=== PATIENT | female | born 1945 | race Caucasian/White ===

== ENCOUNTER 2020-03-29 15:18 | Outpatient (CLI) | payer MEDICARE, SELFPAY ==
--- NOTE | ~2020-03-29 | MM_ITS ---
EXAMINATION: MM screening [facility] BI w gisella HISTORY: Screening mammogram TECHNIQUE: Craniocaudal and mediolateral oblique 3-D tomosynthesis images were obtained and synthetic 2-D images were generated. CAD analysis was submitted and interpreted. COMPARISON: 11/23/2018, 01/21/2016 BREAST PARENCHYMAL COMPOSITION: There are scattered areas of fibroglandular density. FINDINGS: Scattered bilateral benign calcifications. Stable anterior lower inner quadrant right breas t circumscribed mass. There is no evidence of suspicious mass, calcification, or architectural distor tion to suggest malignancy in either breast. There has been no suspicious interval change. IMPRESSION: 1. No mammographic evidence of malignancy. 2. Recommend routine screening mammography in one year. BI-RADS Category 2: Benign finding(s). Reviewed, dictated and finalized at location A.
== END 2020-03-29 15:19 | disposition home or self-care (01) ==
LOC: ANHIMG 15:19
PROVIDERS: PCP Family Medicine; Visit Provider Physician Assistant
DX: Z12.31 Encounter for screening mammogram for malignant neoplasm of breast (principal)
CPT/HCPCS: 77063; 77067

== ENCOUNTER 2020-04-09 08:55 | Outpatient (CLI) | payer MEDICARE, SELFPAY ==
--- NOTE | ~2020-04-09 | XR_ITS ---
EXAMINATION: XR chest 2V DATE: 04/09/2020 09:44 INDICATION: Shortness of breath. TECHNIQUE: Frontal and lateral views of the chest were obtained. COMPARISON: Chest 2 views 04/13/2014 FINDINGS: There is mild atelectasis in right lower lung zone and left mid and lower lung zones. No pl eural effusion or pneumothorax. Cardiomegaly is noted. IMPRESSION: 1. Mild atelectasis bilaterally. 9 2. Cardiomegaly. Reviewed, dictated and finalized at location A.
--- NOTE | ~2020-04-09 | NM_ITS ---
EXAMINATION: NM yassine stress w perfusion DATE: 04/09/2020 13:54 INDICATION: Chest pain. TECHNIQUE: Rest images were obtained following intravenous administration of 11.6 mCi Tc99m tetrofosm in (Myoview). The patient was infused intravenously with Lexiscan (regadenoson). Then, 30 2. mCi Tc99 m tetrofosmin (Myoview) was administered intravenously, and stress images were obtained. Data was rec onstructed into short axis and horizontal and vertical long axis SPECT images. Gated SPECT images wer e also obtained. COMPARISON: None. FINDINGS: There is no definite reversible or fixed perfusion abnormality to suggest ischemia or infar ction. There is no segmental wall motion abnormality. Left ventricular ejection fraction measures 5 3%. IMPRESSION: 1. No definite ischemia or infarct. 2. Normal left ventricular ejection fraction measuring 53%. Reviewed, dictated and finalized at location A.
--- NOTE | 2020-04-09 09:38 | EST_ITS ---
Patient Info Name: Arpita Pop Age: 74 years : 1945 Gender: Female Ht: 60 in Wt: 180 lbs BSA: 1.90 m2 Exam Date: 04/09/2020 10:52 AM Exam Location: [facility] Stress Patient Status: Outpatient Admit Date: 04/09/2020 Staff Ordering Physician: Randall Chan PA-C Attending Provider: Randall Chan PA-C Referring Physician: Jarrett, Oswaldo Roach ; Exercise Technologist: Coral Cortez RDCS Exercise Physician: Jerry Falk DO Exam Type: CA stress yassine w NM Study Info Indications R07.89 - Other chest pain A regadenoson stress test was performed. Summary 1. 1. Negative lexiscan stress test for ischemic ST changes by ECG criteria. 2. 2. Baseline hypertension. Underlying atrial fibrillation. 3. 3. Nuclear scan to follow and will be reported separately. Please correlate with it. 4. 4. Patient informed of the above results. Protocol: Lexiscan Stress ECG Details Stage: REST Duration (min): 10 min : 9 sec HR (bpm): 122 SBP (mmHg): 157 DBP (mmHg): 111 Stage: REST Duration (min): 11 min : 32 sec HR (bpm): 113 SBP (mmHg): 157 DBP (mmHg): 111 Stage: REST Duration (min): 15 min : 35 sec HR (bpm): 93 SBP (mmHg): 157 DBP (mmHg): 111 Stage: STAGE 1 Duration (min): 1 min : 0 sec HR (bpm): 97 SBP (mmHg): 188 DBP (mmHg): 111 Stage: RECOVERY Duration (min): 1 min : 0 sec HR (bpm): 123 SBP (mmHg): 188 DBP (mmHg): 111 Stage: RECOVERY Duration (min): 2 min : 0 sec HR (bpm): 122 SBP (mmHg): 188 DBP (mmHg): 111 Stage: RECOVERY Duration (min): 3 min : 0 sec HR (bpm): 127 SBP (mmHg): 179 DBP (mmHg): 103 Stage: RECOVERY Duration (min): 3 min : 14 sec HR (bpm): 109 SBP (mmHg): 179 DBP (mmHg): 103 Rest HR: 93 bpm Peak HR: 134 bpm Rest Sys BP: 157 mmHg Peak Sys BP: 188 mmHg Max Pred HR: 145 bpm % Max Pred HR: 92 % Target HR: 123 bpm Max RPP: 25,192 bpm*mmHg Termination Reason: Completed protocol Cardiac Symptoms: None Total Time: 1 min : 0 sec Rest Lowe BP: 111 mmHg Peak Lowe BP: 111 mmHg Total Dose: 0.4 mg Resting ECG Atrial fibrillation, HR range 90-[address]pm. Stress ECG No ST changes. Arrhythmias None. Report Signatures
== END 2020-04-09 08:56 | disposition home or self-care (01) ==
PROVIDERS: PCP Family Medicine; Visit Provider Physician Assistant
DX: R07.9 Chest pain, unspecified (principal); R06.02 Shortness of breath; J98.11 Atelectasis; I51.7 Cardiomegaly
CPT/HCPCS: 71046; 78452; 93017; A9502; J2785

== ENCOUNTER 2020-04-26 08:23 | Outpatient (CLI) | payer MEDICARE, SELFPAY ==
--- NOTE | 2020-04-26 08:37 | ECHO_ITS ---
Patient Info Name: Arpita Pop Age: 75 years : 1945 Gender: Female Ht: 60 in Wt: 175 lbs BSA: 1.87 m2 HR: 99 bpm BP: 179 / 100 mmHg Heart Rhythm: Atrial Fibrillation Exam Date: 04/26/2020 9:05 AM Exam Location: [facility] Patient Status: Outpatient Admit Date: 04/26/2020 Staff Ordering Physician: Jerry Falk DO Customer Orders Clerk: Buffy Fontana RDCS Attending Provider: Jerry Falk DO Exam Type: CA echo doppler color flow Study Info Indications R06.00 - Dyspnea, unspecified Complete two-dimensional, color flow and Doppler transthoracic echocardiogram is performed. Summary 1. Left ventricular chamber dimension is normal. 2. Left ventricular systolic function is normal, estimated at 60-65%. 3. There is mildly increased left ventricular wall thickness. 4. The left ventricular diastolic function is abnormal. 5. E/e' 15 is elevated. 6. Patient is probably in atrial fibrillation. 7. Left atrial chamber dimension is moderately enlarged. 8. Right atrial chamber dimension is mildly enlarged. 9. The mitral valve has mildly calcified annulus. 10. There is mild to moderate mitral valve regurgitation. 11. There is moderate to severe tricuspid valve regurgitation. 12. Moderate pulmonary hypertension, estimated pulmonary arterial systolic pressure is 54 mmHg. Left Ventricle E/e' 15 is elevated. Patient is probably in atrial fibrillation. Left ventricular chamber dimension is normal. Left ventricular systolic function is normal, estimated at 60-65%. There is mildly increased left ventricular wall thickness. The left ventricular diastolic function is abnormal. Right Ventricle Right ventricular chamber dimension is normal. Right ventricular systolic function is normal. Left Atria Left atrial chamber dimension is moderately enlarged. Right Atria Right atrial chamber dimension is mildly enlarged. Aortic Valve The aortic valve is trileaflet. There is no aortic valve stenosis. There is no aortic valve regurgitation. Pulmonic Valve There is no pulmonic regurgitation. Mitral Valve The mitral valve has mildly calcified annulus. There is no mitral valve stenosis. There is mild to moderate mitral valve regurgitation. Tricuspid Valve There is moderate to severe tricuspid valve regurgitation. Moderate pulmonary hypertension, estimated pulmonary arterial systolic pressure is 54 mmHg. Pericardium/Pleural There is no pericardial effusion. Inferior Vena Cava Normal inferior vena cava with >50% collapse upon inspiration consistent with normal right atrial pressure, 5 mmHg. Aorta The aortic root size at the sinus of Valsalva is normal. Left Ventricular Outflow Tract Name Value Normal LVOT 2D LVOT Diameter 1.7 cm LVOT Doppler LVOT Peak Gradient 3 mmHg LVOT Mean Gradient 1 mmHg LVOT VTI 19 cm LVOT VTI/AV VTI Ratio 0.7 LVOT Stroke Volume 45 ml LVOT CO 7.7 l/min LVOT CI
== END 2020-04-26 08:24 | disposition home or self-care (01) ==
PROVIDERS: PCP Family Medicine; Visit Provider Internal Medicine Cardiovascular Disease
DX: R06.00 Dyspnea, unspecified (principal)
CPT/HCPCS: 93306

== ENCOUNTER 2020-09-08 16:07 | Inpatient (IN) | payer MEDICARE, SELFPAY ==
--- NOTE | ~2020-09-08 | XR_ITS ---
EXAMINATION: XR chest PICC line INDICATION: PICC insertion TECHNIQUE: Portable AP chest at 1504 hours COMPARISON: 0511 hours FINDINGS: A right upper extremity PICC has been inserted which ends with its tip in the distal superi or vena cava. There is stable cardiomegaly. Diffuse airspace opacities persist throughout all lung zo juan a with slight interval improvement. No pleural effusion or pneumothorax is identified. IMPRESSION: 1. Right upper extremity PICC ending with its tip in the distal superior vena cava. 2. Diffuse lung disease with slight improvement, consistent with pneumonia and/or pulmonary edema and /or acute respiratory distress syndrome (ARDS). Reviewed, dictated and finalized at location A. R OPERATOR IMPRESSION: 1. Right upper extremity PICC ending with its tip in the distal superior vena c sue. 2. Diffuse lung disease with slight improvement, consistent with pneumonia and/ or pulmonary edema and/or acute respiratory distress syndrome (ARDS).
--- NOTE | ~2020-09-08 | XR_ITS ---
EXAMINATION: XR abdomen NG/feed tube insert INDICATION: Nasogastric tube placement TECHNIQUE: Portable AP KUB-NG at 2236 hours COMPARISON: 04/08/2019 FINDINGS: The tip of nasogastric tube is in the stomach. The proximal side port is near the gastroeso phageal junction. Cardiomegaly is noted. Patchy airspace opacities are noted. IMPRESSION: 1. Tip of the nasogastric tube in the stomach with proximal side port near the gastroesophageal junct ion. Recommend advancing. 2. Cardiomegaly. Reviewed, dictated and finalized at location A. WEIGHER IMPRESSION: 1. Tip of the nasogastric tube in the stomach with proximal side port near the gastroesophageal junction. Recommend advancing. 2. Cardiomegaly.
--- NOTE | ~2020-09-08 | CT_ITS ---
EXAMINATION: CT abdomen pelvis w con DATE: 09/08/2020 18:45 INDICATION: Right upper quadrant pain TECHNIQUE: Computed tomography (CT) of the abdomen and pelvis was performed with 160 cc Omnipaque 350 intravenous contrast. The dose-length product was 1197.38 mGy-cm. Automated exposure control and ite rative reconstruction technique were employed. COMPARISON: CT dated 11/28/2019. FINDINGS: There are patchy bibasilar infiltrates of the lungs, suspicious for pneumonia. Cardiomegaly . No significant pleural or pericardial effusion. There is atherosclerosis. The liver, spleen, adrenal glands and spleen are normal. Kidneys are within normal limits. There are pancreatic calcifications, consistent with chronic pancreatitis. There is severe stenosis of the SMA at the origin. Nonobstructive bowel gas pattern. Colonic diverticulosis without evidence for divertic ulitis. Nonobstructive bowel gas pattern. No abnormal pelvic masses or fluid collections. Bladder is unremarkable. Severe lower thoracic and lumbar spine. There are advanced degenerative changes of the hips. There is a stimulator lead extending into the pelvis via transsacral root. IMPRESSION: 1. Bibasilar patchy infiltrates, consistent with pneumonia. Edema less favored. 2: Cardiomegaly. 3: Severe stenosis at the origin of the SMA. 4: Chronic pancreatitis. Reviewed, dictated and finalized at location A.
--- NOTE | ~2020-09-08 | XR_ITS ---
XR chest 1V portable 09/08/2020 20:18 Indication: Nausea and diarrhea Procedure: AP portable chest Comparison: Comparison to multiple prior studies sequentially, with oldest reviewed study dated 05/2009. Findings: The medullary. Right basilar infiltrates. No pleural effusion, edema or pneumothorax. Impression: 1: Right basilar infiltrates, atelectasis versus pneumonia. 2: Cardiomegaly. Reviewed, dictated and finalized at location A. Impression: 1: Right basilar infiltrates, atelectasis versus pneumonia. 2: Cardiomegaly.
--- NOTE | ~2020-09-08 | XR_ITS ---
EXAMINATION: XR chest 1V portable INDICATION: Shortness of breath, COVID 19 TECHNIQUE: Portable AP chest at 0511 hours COMPARISON: 09/08/2020 FINDINGS: There are diffuse opacities throughout all lung zones which demonstrates interval worsening . Cardiomegaly is noted. There is no pleural effusion or pneumothorax. IMPRESSION: 1. . Diffuse lung disease, consistent with pneumonia and/or pulmonary edema and/or acute respiratory distress syndrome (ARDS). 2. Cardiomegaly. Reviewed, dictated and finalized at location A. THALENE OPERATOR HELPER IMPRESSION: 1. . Diffuse lung disease, consistent with pneumonia and/or pulmonary edema and /or acute respiratory distress syndrome (ARDS). 2. Cardiomegaly.
[2020-09-08 16:25] VITALS: BP 130/98; PULSE 60; RESP 16; TEMP 36.3; O2SAT 95
--- NOTE | 2020-09-08 16:49 | ED.GIBLEED ---
HPI - GI Bleed General Chief complaint: GI Bleed Stated complaint: DARK STOOLS Time Seen by Provider: 09/08/20 16:49 History of Present Illness HPI Narrative: 75 yo female a-fib, htn presents to the ED for abdominal pain. She reports that she has had severe epigastric pain for the past week. No radiation. Associated with anorexia and dark stools. She reports that she has not been able to eat for 4 days. She has nt been taking any medications either. She does have some SOB as well. No vomiting, fever, chest pain. Related Data Allergies Allergy/AdvReac Type Severity Reaction Status Date / Time acetaminophen Allergy Severe HIVES Verified 09/04/20 14:13 propoxyphene Allergy Severe HIVES Verified 09/04/20 14:13 amoxicillin Allergy Unknown Nausea Verified 09/04/20 14:13 clindamycin Allergy Unknown Unknown Verified 09/04/20 14:13 codeine Allergy Unknown but Verified 09/04/20 14:13 tolerates hydrocodone donepezil Allergy Unknown Unknown Verified 09/04/20 14:13 hydrochlorothiazide Allergy Unknown Skin Verified 09/04/20 14:13 Reaction latex Allergy Unknown Unknown Verified 09/04/20 14:13 lisinopril Allergy Unknown cough Verified 09/04/20 14:13 meloxicam Allergy Unknown ulcer Verified 09/04/20 14:13 olmesartan Allergy Unknown Unknown Verified 09/04/20 14:13 Penicillins Allergy Unknown Unknown Verified 09/04/20 14:13 spironolactone Allergy Unknown hyperkalemi Verified 09/04/20 14:13 a Review of Systems Review of Systems: All systems reviewed & are unremarkable except as noted in HPI and below Constitutional: Constitutional: Denies fever(s) Cardiovascular: Cardiovascular: Denies chest pain Respiratory: Respiratory: Reports dyspnea Gastrointestinal: Gastrointestinal: Reports abdominal pain, Reports nausea and Denies vomiting Genitourinary: Genitourinary: Denies dysuria Endocrine: Endocrine: Denies polydipsia [facility], [facility] Past Medical History Medical History (Updated 09/08/20 @ 20:20 by Chuckie Aldana MD) Arthritis Atrial fibrillation Back pain COPD (chronic obstructive pulmonary disease) Degenerative disc disease GERD (gastroesophageal reflux disease) Hypertension Osteoporosis Peripheral neuropathy Right renal artery stenosis Sleep apnea SMA stenosis TIA (transient ischemic attack) x3 Ulcer Surgical History Surgical History H/O Spinal surgery H/O: hysterectomy History of bladder suspension procedure History of carpal tunnel release bilateral History of orthopedic surgery heel spurs, bilateral bunionectomy Hx of appendectomy Hx of cataract surgery Hx of cholecystectomy Family History Family History Father Diabetes mellitus Family history of mental disorder Hypertension Family history of elevated blood lipids Family history of cardiovascular disease Cerebrovascular accident Mother Diabetes mellitus Family history of mental disorder Hypertension Family history of elevated blood lipids Family history of cardiovascular disease Cerebrovascular accident Social History Social History Smoking end date: 11/09/88 Alcohol intake: current Exam Const: General: no acute distress and alert Nutritional Appearance: obese Orientation/consciousness: patient oriented x3 HENMT: Head: normal to inspection Resp: Effort & Inspection: tachypneic Auscultation: clear to auscultation bilaterally Cardio: Rate: regular rate Rhythm: regular rhythm GI: Inspection: non-distended GI Palp: Yes Soft to palpation and Yes Tenderness to palpation present (GI) (epigastric, RUQ) Skin: General skin exam: normal color Neuro: General: patient oriented x3 Extrem: General: no edema Course Vital Signs Vital signs: Vital Signs Temperature 36.3 C L 09/08/20 16:25 Pulse Rate 60 09/08/20 16:25 Respiratory Rate 16 1
[2020-09-08 16:53] LABS: Basophils Percent Auto 0.2 % (0.2-1.2); Hematocrit 47.2 % (37.0-47.0); Immature Granulocyte Absolute 0.01 K/mm3 (0.00-0.031); Immature Granulocyte Percent A 0.2 % (0-0.5); Lymphocytes Absolute Auto 0.81 K/mm3 (0.9-3.2); Lymphocytes Percent Auto 19.9 % (18.3-44.2); Mean Corpuscular HGB Conc 33.9 g/dl (32-36); Mean Corpuscular Hemoglobin 30.1 pg (26-34); Mean Corpuscular Volume 88.9 fl (80-100); Mean Platelet Volume 10.1 fl (7.4-10.4); Monocytes Absolute Auto 0.5 K/mm3 (0.1-0.6); Monocytes Percent Auto 12.5 % (2.6-8.5); Neutrophils Absolute Auto 2.7 K/mm3 (1.3-6.7); Neutrophils Percent Auto 67.2 % (45.5-73.1); Platelet Count Result 199 k/mm3 (150-375); Red Blood Count 5.31 M/mm3 (4.2-5.4); Red Cell Distribution Width 13.6 % (11.5-14.5); White Blood Count 4.1 K/mm3 (4.5-10.0)
[2020-09-08 17:03] LABS: INR 1.1; Prothrombin Time 13.7 Seconds (11.1-14.7)
[2020-09-08 17:04] LABS: Partial Thromboplastin Time 26.6 SECONDS (22.3-36.8)
[2020-09-08 17:05] LABS: Alanine Aminotransferase 32 U/L (4-35); Albumin Level 4.7 g/dL (3.5-5.1); Alkaline Phosphatase 103 U/L (38-126); Anion Gap 14 mmol/L (8-16); Aspartate Amino Transferase 77 U/L (14-36); Bilirubin,Total 1.1 mg/dL (0.2-1.3); Blood Urea Nitrogen 26 mg/dL (7-17); Calcium 9.7 mg/dL (8.4-10.2); Carbon Dioxide 30 mmol/L (22-30); Chloride 90 mmol/L (98-107); Estimated CRCL calculation 31 ml/min; Estimated Glomerular Filt Rate 37; Glucose 138 mg/dL (65-105); Potassium 3.6 mmol/L (3.4-5.0); Sodium 134 mmol/L (137-145)
[2020-09-08 17:45] VITALS: BP 181/94; PULSE 67; RESP 17; O2SAT 95
[2020-09-08] MEDS: SODIUM CHLORIDE 0.9% IV 1,000 ML 999 ML IV CONT (18:10)
[2020-09-08] MEDS: fentaNYL CITRATE INJ (*CRX) 100 MCG/2 ML VIAL 50 MCG IV PUSH (18:12)
[2020-09-08 18:30] VITALS: BP 188/98; PULSE 99; RESP 15; O2SAT 96
[2020-09-08 19:47] LABS: Lactic Acid Reflex 1.5 mmol/L (0.7-2.1)
[2020-09-08] MEDS: metroNIDAZOLE 500 MG/ISO 100ML 500 MG/100 ML BAG 100 MG IVPB (19:52)
[2020-09-08 19:57] VITALS: BP 158/86; PULSE 88; RESP 18; O2SAT 99
[2020-09-08 20:29] LABS: Lipase 86 U/L (23-300)
[2020-09-08 21:15] VITALS: BP 179/125; PULSE 130; RESP 25; TEMP 37.2; O2SAT 93; BMI 35.3
--- NOTE | 2020-09-08 21:15 | ADMGEN ---
This patient, Arpita Pop, was admitted to 3 Med Surg Room 320-01. Patient/family oriented to hospital policies and general routines including ID bracelet, bed and alarms, visiting hours, pain management, procedures, bathroom and other care routines, personal items, smoking policy, room service/diet, and visiting hours. Information on how to activate the Rapid Response Team has been discussed. Patient/Family are encouraged to report perceived risks to care and to ask questions if they do not understand what they are told or what they should do.
[2020-09-08 21:16] VITALS: BP 159/86; PULSE 88; RESP 18; TEMP 36.8; O2SAT 97
[2020-09-08] MEDS: LACTATED RINGERS 1,000 ML 150 ML IV CONT (22:05)
[2020-09-08] MEDS: HYDROmorphone HCL INJ (*CRX) 1 MG/ML SYR 0.5 MG IV PUSH (22:06)
[2020-09-08] MEDS: ONDANSETRON INJ 4 MG/2 ML VIAL IV PUSH (22:10)
[2020-09-08] MEDS: hydrALAZINE HCL 20 MG/ML VIAL 10 MG IV PUSH (23:20)
[2020-09-09] VITALS (15 sets, daily range): BP systolic 131–261; BP diastolic 72–134; PULSE 80–128; RESP 20–24; TEMP 36.6–37.6; O2SAT 90–94
--- NOTE | 2020-09-09 00:12 | PC.NURSE ---
Pt does not know home meds. States she has not taken any of them this week as she thought it would make her sicker. States her meds went home with her . Called spouse's number listed as [phone] and left voicemail.
--- NOTE | 2020-09-09 00:59 | ECG_ITS ---
Measurements Intervals [place] Rate: 129 P: IA: 312 QRS: 33 QRSD: 86 T: 109 QT: 264 QTc: 387 Interpretive Statements PROBABLY ATRIAL FIBRILLATION WITH RAPID VENTRICULAR RESPONSE (SIGNIFICANT BASELINE ARTIFACT) NONSPECIFIC ST & T-WAVE ABNORMALITY- HIGH LATERAL LEADS BASELINE ARTIFACT- I, II, III, AVR, AVL, AVF, V1-V6 ABNORMAL ECG Electronically Signed On 09-09-2020 7:13:49 [employer]OVELTY CHAIN [employer] by Jerry Falk D.O.
[2020-09-09] MEDS: ONDANSETRON INJ 4 MG/2 ML VIAL IV PUSH ×2 (01:36→08:26)
[2020-09-09] MEDS: METOPROLOL TARTRATE INJ 5 MG/5 ML VIAL IV PUSH ×3 (01:36→23:25)
[2020-09-09] MEDS: HYDROmorphone HCL INJ (*CRX) 1 MG/ML SYR 0.5 MG IV PUSH ×3 (01:37→23:25)
--- NOTE | 2020-09-09 01:40 | PC.NURSE ---
Daylight Savings Time For Daylight Savings Time Ending in the Fall - Clocks are moved back. For Daylight Savings Time Beginning in the Spring - Clocks are moved ahead. For [facility], the time of change occurs at 0200 hrs. Time is taken from the weather observer. This entry on the patient's chart recognizes the change in time reflected during documentation. Example: 2 entries for vital signs may be charted for 0200 hrs.
[2020-09-09] MEDS: HEPARIN SOD/D5W 100 UNITS/ML 25,000 UNITS/250 ML BAG 7 UNITS IV CONT (01:43)
[2020-09-09] MEDS: HEPARIN SODIUM 5,000 UNITS/ML VIAL 3500 UNITS IV PUSH (01:44)
[2020-09-09 01:55] LABS: Basophils Percent Auto 0.2 % (0.2-1.2); Hematocrit 44.9 % (37.0-47.0); Hemoglobin 15.1 g/dL (12.0-15.0); Immature Granulocyte Absolute 0.01 K/mm3 (0.00-0.031); Immature Granulocyte Percent A 0.2 % (0-0.5); Lymphocytes Absolute Auto 0.78 K/mm3 (0.9-3.2); Lymphocytes Percent Auto 16.3 % (18.3-44.2); Mean Corpuscular HGB Conc 33.6 g/dl (32-36); Mean Corpuscular Hemoglobin 29.8 pg (26-34); Mean Corpuscular Volume 88.7 fl (80-100); Mean Platelet Volume 10.2 fl (7.4-10.4); Monocytes Absolute Auto 0.3 K/mm3 (0.1-0.6); Monocytes Percent Auto 7.1 % (2.6-8.5); Neutrophils Absolute Auto 3.6 K/mm3 (1.3-6.7); Neutrophils Percent Auto 76.2 % (45.5-73.1); Platelet Count Result 182 k/mm3 (150-375); Red Blood Count 5.06 M/mm3 (4.2-5.4); Red Cell Distribution Width 13.7 % (11.5-14.5); White Blood Count 4.8 K/mm3 (4.5-10.0)
[2020-09-09 02:03] LABS: INR 1.2; Prothrombin Time 14.8 Seconds (11.1-14.7)
[2020-09-09 02:04] LABS: Partial Thromboplastin Time 61.9 SECONDS (22.3-36.8)
[2020-09-09] MEDS: cloNIDine 0.2 MG/24 HR PATCH 1 PATCH TRANSDERM (03:41)
[2020-09-09] MEDS: hydrALAZINE HCL 20 MG/ML VIAL IV PUSH (04:19)
[2020-09-09] MEDS: LACTATED RINGERS 1,000 ML 150 ML IV CONT ×2 (04:19→12:35)
--- NOTE | 2020-09-09 04:23 | PM.IMHP ---
H&P: HPI History of Present Illness Date/Time: 09/09/20 02:50 Chief complaint: Pneumonia, pancreatitis Narrative: Source of information: ER records and past medical records. Patient was only able to provide minimal information due to her dementia and severe hearing loss. Arpita Pop is a 75 year old female with a past medical history of chronic pancreatitis, severe SMA stenosis, dementia and hypertension who presented to the ER 1 week and nausea and vomiting for 4 days. Is in the epigastric area. In the ER the patient was reported the pain is severe and would scream out that her belly hurts. She had associated the symptoms with some dark stools. She had had generalized loss of appetite and nausea and vomiting. At the time of my evaluation the patient had an emesis bag at bedside that contained a small amount of bilious emesis. He has not had any recent travel or recent ill contacts. I am unable to determine if the patient has had any change in her bowel habits as she fell asleep multiple times when I was trying to obtain the information and she had difficulty understanding me due to her hearing loss. Patient has not had a bowel movement since admission. She has remained afebrile. Her CT does demonstrate evidence of chronic pancreatitis. She indicates that her abdominal pain is cross and tire epigastric region. Her pain is not reproducible to palpation. The she has not had any cough or congestion for ER records. She has been having some mild shortness of breath. She does have a history of moderate pulmonary hypertension but has no evidence of lower extremity swelling. Have difficulty with chronic pain has a stimulator extending into the pelvis via a trans sacral root. This stimulator causes artifact on her EKGs. The patient has chronically uncontrolled hypertension. She has been noncompliant with her home medications for at least the last 4 days. She reported to the ER staff that her medications ?make me sick.? Review of Systems Review of Systems: ROS unobtainable: Yes unobtainable due to medical condition (Dementia and severe hearing loss) [facility] Past Medical History Medical History (Updated 09/09/20 @ 04:58 by Deann Leonard DO) Arthritis Atrial fibrillation Normal stress test April 2020 Back pain Bilateral renal artery stenosis Bilateral renal nurse to [facility] noted on CTA evaluated at [facility] neyda Farias December 2019 COPD (chronic obstructive pulmonary disease) Degenerative disc disease Dyslipidemia GERD (gastroesophageal reflux disease) Hypertension Moderate pulmonary arterial systolic hypertension Echocardiogram April 2020: EF 60-65%, normal diastolic function, atrial fibrillation, moderate left atrial enlargement, moderate to severe tricuspid valve regurgitation moderate pulmonary hypertension with RVSP of 54 Osteoporosis Peripheral neuropathy Sleep apnea Severe obstructive sleep apnea on polysomnogram October 2014 with recommended CPAP of 18 SMA stenosis TIA (transient ischemic attack) x3 Ulcer Urinary retention with incomplete bladder emptying Vascular dementia with behavior disturbance Surgical History Surgical History H/O Spinal surgery H/O: hysterectomy History of bladder suspension procedure History of carpal tunnel release bilateral History of orthopedic surgery heel spurs, bilateral bunionectomy Hx of appendectomy Hx of cataract surgery Hx of cholecystectomy Family History Family History Father Diabetes mellitus Hypertension Cerebrovascular accident Cardiovascular disease Hyperlipidemia Psychiatric illness Mother Diabetes mellitus Hypertension Cerebrovascular accident Psychiatric illness Cardiovascular disease Hyperlipidemia Social History Social History (Updated 09/09/20 @ 04:47 by Deann Leonard DO) Social History: Primary care physic
[2020-09-09] MEDS: hydrALAZINE HCL 20 MG/ML VIAL 10 MG IV PUSH (06:08)
[2020-09-09 07:56] LABS: Lactic Acid Reflex 1.3 mmol/L (0.7-2.1)
[2020-09-09 07:57] LABS: Alanine Aminotransferase 28 U/L (4-35); Albumin Level 3.9 g/dL (3.5-5.1); Alkaline Phosphatase 90 U/L (38-126); Anion Gap 11 mmol/L (8-16); Aspartate Amino Transferase 68 U/L (14-36); Bilirubin,Total 0.8 mg/dL (0.2-1.3); Blood Urea Nitrogen 18 mg/dL (7-17); Calcium 8.8 mg/dL (8.4-10.2); Carbon Dioxide 30 mmol/L (22-30); Chloride 92 mmol/L (98-107); Estimated CRCL calculation 49 ml/min; Estimated Glomerular Filt Rate > 60; Glucose 139 mg/dL (65-105); Sodium 133 mmol/L (137-145)
[2020-09-09 08:10] LABS: Partial Thromboplastin Time 65.8 SECONDS (22.3-36.8)
[2020-09-09] MEDS: METOPROLOL TARTRATE INJ 5 MG/5 ML VIAL 10 MG IV PUSH (08:25)
[2020-09-09] MEDS: PANTOPRAZOLE SODIUM IV 40 MG VIAL IV PUSH ×2 (08:26→20:14)
[2020-09-09 10:09] LABS: D Dimer 1.11 ug/mL (<0.48)
--- NOTE | 2020-09-09 10:24 | PM.DS ---
DS: Admitting Diagnosis Admitting Diagnosis Admitting Diagnosis: Pneumonia, pancreatitis DS: Discharge Diagnosis Discharge Diagnosis (1) Pneumonia: Qualifiers: Laterality: bilateral Lung location: lower lobe of lung Pneumonia type: due to unspecified organism Qualified Code(s): J18.9 - Pneumonia, unspecified organism Code(s): J18.9 - Pneumonia, unspecified organism Status: Acute Assessment and Plan: Possibly due to aspiration given multiple days of vomiting. Patient is on antibiotic therapy with azithromycin, Rocephin and Flagyl. COVID-19 testing is pending patient is on isolation. (2) Pancreatitis: Qualifiers: Chronicity: chronic Pancreatitis type: unspecified pancreatitis type Qualified Code(s): K86.1 - Other chronic pancreatitis Code(s): K85.90 - Acute pancreatitis without necrosis or infection, unspecified Status: Acute Assessment and Plan: The patient's epigastric abdominal pain could be due to pancreatitis verses SMA stenosis. 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 At this point I suspect the patient's symptoms are more due to pancreatitis, gastritis, or dyskinesia. 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 Given that she is NPO place patient on heparin drip per protocol. (4) Hypertensive urgency: Code(s): I16.0 - Hypertensive urgency Status: Acute Assessment and Plan: Likely in part due to rebound hypertension is patient has not received any of her antihypertensives in several days including her clonidine. Will place patient on IV Lopressor scheduled and IV hydralazine p.r.n. as well as start the patient on a clonidine patch 0.2 mg. DS: Summary Time Spent with Patient Time attestation: Total time spent providing and/or coordinating discharge services: Exam Narrative: Exam Narrative: PHYSICAL EXAM: WEIGHT 82 kg BMI 35.3 General: Obese, no acute distress, lying flat on her back sleeping HEENT: Mucous membranes are dry, poor dentition, head is normocephalic atraumatic, large neck circumference Respiratory: Clear to auscultation bilaterally, no increased work of breathing, witnessed apnea with sleep Cardiovascular: Regular rate, irregular rhythm, heart sounds difficult to auscultate due to mechanical click Gastrointestinal: Obese, patient reports tenderness when she is awake but does not have any obvious tenderness to palpation while asleep, positive bowel sounds, soft Skin: Generalized pallor, non jaundice Musculoskeletal: Trace lower extremity edema, no clubbing or cyanosis Neurological: Somnolent, moderate to severe hearing loss, alert and oriented to person and place further orientation questions were difficult due to hearing loss Psychiatric: Irritable, but otherwise cooperative, forgetful : Deferred Hematologic/lymphatic: No petechiae, bruising or significant lymphadenopathy Const: General: no acute distress and alert Nutritional Appearance: obese Orientation/consciousness: patient oriented x3 HENMT: Head: normal to inspection Resp: Effort & Inspection: tachypneic Auscultation: clear to auscultation bilaterally Cardio: Rate: regular rate Rhythm: regular rhythm GI: Inspection: non-distended Skin: General skin exam: normal color Neuro: General: patient oriented x3 Extrem: General: no edema DS: Data Data Completed and Pending Labs on day of discharge: Labs from last 24 hours 09/09/20 09/09/20 09/09/20 07:38 07:38 07:38 WBC RBC Hgb Hct MCV MCH MCHC RDW Plt Count MPV Immature Gran % (Auto) Neut % (Auto) Lymph % (Auto) [place] % (Auto) Eos % (Auto) Baso % (Auto) Lymph # (Auto) [place] # (Auto) Eos # (Auto) Baso # (Auto) Abs Immat Gran (auto) Abs
[2020-09-09 10:30] LABS: Basophils Percent Auto 0.2 % (0.2-1.2); Hematocrit 40.5 % (37.0-47.0); Hemoglobin 13.6 g/dL (12.0-15.0); Immature Granulocyte Absolute 0.01 K/mm3 (0.00-0.031); Immature Granulocyte Percent A 0.2 % (0-0.5); Lymphocytes Absolute Auto 0.61 K/mm3 (0.9-3.2); Lymphocytes Percent Auto 12.7 % (18.3-44.2); Mean Corpuscular HGB Conc 33.6 g/dl (32-36); Mean Corpuscular Hemoglobin 29.6 pg (26-34); Mean Platelet Volume 10.5 fl (7.4-10.4); Monocytes Absolute Auto 0.4 K/mm3 (0.1-0.6); Monocytes Percent Auto 7.3 % (2.6-8.5); Neutrophils Absolute Auto 3.8 K/mm3 (1.3-6.7); Neutrophils Percent Auto 79.6 % (45.5-73.1); Platelet Count Result 177 k/mm3 (150-375); Red Cell Distribution Width 13.6 % (11.5-14.5); White Blood Count 4.8 K/mm3 (4.5-10.0)
[2020-09-09 10:40] LABS: INR 1.2
[2020-09-09 10:48] LABS: NT Pro B Type Natriuretic Pept 2200 PG/ML (5-100)
[2020-09-09 13:10] LABS: SARS-CoV-2 RNA PCR Positive
[2020-09-09 14:17] LABS: Creatine Kinase 447 U/L (30-135)
[2020-09-09 14:20] LABS: Creatine Kinase 666 U/L (30-135)
[2020-09-09 14:53] LABS: Creatine Kinase MB 1.9 ng/mL (0.0-2.37); Troponin I 0.126 ng/mL (0.000-0.034)
[2020-09-09 14:54] LABS: Creatine Kinase MB 3.1 ng/mL (0.0-2.37); Troponin I 0.037 ng/mL (0.000-0.034)
--- NOTE | 2020-09-09 15:07 | PC.NURSE ---
Contacted Dr. Falk with Cardiology with [facility] ([place]). I reported this patient's critiical troponin results to him. The 0730 results were 0.037 and 1352 results were 0.126. He gave no new orders and said she was still ok to be transferred to [facility]..
[2020-09-09 16:31] LABS: Magnesium 1.8 mg/dL (1.6-2.3); Phosphorus 3.8 mg/dL (2.5-4.5)
[2020-09-09 19:23] LABS: Anion Gap 9 mmol/L (8-16); Blood Urea Nitrogen 23 mg/dL (7-17); Calcium 8.5 mg/dL (8.4-10.2); Carbon Dioxide 29 mmol/L (22-30); Chloride 94 mmol/L (98-107); Estimated CRCL calculation 40 ml/min; Estimated Glomerular Filt Rate 54; Glucose 114 mg/dL (65-105); Partial Thromboplastin Time 67.2 SECONDS (22.3-36.8); Potassium 3.7 mmol/L (3.4-5.0); Sodium 132 mmol/L (137-145)
[2020-09-09 19:38] LABS: Troponin I 0.132 ng/mL (0.000-0.034)
[2020-09-09] MEDS: HEPARIN SODIUM 5,000 UNITS/ML VIAL 2500 UNITS IV PUSH (20:15)
--- NOTE | 2020-09-09 21:29 | PM.IMPN ---
Progress Note: A&P Assessment and Plan (1) Pneumonia: Qualifiers: Laterality: bilateral Lung location: lower lobe of lung Pneumonia type: due to unspecified organism Qualified Code(s): J18.9 - Pneumonia, unspecified organism Code(s): J18.9 - Pneumonia, unspecified organism Status: Acute Assessment and Plan: Possibly due to aspiration given multiple days of vomiting. Patient is on antibiotic therapy with azithromycin, Rocephin and Flagyl. COVID-19 testing is pending patient is on isolation. Covid rule out became COVID +. CXR on 09/08 showed: Right basilar infiltrates. No pleural effusion, edema or pneumothorax.Cardiomegaly. no wheezing, no cough, no fever, WBC wnl. on room air no COPD home meds. chronic history of Afib check LDH and Ferritin tomorrow morning, repeat labs. continue Heparin drip (2) Pancreatitis: Qualifiers: Chronicity: chronic Pancreatitis type: unspecified pancreatitis type Qualified Code(s): K86.1 - Other chronic pancreatitis Code(s): K85.90 - Acute pancreatitis without necrosis or infection, unspecified Status: Acute Assessment and Plan: The patient's epigastric abdominal pain could be due to pancreatitis verses SMA stenosis. patient's SMA stenosis found in 2019, Severe stenosis at the origin of the SMA. lactic acid is stable, 1.5, 1.3 CT scan today showed chronic pancreatitis lipase 86 WBC 4.8 , no fevers noted. 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 hyperlipidemia history [facility] Interviews Intern Dr. Falk due to acute and severe level of pain, lack of anticoagulation at home, as well as severely elevated BPs due to rebound HTN - she is at risk and needs Vascular Surgery evaluation. ordered NG to low intermittent suction if patient has any emesis NPO status received a bolus and placed on continuous heparin drip per protocol. pain improving with dilaudid, but not resolving and still in pretty significant pain (4) Hypertensive urgency: Code(s): I16.0 - Hypertensive urgency Status: Acute Assessment and Plan: rebound hypertension patient has not received any of her antihypertensives in several days including her clonidine. patient on IV Lopressor scheduled with hold parameters nursing communication with BP and HR goals IV hydralazine p.r.n. clonidine patch 0.2 mg. BNP 2200 decreased her IVFs SBPs >180 overnight, but finally controlled today with SBPs 130-150s. (5) Lab test positive for detection of COVID-19 virus: Code(s): U07.1 - COVID-19 Status: Acute Assessment and Plan: CXR on 09/08 showed: Right basilar infiltrates. No pleural effusion, edema or pneumothorax.Cardiomegaly. no wheezing, no cough, no fever, WBC wnl. on room air no COPD home meds. chronic history of Afib monitor check LDH and Ferritin tomorrow morning, repeat labs. Subjective Date/time seen: 09/09/20 10:24 Arpita was examined this morning. She was resting in bed on her back, but persistently uncomfortable tossing and turning in bed restlessly. She complained of diffuse abdominal pain centralized upper and mid abdominal pain, as well as some epigastric pain. She denied constipation or diarrhea. She had a very difficult time understanding me with my mask on, due to her [place] and early level of dementia. I did speak call and speak to her Shawn who stated that his had been quite nauseated and vomiting for the last 4 days. He did admit that he had her stop driving about a year ago because he was concerned that she was having some early dementia, as well as her [place]. He did admit that she will sometimes order in purchase medications online or on TV that he does not know about. She also has
[2020-09-09] MEDS: metroNIDAZOLE 500 MG/ISO 100ML 500 MG/100 ML BAG 100 MG IVPB (22:00)
[2020-09-09] MEDS: FAMOTIDINE 20 MG/2 ML VIAL IV PUSH (22:00)
[2020-09-09] MEDS: LACTATED RINGERS 1,000 ML 100 ML IV CONT (23:26)
[2020-09-10] VITALS (19 sets, daily range): BP systolic 132–193; BP diastolic 68–98; PULSE 66–145; RESP 18–25; TEMP 36.8–38.3; O2SAT 88–94
--- NOTE | 2020-09-10 | ECHOL_ITS ---
Patient Info Name: Arpita Pop Age: 75 years : 1945 Gender: Female Ht: 60 in Wt: 181 lbs BSA: 1.90 m2 HR: 130 bpm BP: 156 / 80 mmHg Heart Rhythm: Atrial Fibrillation Technical Quality: Fair Exam Date: 09/10/2020 11:56 AM Exam Location: [facility] Patient Status: Inpatient Admit Date: 09/08/2020 Staff Ordering Physician: Jerry Falk DO Cloth Classer: David Sue ALONSO Attending Provider: Kary Collins NP Referring Physician: Dileep JIMENEZ; Exam Type: CA echo limited Study Info Indications I48.0 - Paroxysmal atrial fibrillation Limited two-dimensional transthoracic echocardiogram is performed. History/Risk Factors Pneumonia and chest pain; Covid +. Summary 1. Limited echocardiogram to assess for wall motion abnormalities. 2. Left ventricular chamber dimension is normal. 3. Left ventricular systolic function is normal, estimated at 65-70%. 4. The left ventricular diastolic function is indeterminate. 5. Patient is in atrial fibrillation. Left Ventricle Limited echocardiogram to assess for wall motion abnormalities. Patient is in atrial fibrillation. Left ventricular chamber dimension is normal. Left ventricular systolic function is normal, estimated at 65-70%. The left ventricular diastolic function is indeterminate. Pericardium/Pleural There is no pericardial effusion. Tricuspid Valve Name Value Normal TV Regurgitation Doppler TR Peak Velocity 293 cm/s TR Peak Gradient 28 mmHg Report Signatures
[2020-09-10 02:43] LABS: Basophils Percent Auto 0.5 % (0.2-1.2); Hematocrit 39.9 % (37.0-47.0); Hemoglobin 13.3 g/dL (12.0-15.0); Lymphocytes Absolute Auto 0.64 K/mm3 (0.9-3.2); Mean Corpuscular HGB Conc 33.3 g/dl (32-36); Mean Corpuscular Hemoglobin 29.8 pg (26-34); Mean Corpuscular Volume 89.5 fl (80-100); Mean Platelet Volume 10.5 fl (7.4-10.4); Monocytes Absolute Auto 0.2 K/mm3 (0.1-0.6); Neutrophils Absolute Auto 2.9 K/mm3 (1.3-6.7); Neutrophils Percent Auto 77.5 % (45.5-73.1); Platelet Count Result 167 k/mm3 (150-375); Red Blood Count 4.46 M/mm3 (4.2-5.4); Red Cell Distribution Width 13.6 % (11.5-14.5); White Blood Count 3.8 K/mm3 (4.5-10.0)
[2020-09-10 02:56] LABS: Alanine Aminotransferase 24 U/L (4-35); Albumin Level 3.3 g/dL (3.5-5.1); Alkaline Phosphatase 71 U/L (38-126); Anion Gap 5 mmol/L (8-16); Aspartate Amino Transferase 59 U/L (14-36); Bilirubin,Total 0.6 mg/dL (0.2-1.3); Blood Urea Nitrogen 21 mg/dL (7-17); Calcium 8.7 mg/dL (8.4-10.2); Carbon Dioxide 33 mmol/L (22-30); Chloride 93 mmol/L (98-107); Estimated CRCL calculation 44 ml/min; Estimated Glomerular Filt Rate > 60; Glucose 115 mg/dL (65-105); Lactate Dehydrogenase 656 U/L (313-618); Lipase 173 U/L (23-300); Partial Thromboplastin Time 128.9 SECONDS (22.3-36.8); Potassium 3.3 mmol/L (3.4-5.0); Sodium 131 mmol/L (137-145)
[2020-09-10] MEDS: HYDROmorphone HCL INJ (*CRX) 1 MG/ML SYR 0.5 MG IV PUSH ×4 (04:42→19:46)
[2020-09-10] MEDS: hydrALAZINE HCL 20 MG/ML VIAL 10 MG IV PUSH (04:42)
[2020-09-10] MEDS: METOPROLOL TARTRATE INJ 5 MG/5 ML VIAL IV PUSH ×4 (05:31→23:49)
[2020-09-10] MEDS: metroNIDAZOLE 500 MG/ISO 100ML 500 MG/100 ML BAG 100 MG IVPB ×3 (05:32→21:18)
--- NOTE | 2020-09-10 08:21 | PM.CNCAR ---
Assessment and Plan Assessment and plan (1) Lab test positive for detection of COVID-19 virus: Code(s): U07.1 - COVID-19 Status: Acute Assessment and Plan: Management per hospitalist. (2) Pneumonia: Qualifiers: Laterality: bilateral Lung location: lower lobe of lung Pneumonia type: due to unspecified organism Qualified Code(s): J18.9 - Pneumonia, unspecified organism Code(s): J18.9 - Pneumonia, unspecified organism Status: Acute Assessment and Plan: Probably COVID 19 related or community acquired pneumonia. On IV antibiotics. (3) Atrial fibrillation: Code(s): I48.91 - Unspecified atrial fibrillation Status: Acute Assessment and Plan: Due rapid atrial fib, would recommend starting Cardizem drip as her BP is also high. (4) SMA stenosis: Code(s): I77.1 - Stricture of artery Status: Acute Assessment and Plan: Apparently awaiting a bed as she is going to be transferred to [facility] for vascular surgery evaluation. (5) Essential (primary) hypertension: Code(s): I10 - Essential (primary) hypertension Status: Acute Assessment and Plan: High. Would start Cardizem drip. Continue with Hydralazine 10 mg IV prn. (6) Obstructive sleep apnea (adult) (pediatric): Code(s): G47.33 - Obstructive sleep apnea (adult) (pediatric) Status: Acute (7) Abdominal pain: Code(s): R10.9 - Unspecified abdominal pain Status: Acute Assessment and Plan: My differential includes COVID 19, PUD, SMA stenosis, chronic pancreatitis, or other, in that order. (8) Elevated troponin: Code(s): R77.8 - Other specified abnormalities of plasma proteins Status: Acute Assessment and Plan: Doubt ACS. Obtain limited echo to assess EF and for wall motion abnormality. Probably related to COVID 19/pneumonia. History of Present Illness History of Present Illness Consult date/time: 09/10/20 08:21 Reason for consult: Elevated troponins. 75 yr old woman who is my regular cardiology patient presents to hospital with severe abdominal pain with associated nausea and vomiting for 4 days. She has a history of dementia, SMA stenosis/YRN (being followed by [facility] vascular surgery), hypertension, dyslipidemia, HIRAM, hypertension (Lisinopril causes cough), atrial fibrillation diagnosed on 04/13/20 that is rate controlled and on Eliquis. History is difficult to obtain due to dementia and hard of hearing and she does not currently have her hearing aids. Currently patient reports feeling horrible: with a headache, thirsty and abdominal discomfort. Her abdominal pain is reproducible by palpation. She has been tested positive for COVID-19 on 09/08/20. Troponins trended up from .037 to .126 to .132. CXR shows right basilar infiltrate that could be pneumonia or atelectasis. CT abd shows bibasilar patchy infiltrates c/w pneumonia. Cardiomegaly and severe stenosis of origin of SMA. EKG shows atrial fib with RVR, nonspecific ST in high lateral leads. She is completely NPO. She had NG tube in until she pulled it out this morning. She is receiving heparin drip since Eliquis is on hold. She is receiving Clonidine patch for BP and Hydralazine IV prn, Metoprolol tartate 5 mg IV every 6 hours for rate control. Normally she has GIPSON walking with her cane only short distances. Denies chest pain, orthopnea, PND, edema. She does not use CPAP regularly for sleep. Cardiovascular studies: 04/26/20 Echo: EF 60-65%, mild LVH, diastolic dysfunction (E/e' 15), mod LAE, mild JIM, mild-mod MR, mod-severe TR, RVSP 54 mmHg. 04/09/20 Lexiscan myoview: Negative for ischemia. 04/09/20 CXR: Atelectasis. Cardiomegaly. 11/28/19 CT abdomen: Near occlusion SMA, severe stenosis of right renal artery. 04/13/20 EKG: Atrial fibrillation at 112 bpm, borderline ST-T wave in inf/lat leads, baseline artifact- I, II, III, AVF, AVR, AVL, V1-V6 11/28/19 EKG: Sinus rh
--- NOTE | 2020-09-10 08:36 | ECG_ITS ---
Measurements Intervals [place] Rate: 143 P: AR: 0 QRS: 27 QRSD: 82 T: 120 QT: 236 QTc: 365 Interpretive Statements ATRIAL FIBRILLATION WITH RAPID VENTRICULAR RESPONSE VENTRICULAR PREMATURE COMPLEX NONSPECIFIC ST & T-WAVE ABNORMALITY- DIFFUSE LEADS BASELINE ARTIFACT- I, II, III, AVR, AVL, AVF, V1-V6 ABNORMAL ECG Electronically Signed On 09-10-2020 8:57:08 ASSESSMENT MANAGER by Jerry Falk D.O.
[2020-09-10 09:07] LABS: Partial Thromboplastin Time 87.4 SECONDS (22.3-36.8)
[2020-09-10] MEDS: PANTOPRAZOLE SODIUM IV 40 MG VIAL IV PUSH ×2 (09:12→19:50)
[2020-09-10] MEDS: ONDANSETRON INJ 4 MG/2 ML VIAL IV PUSH ×2 (09:13→19:45)
[2020-09-10] MEDS: FAMOTIDINE 20 MG/2 ML VIAL IV PUSH ×2 (11:36→19:49)
--- NOTE | 2020-09-10 12:49 | PC.NURSE ---
This patient, Arpita Pop, was transferred to [ICU ] on 09/10/20 at 1250. Personal belongings sent with patient. Report given to [ SHERRIE]. Appropriate documentation sent with patient.
[2020-09-10] MEDS: LACTATED RINGERS 1,000 ML 100 ML IV CONT (14:01)
[2020-09-10] MEDS: HEPARIN SOD/D5W 100 UNITS/ML 25,000 UNITS/250 ML BAG 7 UNITS IV CONT (14:19)
[2020-09-10 15:24] LABS: Partial Thromboplastin Time 113.4 SECONDS (22.3-36.8)
[2020-09-10 17:01] LABS: Alanine Aminotransferase 23 U/L (4-35); Estimated CRCL calculation 64 ml/min; Estimated Glomerular Filt Rate > 60
[2020-09-10] MEDS: DEXAMETHASONE SOD PHOS INJ 4 MG/ML VIAL 6 MG IV PUSH (17:34)
--- NOTE | 2020-09-10 17:42 | PC.NURSE ---
Notified DR. Padilla of patient increase in temperature of 100.9. Pt has allergy to acetaminophen. New orders to continue to monitor
[2020-09-10] MEDS: REMDESIVIR 200 MG/NS 250 ML 200 MG/250 ML BAG 250 MG IVPB (17:48)
--- NOTE | 2020-09-10 19:12 | PC.NURSE ---
This patient, Arpita Pop, was received from [[id number]] on 09/10/20 at 1325. Personal belongings list checked and signed. Patient/family oriented to unit policies and routines Report received from BRENT Riddle @ [phone]
--- NOTE | 2020-09-10 19:34 | PM.IMPN ---
Progress Note: A&P Assessment and Plan (1) Pneumonia: Qualifiers: Laterality: bilateral Lung location: lower lobe of lung Pneumonia type: due to unspecified organism Qualified Code(s): J18.9 - Pneumonia, unspecified organism Code(s): J18.9 - Pneumonia, unspecified organism Status: Acute Assessment and Plan: Possibly due to aspiration given multiple days of vomiting. Or possibly due to COVID +. Patient is on antibiotic therapy with azithromycin, Rocephin and Flagyl. Treated with IV Remdesivir and dexamethasone. Trending LDH, Ferritin, AA, Lactic levels. Serial CXRs Q 3 days. Patient refusing IV Tylenol or Motrin, citing history of hives and upset GI as reasons for avoiding them. COVID-19 + and on isolation. CXR on 09/08 showed: Right basilar infiltrates. No pleural effusion, edema or pneumothorax.Cardiomegaly. no wheezing, no cough, fevers started today, WBC dropping. started on 1-2 L O2 NC today no COPD home meds. chronic history of Afib (2) Pancreatitis: Qualifiers: Chronicity: chronic Pancreatitis type: unspecified pancreatitis type Qualified Code(s): K86.1 - Other chronic pancreatitis Code(s): K85.90 - Acute pancreatitis without necrosis or infection, unspecified Status: Acute Assessment and Plan: The patient's epigastric abdominal pain could be due to pancreatitis verses SMA stenosis. patient's SMA stenosis found in 2019, Severe stenosis at the origin of the SMA. lactic acid is stable, 1.5, 1.3 CT scan today showed chronic pancreatitis lipase 86 and 173 WBC 4.8 , no fevers noted. 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 patient has been noncompliant with her chronic anticoagulants. hyperlipidemia history Patient Assistant Dr. Falk consulted due to acute persistent severe level of pain, lack of anticoagulation at home, as well as severely elevated BPs due to rebound HTN - she is at risk and needs Vascular Surgery evaluation. ordered NG to low intermittent suction if patient has any emesis strict NPO status received a bolus and placed on continuous heparin drip per protocol. pain improving with dilaudid, but not resolving and still in pretty significant pain on Azithro, Rocephin, Flagyl antibiotics. on Protonix BID (4) Hypertensive urgency: Code(s): I16.0 - Hypertensive urgency Status: Acute Assessment and Plan: due to lack of meds, rebound hypertension and Afib with RVR patient has not received any of her antihypertensives in several days including her clonidine. patient on IV Lopressor scheduled with hold parameters nursing communication with BP and HR goals IV hydralazine p.r.n. clonidine patch 0.2 mg. BNP 2200 decreased her IVFs to maintenance dueto SBPs >180 overnight, but finally controlled today with SBPs 130-150s. (5) Lab test positive for detection of COVID-19 virus: Code(s): U07.1 - COVID-19 Status: Acute Assessment and Plan: CXR on 09/08 showed: Right basilar infiltrates. No pleural effusion, edema or pneumothorax.Cardiomegaly. no wheezing, no cough, no fever, WBC wnl. on room air no COPD home meds. chronic history of Afib monitor check LDH and Ferritin tomorrow morning, repeat labs. Keep spO2 >92%, NC O2 ordered on Dexamethasone and IV Remdesvir due to new O2 requirements, unstable hemodynamics with onset of Afib w/RVR, and Persistent fever, keep patient cool, consider cooling blanket; avoid Tylenol and avoid motrin - patient persistently refuses, gets hives and rash, refusing both Tylenol and Motrin. on Azithro, Rocephin, Flagyl
[2020-09-10 21:43] LABS: Partial Thromboplastin Time 104.5 SECONDS (22.3-36.8)
[2020-09-11] VITALS (18 sets, daily range): BP systolic 118–176; BP diastolic 66–98; PULSE 45–96; RESP 11–21; TEMP 35.6–37.2; O2SAT 90–100
[2020-09-11 01:46] LABS: Glucose Point of Care 139 (65-105)
[2020-09-11] MEDS: LACTATED RINGERS 1,000 ML 100 ML IV CONT ×2 (03:55→18:30)
[2020-09-11 05:06] LABS: Basophils Percent Auto 0.4 % (0.2-1.2); Hematocrit 41.7 % (37.0-47.0); Hemoglobin 13.6 g/dL (12.0-15.0); Immature Granulocyte Absolute 0.02 K/mm3 (0.00-0.031); Immature Granulocyte Percent A 0.9 % (0-0.5); Lymphocytes Absolute Auto 0.66 K/mm3 (0.9-3.2); Lymphocytes Percent Auto 28.1 % (18.3-44.2); Mean Corpuscular HGB Conc 32.6 g/dl (32-36); Mean Corpuscular Hemoglobin 29.5 pg (26-34); Mean Corpuscular Volume 90.5 fl (80-100); Mean Platelet Volume 10.6 fl (7.4-10.4); Monocytes Absolute Auto 0.1 K/mm3 (0.1-0.6); Neutrophils Absolute Auto 1.5 K/mm3 (1.3-6.7); Neutrophils Percent Auto 64.6 % (45.5-73.1); Platelet Count Result 154 k/mm3 (150-375); Red Blood Count 4.61 M/mm3 (4.2-5.4); Red Cell Distribution Width 13.6 % (11.5-14.5); White Blood Count 2.4 K/mm3 (4.5-10.0)
[2020-09-11 05:20] LABS: Alanine Aminotransferase 24 U/L (4-35); Albumin Level 3.2 g/dL (3.5-5.1); Alkaline Phosphatase 62 U/L (38-126); Anion Gap 5 mmol/L (8-16); Aspartate Amino Transferase 60 U/L (14-36); Bilirubin,Total 0.6 mg/dL (0.2-1.3); Blood Urea Nitrogen 20 mg/dL (7-17); Calcium 8.7 mg/dL (8.4-10.2); Carbon Dioxide 34 mmol/L (22-30); Chloride 93 mmol/L (98-107); Estimated CRCL calculation 56 ml/min; Estimated Glomerular Filt Rate > 60; Glucose 130 mg/dL (65-105); Lactate Dehydrogenase 847 U/L (313-618); Potassium 3.4 mmol/L (3.4-5.0); Sodium 132 mmol/L (137-145)
[2020-09-11 05:21] LABS: Partial Thromboplastin Time 68.5 SECONDS (22.3-36.8)
[2020-09-11] MEDS: metroNIDAZOLE 500 MG/ISO 100ML 500 MG/100 ML BAG 100 MG IVPB ×3 (05:42→21:35)
[2020-09-11] MEDS: METOPROLOL TARTRATE INJ 5 MG/5 ML VIAL IV PUSH (05:44)
[2020-09-11] MEDS: HYDROmorphone HCL INJ (*CRX) 1 MG/ML SYR 0.5 MG IV PUSH ×4 (05:45→19:50)
--- NOTE | 2020-09-11 07:26 | PM.PNCARD ---
Progress Note: A&P Assessment and Plan (1) Lab test positive for detection of COVID-19 virus: Code(s): U07.1 - COVID-19 Status: Acute Assessment and Plan: Management per hospitalist. (2) Pneumonia: Qualifiers: Laterality: bilateral Lung location: lower lobe of lung Pneumonia type: due to unspecified organism Qualified Code(s): J18.9 - Pneumonia, unspecified organism Code(s): J18.9 - Pneumonia, unspecified organism Status: Acute Assessment and Plan: Probably COVID 19 related or community acquired pneumonia. On IV antibiotics. (3) Atrial fibrillation: Code(s): I48.91 - Unspecified atrial fibrillation Status: Acute Assessment and Plan: Due to rapid atrial fib with high BP, she was started on Cardizem drip. HR is controlled, titrate as needed to maintain HR 60-100 bpm. Was on Eliquis but due to being NPO she is on heparin drip. 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 (5) Essential (primary) hypertension: Code(s): I10 - Essential (primary) hypertension Status: Acute Assessment and Plan: Improved. On Cardizem drip. Continue with Hydralazine 10 mg IV prn. (6) Obstructive sleep apnea (adult) (pediatric): Code(s): G47.33 - Obstructive sleep apnea (adult) (pediatric) Status: Acute (7) Abdominal pain: Code(s): R10.9 - Unspecified abdominal pain Status: Acute Assessment and Plan: My differential includes COVID 19, PUD, SMA stenosis, chronic pancreatitis, or other, in that order. (8) Elevated troponin: Code(s): R77.8 - Other specified abnormalities of plasma proteins Status: Acute Assessment and Plan: Doubt ACS. Limited echo shows normal EF with no wall motion abnormalities. Probably related to COVID 19/pneumonia. Subjective Date/time seen: 09/11/20 07:26 She is hard of hearing. Reports no chest pain. Has abdominal pain that is described as very sore . Exam Const: General: cooperative and alert; No comfortable Resp: Auscultation: no crackles, no rales, no rhonchi, no wheezes and diminished lung sounds Cardio: Jugular venous distension: no JVD Rate: regular rate Rhythm: abnormal rhythm Heart sounds: no murmurs Extrem: Right lower extremity: no edema Left lower extremity: no edema Objective Data Vital Signs Vital Signs: Vital Signs - 24 hr 09/10/20 08:00 09/10/20 13:25 09/10/20 13:38 Temperature 99.2 F 99.4 F Pulse Rate 117 H 145 H 121 H Respiratory Rate 24 H 25 H Blood Pressure 153/96 H 193/98 H Pulse Oximetry 91 91 09/10/20 13:39 09/10/20 14:00 09/10/20 14:17 Temperature Pulse Rate 135 H 115 H Respiratory Rate Blood Pressure 193/98 H Pulse Oximetry 93 09/10/20 16:00 09/10/20 17:34 09/10/20 18:00 Temperature 100.9 F H Pulse Rate 121 H 99 81 Respiratory Rate 24 H Blood Pressure 155/94 H Pulse Oximetry 93 09/10/20 18:36 09/10/20 20:00 09/10/20 21:06 Temperature 98.9 F Pulse Rate 76 79 67 Respiratory Rate 18 Blood Pressure 177/80 H 132/87 153/68 H Pulse Oximetry 92 09/10/20 22:00 09/10/20 23:49 09/11/20 00:00 Temperature 98.9 F Pulse Rate 72 70 58 L Respiratory Rate 15 Blood Pressure 148/79 H Pulse Oximetry 95 09/11/20 02:00 09/11/20 04:00 09/11/20 05:42 Temperature 96.1 F L Pulse Rate 50 L 54 L 70 Respiratory Rate 17 Blood Pressure 137/79 150/89 H Pulse Oximetry 100 09/11/20 05:44 Temperature Pulse Rate 72 Respiratory Rate Blood Pressure Pulse Oximetry Intake/Output Intake/Output: Intake & Output 09/09/20 09/09/20 09/10/20 09/11/20 00:59 23:59 23:59 23:59 Intake Total 2950.0 100 Output Total 200 350 Balance 2750.0 -250 Meds/Results Medicatio
[2020-09-11] MEDS: ASPIRIN 300 MG SUPPOSITORY RECTAL (07:52)
[2020-09-11] MEDS: PANTOPRAZOLE SODIUM IV 40 MG VIAL IV PUSH ×2 (07:52→21:40)
[2020-09-11] MEDS: DEXAMETHASONE SOD PHOS INJ 4 MG/ML VIAL 6 MG IV PUSH (07:53)
[2020-09-11] MEDS: FAMOTIDINE 20 MG/2 ML VIAL IV PUSH ×2 (07:53→19:52)
[2020-09-11 08:05] LABS: Lactic Acid Reflex 1.2 mmol/L (0.7-2.1)
[2020-09-11] MEDS: LIDOCAINE HCL 1% PF INJ 5 ML VIAL INFILTRATE (14:20)
--- NOTE | 2020-09-11 15:19 | PM.IMPN ---
Progress Note: A&P Assessment and Plan (1) Pneumonia: Qualifiers: Laterality: bilateral Lung location: lower lobe of lung Pneumonia type: due to unspecified organism Qualified Code(s): J18.9 - Pneumonia, unspecified organism Code(s): J18.9 - Pneumonia, unspecified organism Status: Acute Assessment and Plan: Patient is on antibiotic therapy with azithromycin, Rocephin and Flagyl. Treated with IV Remdesivir and dexamethasone. COVID-19 + and on isolation. Pt is on 7 liters of oxygen (2) Pancreatitis: Qualifiers: Chronicity: chronic Pancreatitis type: unspecified pancreatitis type Qualified Code(s): K86.1 - Other chronic pancreatitis Code(s): K85.90 - Acute pancreatitis without necrosis or infection, unspecified Status: Acute Assessment and Plan: The patient's epigastric abdominal pain could be due to pancreatitis verses SMA stenosis. patient's SMA stenosis found in 2019, Severe stenosis at the origin of the SMA. on prontonix and pepcid IV and dilaudid IV (3) SMA stenosis: Code(s): I77.1 - Stricture of artery Status: Acute Assessment and Plan: 2019 CT w con showed nearly completely occluded superior mesenteric artery origin from atherosclerosis and severe stenosis at origin of right renal artery. patient has been noncompliant with her chronic anticoagulants. hyperlipidemia history Corporate Law Assistant Dr. Falk consulted (4) Hypertensive urgency: Code(s): I16.0 - Hypertensive urgency Status: Acute Assessment and Plan: Due to lack of meds, rebound hypertension and Afib with RVR (5) Lab test positive for detection of COVID-19 virus: Code(s): U07.1 - COVID-19 Status: Acute Assessment and Plan: CXR on 09/08 showed: Right basilar infiltrates. No pleural effusion, edema or pneumothorax.Cardiomegaly. See above (6) Atrial fibrillation with RVR: Code(s): I48.91 - Unspecified atrial fibrillation Status: Acute Assessment and Plan: Afib w/RVR - new onset chronic afib , but rate controlled at home with oral meds. April 26, 2020 ECHO showed EF 60-65%, abnormal diastolic dsyfxn/. Moderate MV regurg, Severe Tricuspid valve regurg, Moderate Pulm. HTN, pa pressure 54 mmHG. Lexiscan 04/09/20 EF 53%, no ischemia or infarct. BP control with IV meds, cureently : Clonidine Patch, IV metoprolol, IV hydralazine PRN Corporate Law Assistant Dr. Falk treating with IV Cardizem patient moved to IMU bed (ICU-3) (7) Low urine output: Code(s): R34 - Anuria and oliguria Status: Acute Assessment and Plan: On fluids Subjective Date/time seen: 09/11/20 15:19 Interval history: Arpita Pop is a 75 year old female with a past medical history of chronic pancreatitis, severe SMA stenosis, dementia and hypertension who presented to the ER 1 week and nausea and vomiting for 4 days. Pt is covid positive and is in ICU for covid pneumonia, pancreatitis, SMA stenosis, HTN urgency and AF with RVR. Pt is on IV Remdesivir and dexamethasone. Pt to have picc line placed today for poor iv access. Awaiting transfer to [facility]. discussed case with Vascular surgeon there. Still awaiting bed. Will call them again tomorrow. Review of Systems Review of Systems: All systems reviewed & are unremarkable except as noted in HPI and below Exam Const: General: cooperative, no acute distress, alert, awake, in distress moderate and severe, anxious and ill appearing; No comfortable or lethargic Nutritional Appearance: obese and overweight Resp: Effort & Inspection: normal respiratory effort and no cough Objective Data Vital Signs Vital Signs: Vital Signs - 24 hr 09/10/20 16:00 09/10/20 17:34 09/10/20 18:00 Temperature 38.3 C H Pulse Rate 121 H 99 81 Respiratory Rate 24 H Blood Pressure 155/94 H Pulse Oximetry 93 09/10/20 18:36 09/10/20 20:00 09/10/20 2
[2020-09-11 15:47] LABS: Partial Thromboplastin Time 145.2 SECONDS (22.3-36.8)
[2020-09-11] MEDS: REMDESIVIR 100 MG/NS 250 ML 100 MG/250 ML BAG 250 MG IVPB (16:28)
[2020-09-11] MEDS: ONDANSETRON INJ 4 MG/2 ML VIAL IV PUSH (19:49)
[2020-09-11] MEDS: CENTRAL LINE FLUSH 10 ML IV PUSH (19:54)
[2020-09-12] MEDS: HYDROmorphone HCL INJ (*CRX) 1 MG/ML SYR 0.5 MG IV PUSH
--- NOTE | 2020-09-12 00:30 | PC.NURSE ---
Pt Discharged from [place] headed to [facility] ICU room 8210. Report given to Cassie Giraldo Admitting MD is Dr. Morales. Pt left with cabello, R PICC and L shoulder medication patch. Heparin drip running during transfer at 5ml/hr.
--- NOTE | 2020-09-12 08:14 | PM.TDS ---
Transfer Discharge Sum: Prov Provider Date of admission: 09/08/20 20:13 DATE OF TRANSFER 09/11/2020 Primary care physician: Adan Mix MD Admitting clinician: Deann Leonard DO Consults: 09/09/20 Consult to Physician Routine Comment: Consulting Provider: Jerry Falk hotel or motel room service supervisor/MD group to consult: Pit Inspector Reason for consultation: Hypertensive Crisis w/Epigastric & Midback pain Has provider been notified: Yes DS: Admitting Diagnosis Admitting Diagnosis Admitting Diagnosis: Pneumonia, pancreatitis DS: Discharge Diagnosis Discharge Diagnosis (1) Pneumonia: Qualifiers: Laterality: bilateral Lung location: lower lobe of lung Pneumonia type: due to unspecified organism Qualified Code(s): J18.9 - Pneumonia, unspecified organism Code(s): J18.9 - Pneumonia, unspecified organism Status: Acute Assessment and Plan: Patient is on antibiotic therapy with azithromycin, Rocephin and Flagyl. Treated with IV Remdesivir and dexamethasone. COVID-19 + and on isolation. Pt is on 7 liters of oxygen (2) Pancreatitis: Qualifiers: Chronicity: chronic Pancreatitis type: unspecified pancreatitis type Qualified Code(s): K86.1 - Other chronic pancreatitis Code(s): K85.90 - Acute pancreatitis without necrosis or infection, unspecified Status: Acute Assessment and Plan: The patient's epigastric abdominal pain could be due to pancreatitis verses SMA stenosis. patient's SMA stenosis found in 2019, Severe stenosis at the origin of the SMA. on protonix and pepcid IV and dilaudid IV (3) SMA stenosis: Code(s): I77.1 - Stricture of artery Status: Acute Assessment and Plan: 2019 CT w con showed nearly completely occluded superior mesenteric artery origin from atherosclerosis and severe stenosis at origin of right renal artery. patient has been noncompliant with her chronic anticoagulants. Pit Inspector Dr. Falk consulted (4) Hypertensive urgency: Code(s): I16.0 - Hypertensive urgency Status: Acute Assessment and Plan: Due to lack of meds, rebound hypertension and Afib with RVR (5) Lab test positive for detection of COVID-19 virus: Code(s): U07.1 - COVID-19 Status: Acute Assessment and Plan: CXR on 09/08 showed: Right basilar infiltrates. No pleural effusion, edema or pneumothorax.Cardiomegaly. See above (6) Atrial fibrillation with RVR: Code(s): I48.91 - Unspecified atrial fibrillation Status: Acute Assessment and Plan: Afib w/RVR - new onset chronic afib , but rate controlled at home with oral meds. April 26, 2020 ECHO showed EF 60-65%, abnormal diastolic dsyfxn/. Moderate MV regurg, Severe Tricuspid valve regurg, Moderate Pulm. HTN, pa pressure 54 mmHG. Lexiscan 04/09/20 EF 53%, no ischemia or infarct. BP control with IV meds, cureently : Clonidine Patch, IV metoprolol, IV hydralazine PRN Pit Inspector Dr. Falk treating with IV Cardizem (7) Low urine output: Code(s): R34 - Anuria and oliguria Status: Acute Assessment and Plan: On fluids Transfer Discharge Sum: Med Medications Active and Home Medications: Home Medications pravastatin 10 mg tablet 10 mg PO DAILY #90 tablet 06/26/20 [Rx Confirmed 09/09/20] clonidine HCl 0.1 mg tablet 0.2 mg PO BID #360 tablet 06/28/20 [Rx Confirmed 09/09/20] apixaban 5 mg tablet 5 mg PO BID #180 tablet 07/11/20 [Rx Confirmed 09/09/20] metoprolol succinate 25 mg tablet,extended release 24 hr 25 mg PO BID #180 tablet 07/27/20 [Rx Confirmed 09/09/20] hydralazine 25 mg tablet 50 mg PO BID #60 tablet 08/09/20 [Rx Confirmed 09/09/20] fluticasone propionate 50 mcg/actuation nasal spray,suspension 2 spray INTRANASAL DAILY #15.8 ml 09/04/20 [Rx Confirmed 09/09/20] Transfer Discharge Sum: Hosp Hospital Course Hospital course: Arpita Pop is a 75 year old female with a pa
== END 2020-09-12 00:12 | disposition short-term general hospital (02) | DRG 177 ==
LOC: ANHED 20:20 → ANH3MEDSUR 09-09 01:51 → ANHICU 09-11 11:05 → ANH3MEDSUR 09-14 14:08 → ANHICU 09-14 14:08
PROVIDERS: Emergency Medicine; Family Medicine; Internal Medicine Cardiovascular Disease; Admitting Provider Internal Medicine; Emergency Provider Emergency Medicine; PCP Family Medicine; Visit Provider Nurse Practitioner
DX: U07.1 COVID-19 (principal); J12.89 Other viral pneumonia; K86.1 Other chronic pancreatitis; I48.20 Chronic atrial fibrillation, unspecified; J44.0 Chronic obstructive pulmonary disease with (acute) lower respiratory infection; Z20.828 Contact with and (suspected) exposure to other viral communicable diseases; I77.1 Stricture of artery; I16.0 Hypertensive urgency; R34 Anuria and oliguria; E78.5 Hyperlipidemia, unspecified; F03.90 Unspecified dementia, unspecified severity, without behavioral disturbance, psychotic disturbance, mood disturbance, and anxiety; M19.90 Unspecified osteoarthritis, unspecified site; E11.42 Type 2 diabetes mellitus with diabetic polyneuropathy; G47.33 Obstructive sleep apnea (adult) (pediatric); K21.9 Gastro-esophageal reflux disease without esophagitis; R79.89 Other specified abnormal findings of blood chemistry; Z86.73 Personal history of transient ischemic attack (TIA), and cerebral infarction without residual deficits; Z90.710 Acquired absence of both cervix and uterus; Z91.14 Patient's other noncompliance with medication regimen; Z98.41 Cataract extraction status, right eye; Z98.42 Cataract extraction status, left eye; Z90.49 Acquired absence of other specified parts of digestive tract; Z87.891 Personal history of nicotine dependence; E66.9 Obesity, unspecified; Z68.35 Body mass index [BMI] 35.0-35.9, adult
CPT/HCPCS: 36415; 36569; 71045; 74177; 80048; 80053; 82550; 82553; 82565; 82728; 83605; 83615; 83690; 83735; 83880; 84100; 84460; 84484; 85025; 85380; 85610; 85730; 86850; 86900; 86901; 87040; 87086; 87635; 93005; 93308; 96361; 96365; 96367; 96368; 96375; 99285; A9270; C1751; C9113; C9803; J0360; J0456; J0696; J1100; J1170; J1644; J2405; J3010; J3480; J7030; J7120; Q9967; U0003

== ENCOUNTER 2020-10-02 07:32 | Observation (INO) | payer MEDICARE, SELFPAY ==
[2020-10-02] VITALS (17 sets, daily range): BP systolic 116–154; BP diastolic 72–104; PULSE 68–112; RESP 12–23; TEMP 36.6–36.9; O2SAT 32–96; BMI 36.6
--- NOTE | ~2020-10-02 | XR_ITS ---
XR chest 1V portable 10/02/2020 08:27 Indication: Chest pain Procedure: AP portable chest Comparison: Comparison to multiple prior studies sequentially, with oldest reviewed study dated 11/2019. Findings: Patchy bilateral ill-defined infiltrates. Cardiomegaly. There is atherosclerosis and ectasi a of the aorta. No significant pleural effusion or pneumothorax. No acute osseous abnormality. Impression: 1: Patchy bilateral infiltrates, compatible with pneumonia. Reviewed, dictated and finalized at location A. [facility] Impression: 1: Patchy bilateral infiltrates, compatible with pneumonia.
--- NOTE | 2020-10-02 07:34 | ECG_ITS ---
Measurements Intervals [place] Rate: 108 P: 126 WV: 189 QRS: 11 QRSD: 78 T: 95 QT: 325 QTc: 437 Interpretive Statements ATRIAL FIBRILLATION WITH RAPID VENTRICULAR RESPONSE NONSPECIFIC ST & T-WAVE ABNORMALITY- INF/HIGH LAT LEADS BASELINE ARTIFACT- I, II, III, AVR, AVL, AVF, V1-V6 ABNORMAL ECG Electronically Signed On 10-02-2020 8:09:42 TEXTILE SCREEN PRINTER by Jerry Falk D.O.
[2020-10-02 07:55] LABS: Basophils Absolute Auto 0.1 K/mm3 (0.0-0.1); Basophils Percent Auto 0.7 % (0.2-1.2); Eosinophils Absolute Auto 0.1 K/mm3 (0-0.3); Hemoglobin 11.1 g/dL (12.0-15.0); Immature Granulocyte Absolute 0.02 K/mm3 (0.00-0.031); Immature Granulocyte Percent A 0.3 % (0-0.5); Lymphocytes Absolute Auto 1.37 K/mm3 (0.9-3.2); Lymphocytes Percent Auto 20.1 % (18.3-44.2); Mean Corpuscular HGB Conc 32.6 g/dl (32-36); Mean Corpuscular Hemoglobin 29.4 pg (26-34); Mean Corpuscular Volume 90.2 fl (80-100); Mean Platelet Volume 9.3 fl (7.4-10.4); Monocytes Absolute Auto 0.6 K/mm3 (0.1-0.6); Monocytes Percent Auto 9.4 % (2.6-8.5); Neutrophils Absolute Auto 4.7 K/mm3 (1.3-6.7); Neutrophils Percent Auto 68.5 % (45.5-73.1); Platelet Count Result 219 k/mm3 (150-375); Red Blood Count 3.77 M/mm3 (4.2-5.4); Red Cell Distribution Width 14.2 % (11.5-14.5); White Blood Count 6.8 K/mm3 (4.5-10.0)
[2020-10-02 08:08] LABS: Alanine Aminotransferase 57 U/L (4-35); Albumin Level 3.2 g/dL (3.5-5.1); Alkaline Phosphatase 123 U/L (38-126); Anion Gap 8 mmol/L (8-16); Aspartate Amino Transferase 51 U/L (14-36); Bilirubin,Total 0.8 mg/dL (0.2-1.3); Blood Urea Nitrogen 12 mg/dL (7-17); Calcium 8.9 mg/dL (8.4-10.2); Carbon Dioxide 30 mmol/L (22-30); Chloride 99 mmol/L (98-107); Estimated CRCL calculation 74 ml/min; Estimated Glomerular Filt Rate > 60; Glucose 101 mg/dL (65-105); INR 1.3; Potassium 4.2 mmol/L (3.4-5.0); Prothrombin Time 16.9 Seconds (11.1-14.7); Sodium 137 mmol/L (137-145)
[2020-10-02 08:19] LABS: NT Pro B Type Natriuretic Pept 4160 PG/ML (5-100); Troponin I 0.018 ng/mL (0.000-0.034)
[2020-10-02] MEDS: MORPHINE SULFATE (*CRX) 4 MG/ML INJ IV PUSH (08:25)
--- NOTE | 2020-10-02 09:43 | ED.CHESTPAIN ---
HPI - Chest Pain General Chief Complaint: Chest Pain Stated Complaint: CP Time Seen by Provider: 10/02/20 07:34 Source: patient Mode of arrival: EMS Limitations: no limitations History of Present Illness HPI narrative: 75-year-old with a history of A. fib/flutter, hypertension, hyperlipidemia presently residing in a jail here with complaints of midsternal chest pain started this morning. Pt states I thought I am having a heart attack although had mild shortness of breath. She stated her pain was 7 out of 10 however by the time she came to the ER her pain has much subsided. She denies any cough, fever or chills. MD complaint: chest pain Onset (ago): hour(s) (2) Timing of current episode: constant Prior episodes: No Onset: during rest Pain location: substernal Pain radiation: none Severity: moderate Quality: tightness Relieving factors: nothing Exacerbating factors: nothing Associated symptoms: dyspnea Risk Factors Coronary artery disease risk factors: hyperlipidemia and hypertension Related Data Home Medications Medication Instructions Recorded Confirmed meloxicam 10/02/20 Allergies Allergy/AdvReac Type Severity Reaction Status Date / Time acetaminophen Allergy Severe HIVES Verified 09/08/20 23:40 propoxyphene Allergy Severe HIVES Verified 09/08/20 23:40 amoxicillin Allergy Unknown Nausea Verified 09/08/20 23:40 clindamycin Allergy Unknown Unknown Verified 09/08/20 23:40 codeine Allergy Unknown but Verified 09/08/20 23:40 tolerates hydrocodone donepezil Allergy Unknown Unknown Verified 09/08/20 23:40 hydrochlorothiazide Allergy Unknown Skin Verified 09/08/20 23:40 Reaction latex Allergy Unknown Unknown Verified 09/08/20 23:40 lisinopril Allergy Unknown cough Verified 09/08/20 23:40 meloxicam Allergy Unknown ulcer Verified 09/08/20 23:40 olmesartan Allergy Unknown Unknown Verified 09/08/20 23:40 Penicillins Allergy Unknown Unknown Verified 09/08/20 23:40 spironolactone Allergy Unknown hyperkalemi Verified 09/08/20 23:40 a Review of Systems Review of Systems: All systems reviewed & are unremarkable except as noted in HPI and below Constitutional: Constitutional: Reports no additional constitutional complaints Eyes: Eyes: Reports as per HPI ENT: Reports system reviewed and no additional complaints, except as documented Cardiovascular: Cardiovascular: Reports as per HPI Respiratory: Respiratory: Reports as per HPI Gastrointestinal: Gastrointestinal: Reports as per HPI Musculoskeletal: Musculoskeletal: Reports no additional musculoskeletal complaints [facility] Past Medical History Medical History Arthritis Atrial fibrillation Normal stress test April 2020 Back pain Bilateral renal artery stenosis Bilateral renal nurse to oasis noted on CTA evaluated at [facility] December 2019 COPD (chronic obstructive pulmonary disease) Degenerative disc disease Dyslipidemia GERD (gastroesophageal reflux disease) Hypertension Moderate pulmonary arterial systolic hypertension Echocardiogram April 2020: EF 60-65%, normal diastolic function, atrial fibrillation, moderate left atrial enlargement, moderate to severe tricuspid valve regurgitation moderate pulmonary hypertension with RVSP of 54 Osteoporosis Peripheral neuropathy Sleep apnea Severe obstructive sleep apnea on polysomnogram October 2014 with recommended CPAP of 18 SMA stenosis TIA (transient ischemic attack) x3 Ulcer Urinary retention with incomplete bladder emptying Vascular dementia with behavior disturbance Surgical History Surgical History H/O Spinal surgery H/O: hysterectomy History of bladder suspension procedure History of carpal tunnel release bilateral History of orthopedic surgery heel spurs, bilateral bunionectomy Hx of appendectomy Hx of cataract surgery Hx of cholecystectomy
--- NOTE | 2020-10-02 10:00 | PC.NURSE ---
PER Matthew VENEGAS IT IS NOT NECESSARY TO RE-SWAB PT OR PLACE PT ON ISOLATION.
[2020-10-02] MEDS: FUROSEMIDE INJ 40 MG/4 ML VIAL IV PUSH (10:58)
[2020-10-02 11:30] LABS: Troponin I 0.013 ng/mL (0.000-0.034)
--- NOTE | 2020-10-02 12:47 | PM.IMHP ---
H&P: HPI History of Present Illness Date/Time: 10/02/20 12:47 Chief complaint: Chest pain Narrative: Source of information: Past medical records, ER records and patient report. The patient is a poor historian due to her history of dementia and severe hearing loss. Arpita Pop is a 75 year old female with a past medical history of hypertension,Atrial fibrillation, is COPD, moderate pulmonary hypertension, obstructive sleep apnea and dementia who presented to the ER via EMS from [facility] with chest pain. According to ER records the patient's chest pain started around 630 and radiated to her back. The patient does have chronic back pain. At the time my evaluation her main complaint was back pain. Her chest pain was reproducible to palpation. She received 4 baby aspirin and nitro for EMS with improvement in her chest pain. The patient was found to be in AFib RVR with a heart rate of 108. She does complain of shortness of breath that the duration of shortness of breath is unclear. She was recently hospitalized late August through September 26. She was initially admitted for abdominal pain and had SMA stenosis in chronic pancreatitis. She developed a fever during her hospital stay and was tested for COVID-19 and was found to be positive on 09/08/2020 and on 09/12/2020. The patient was transferred to [facility] for evaluation by vascular surgery on 09/12/2000 due to her SMA stenosis. They repeated her CT scan at that time and did not find any bowel ischemia. The patient has a history of uncontrolled hypertension in the past and during her last hospitalization her hydralazine was increased to 50 mg 3 times a day a.m. metoprolol XL 50 mg and clonidine 0.1 mg b.i.d.. Her blood pressures are well controlled at this time. She is on room air at this time satting 95%. The patient has been afebrile in the ER. The patient received a dose of IV Lasix in the ER from 2200 up to 4100. She had a large amount of incontinent urine soaking her depends and the bed. Review of Systems Review of Systems: ROS unobtainable: Yes unobtainable due to medical condition (Hearing loss and dementia) [facility] Past Medical History Medical History (Updated 10/02/20 @ 15:00 by Deann Leonard DO) Arthritis Atrial fibrillation Normal stress test April 2020 Back pain Bilateral renal artery stenosis Bilateral renal nurse to oasis noted on CTA evaluated at [facility] neyda Farias December 2019 COPD (chronic obstructive pulmonary disease) Degenerative disc disease Dyslipidemia GERD (gastroesophageal reflux disease) Hypertension Moderate pulmonary arterial systolic hypertension Echocardiogram April 2020: EF 60-65%, normal diastolic function, atrial fibrillation, moderate left atrial enlargement, moderate to severe tricuspid valve regurgitation moderate pulmonary hypertension with RVSP of 54 Osteoporosis Peripheral neuropathy Pneumonia due to COVID-19 virus 09/08/2020 treated with Remdesivir dexamethasone and 1 unit of convalesant plasma Sleep apnea Severe obstructive sleep apnea on polysomnogram October 2014 with recommended CPAP of 18 SMA stenosis TIA (transient ischemic attack) x3 Ulcer Urinary retention with incomplete bladder emptying Vascular dementia with behavior disturbance Surgical History Surgical History H/O Spinal surgery H/O: hysterectomy History of bladder suspension procedure History of carpal tunnel release bilateral History of orthopedic surgery heel spurs, bilateral bunionectomy Hx of appendectomy Hx of cataract surgery Hx of cholecystectomy Family History Family History Father Diabetes mellitus Hypertension Cerebrovascular accident Cardiovascular disease Hyperlipidemia Psychiatric illness Mother Diabetes mellitus Hypertension Cerebrovascular accident Psychiatric illness Cardiovascular disease Hyper
[2020-10-02 14:58] LABS: Troponin I < 0.012 ng/mL (0.000-0.034)
--- NOTE | 2020-10-02 15:01 | PC.NURSE ---
This patient, Arpita Pop, was admitted to Medical Room 243-01. Patient/family oriented to hospital policies and general routines including ID bracelet, bed and alarms, visiting hours, pain management, procedures, bathroom and other care routines, personal items, smoking policy, room service/diet, and visiting hours. Information on how to activate the Rapid Response Team has been discussed. Patient/Family are encouraged to report perceived risks to care and to ask questions if they do not understand what they are told or what they should do.
[2020-10-02] MEDS: OXYBUTYNIN CHLORIDE 5 MG TABLET PO (17:55)
[2020-10-02] MEDS: MEMANTINE 10 MG TABLET PO (17:56)
[2020-10-02] MEDS: cloNIDine HCL 0.1 MG TABLET PO (17:56)
[2020-10-02] MEDS: DOCUSATE SODIUM 100 MG CAPSULE PO (17:56)
[2020-10-02] MEDS: hydrALAZINE HCL 25 MG TABLET PO (17:56)
[2020-10-02] MEDS: APIXABAN 5 MG TABLET PO (17:56)
[2020-10-02] MEDS: oxyCODONE HCL (*CRX) 5 MG TAB IR PO (18:47)
[2020-10-02] MEDS: FAMOTIDINE 20 MG TABLET 40 MG PO (20:01)
[2020-10-02] MEDS: ATORVASTATIN 40 MG TABLET 80 MG PO (20:01)
[2020-10-02] MEDS: QUEtiapine FUMARATE 12.5 MG TABLET PO (21:50)
[2020-10-03] VITALS (7 sets, daily range): BP systolic 116–172; BP diastolic 50–101; PULSE 75–98; RESP 16–20; TEMP 36.6–36.7; O2SAT 93–96
[2020-10-03] MEDS: oxyCODONE HCL (*CRX) 5 MG TAB IR PO ×2 (01:33→10:38)
[2020-10-03 04:59] LABS: Basophils Absolute Auto 0.1 K/mm3 (0.0-0.1); Basophils Percent Auto 0.6 % (0.2-1.2); Eosinophils Absolute Auto 0.1 K/mm3 (0-0.3); Hematocrit 33.4 % (37.0-47.0); Hemoglobin 11.1 g/dL (12.0-15.0); Immature Granulocyte Absolute 0.02 K/mm3 (0.00-0.031); Immature Granulocyte Percent A 0.3 % (0-0.5); Lymphocytes Absolute Auto 1.26 K/mm3 (0.9-3.2); Lymphocytes Percent Auto 16.2 % (18.3-44.2); Mean Corpuscular HGB Conc 33.2 g/dl (32-36); Mean Corpuscular Hemoglobin 29.6 pg (26-34); Mean Corpuscular Volume 89.1 fl (80-100); Mean Platelet Volume 9.3 fl (7.4-10.4); Monocytes Absolute Auto 0.8 K/mm3 (0.1-0.6); Monocytes Percent Auto 10.1 % (2.6-8.5); Neutrophils Absolute Auto 5.6 K/mm3 (1.3-6.7); Neutrophils Percent Auto 71.8 % (45.5-73.1); Platelet Count Result 248 k/mm3 (150-375); Red Blood Count 3.75 M/mm3 (4.2-5.4); Red Cell Distribution Width 14.5 % (11.5-14.5); White Blood Count 7.8 K/mm3 (4.5-10.0)
[2020-10-03 06:17] LABS: Anion Gap 8 mmol/L (8-16); Blood Urea Nitrogen 17 mg/dL (7-17); Calcium 8.6 mg/dL (8.4-10.2); Carbon Dioxide 26 mmol/L (22-30); Chloride 98 mmol/L (98-107); Estimated CRCL calculation 66 ml/min; Estimated Glomerular Filt Rate > 60; Glucose 114 mg/dL (65-105); Potassium 3.8 mmol/L (3.4-5.0); Sodium 132 mmol/L (137-145)
[2020-10-03] MEDS: DOCUSATE SODIUM 100 MG CAPSULE PO (09:01)
[2020-10-03] MEDS: OXYBUTYNIN CHLORIDE 5 MG TABLET PO ×2 (09:01→13:24)
[2020-10-03] MEDS: APIXABAN 5 MG TABLET PO (09:02)
[2020-10-03] MEDS: hydrALAZINE HCL 25 MG TABLET PO (09:02)
[2020-10-03] MEDS: MEMANTINE 10 MG TABLET PO (09:02)
[2020-10-03] MEDS: ASPIRIN 81 MG ENTERIC TABLET PO (09:02)
[2020-10-03] MEDS: FUROSEMIDE INJ 40 MG/4 ML VIAL IV PUSH (09:02)
[2020-10-03] MEDS: FLUTICASONE PROPIONATE 0.05% NA SPR 16 GM BTL (*BKC) 2 SPRAY NASAL (09:02)
[2020-10-03] MEDS: DULoxetine HCL 60 MG CAPSULE.DR PO (09:02)
[2020-10-03] MEDS: METOPROLOL SUCCINATE EXT REL 50 MG TABCR PO (09:02)
[2020-10-03] MEDS: cloNIDine HCL 0.1 MG TABLET PO (09:02)
--- NOTE | 2020-10-03 13:21 | PM.DS ---
DS: Admitting Diagnosis Admitting Diagnosis Admitting Diagnosis: Chest pain DS: Discharge Diagnosis Discharge Diagnosis (1) Pneumonia: Qualifiers: Laterality: bilateral Lung location: lower lobe of lung Pneumonia type: due to unspecified organism Qualified Code(s): J18.9 - Pneumonia, unspecified organism Code(s): J18.9 - Pneumonia, unspecified organism Status: Acute Assessment and Plan: Patchy bilateral infiltrates improved from prior x-ray 09/11/2020. She had recent COVID-19 pneumonia 09/08 and was removed from isolation 09/27/2020. X-ray findings could be due to resolving changes consistent with recent COVID pneumonia. Instructed by infection control staff to not test patient for COVID again. She received 2 doses IV Rocephin and Azithromycin. She will continue PO azithromycin to complete a 5 day course. She remained afebrile and had no leukocytosis. Preliminary blood cultures with no growth to date and final cultures will be monitored. (2) CHF (congestive heart failure): Qualifiers: Heart failure chronicity: acute on chronic Heart failure type: diastolic Qualified Code(s): I50.33 - Acute on chronic diastolic (congestive) heart failure Code(s): I50.9 - Heart failure, unspecified Status: Acute Assessment and Plan: Echo from April 2020 showed abnormal LV diastolic function. The patient's BNP was elevated from baseline. She was diuresed with IV Lasix. She was started on PO Lasix 20 mg daily. Recommended monitoring daily weights. Educated on heart healthy diet. (3) Atrial fibrillation with RVR: Code(s): I48.91 - Unspecified atrial fibrillation Status: Acute Assessment and Plan: Noted to be in RVR up to 110 upon presentation to the ED. This appeared to resolve on its own without administration of any pharmacologic agents. Rate remained controlled following on her usual dose of metoprolol. Continue eliquis. (4) Hypertensive urgency: Code(s): I16.0 - Hypertensive urgency Status: Acute Assessment and Plan: BP elevated on arrival with highest reading 163/101. Improved with IV hydralazine at appropriate rate. She has a long history of uncontrolled hypertension and recently had her medications uptitrated. Home regimen of clonidine, hydralazine, and metoprolol continued. Recommended close monitoring of BP at nursing facility. (5) Chest pain: Code(s): R07.9 - Chest pain, unspecified Status: Acute Assessment and Plan: Patient described an episode of chest pain which radiated to the back (with history of chronic back pain). Main concern was the pain in the back. episode of pain was completely resolved upon presentation. She had reproducible pain with palpation of chest wall. Negative cardiac enzymes x3. Not felt to be cardiac related. DS: Summary Hospital Course Reason for hospitalization: Chest pain Hospital Course: date of admission: 10/02/2020 date of discharge: 10/03/2020 Arpita Pop is a 75-year-old female with a history of atrial fibrillation, COPD, hypertension, and recent COVID-19 pneumonia who presented to the emergency department on 10/02/2020 with complaints of pain in her chest and shortness of breath. Upon presentation to the ER, her pain had subsided. At presentation, patient was mildly tachycardic and BP was elevated with additional vital signs stable, H&H mildly low, electrolytes stable, troponin negative, BNP slightly elevated, CXR showed patchy bilateral infiltrates compatible with pneumonia. she was admitted to the hospitalist service for further evaluation management. Please see above for further details. Given complete resolution of her chest pain and overall improvement, she was determined to no longer require inpatient care and was felt to be stable for discharge. We discussed worrisome signs and symptoms which returned she was educated on her medications. She was discharged in h
== END 2020-10-03 15:09 ==
LOC: ANHED 09:59 → ANH2MED 13:31
PROVIDERS: Admitting Provider Family Medicine; Emergency Provider Family Medicine; PCP Family Medicine; Visit Provider Family Medicine
DX: J18.9 Pneumonia, unspecified organism (principal); I11.0 Hypertensive heart disease with heart failure; I50.9 Heart failure, unspecified; I48.91 Unspecified atrial fibrillation; R07.9 Chest pain, unspecified; R06.02 Shortness of breath; E78.5 Hyperlipidemia, unspecified; K21.9 Gastro-esophageal reflux disease without esophagitis; K86.1 Other chronic pancreatitis; M81.0 Age-related osteoporosis without current pathological fracture; G62.9 Polyneuropathy, unspecified; Z86.73 Personal history of transient ischemic attack (TIA), and cerebral infarction without residual deficits; F03.90 Unspecified dementia, unspecified severity, without behavioral disturbance, psychotic disturbance, mood disturbance, and anxiety; G47.33 Obstructive sleep apnea (adult) (pediatric); Z87.891 Personal history of nicotine dependence; Z79.01 Long term (current) use of anticoagulants; H91.90 Unspecified hearing loss, unspecified ear
CPT/HCPCS: 36415; 71045; 80048; 80053; 83880; 84484; 85025; 85610; 87040; 93005; 96365; 96368; 96375; 96376; 99285; A9270; G0378; J0456; J0696; J1940; J2270

== ENCOUNTER 2020-10-04 15:43 | Emergency (ER) | payer MEDICARE, SELFPAY ==
[2020-10-04] VITALS (7 sets, daily range): BP systolic 118–143; BP diastolic 60–96; PULSE 91–119; RESP 18–22; TEMP 36.2–36.6; O2SAT 92–96
--- NOTE | ~2020-10-04 | CT_ITS ---
EXAMINATION: CT facial & cervical spine wo DATE: 10/04/2020 16:04 INDICATION: Head injury. TECHNIQUE: Computed tomography (CT) of the maxillofacial region and cervical spine was performed with out intravenous contrast. Automated exposure control and iterative reconstruction technique were empl oyed. The dose-length product was 428.52 mGy-cm. COMPARISON: CT cervical spine 11/28/2019 FINDINGS: MAXILLOFACIAL CT: There are likely changes of ocular lens replacement surgeries. There is mild mucosal thickening in th e paranasal sinuses. There are fractures of the nasal bones and nasal processes of maxilla. CERVICAL SPINE CT: Bone alignment is normal. Vertebral body heights are normal. There is mildly decreased disc height at C3-C4, severely decreased disc height at C4-C5 and C5-C6, and mildly decreased disc height at C6-C7. The following disc levels are specifically discussed: C2-C3: There is mild bilateral uncovertebral joint osteoarthritis. There is mild right and severe lef t facet joint osteoarthritis. There is mild left neural foraminal stenosis. There is no central canal stenosis. C3-C4: There is mild right and severe left uncovertebral joint osteoarthritis. There is mild bilatera l facet joint osteoarthritis. There is mild bilateral neural foraminal stenosis. There is mild centra l canal stenosis. C4-C5: There is severe bilateral uncovertebral joint osteoarthritis. There is moderate bilateral face t joint osteoarthritis. There is mild bilateral neural foraminal stenosis. There is mild central joseluis l stenosis. C5-C6: There is severe bilateral uncovertebral joint osteoarthritis. There is moderate bilateral face t joint osteoarthritis. There is mild bilateral neural foraminal stenosis. There is mild central joseluis l stenosis. C6-C7: There is mild bilateral uncovertebral joint osteoarthritis. There is severe bilateral facet desean int osteoarthritis. There is mild bilateral neural foraminal stenosis. There is no central canal sten osis. C7-T1: There is no uncovertebral joint osteoarthritis. There is severe bilateral facet joint osteoart hritis. There is moderate neural foraminal stenosis. There is no central canal stenosis. IMPRESSION: 1. Fractures of the nasal bones and nasal processes of maxilla. 2. Severe cervical spondylosis. Reviewed, dictated and finalized at location A. MER RECOVERY OPERATOR
--- NOTE | ~2020-10-04 | XR_ITS ---
EXAMINATION: XR chest 2V DATE: 10/04/2020 16:20 INDICATION: Confusion. Fall. COVID-19 pneumonia. TECHNIQUE: Frontal and lateral views of the chest were obtained. COMPARISON: Chest single view 09/28/2020, CT abdomen and pelvis 09/08/2020, chest CT 11/28/2019 FINDINGS: There are mild airspace opacities in left mid and lower lung zones. There is a diffuse inte rstitial pattern in the lungs. No pleural effusion or pneumothorax. Cardiomegaly is noted. IMPRESSION: 1. Mild diffuse lung disease with interval improvement, consistent with pneumonia versus mild pulmona ry edema. 2. Cardiomegaly. Reviewed, dictated and finalized at location A. B SERVICES AIDE IMPRESSION: 1. Mild diffuse lung disease with interval improvement, consistent with pneumon ia versus mild pulmonary edema. 2. Cardiomegaly.
--- NOTE | ~2020-10-04 | XR_ITS ---
EXAMINATION: XR wrist LT min 3V DATE: 10/04/2020 16:21 INDICATION: Left wrist injury and pain. TECHNIQUE: 3 views of left wrist were obtained. COMPARISON: None. FINDINGS: Bone alignment is normal. No fracture. There is mild osteoarthritis of triscaphe joint and moderate osteoarthritis of first carpometacarpal joint. There is chondrocalcinosis of triangular fibr ocartilage. IMPRESSION: 1. Polyarticular osteoarthritis. Reviewed, dictated and finalized at location A. BLACKER
--- NOTE | ~2020-10-04 | XR_ITS ---
EXAMINATION: XR shoulder LT min 2V DATE: 10/04/2020 16:21 INDICATION: Left shoulder injury and pain. TECHNIQUE: 3 views of left shoulder were obtained. COMPARISON: Left shoulder radiographs 01/30/2012 FINDINGS: Bone alignment is normal. No fracture. There is moderate osteoarthritis of glenohumeral sunny nt and severe osteoarthritis of acromioclavicular joint. IMPRESSION: 1. Polyarticular osteoarthritis. Reviewed, dictated and finalized at location A. ERCIAL COLLECTIONS SPECIALIST
--- NOTE | ~2020-10-04 | CT_ITS ---
EXAMINATION: CT brain wo con DATE: 10/04/2020 16:04 INDICATION: Head injury. TECHNIQUE: Computed tomography (CT) of the head was performed without intravenous contrast. The mA wa s adjusted according to patient size. Iterative reconstruction technique was employed. The dose-lengt h product was 605.33 mGy-cm. COMPARISON: Head CT 11/28/2019 FINDINGS: There is an old infarct involving the right basal ganglia and anterior limb right internal capsule. There are scattered areas of low attenuation in the cerebral white matter. There is no intra cranial hemorrhage, acute infarction, or abnormal intracranial mass lesion. The ventricles are normal in size. There are fractures of the nasal bones. There is mild mucosal thickening in the paranasal s inuses. There are likely changes of ocular lens replacement surgeries. The mastoid air cells are norm al. IMPRESSION: 1. 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 2. Stable moderate nonspecific cerebral white matter disease, which likely represents chronic small v essel ischemic disease. 3. Fractures of the nasal bones. Reviewed, dictated and finalized at location A. OL INSPECTOR IMPRESSION: 1. 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 2. Stable moderate nonspecific cerebral white matter disease, which likely repr esents chronic small vessel ischemic disease. 3. Fractures of the nasal bones.
--- NOTE | 2020-10-04 15:33 | ED.FALL ---
HPI - Fall General Chief Complaint: Fall Stated Complaint: fall Time Seen by Provider: 10/04/20 16:01 Source: patient and EMS Mode of arrival: EMS Limitations: no limitations History of Present Illness HPI Narrative: Patient is a 75-year-old female with a history of hypertension, COPD, TIA, a fib on Eliquis who presents for evaluation of a fall from a seated position and head trauma. Patient states she was sitting on the side of her bed when she tipped forward, hitting her face on a dresser. No loss of consciousness. Patient does report bleeding from the nose which has now resolved. No vision changes, nausea or vomiting. She reports mild neck pain, left shoulder pain, left wrist pain. She states she used her left wrist to brace her fall. Patient states the side railings were not up on her bed, when she was moving from the bedside commode, states that she knew she was going to fall. Patient is not ambulatory. Pt discharged from hospital yesterday 10/03. She is taking Azithromycin, was not retested for COVID. Pt states she did not receive some of her medications this morning from the facility. Related Data Home Medications Medication Instructions Recorded Confirmed aspirin [Adult Low Dose Aspirin] 81 mg PO DAILY 10/02/20 10/02/20 atorvastatin 80 mg PO HS 10/02/20 10/02/20 clonidine HCl 0.1 mg PO BID 10/02/20 10/02/20 docusate sodium 100 mg PO BID 10/02/20 10/02/20 duloxetine 60 mg PO DAILY 10/02/20 10/02/20 hydralazine 25 mg PO BID 10/02/20 10/02/20 memantine 10 mg PO BID 10/02/20 10/02/20 metoprolol succinate [Toprol XL] 50 mg PO DAILY 10/02/20 10/02/20 oxybutynin chloride 5 mg PO TID 10/02/20 10/02/20 oxycodone [Roxicodone] 5 mg PO QID PRN 10/02/20 10/02/20 quetiapine 12.5 mg PO HS 10/02/20 10/02/20 ramelteon 8 mg PO HS 10/02/20 10/02/20 ranitidine HCl 300 mg PO HS 10/02/20 10/02/20 Allergies Allergy/AdvReac Type Severity Reaction Status Date / Time acetaminophen Allergy Severe HIVES Verified 10/04/20 16:14 propoxyphene Allergy Severe HIVES Verified 10/04/20 16:14 amoxicillin Allergy Unknown Nausea Verified 10/04/20 16:14 clindamycin Allergy Unknown Unknown Verified 10/04/20 16:14 codeine Allergy Unknown but Verified 10/04/20 16:14 tolerates hydrocodone donepezil Allergy Unknown Unknown Verified 10/04/20 16:14 hydrochlorothiazide Allergy Unknown Skin Verified 10/04/20 16:14 Reaction latex Allergy Unknown Unknown Verified 10/04/20 16:14 lisinopril Allergy Unknown cough Verified 10/04/20 16:14 meloxicam Allergy Unknown ulcer Verified 10/04/20 16:14 olmesartan Allergy Unknown Unknown Verified 09/08/20 23:40 Penicillins Allergy Unknown Unknown Verified 09/08/20 23:40 spironolactone Allergy Unknown hyperkalemi Verified 09/08/20 23:40 a Review of Systems Review of Systems: Narrative: CONSTITUTIONAL: Denies fever EYES: Denies visual changes, redness, or discharge. ENT: Denies rhinorrhea CARDIOVASCULAR: Denies chest pain RESPIRATORY: Denies cough or dyspnea. GASTROINTESTINAL: Denies nausea, vomiting SKIN: Denies rash or itching. MUSCULOSKELETAL: Denies back pain, reports left shoulder, left wrist pain NEUROLOGIC: Denies headache PMFSH Past Medical History Medical History Arthritis Atrial fibrillation Normal stress test April 2020 Back pain Bilateral renal artery stenosis Bilateral renal nurse to oasis noted on CTA evaluated at [facility] neyda Farias December 2019 COPD (chronic obstructive pulmonary disease) Degenerative disc disease Dyslipidemia GERD (gastroesophageal reflux disease) Hypertension Moderate pulmonary arterial systolic hypertension Echocardiogram April 2020: EF 60-65%, normal diastolic function, atrial fibrillation, moderate left atrial enlargement, moderate to severe tricuspid valve regurgitation moderate pulmonary hypertension with RVSP of 54 Osteoporosis Peripheral neuropathy Pneumonia due to COVID-19 virus
[2020-10-04 16:52] LABS: Basophils Percent Auto 0.3 % (0.2-1.2); Eosinophils Percent Auto 0.4 % (0-4.4); Hematocrit 34.7 % (37.0-47.0); Hemoglobin 11.4 g/dL (12.0-15.0); Immature Granulocyte Absolute 0.04 K/mm3 (0.00-0.031); Immature Granulocyte Percent A 0.6 % (0-0.5); Lymphocytes Absolute Auto 0.71 K/mm3 (0.9-3.2); Lymphocytes Percent Auto 10.5 % (18.3-44.2); Mean Corpuscular HGB Conc 32.9 g/dl (32-36); Mean Corpuscular Hemoglobin 29.5 pg (26-34); Mean Corpuscular Volume 89.9 fl (80-100); Mean Platelet Volume 9.3 fl (7.4-10.4); Monocytes Absolute Auto 0.6 K/mm3 (0.1-0.6); Monocytes Percent Auto 9.3 % (2.6-8.5); Neutrophils Absolute Auto 5.3 K/mm3 (1.3-6.7); Neutrophils Percent Auto 78.9 % (45.5-73.1); Platelet Count Result 316 k/mm3 (150-375); Red Blood Count 3.86 M/mm3 (4.2-5.4); Red Cell Distribution Width 14.1 % (11.5-14.5); White Blood Count 6.7 K/mm3 (4.5-10.0)
[2020-10-04 17:02] LABS: INR 1.5; Prothrombin Time 18.8 Seconds (11.1-14.7)
[2020-10-04 17:03] LABS: Partial Thromboplastin Time 37.7 SECONDS (22.3-36.8)
--- NOTE | 2020-10-04 17:04 | ECG_ITS ---
Measurements Intervals [place] Rate: 128 P: [place]: 278 QRS: 6 QRSD: 82 T: 88 QT: 334 QTc: 488 Interpretive Statements ATRIAL FIBRILLATION WITH RAPID VENTRICULAR RESPONSE VENTRICULAR BIGEMINY BORDERLINE R WAVE PROGRESSION, ANTERIOR LEADS BORDERLINE ST-T WAVE ABNORMALITY- DIFFUSE LEADS BASELINE ARTIFACT- I, II, III, AVR, AVL, AVF, V1-V6 ABNORMAL ECG Electronically Signed On 10-05-2020 7:57:52 DIE ASSEMBLER by Jerry Falk D.O.
[2020-10-04 17:07] LABS: Anion Gap 7 mmol/L (8-16); Blood Urea Nitrogen 18 mg/dL (7-17); Calcium 8.9 mg/dL (8.4-10.2); Carbon Dioxide 35 mmol/L (22-30); Chloride 90 mmol/L (98-107); Estimated CRCL calculation 64 ml/min; Estimated Glomerular Filt Rate > 60; Glucose 159 mg/dL (65-105); Potassium 3.4 mmol/L (3.4-5.0); Sodium 132 mmol/L (137-145)
--- NOTE | 2020-10-04 17:13 | PC.NURSE ---
Collar removed per order Dr. Haney.
[2020-10-04 17:49] LABS: Alveolar/Arterial O2 Gradient 30.2 mmHg; Base Excess ABG 6.2 mEq/l (+/-2.0); Carboxyhemoglobin 0.5 % THb (0-2.0); Fractional Inspired Oxygen 21 %; HCO3 ABG 28.1 mEq/l (22.0-26.0); Methemoglobin ABG 0.3 %THb (0-1.5); Oxygen Content ABG 14.8 %vol (16.0-22.0); Oxygen Saturation ABG 97.4 % (95.0-100.0); Oxyhemoglobin 95.7 % THb (90.0-100.0); PCO2 ABG 31.3 mmHg (35.0-45.0); PO2 ABG 82.1 mmHg (80.0-100.0); PO2 FiO2 Ratio Arterial Blood 3.91 %; Reduced Hemoglobin 3.5 %THb (0-5.0); Total Hemoglobin 10.9 g/dL (12.0-18.0)
[2020-10-04 17:51] LABS: Modified Allen's Test Pass; Site Drawn LEFT RADIAL; pH ABG 7.571 (7.350-7.450)
[2020-10-04 17:52] LABS: Device ROOM AIR
[2020-10-04 17:57] LABS: NT Pro B Type Natriuretic Pept 3040 PG/ML (5-100)
[2020-10-04] MEDS: ACETAMINOPHEN 500 MG TABLET 1000 MG PO (18:10)
[2020-10-04] MEDS: oxyCODONE HCL (*CRX) 5 MG TAB IR 2.5 MG PO (18:11)
[2020-10-04] MEDS: SODIUM CHLORIDE 0.9% IV 500 ML 999 ML IV CONT (18:20)
[2020-10-04] MEDS: dilTIAZem HCl INJ 25 MG/5 ML VIAL 10 MG IV PUSH (18:21)
--- NOTE | 2020-10-04 18:21 | PC.NURSE ---
Cardiazem given. Pt's heart rate ranges 1114-151.
--- NOTE | 2020-10-04 19:21 | PC.NURSE ---
Bedside report to BRENT Spivey. Pt made aware that we're discharging her to return to [facility], pt states come hell or high water I'm not going back to that place. I will go home . BRENT Spivey, made aware and karen Díaz RN, made aware.
--- NOTE | 2020-10-04 19:35 | PC.NURSE ---
shira was contacted to transfer patient home eta 1999
--- NOTE | 2020-10-04 20:08 | PC.NURSE ---
silva has arrived
== END 2020-10-04 20:23 ==
PROVIDERS: Emergency Provider Emergency Medicine; PCP Family Medicine
DX: S02.2XXA Fracture of nasal bones, initial encounter for closed fracture (principal); I48.91 Unspecified atrial fibrillation; M19.90 Unspecified osteoarthritis, unspecified site; M47.812 Spondylosis without myelopathy or radiculopathy, cervical region; Z87.891 Personal history of nicotine dependence; J44.9 Chronic obstructive pulmonary disease, unspecified; E78.5 Hyperlipidemia, unspecified; K21.9 Gastro-esophageal reflux disease without esophagitis; I10 Essential (primary) hypertension; G47.30 Sleep apnea, unspecified; Z09 Encounter for follow-up examination after completed treatment for conditions other than malignant neoplasm; Z86.19 Personal history of other infectious and parasitic diseases; Z79.01 Long term (current) use of anticoagulants; W06.XXXA Fall from bed, initial encounter
CPT/HCPCS: 36415; 36600; 70450; 70486; 71046; 72125; 73030; 73110; 80048; 82375; 82805; 83050; 83880; 85025; 85610; 85730; 90471; 93005; 96361; 96374; 99284; A9270; J7040; L0140

== ENCOUNTER 2021-01-10 14:01 | Outpatient (CLI) | payer MEDICARE, SELFPAY | END 2021-01-10 14:02 | disposition home or self-care (01) | LOC: ANHCOVIDVC 14:02 | PROVIDERS: PCP Family Medicine | DX: Z23 Encounter for immunization (principal) | CPT/HCPCS: 0001A; 91300 ==

== ENCOUNTER 2021-01-31 13:56 | Outpatient (CLI) | payer MEDICARE, SELFPAY | END 2021-01-31 13:57 | disposition home or self-care (01) | LOC: ANHCOVIDVC 13:56 | PROVIDERS: PCP Family Medicine | DX: Z23 Encounter for immunization (principal) | CPT/HCPCS: 0002A; 91300 ==

== ENCOUNTER 2021-05-22 11:24 | Outpatient (CLI) | payer MEDICARE, SELFPAY ==
[2021-05-22 12:27] LABS: Anion Gap 9 mmol/L (8-16); Blood Urea Nitrogen 15 mg/dL (7-17); Calcium 10.1 mg/dL (8.4-10.2); Carbon Dioxide 27 mmol/L (22-30); Chloride 103 mmol/L (98-107); Estimated Glomerular Filt Rate > 60; Glucose 92 mg/dL (65-105); Potassium 3.8 mmol/L (3.4-5.0); Sodium 139 mmol/L (137-145)
== END 2021-05-22 11:25 | disposition home or self-care (01) ==
LOC: ANHSURGERY 11:33
PROVIDERS: Anesthesiology; PCP Family Medicine; Visit Provider Urology
DX: Z01.818 Encounter for other preprocedural examination (principal); I10 Essential (primary) hypertension; N39.498 Other specified urinary incontinence
CPT/HCPCS: 36415; 80048; 87086; 87088

== ENCOUNTER 2021-05-27 01:50 | Day surgery (SDC) | payer MEDICARE, SELFPAY ==
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
[2021-05-20 13:37] VITALS: BMI 33.2
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
[2021-05-27] VITALS (11 sets, daily range): BP systolic 109–175; BP diastolic 72–96; PULSE 67–85; RESP 15–21; TEMP 36.1–36.3; O2SAT 94–100
--- NOTE | 2021-05-27 07:14 | WPDHPUPDATE1 ---
History and Physical Update Update Date/Time: 05/27/21 07:14 History and Physical has been reviewed, including an updated exam of the patient. There are NO changes in the patient's condition. Risks, benefits, and alternatives have been discussed and questions answered. Patient agrees to proceed with procedure.
--- NOTE | 2021-05-27 08:04 | WPDANESEPPF ---
Anes - Initial Pre Proc Eval Procedure: Operation Date: 05/27/21 12:45 Proposed Procedures p Placement of Suprapubic Tube - Pete Roberts MD s Removal of Interstim - Pete Roberts MD Date/Time: 05/27/21 08:04 Surgeon: Pete Roberts MD Pre Op Diagnosis: urge incontinence Patient Data Age: 76 Gender: F Height: 1.52 m Weight: 77.2 kg Allergies Allergy/AdvReac Type Severity Reaction Status Date / Time propoxyphene Allergy Severe HIVES Verified 05/27/21 12:06 amoxicillin Allergy Unknown Nausea Verified 05/27/21 12:06 clindamycin Allergy Unknown Unknown Verified 05/27/21 12:06 codeine Allergy Unknown HIVES but Verified 05/27/21 12:06 tolerates hydrocodone donepezil Allergy Unknown Unknown Verified 05/27/21 12:06 hydrochlorothiazide Allergy Unknown Skin Verified 05/27/21 12:06 Reaction latex Allergy Unknown SWELLING/RA Verified 05/27/21 12:06 SH lisinopril Allergy Unknown cough Verified 05/27/21 12:06 meloxicam Allergy Unknown ulcer Verified 05/27/21 12:06 olmesartan Allergy Unknown Unknown Verified 05/27/21 12:06 Penicillins Allergy Unknown Rash Verified 05/27/21 12:06 spironolactone Allergy Unknown hyperkalemi Verified 05/27/21 12:06 a Home Medications Medication Instructions Recorded Confirmed Type apixaban 5 mg tablet 5 mg PO BID #180 tablet 07/11/20 05/20/21 Rx atorvastatin 80 mg PO HS 10/02/20 05/20/21 History docusate sodium 100 mg PO BID 10/02/20 05/20/21 History memantine 10 mg PO BID 10/02/20 05/20/21 History oxybutynin chloride 5 mg PO TID 10/02/20 05/20/21 History quetiapine 12.5 mg PO HS 10/02/20 05/20/21 History ramelteon 8 mg PO HS 10/02/20 05/20/21 History furosemide 20 mg tablet 20 mg PO DAILY #30 tablet 10/30/20 05/20/21 Rx omeprazole 20 mg tablet,delayed 20 mg PO DAILY 11/15/20 05/20/21 History release cephalexin 500 mg PO BID 05/20/21 05/20/21 History clonidine HCl 0.1 mg tablet 0.1 mg PO BID #180 tablet 05/22/21 Rx duloxetine 60 mg capsule,delayed 60 mg PO DAILY #180 cap 05/22/21 Rx release hydralazine 25 mg tablet 25 mg PO BID #180 tablet 05/22/21 Rx metoprolol succinate 25 mg See Rx Instructions .ROUTE 05/22/21 Rx tablet,extended release 24 hr .COMPLEX #180 tablet Patient hx anesthesia problems: none Family hx anesthesia problems: none PMFSH Past Medical History Medical History Arthritis Atrial fibrillation Normal stress test April 2020 Back pain Bilateral renal artery stenosis Bilateral renal nurse to oasis noted on CTA evaluated at [facility] Stephenvillesrini Farias December 2019 COPD (chronic obstructive pulmonary disease) Degenerative disc disease Dyslipidemia GERD (gastroesophageal reflux disease) Hypertension Moderate pulmonary arterial systolic hypertension Echocardiogram April 2020: EF 60-65%, normal diastolic function, atrial fibrillation, moderate left atrial enlargement, moderate to severe tricuspid valve regurgitation moderate pulmonary hypertension with RVSP of 54 Obesity (BMI 30.0-34.9) Osteoporosis Peripheral neuropathy Physical debility Pneumonia due to COVID-19 virus 09/08/2020 treated with Remdesivir dexamethasone and 1 unit of convalesant plasma Sleep apnea Severe obstructive sleep apnea on polysomnogram October 2014 with recommended CPAP of 18 SMA stenosis TIA (transient ischemic attack) x3 Ulcer Urinary retention with incomplete bladder emptying Vascular dementia with behavior disturbance Surgical History Surgical History H/O Spinal surgery H/O: hysterectomy History of bladder suspension procedure History of carpal tunnel release bilateral History of orthopedic surgery heel spurs, bilateral bunionectomy Hx of appendectomy Hx of cataract surgery Hx of cholecystectomy Family History Family History Father Diabetes mellitus Hyperten
[2021-05-27] MEDS: LACTATED RINGERS 1,000 ML 30 ML IV CONT (12:00)
[2021-05-27] MEDS: ceFAZolin 2 GM/D5W 50 ML 2 GM/50 ML BAG IVPB (13:28)
[2021-05-27] MEDS: LIDO 1%/EPINEPHRINE 1:100,000 20 ML VIAL 50 ML INFILTRATE (14:12)
--- NOTE | 2021-05-27 14:23 | W.PM.PROC2 ---
Procedure Note - Detailed Date of Procedure 05/27/21 Pre-op Diagnosis total urinary incontinence Post-op Diagnosis same Procedure Performed cystoscopy with placement of suprapubic catheter Surgeon Pete Roberts MD Anesthesia general Indications this is a woman with total urinary incontinence. She has failed all interventions. She desires a suprapubic tube. She understands risks of bleeding, infection, damage to surrounding organs, bowel injury, malignancy, urinary tract infection. she agrees to proceed. We will not be removing her InterStim device. It is not bothersome for her. She has no plans for an MRI. This can always be readdressed later Description of Procedure she was correctly identified. Informed consent obtained. From the operating room. She was given general anesthesia. She was placed in the dorsal lithotomy position. She was placed in Trendelenburg. She was prepped and draped in a sterile fashion. Time-out performed. I performed cystoscopy. She had a normal appearing bladder. Normal capacity. No bladder abnormalities. Ureteral orifices were normal. I filled her bladder. I made sure she was in Trendelenburg. I marked out a spot 2 fingerbreadths cephalad the pubic bone. I anesthetized the skin. I used a finer needle to enter the bladder. I placed a guidewire through the needle. I made a small skin incision. I dilated the tract the 810 dilator. I then placed the introducer sheath. I then placed a catheter through the introducer sheath into the bladder. I secured the catheter to the skin with a drain stitch. A dressing was applied. It was placed to gravity drainage. She was awakened transferred to PACU in stable condition. Implants None Estimated Blood Loss 1 Drains Yes ( suprapubic tube) Packing No Pathology none sent Complications No immediate complications Condition stable Disposition PACU
--- NOTE | 2021-05-27 14:42 | SUR.PHASEI ---
Simple mask removed at 1440.
== END 2021-05-27 16:50 | disposition home or self-care (01) ==
PROVIDERS: PCP Family Medicine; Visit Provider Urology
PROC: 0T9B30Z Drainage of Bladder with Drainage Device, Percutaneous Approach (ICD-10-PCS; CPT 51102; principal; 2021-05-27 12:45)
DX: N39.498 Other specified urinary incontinence (principal); I10 Essential (primary) hypertension; I48.91 Unspecified atrial fibrillation; Z79.01 Long term (current) use of anticoagulants; G47.33 Obstructive sleep apnea (adult) (pediatric); J44.9 Chronic obstructive pulmonary disease, unspecified; K21.9 Gastro-esophageal reflux disease without esophagitis; I27.20 Pulmonary hypertension, unspecified; F01.51 Vascular dementia, unspecified severity, with behavioral disturbance; E66.9 Obesity, unspecified; Z68.35 Body mass index [BMI] 35.0-35.9, adult; Z87.891 Personal history of nicotine dependence; Z86.73 Personal history of transient ischemic attack (TIA), and cerebral infarction without residual deficits; Z91.040 Latex allergy status; Z88.0 Allergy status to penicillin
CPT/HCPCS: 51040; 36415; 80048; 87086; 87088; A9270; C1769; C2627; J0690; J3010; J7030; J7120

== ENCOUNTER 2021-05-29 10:24 | Inpatient (IN) | payer MEDICARE, SELFPAY ==
[2021-05-29] VITALS (52 sets, daily range): BP systolic 119–181; BP diastolic 79–124; PULSE 58–123; RESP 10–29; TEMP 36.3–37.1; O2SAT 92–100; BMI 43.0
--- NOTE | ~2021-05-29 | XR_ITS ---
EXAMINATION: XR barium swallow modified DATE: 05/31/2021 14:35 INDICATION: Cerebrovascular accident. TECHNIQUE: The patient was given barium-containing material of multiple consistencies to swallow by carolina sim speech pathologist while I performed fluoroscopy. Dose-area product was 1.4 Gy-cm2. 2.2 minutes fluoroscopy time FINDINGS: Oral Stage: Within functional limits Pharyngeal Phase: Laryngeal penetration one time within liquid. Cervical/Esophageal Stage: Within functional limits IMPRESSION: Modified esophagram findings as above. Please refer to the speech therapy report [facility]. Reviewed, dictated and finalized at [facility]. Reviewed, dictated and finalized at [facility]. IMPRESSION: Modified esophagram findings as above. Please refer to the speech t herapy report for specific recommendations.
--- NOTE | ~2021-05-29 | CT_ITS ---
EXAMINATION: CTA BRAIN/CAROTID DATE: 05/29/2021 12:27 INDICATION: Stroke with right-sided weakness and altered mental status. TECHNIQUE: Computed tomographic angiography (CTA) of the head and neck was performed with 100 mL Omni paque-350 intravenous contrast. Multiplanar reconstructions and maximum intensity projection 3D-recon structions of the carotid arteries and of the intracranial arteries were created by the technologist on a separate workstation. Automated exposure control and iterative reconstruction technique were emp loyed.The dose-length product was 1086.69 mGy-cm. COMPARISON: Noncontrast head CT dated 05/29/2021 FINDINGS: There is scattered motion artifact which does not significantly limit evaluation of the carotid arter ies and at the neck and upper chest. This does however mild to moderately limited evaluation of the i ntracranial arteries. Carotid arteries: Small amount of atherosclerotic plaque without hemodynamically significant stenosis at the normal lou iber aortic arch and at the origins of the great vessels. There is 0% stenosis of the right carotid b ulb relative to normal distal artery lumen diameter (NASCET criteria). There is 0% stenosis of the le ft carotid bulb relative to normal distal artery lumen diameter. Cervical soft tissues are unremarkab le. Moderate cervical spondylosis. Intracranial arteries There is atherosclerotic plaque at the bilateral carotid siphons moderate to 50-70% stenosis on both the left and right. There is no hemodynamically significant stenosis in the vertebral basilar arterie s. Vertebral arteries are codominant. There are no aneurysms identified. Both A1 and right P1 segmen ts are patent. The left posterior cerebral artery is supplied from the left internal carotid artery v ia a patent left posterior commuting artery. Cerebral arterial arborization appears symmetric. No abn ormally enhancing brain lesions identified. IMPRESSION: 1. 0% stenosis of the left and right carotid bulbs relative to normal distal artery lumen diameter (N ASCET criteria). 2. Atherosclerotic plaque with moderate stenosis at the bilateral carotid siphons. 3. Evaluation of the carotid CT angiogram only minimally limited by motion artifact. Evaluation of th e brain CT angiogram is mild to moderately limited by prominent motion artifact. Reviewed, dictated and finalized at location [facility]. IMPRESSION: 1. 0% stenosis of the left and right carotid bulbs relative to normal distal ar marlon lumen diameter (NASCET criteria). 2. Atherosclerotic plaque with moderate stenosis at the bilateral carotid sipho ns. 3. Evaluation of the carotid CT angiogram only minimally limited by motion denise fact. Evaluation of the brain CT angiogram is mild to moderately limited by pro minent motion artifact.
--- NOTE | ~2021-05-29 | US_ITS ---
EXAMINATION: US carotid duplex BI EXAM DATE: 05/29/2021 17:49 INDICATION: Stroke, right hemiparesis. TECHNIQUE: Grayscale, color and pulsed Doppler images of the cervical carotid arteries were obtained . The degree of vessel stenosis is placed in one of the following categories: normal, <50% stenosis, 50-69% stenosis, >=70% stenosis but less than near-occlusion, near-occlusion, or occlusion. Note that percent stenosis relative to normal distal artery lumen diameter is indirectly measured from velocit y measurements as described by Chuckie, et al. Radiology 2003; 229:340-346. There is no prior study fo r comparison. FINDINGS: RIGHT SIDE: Right common carotid artery peak systolic velocity (PSV in cm/s): 55 Right bulb/internal carotid artery peak systolic velocity (PSV in cm/s): 63 Right internal carotid artery end diastolic velocity (EDV in cm/s): 4.2 Right ICA/CCA peak systolic ratio: 1.1 Right external carotid artery peak systolic velocity (PSV in cm/s): 99 Right vertebral artery antegrade flow: yes There is mild carotid bulb plaque. Velocity and Doppler waveforms in the common and internal carotid arteries is normal. LEFT SIDE: Left common carotid artery peak systolic velocity (PSV in cm/s): 62 Left bulb/internal carotid artery peak systolic velocity (PSV in cm/s): 52 Left internal carotid artery end diastolic velocity (EDV in cm/s): 17 Left ICA/CCA peak systolic ratio: 0.9 Left external carotid artery peak systolic velocity (PSV in cm/s): 90 Left vertebral artery antegrade flow: yes There is mild carotid bulb plaque. Velocity and Doppler waveforms in the common and internal carotid arteries is normal. IMPRESSION: 1. Less than 50 percent stenosis in the right internal carotid artery. 2. Less than 50 percent stenosis in the left internal carotid artery. > Reviewed, dictated and finalized at location [facility].
--- NOTE | ~2021-05-29 | XR_ITS ---
EXAMINATION: XR chest 1V portable INDICATION: Altered mental status and shortness of breath TECHNIQUE: Portable AP chest at 1103 hours COMPARISON: 10/04/2020 FINDINGS: There are mild, diffuse interstitial and airspace opacities. More focal opacity seen in the left midlung zone. There is no pleural effusion or pneumothorax. Cardiomegaly is noted. IMPRESSION: 1. Diffuse lung disease which could reflect atelectasis versus pneumonia versus pulmonary edema. 2. Cardiomegaly. Reviewed, dictated and finalized at location B.
--- NOTE | ~2021-05-29 | CT_ITS ---
EXAMINATION: CT brain wo con DATE: 05/29/2021 10:53 INDICATION: Right-sided weakness. Cerebrovascular accident. Altered mental state. TECHNIQUE: Computed tomography (CT) of the head was performed without intravenous contrast. The mA wa s adjusted according to patient size. Iterative reconstruction technique was employed. Exam dose: 60 5.33 mGy-cm total exam DLP. COMPARISON: 10/04/2020 CT brain FINDINGS: Old infarct anterior limb of the right internal capsule. There is patchy diminished attenua tion of the cerebral white matter, likely due to chronic small vessel ischemic changes. Prominent francis ateral carotid siphon internal carotid artery and bilateral vertebral artery calcifications. No intracranial mass lesion or hemorrhage, midline shift or mass effect effect. There is central and cortical cerebral atrophy. No subdural or epidural hematoma. No fracture or bone destruction of the cranial vault. There is septal soft tissue thickening of the ethmoid air cells bilaterally. The included paranasal s inuses and the mastoid air cells are otherwise normally developed and aerated. IMPRESSION: No acute intracranial abnormality or hemorrhage or significant change since 10/04/2020 Cerebral atherosclerosis and chronic small vessel ischemic changes of the cerebral white matter Old lacunar infarct of anterior limb of right internal capsule Dr. Rivear telephoned the report on 05/29/2021 at 1059 hours to emergency room physician elementary assistant teacher Katherin kinsey Reviewed, dictated and finalized at [facility]. Reviewed, dictated and finalized at location [facility]. IMPRESSION: No acute intracranial abnormality or hemorrhage or significant jorge nge since 10/04/2020 Cerebral atherosclerosis and chronic small vessel ischemic changes of the cereb ral white matter Old lacunar infarct of anterior limb of right internal capsule Dr. Rivera telephoned the report on 05/29/2021 at 1059 hours to emergency room rex Leyva.
--- NOTE | ~2021-05-29 | XR_ITS ---
EXAMINATION: XR hip LT min 2V, XR hip RT min 2V DATE: 06/03/2021 14:50 INDICATION: Bilateral hip pain TECHNIQUE: 1. Anteroposterior and frog-leg lateral views of the left hip were obtained. 2. Anteroposterior and frog-leg lateral views of the right hip were obtained. COMPARISON: CT dated 09/08/2020 FINDINGS: Normal alignment at both hips. No fracture. Mild to moderate bilateral hip osteoarthritis with nonuni form joint space narrowing and hypertrophic marginal osteophytes about the femoral heads and acetabul a. Small right os acetabula. No findings to suggest osteonecrosis. Sacral nerve root stimulator proje ct over the neural foramina at the left sacral ala. Severe lower lumbar spondylosis. Oral contrast ma terial throughout the colon. IMPRESSION: 1. Moderate bilateral hip osteoarthritis. No acute osseous abnormality at either hip. Reviewed, dictated and finalized at location A. IMPRESSION: 1. Moderate bilateral hip osteoarthritis. No acute osseous abnormality at the r hip. IMPRESSION: 1. Moderate bilateral hip osteoarthritis. No acute osseous abnormality at eithe r hip.
--- NOTE | ~2021-05-29 | XR_ITS ---
XR chest 1V portable DATE: 06/01/2021 09:30 INDICATION: Shortness of breath TECHNIQUE: Portable AP chest on 05/28/2021 at 0922 hours COMPARISON: 05/29/2021 portable AP chest FINDINGS: Cardiomegaly. Aortic ectasia and unfolding. No pulmonary consolidation, pulmonary vascular congestion pleural effusion or pneumothorax. Moderate elevation right diaphragm. Degenerative spurring of the thoracic spine. IMPRESSION: Cardiomegaly Reviewed, dictated and finalized at location A. IMPRESSION: Cardiomegaly
--- NOTE | ~2021-05-29 | CT_ITS ---
EXAMINATION: CT brain wo con DATE: 05/31/2021 08:48 INDICATION: Dementia. Cerebrovascular accident. TECHNIQUE: Computed tomography (CT) of the head was performed without intravenous contrast. The mA wa s adjusted according to patient size. Iterative reconstruction technique was employed. Exam dose: 90 8.00 mGy-cm total exam DLP. COMPARISON: 05/29/2021 CT brain and CTA brain carotid 10/04/2020 CT brain FINDINGS: The examination is limited by motion artifact. Chronic old infarct of the right basal ganglia and anterior limb of the right internal capsule. Prominent bilateral carotid siphon and supraclinoid internal carotid artery and basilar and bilateral vertebral artery calcifications. There is prominent patchy diminished attenuation of the subcortical and periventricular cerebral white matter, likely due to chronic small vessel ischemic changes. No intracranial mass lesion or hemorrhage or recent cerebrovascular accident is detected. There is central and cortical cerebral atrophy. No subdural or epidural hematoma. The mastoid air cells and paranasal sinuses are normally developed and aerated. No fracture or bone destruction of the cranial vault. IMPRESSION: Old right basal ganglia and anterior limb right internal capsule infarcts Cerebral atherosclerosis and chronic small vessel ischemic changes of the cerebral white matter No acute intracranial finding or significant change since 10/04/2020 Reviewed, dictated and finalized at [facility]. Reviewed, dictated and finalized at location A. IMPRESSION: Old right basal ganglia and anterior limb right internal capsule i nfarcts Cerebral atherosclerosis and chronic small vessel ischemic changes of the cereb ral white matter No acute intracranial finding or significant change since 10/04/2020
--- NOTE | 2021-05-29 10:36 | ECG_ITS ---
Measurements Intervals [place] Rate: 88 P: 98 RI: 365 QRS: -11 QRSD: 76 T: -47 QT: 386 QTc: 467 Interpretive Statements ATRIAL FIBRILLATION VENTRICULAR PREMATURE COMPLEXES BASELINE ARTIFACT- II, III, AVR, AVL, AVF, V1-V6 ABNORMAL ECG Electronically Signed On 05-29-2021 11:42:56 CDT by Jerry Falk D.O.
[2021-05-29 10:40] LABS: Glucose Point of Care 111 mg/dl (65-105)
[2021-05-29 10:52] LABS: Basophils Percent Auto 0.5 % (0.2-1.2); Eosinophils Absolute Auto 0.1 K/mm3 (0-0.3); Eosinophils Percent Auto 1.1 % (0-4.4); Hematocrit 39.8 % (37.0-47.0); Hemoglobin 12.5 g/dL (12.0-15.0); Immature Granulocyte Absolute 0.01 K/mm3 (0.00-0.031); Immature Granulocyte Percent A 0.2 % (0-0.5); Lymphocytes Absolute Auto 1.32 K/mm3 (0.9-3.2); Lymphocytes Percent Auto 21.5 % (18.3-44.2); Mean Corpuscular HGB Conc 31.4 g/dl (32-36); Mean Corpuscular Hemoglobin 29.3 pg (26-34); Mean Corpuscular Volume 93.2 fl (80-100); Monocytes Absolute Auto 0.6 K/mm3 (0.1-0.6); Monocytes Percent Auto 10.4 % (2.6-8.5); Neutrophils Absolute Auto 4.1 K/mm3 (1.3-6.7); Neutrophils Percent Auto 66.3 % (45.5-73.1); Platelet Count Result 255 k/mm3 (150-375); Red Blood Count 4.27 M/mm3 (4.2-5.4); Red Cell Distribution Width 14.1 % (11.5-14.5); White Blood Count 6.1 K/mm3 (4.5-10.0)
[2021-05-29 11:01] LABS: Anion Gap 8 mmol/L (8-16); Blood Urea Nitrogen 21 mg/dL (7-17); Calcium 9.4 mg/dL (8.4-10.2); Carbon Dioxide 28 mmol/L (22-30); Chloride 101 mmol/L (98-107); Estimated Glomerular Filt Rate > 60; Glucose 104 mg/dL (65-110); Potassium 4.3 mmol/L (3.4-5.0); Sodium 137 mmol/L (137-145)
[2021-05-29 11:02] LABS: INR 1.1; Partial Thromboplastin Time 27.3 SECONDS (22.3-36.8); Prothrombin Time 13.9 Seconds (11.1-14.7)
[2021-05-29 11:14] LABS: Troponin I 0.012 ng/mL (0.000-0.034)
--- NOTE | 2021-05-29 11:18 | PC.NURSE ---
Pt. stopped taking Eliquis Thursday for Surgery Thursday, Pt. hasn't started taking their Eliquis again yet.
[2021-05-29] MEDS: ASPIRIN 81 MG CHEWABLE TABLET 324 MG (11:41)
--- NOTE | 2021-05-29 11:41 | ED.NEUROSD ---
HPI - Neuro Symptoms/Deficit General Chief Complaint: Suspected CVA Stated Complaint: Altered mental status Time Seen by Provider: 05/29/21 11:28 Source: family, EMS and RN notes reviewed Mode of arrival: EMS History of Present Illness HPI Narrative: Patient 76 years old white female brought to the emergency room by ambulance with her complaining of strokelike symptoms. Patient last time was seen within normal limit around 10 PM. Patient supposed to wake up this morning at 9 AM, her alarm was drinking, patient was not able to manage to turn it off. noticed that, also noticed that the patient had slurred speech and unable to follow commands. History of hypertension, hyperlipidemia, TIA, atrial fibrillation on Eliquis.. Patient does not smoke, drinks occasionally, patient is full code patient normally awake, alert and oriented x4, physically active. Related Data Home Medications Medication Instructions Recorded Confirmed atorvastatin 80 mg PO HS 10/02/20 05/27/21 docusate sodium 100 mg PO BID 10/02/20 05/27/21 memantine 10 mg PO BID 10/02/20 05/27/21 quetiapine 12.5 mg PO HS 10/02/20 05/27/21 ramelteon 8 mg PO HS 10/02/20 05/27/21 omeprazole 20 mg tablet,delayed 20 mg PO DAILY 11/15/20 05/27/21 release cephalexin 500 mg PO BID 05/20/21 05/27/21 Allergies Allergy/AdvReac Type Severity Reaction Status Date / Time propoxyphene Allergy Severe HIVES Verified 05/27/21 12:06 amoxicillin Allergy Unknown Nausea Verified 05/27/21 12:06 clindamycin Allergy Unknown Unknown Verified 05/27/21 12:06 codeine Allergy Unknown HIVES but Verified 05/27/21 12:06 tolerates hydrocodone donepezil Allergy Unknown Unknown Verified 05/27/21 12:06 hydrochlorothiazide Allergy Unknown Skin Verified 05/27/21 12:06 Reaction latex Allergy Unknown SWELLING/RA Verified 05/27/21 12:06 SH lisinopril Allergy Unknown cough Verified 05/27/21 12:06 meloxicam Allergy Unknown ulcer Verified 05/27/21 12:06 olmesartan Allergy Unknown Unknown Verified 05/27/21 12:06 Penicillins Allergy Unknown Rash Verified 05/27/21 12:06 spironolactone Allergy Unknown hyperkalemi Verified 05/27/21 12:06 a Review of Systems Review of Systems: ROS unobtainable: Yes unobtainable due to medical condition PMFSH Past Medical History Medical History Arthritis Atrial fibrillation Normal stress test April 2020 Back pain Bilateral renal artery stenosis Bilateral renal nurse to oasis noted on CTA evaluated at [facility] Dr. Farias December 2019 COPD (chronic obstructive pulmonary disease) Degenerative disc disease Dyslipidemia GERD (gastroesophageal reflux disease) Hypertension Moderate pulmonary arterial systolic hypertension Echocardiogram April 2020: EF 60-65%, normal diastolic function, atrial fibrillation, moderate left atrial enlargement, moderate to severe tricuspid valve regurgitation moderate pulmonary hypertension with RVSP of 54 Obesity (BMI 30.0-34.9) Osteoporosis Peripheral neuropathy Physical debility Pneumonia due to COVID-19 virus 09/08/2020 treated with Remdesivir dexamethasone and 1 unit of convalesant plasma Presence of suprapubic catheter Sleep apnea Severe obstructive sleep apnea on polysomnogram October 2014 with recommended CPAP of 18 SMA stenosis TIA (transient ischemic attack) x3 Ulcer Urinary retention with incomplete bladder emptying Vascular dementia with behavior disturbance Surgical History Surgical History H/O Spinal surgery H/O: hysterectomy History of bladder suspension procedure History of carpal tunnel release bilateral History of orthopedic surgery heel spurs, bilateral bunionectomy Hx of appendectomy Hx of cataract surgery Hx of cholecystectomy Family History Family History Father Diabetes mellitus Hypertension Cerebrovasc
--- NOTE | 2021-05-29 12:12 | PC.NURSE ---
pt off floor to radiology
--- NOTE | 2021-05-29 13:21 | PC.NURSE ---
BP 182/112 manual. Pt takes hydralazine 25 mg BID and metoprolol [address] Malloy aware. No new orders at this time
[2021-05-29] MEDS: cloNIDine HCL 0.1 MG TABLET PO (14:17)
[2021-05-29] MEDS: hydrALAZINE HCL 25 MG TABLET PO (14:17)
[2021-05-29] MEDS: ONDANSETRON INJ 4 MG/2 ML VIAL IV PUSH (14:36)
[2021-05-29] MEDS: MORPHINE SULFATE (*CRX) 4 MG/ML INJ IV PUSH (14:36)
--- NOTE | 2021-05-29 14:46 | PC.NURSE ---
Pt calling out in distress, holding head. Given PO clonidine and hydralazine, IV tylenol. MD made aware of patient distress. Verbal order for 4 mg IV zofran and 4 mg IV morphine. Administered, place on 2 liters NC. No apparent distress at this time. Will continue to monitor.
--- NOTE | 2021-05-29 15:04 | PC.NURSE ---
Hospitalist SCHOOL SPEECH LANGUAGE PATHOLOGIST at bedside. Pt calm, appears much more comfortable. Back to earlier baseline
--- NOTE | 2021-05-29 17:02 | PM.IMHP ---
H&P: HPI History of Present Illness Date/Time: 05/29/21 17:02 This is a 76-year-old female patient who has a history of atrial fibrillation as well as hypertension. The patient recently had a suprapubic catheter on 05/27/2021. The patient had total urinary incontinence. The patient had been on Eliquis which was placed on hold for the procedure. However the patient's anticoagulation has been on hold. The patient was brought to the emergency room and her was at the bedside. However when I assessed her he was not at the bedside. The patient was brought in for stroke-like symptoms. She has some right facial drooping and paralysis to her right arm and leg. Patient's last seen normal at time p.m.. Patient woke up this morning at 9:00 a.m. the patient was not able to turn her alarm off. The patient has had a previous TIA. The patient just stated to me I do not know when I was asking her questions. CTA was 0 stenosis the left and right carotid bulbs related to normal distal artery lumen a atherosclerotic plaque with moderate stenosis of bilateral carotid siphons. A vaginal current CT only minimally limited by motion artifact. chest x-ray diffuse lung disease which could reflect atelectasis versus pneumonia versus pulmonary edema. Cardiomegaly. head CT was read as no acute intracranial abnormality or hemorrhage or significant change since 10/03/2020 Chief Complaint: strokelike symptoms Review of Systems Review of Systems: All systems reviewed & are unremarkable except as noted in HPI and below Constitutional: Constitutional: Reports as per HPI and Reports no additional constitutional complaints Eyes: Eyes: Reports as per HPI and Reports no additional eye complaints ENT: Reports system reviewed and no additional complaints, except as documented and Reports Normal hearing present Cardiovascular: Cardiovascular: Reports no additional cardiovascular complaints Respiratory: Respiratory: Reports no additional respiratory complaints and Reports no additional respiratory complaints Gastrointestinal: Gastrointestinal: Reports as per HPI and Reports no additional gastrointestinal complaints Musculoskeletal: Musculoskeletal: Reports no additional musculoskeletal complaints Integumentary/Breasts: Skin/Breast: Reports system reviewed and no additional complaints, except as docu and Reports as per HPI Neurologic: Reports system reviewed and no additional complaints, except as documented, Reports as per HPI and Reports Normal hearing present Psychiatric: Psychiatric: Reports no additional psychiatric complaints and Reports as per HPI Endocrine: Endocrine: Reports no additional endocrine complaints Hematologic/Lymphatic: Hematologic/Lymphatic: Reports no additional hematologic/lymphatic complaints Allergic/Immunologic: Allergic/Immunologic: Reports no additional allergic/immunologic complaints [facility] Past Medical History Medical History Arthritis Atrial fibrillation Normal stress test April 2020 Back pain Bilateral renal artery stenosis Bilateral renal nurse to oasis noted on CTA evaluated at [facility] of tamar Farias December 2019 COPD (chronic obstructive pulmonary disease) Degenerative disc disease Dyslipidemia GERD (gastroesophageal reflux disease) Hypertension Moderate pulmonary arterial systolic hypertension Echocardiogram April 2020: EF 60-65%, normal diastolic function, atrial fibrillation, moderate left atrial enlargement, moderate to severe tricuspid valve regurgitation moderate pulmonary hypertension with RVSP of 54 Obesity (BMI 30.0-34.9) Osteoporosis Peripheral neuropathy Physical debility Pneumonia due to COVID-19 virus 09/08/2020 treated with Remdesivir dexamethasone and 1 unit of convalesant plasma Presence of suprapubic catheter Sleep apnea Severe obstructive sleep apnea on polysomnogram October 2014 with recommended CPAP of 18 SMA stenosis TIA (trans
--- NOTE | 2021-05-29 17:26 | PC.NURSE ---
Pt off floor for testing
[2021-05-29] MEDS: SODIUM CHLORIDE 0.9% IV 1,000 ML 50 ML IV CONT (22:28)
[2021-05-30] VITALS (13 sets, daily range): BP systolic 116–187; BP diastolic 65–96; PULSE 82–122; RESP 16–20; TEMP 36.1–37.1; O2SAT 93–99; BMI 10.0; BMI 43.0
--- NOTE | 2021-05-30 | ECHO_ITS ---
Patient Info Name: Arpita Pop Age: 76 years : 1945 Gender: Female Ht: 60 in Wt: 220 lbs BSA: 2.12 m2 HR: 102 bpm BP: 159 / 73 mmHg Technical Quality: Fair Exam Date: 05/30/2021 3:57 PM Exam Location: [facility] Exam Room: 243 Patient Status: Inpatient Admit Date: 05/29/2021 Staff Ordering Physician: Babrara Johnson PA-C Consulting It Architect: Jewels Del Rio RDCS Attending Provider: Barbara oJhnson PA-C Referring Physician: Juliette ROMEO Exam Type: CA echo doppler color flow Study Info Indications - CVA AFIB HTN Complete two-dimensional, color flow and Doppler transthoracic echocardiogram is performed. Summary 1. Complete two-dimensional, color flow and Doppler transthoracic echocardiogram is performed. 2. Left ventricular chamber dimension is normal. 3. Left ventricular systolic function is normal, estimated at 60-65%. 4. There is moderately increased left ventricular wall thickness. 5. The left ventricular diastolic function is abnormal. 6. E/e' 17 is elevated. 7. Atrial fibrillation. 8. Left atrial chamber dimension is moderately enlarged. 9. Right atrial chamber dimension is mildly enlarged. 10. There is mild aortic valve sclerosis. 11. The mitral valve has moderately calcified annulus. 12. There is mild mitral valve regurgitation. 13. Mild pulmonary hypertension, estimated pulmonary arterial systolic pressure is 45 mmHg. Left Ventricle E/e' 17 is elevated. Atrial fibrillation. Left ventricular chamber dimension is normal. Left ventricular systolic function is normal, estimated at 60-65%. There is moderately increased left ventricular wall thickness. The left ventricular diastolic function is abnormal. Right Ventricle Right ventricular chamber dimension is normal. Right ventricular systolic function is normal. Left Atria Left atrial chamber dimension is moderately enlarged. Right Atria Right atrial chamber dimension is mildly enlarged. Aortic Valve The aortic valve is trileaflet. There is mild aortic valve sclerosis. There is no aortic valve stenosis. There is no aortic valve regurgitation. Pulmonic Valve There is no pulmonic regurgitation. Mitral Valve The mitral valve has moderately calcified annulus. There is no mitral valve stenosis. There is mild mitral valve regurgitation. Tricuspid Valve There is no tricuspid valve regurgitation. Mild pulmonary hypertension, estimated pulmonary arterial systolic pressure is 45 mmHg. Pericardium/Pleural There is no pericardial effusion. Inferior Vena Cava Normal inferior vena cava with >50% collapse upon inspiration consistent with normal right atrial pressure, 5 mmHg. Aorta The aortic root size at the sinus of Valsalva is normal. Left Ventricular Outflow Tract Name Value Normal LVOT 2D LVOT Diameter 2.0 cm LVOT Doppler LVOT Peak Gradient 4 mmHg LVOT Mean Gradient 2 mmHg LVOT VTI 20 cm LVOT VTI/AV VTI Ratio 0.7 LVOT Stroke Volume 62 ml
[2021-05-30] MEDS: hydrALAZINE HCL 20 MG/ML VIAL 10 MG IV PUSH (00:07)
[2021-05-30 05:38] LABS: Basophils Percent Auto 0.3 % (0.2-1.2); Eosinophils Percent Auto 0.3 % (0-4.4); Hematocrit 40.1 % (37.0-47.0); Hemoglobin 12.9 g/dL (12.0-15.0); Immature Granulocyte Absolute 0.03 K/mm3 (0.00-0.031); Immature Granulocyte Percent A 0.4 % (0-0.5); Lymphocytes Absolute Auto 0.95 K/mm3 (0.9-3.2); Mean Corpuscular HGB Conc 32.2 g/dl (32-36); Mean Corpuscular Hemoglobin 28.9 pg (26-34); Mean Corpuscular Volume 89.7 fl (80-100); Monocytes Absolute Auto 0.5 K/mm3 (0.1-0.6); Monocytes Percent Auto 6.2 % (2.6-8.5); Neutrophils Absolute Auto 6.4 K/mm3 (1.3-6.7); Neutrophils Percent Auto 80.8 % (45.5-73.1); Platelet Count Result 271 k/mm3 (150-375); Red Blood Count 4.47 M/mm3 (4.2-5.4); Red Cell Distribution Width 13.6 % (11.5-14.5); White Blood Count 7.9 K/mm3 (4.5-10.0)
[2021-05-30 05:47] LABS: INR 1.1; Prothrombin Time 13.7 Seconds (11.1-14.7)
[2021-05-30 05:54] LABS: Lactic Acid Reflex 1.2 mmol/L (0.7-2.1)
[2021-05-30 06:47] LABS: Alanine Aminotransferase 20 U/L (4-35); Alkaline Phosphatase 109 U/L (38-126); Anion Gap 13 mmol/L (8-16); Aspartate Amino Transferase 30 U/L (14-36); Bilirubin,Total 1.1 mg/dL (0.2-1.3); Blood Urea Nitrogen 14 mg/dL (7-17); Calcium 9.4 mg/dL (8.4-10.2); Carbon Dioxide 22 mmol/L (22-30); Chloride 98 mmol/L (98-107); Estimated CRCL calculation 71 ml/min; Estimated Glomerular Filt Rate > 60; Glucose 117 mg/dL (65-110); Lactate Dehydrogenase 441 U/L (313-618); Lipase 51 U/L (23-300); Potassium 3.5 mmol/L (3.4-5.0); Sodium 133 mmol/L (137-145)
[2021-05-30 09:48] LABS: Add Urine Microscopic? YES; Appearance Urine Clear (Clear); Bilirubin Urine Negative (Negative); Blood Urine Negative (Negative); Color Urine Yellow (Yellow); Glucose Urine UA 1+ mg/dL (Negative); Ketones Urine 1+ mg/dL (Negative); Leukocyte Esterase Ur Negative LEU/UL (Negative); Mucus Urine Rare /lpf; Nitrate Urine Negative (Negative); Protein Urine 1+ mg/dL (Negative); Specific Grav Ur 1.019 (1.001-1.035); Urobilinogen Urine Negative mg/dL (<2.0); WBC Urine 0-3 /hpf
--- NOTE | 2021-05-30 10:30 | PCSTNOTE ---
Please refer to the Bedside Swallow Evaluation in the EMR. Communication Evaluation also attempted/completed. Please note, silent aspiration cannot be ruled out at bedside.
--- NOTE | 2021-05-30 14:54 | PCNSR ---
On 05/30/21, the student, Juanis Allan, provided care and completed [facility] on this patient. I have reviewed the student's documentation and agree with the findings.
--- NOTE | 2021-05-30 17:25 | PM.IMPN ---
Progress Note: A&P Assessment and Plan (1) Acute cerebrovascular accident (CVA): Code(s): I63.9 - Cerebral infarction, unspecified Status: Acute Assessment and Plan: Concern for CVA based on overall clinical picture with reports of right facial drooping and right arm and leg weakness. Initial head CT with evidence of old infarct but no acute findings head/neck CTA showed no carotid bulb stenosis but did show atherosclerotic plaque with moderate stenosis of the bilateral carotid siphons carotid Doppler with 0% stenosis echo has been ordered and is pending she does have atrial fibrillation and has been off of her Eliquis perioperatively for suprapubic catheter placement; possible etiology of stroke telemetry reviewed though difficult to assess with bladder stimulator; NSR, occasionally sinus tach - no obvious arrhythmias or pauses she is not able to get an MRI at this facility due to her bladder stimulator due to this, we will repeat a head CT. This has been ordered and awaiting completion appreciate PT/OT evals bedside swallow study performed today by with recommendations for NPO diet at this time. Will put on gentle IV fluids while NPO rectal aspirin as she is not tolerating p.o. intake lipid panel ordered appreciate neurology consultation (2) Presence of suprapubic catheter: Code(s): Z93.59 - Other cystostomy status Status: Acute Assessment and Plan: Inserted on 05/27/[address] Roberts due to total urinary incontinence no issues with suprapubic catheter at this time UA without concerns for infection (3) Atrial fibrillation: Code(s): I48.91 - Unspecified atrial fibrillation Status: Acute Assessment and Plan: Rate is controlled at this time. Eliquis has been held for suprapubic catheter procedure. Will need to be resumed. Await repeat head CT results first Metoprolol on hold while NPO (4) Essential (primary) hypertension: Code(s): I10 - Essential (primary) hypertension Status: Acute Assessment and Plan: BP reviewed and has been generally well controlled. Last BP 159/73. Hold antihypertensives. allow for permissive HTN in the setting of suspected CVA Subjective Date/time seen: 05/30/21 17:25 Interval history: date of service: 05/30/2021 Arpita Pop is a 76-year-old female with history atrial fibrillation on chronic anticoagulation, COPD, hyperlipidemia, hypertension, TIA, vascular dementia, and urinary retention now s/p suprapubic catheter placement on 05/27/2021 who is seen in follow-up for suspected CVA. The patient is really not able to provide any history. She is in her room and is crying. She repeatedly says I want to go home or I want my mom. she appears very anxious. Her said for most of the day she has been sleeping but when she woke up she started crying and shouting. When I went back to examine her, she was resting much more peacefully. She did try to respond to my questions though it is clear she is hard of hearing. If I shouted in her ear, she did seem like she could hear me and would try to respond. She would say I think... and then the rest of the phrase was nonsensical. Review of Systems Review of Systems: ROS unobtainable: Yes unobtainable due to mental status Exam Narrative: Exam Narrative: Ms. Pop is a well-nourished 76-year-old female who is lying supine in bed. She appears comfortable and is in NARD. Neuro: awake, unable to respond to questions. Speech is nonsensical. Difficulty obtaining neurologic exam as she is unable to follow most commands. Slight right sided facial droop noted. Right arm and leg flaccid. Left arm strength is 2/5. Exhibition Specialist strength in left hand is weak and right hand does not attempt to fruit farmer. Raises bilateral eyebrows equally. Unable to participate in any further exam. No effort when assessing lower extremity strength. When I
[2021-05-30] MEDS: SODIUM CHLORIDE 0.9% IV 1,000 ML 85 ML IV CONT (18:00)
[2021-05-30] MEDS: ASPIRIN 300 MG SUPPOSITORY RECTAL (18:00)
[2021-05-30] MEDS: ONDANSETRON INJ 4 MG/2 ML VIAL IV PUSH (22:50)
[2021-05-31] VITALS (11 sets, daily range): BP systolic 154–198; BP diastolic 89–104; PULSE 73–126; RESP 16–20; TEMP 36–37.2; O2SAT 97–100
[2021-05-31 06:45] LABS: Cholesterol 151 mg/dL (0-200); HDL Direct 41 mg/dL; Triglycerides 60 mg/dL (<150)
[2021-05-31 06:56] LABS: LDL Cholesterol Direct 83 mg/dL
[2021-05-31] MEDS: hydrALAZINE HCL 20 MG/ML VIAL 10 MG IV PUSH (07:36)
[2021-05-31] MEDS: SODIUM CHLORIDE 0.9% IV 1,000 ML 85 ML IV CONT ×2 (08:01→21:11)
--- NOTE | 2021-05-31 08:57 | WPDURCON ---
Assessment and Plan Assessment and plan (1) Acute cerebrovascular accident (CVA): Code(s): I63.9 - Cerebral infarction, unspecified Status: Acute Assessment and Plan: Patient keeps saying I can't, and I want my mommy. She is unable to answer any medical history or comprehend my questions. (2) Presence of suprapubic catheter: Code(s): Z93.59 - Other cystostomy status Status: Acute Assessment and Plan: The SP tube is sutured in place, draining clear yellow urine to gravity. The incision appears pink, no edema or redness present. She is leaking around the SP tube on her dressing. Her UA is normal and culture was negative pre op last week. (3) Total urinary incontinence: Code(s): N39.498 - Other specified urinary incontinence Status: Acute Assessment and Plan: She failed all treatments including multiple medications for OAB, Botox and Interstim. However, it appears that the leakage may be from bladder spasms d/t the newly placed tube. I am hopeful this will subside. I would not recommend treatment with Oxybutynin d/t the potential for possible confusion, as she is already confused at this time. The leakage is minimal. Change SP tube dressing PRN when saturated. She will need monthly SP tube changes with the first one in 3-4 weeks. No further assessment or evaluation needed at this time. Urology Consult Note HPI Date Seen: 05/31/21 Requesting Physician: Barbara Johnson PA-C Primary Care Provider: Adan Mix MD Consult Narrative Narrative: Arpita Pop is a 76 year old female who presented to the ER on 05/29/2021 with reported right sided weakness and confusion of acute onset with right side facial drooping. This is reported by her who called EMS that morning. She was reportedly acting herself the night prior before she fell asleep, then when her alarm clock went off the next morning she didn't try to turn it off and was confused, that is what alerted her that something was wrong. She is very well known to myself and Dr. Roberts and had an SP tube placed on Thursday05/27/2021 d/t all failed therapies for total urinary incontinence. She was fully aware of the risks of stopping her Eliquis and agreed to proceed with the procedure as she reported having very little quality of life d/t her severe and complete urinary incontinence. She did well during her procedure and in recovery she was A&O x 4. Prior to the surgery she was ambulatory, independent and lived at home with her . She had no noted neurological deficits. She is tachycardic and hypertensive, WBC is 7.9, creatinine is 0.60. Urinalysis is normal, no signs of infection. Urine is draining to gravity and is clear and yellow. Her urine culture pre operatively was negative on 05/22/2021. She was reported to have also failed her swallow study. All information was obtained from her chart and hospitalist as she is A&O x 0. We were consulted d/t a leaking SP tube. Review of Systems Review of Systems: ROS unobtainable: Yes unobtainable due to mental status PMFSH Past Medical History Medical History Arthritis Atrial fibrillation Normal stress test April 2020 Back pain Bilateral renal artery stenosis Bilateral renal nurse to [facility] COPD (chronic obstructive pulmonary disease) Degenerative disc disease Dyslipidemia GERD (gastroesophageal reflux disease) Hypertension Moderate pulmonary arterial systolic hypertension Echocardiogram April 2020: EF 60-65%, normal diastolic function, atrial fibrillation, moderate left atrial enlargement, moderate to severe tricuspid valve regurgitation moderate pulmonary hypertension with RVSP of 54 Obesity (BMI 30.0-34.9) Osteoporosis Peripheral neuropathy Physical debility Pneumonia due to COVID-19 virus 09/08/2020 treated with Remdesivir dexamethasone
[2021-05-31 10:45] LABS: Glucose Point of Care 98 mg/dl (65-105)
[2021-05-31] MEDS: METOPROLOL TARTRATE INJ 5 MG/5 ML VIAL IV PUSH (11:49)
--- NOTE | 2021-05-31 11:49 | PCNFU ---
Nutrition Follow-Up Complete: Altered nutritional status related to acute CVA as evidence by 0% meal consumption, expressive aphasia, and swallowing precaution recommendations. Goal: Meet estimated nutritional needs. Patient has not met goal. Will continue to work towards goal. Pt current nutrition is NPO except ice chips. Last recorded weight is 100 kg. Bowel Motility: No bowel movements recorded. Labs Reviewed: Labs from 05/30 Hgb 12.9, Hct 40.1, Alb 4.0, Na 133, K 3.5, BUN 14, Cr .60, Glu 117 Meds Noted: Ofirmev, Aspirin, Apresoline, Zofran, Normal Saline IV Additional Notes: Patient is very agitated and was not able to communicate in a way that made sense. Patient was evaluated by Speech Pathology and failed bed side swallow study. Spoke with PA and plan on repeat Modified Barium Swallow Study in a few days. No break downs in skin. Will continue to monitor bowel motility and weight. Follow up in 3 days.
--- NOTE | 2021-05-31 12:17 | PCNSR ---
On 05/31/21, the student,Juanis Allan, provided care and completed [facility] documentation on this patient. I have reviewed the student's documentation and agree with the findings.
[2021-05-31 13:33] LABS: Glucose Point of Care 104 mg/dl (65-105)
--- NOTE | 2021-05-31 15:41 | P.PNIM_ITS ---
Progress Note: A&P Assessment and Plan (1) Acute cerebrovascular accident (CVA): Code(s): I63.9 - Cerebral infarction, unspecified Status: Suspected Assessment and Plan: Concern for CVA based on overall clinical picture with reports of right facial drooping and right arm and leg weakness. * initial head CT with evidence of old infarct but no acute findings * head/neck CTA showed no carotid bulb stenosis but did show atherosclerotic plaque with moderate stenosis of the bilateral carotid siphons. No significant stenosis at the basilar arteries. * carotid Doppler with 0% stenosis * echo reviewed with normal EF and no significant valvular disease * she does have atrial fibrillation and has been off of her Eliquis perioperatively for suprapubic catheter placement * Unfortunately she is not able to get an MRI at this facility due to her bladder stimulator * due to this, head CT was repeated this AM again with no acute findings - this suggests that if she did have an acute stroke, it is very small. [facility] discussed [facility] with recommendations described below. * appreciate PT/OT evals * repeat MBS today with recommendations for mildly thin liquids and pureed diet * continue aspirin * lipid panel reviewed * appreciate neurology consultation (2) Encephalopathy: Code(s): G93.40 - Encephalopathy, unspecified Status: Acute Assessment and Plan: Progressive confusion and weakness * As above, no acute findings of CVA on imaging. * Will obtain EEG * Consider LP based on results * No evidence of acute UTI or other infectious process * Electrolytes are stable * Check TSH, B12, folate, ammonia; monitor CBC and BMP * Administer thiamine and folic acid (3) Presence of suprapubic catheter: Code(s): Z93.59 - Other cystostomy status Status: Acute Assessment and Plan: Inserted on 05/27/[address] Roberts due to total urinary incontinence * some leakage around suprapubic catheter * appreciate urology consultation * UA without concerns for infection * SP tube to be changed monthly (4) Atrial fibrillation: Code(s): I48.91 - Unspecified atrial fibrillation Status: Acute Assessment and Plan: Tachycardic this morning up to 120s. * 5 mg Lopressor administered with improvement in HR * Eliquis was held for suprapubic catheter procedure; will plan to resume tomorrow (discussed with stroke team - no need to hold) * Resume PO metoprolol (5) Essential (primary) hypertension: Code(s): I10 - Essential (primary) hypertension Status: Acute Assessment and Plan: BP reviewed and has been generally well controlled. Last BP 154/98 * Will resume antihypertensives at this time following recommendations from stroke team * Holding clonidine Subjective Date/time seen: 05/31/21 15:41 Interval history: date of service: 05/31/2021 Arpita Pop is a 76-year-old female with history atrial fibrillation on chronic anticoagulation, COPD, hyperlipidemia, hypertension, TIA, vascular dementia, and urinary retention now s/p suprapubic catheter placement on 05/27/2021 who is seen in follow-up for suspected CVA. She is not able to provide any history. She does not give any verbal responses. Spoke with speech therapist who noted that during barium swallow the patient was able to state I don't like that when taking one of the liquids. Review of Systems Review of Systems: ROS unobtainable: Yes unobta
--- NOTE | 2021-05-31 15:41 | PM.IMPN ---
Progress Note: A&P Assessment and Plan (1) Acute cerebrovascular accident (CVA): Code(s): I63.9 - Cerebral infarction, unspecified Status: Suspected Assessment and Plan: Concern for CVA based on overall clinical picture with reports of right facial drooping and right arm and leg weakness. initial head CT with evidence of old infarct but no acute findings head/neck CTA showed no carotid bulb stenosis but did show atherosclerotic plaque with moderate stenosis of the bilateral carotid siphons. No significant stenosis at the basilar arteries. carotid Doppler with 0% stenosis echo reviewed with normal EF and no significant valvular disease she does have atrial fibrillation and has been off of her Eliquis perioperatively for suprapubic catheter placement Unfortunately she is not able to get an MRI at this facility due to her bladder stimulator due to this, head CT was repeated this AM again with no acute findings - this suggests that if she did have an acute stroke, it is very small. Case discussed with stroke team at [facility] via phone with recommendations described below. appreciate PT/OT evals repeat MBS today with recommendations for mildly thin liquids and pureed diet continue aspirin lipid panel reviewed appreciate neurology consultation (2) Encephalopathy: Code(s): G93.40 - Encephalopathy, unspecified Status: Acute Assessment and Plan: Progressive confusion and weakness As above, no acute findings of CVA on imaging. Will obtain EEG Consider LP based on results No evidence of acute UTI or other infectious process Electrolytes are stable Check TSH, B12, folate, ammonia; monitor CBC and BMP Administer thiamine and folic acid (3) Presence of suprapubic catheter: Code(s): Z93.59 - Other cystostomy status Status: Acute Assessment and Plan: Inserted on 05/27/[address] Roberts due to total urinary incontinence some leakage around suprapubic catheter appreciate urology consultation UA without concerns for infection SP tube to be changed monthly (4) Atrial fibrillation: Code(s): I48.91 - Unspecified atrial fibrillation Status: Acute Assessment and Plan: Tachycardic this morning up to 120s. 5 mg Lopressor administered with improvement in HR Eliquis was held for suprapubic catheter procedure; will plan to resume tomorrow (discussed with stroke team - no need to hold) Resume PO metoprolol (5) Essential (primary) hypertension: Code(s): I10 - Essential (primary) hypertension Status: Acute Assessment and Plan: BP reviewed and has been generally well controlled. Last BP 154/98 Will resume antihypertensives at this time following recommendations from stroke team Holding clonidine Subjective Date/time seen: 05/31/21 15:41 Interval history: date of service: 05/31/2021 Arpita Pop is a 76-year-old female with history atrial fibrillation on chronic anticoagulation, COPD, hyperlipidemia, hypertension, TIA, vascular dementia, and urinary retention now s/p suprapubic catheter placement on 05/27/2021 who is seen in follow-up for suspected CVA. She is not able to provide any history. She does not give any verbal responses. Spoke with speech therapist who noted that during barium swallow the patient was able to state I don't like that when taking one of the liquids. Review of Systems Review of Systems: ROS unobtainable: Yes unobtainable due to mental status Exam Narrative: Exam Narrative: Ms. Pop is a well-nourished 76-year-old female who is lying supine in bed. She appears comfortable and is in NARD. Neuro: asleep but arouses to verbal stimuli. No verbal responses provided. Difficulty obtaining neurologic exam as she is unable to follow most commands. Slight right sided facial droop noted. Right arm and leg flaccid. Left arm strength is 2/5. Correspondence Specialist strength in left hand
[2021-05-31] MEDS: ASPIRIN 300 MG SUPPOSITORY RECTAL (17:59)
[2021-05-31] MEDS: FOLIC ACID 1 MG TABLET PO (18:04)
[2021-05-31] MEDS: hydrALAZINE HCL 25 MG TABLET PO (18:04)
[2021-05-31] MEDS: THIAMINE HCL 100 MG TABLET PO (18:04)
[2021-05-31 19:08] LABS: Ammonia < 9 umol/L (9-30)
[2021-05-31 20:15] LABS: Folic Acid 14.1 ng/mL (2.76->20)
[2021-05-31] MEDS: METOPROLOL TARTRATE 25 MG TABLET PO (21:14)
[2021-06-01] VITALS (11 sets, daily range): BP systolic 150–205; BP diastolic 80–110; PULSE 71–104; RESP 16–24; TEMP 36.2–36.6; O2SAT 91–96
[2021-06-01 06:09] LABS: Basophils Percent Auto 0.5 % (0.2-1.2); Eosinophils Percent Auto 0.5 % (0-4.4); Hematocrit 44.8 % (37.0-47.0); Hemoglobin 14.6 g/dL (12.0-15.0); Immature Granulocyte Absolute 0.02 K/mm3 (0.00-0.031); Immature Granulocyte Percent A 0.3 % (0-0.5); Lymphocytes Absolute Auto 1.83 K/mm3 (0.9-3.2); Mean Corpuscular HGB Conc 32.6 g/dl (32-36); Mean Corpuscular Hemoglobin 29.1 pg (26-34); Mean Corpuscular Volume 89.2 fl (80-100); Mean Platelet Volume 9.7 fl (7.4-10.4); Monocytes Absolute Auto 0.8 K/mm3 (0.1-0.6); Monocytes Percent Auto 10.3 % (2.6-8.5); Neutrophils Absolute Auto 5.2 K/mm3 (1.3-6.7); Neutrophils Percent Auto 65.4 % (45.5-73.1); Platelet Count Result 335 k/mm3 (150-375); Red Blood Count 5.02 M/mm3 (4.2-5.4); Red Cell Distribution Width 13.7 % (11.5-14.5); White Blood Count 7.9 K/mm3 (4.5-10.0)
[2021-06-01 06:33] LABS: Anion Gap 10 mmol/L (8-16); Blood Urea Nitrogen 13 mg/dL (7-17); Calcium 9.5 mg/dL (8.4-10.2); Carbon Dioxide 25 mmol/L (22-30); Chloride 99 mmol/L (98-107); Estimated CRCL calculation 62 ml/min; Estimated Glomerular Filt Rate > 60; Glucose 95 mg/dL (65-110); Magnesium 1.7 mg/dL (1.6-2.3); Potassium 3.3 mmol/L (3.4-5.0); Sodium 134 mmol/L (137-145)
[2021-06-01] MEDS: THIAMINE HCL 100 MG TABLET PO (08:35)
[2021-06-01] MEDS: ASPIRIN 81 MG CHEWABLE TABLET PO (08:35)
[2021-06-01] MEDS: MAGNESIUM SULF 2 GM/WATER 50ML 2 GM/50 ML BAG IVPB (08:35)
[2021-06-01] MEDS: POTASSIUM CHLORIDE 20 MEQ TABLET PO (08:35)
[2021-06-01] MEDS: hydrALAZINE HCL 25 MG TABLET PO ×2 (08:35→17:52)
[2021-06-01] MEDS: APIXABAN 5 MG TABLET PO ×2 (08:35→17:52)
[2021-06-01] MEDS: FOLIC ACID 1 MG TABLET PO (08:36)
[2021-06-01] MEDS: METOPROLOL TARTRATE 25 MG TABLET PO ×2 (08:36→20:21)
[2021-06-01] MEDS: cloNIDine HCL 0.1 MG TABLET PO ×2 (08:36→17:52)
--- NOTE | 2021-06-01 13:48 | P.PNIM_ITS ---
Progress Note: A&P Assessment and Plan (1) Acute cerebrovascular accident (CVA): Code(s): I63.9 - Cerebral infarction, unspecified Status: Suspected Assessment and Plan: Concern for CVA based on overall clinical picture with reports of right facial drooping and right arm and leg weakness. * initial head CT with evidence of old infarct but no acute findings * head/neck CTA showed no carotid bulb stenosis but did show atherosclerotic plaque with moderate stenosis of the bilateral carotid siphons. No significant stenosis at the basilar arteries. * carotid Doppler with 0% stenosis * echo reviewed with normal EF and no significant valvular disease * she does have atrial fibrillation and had been off of her Eliquis perioperatively for suprapubic catheter placement * Unfortunately she is not able to get an MRI at this facility due to her bladder stimulator * due to this, head CT was repeated 05/31 again with no acute findings - this suggests that if she did have an acute stroke, it is very small. Case discussed [facility] with recommendations described below. * appreciate PT/OT evals * repeat MBS performed 05/31 with recommendations for mildly thin liquids and pureed diet * continue aspirin * lipid panel reviewed * appreciate neurology consultation (2) Encephalopathy: Code(s): G93.40 - Encephalopathy, unspecified Status: Acute Assessment and Plan: Progressive confusion and weakness * As above, no acute findings of CVA on imaging. * EEG ordered and awaiting completion * Consider LP based on results * No evidence of acute UTI or other infectious process. Urine culture ordered * Electrolytes are stable * TSH, B12, folate, ammonia within normal limits; monitor CBC and BMP * Continue thiamine and folic acid (3) Presence of suprapubic catheter: Code(s): Z93.59 - Other cystostomy status Status: Acute Assessment and Plan: Inserted on 05/27/[address] Roberts due to total urinary incontinence * some leakage around suprapubic catheter * appreciate urology consultation * UA without concerns for infection * SP tube to be changed monthly (4) Atrial fibrillation: Code(s): I48.91 - Unspecified atrial fibrillation Status: Acute Assessment and Plan: Rate is controlled * Continue eliquis * Continue metoprolol (5) Essential (primary) hypertension: Code(s): I10 - Essential (primary) hypertension Status: Acute Assessment and Plan: BP reviewed and has been above target, likely because she had not been on her antihypertensive regimen. Last BP 150/80 * Resume home regimen of hydralazine, clonidine, and metoprolol Subjective Date/time seen: 06/01/21 13:48 Interval history: date of service: 06/01/2021 Arpita Pop is a 76-year-old female with history atrial fibrillation on chronic anticoagulation, COPD, hyperlipidemia, hypertension, TIA, vascular dementia, and urinary retention now s/p suprapubic catheter placement on 05/09 who is seen in follow-up for encephalopathy/suspected CVA. She is not able to provide any history. She does not give any verbal responses. Long conversation with her today. He notes that she has been weak at home and often unable to walk around. He states that last time she was hospitalized (at [facility]) she refused to eat, do therapy, and was poorly communicative. My initial impression was that she was significantly more confused/less responsive but subsequent information suggest
--- NOTE | 2021-06-01 13:48 | PM.IMPN ---
Progress Note: A&P Assessment and Plan (1) Acute cerebrovascular accident (CVA): Code(s): I63.9 - Cerebral infarction, unspecified Status: Suspected Assessment and Plan: Concern for CVA based on overall clinical picture with reports of right facial drooping and right arm and leg weakness. initial head CT with evidence of old infarct but no acute findings head/neck CTA showed no carotid bulb stenosis but did show atherosclerotic plaque with moderate stenosis of the bilateral carotid siphons. No significant stenosis at the basilar arteries. carotid Doppler with 0% stenosis echo reviewed with normal EF and no significant valvular disease she does have atrial fibrillation and had been off of her Eliquis perioperatively for suprapubic catheter placement Unfortunately she is not able to get an MRI at this facility due to her bladder stimulator due to this, head CT was repeated 05/31 again with no acute findings - this suggests that if she did have an acute stroke, it is very small. Case discussed with stroke team at [facility] via phone with recommendations described below. appreciate PT/OT evals repeat MBS performed 05/31 with recommendations for mildly thin liquids and pureed diet continue aspirin lipid panel reviewed appreciate neurology consultation (2) Encephalopathy: Code(s): G93.40 - Encephalopathy, unspecified Status: Acute Assessment and Plan: Progressive confusion and weakness As above, no acute findings of CVA on imaging. EEG ordered and awaiting completion Consider LP based on results No evidence of acute UTI or other infectious process. Urine culture ordered Electrolytes are stable TSH, B12, folate, ammonia within normal limits; monitor CBC and BMP Continue thiamine and folic acid (3) Presence of suprapubic catheter: Code(s): Z93.59 - Other cystostomy status Status: Acute Assessment and Plan: Inserted on 05/27/[address] Roberts due to total urinary incontinence some leakage around suprapubic catheter appreciate urology consultation UA without concerns for infection SP tube to be changed monthly (4) Atrial fibrillation: Code(s): I48.91 - Unspecified atrial fibrillation Status: Acute Assessment and Plan: Rate is controlled Continue eliquis Continue metoprolol (5) Essential (primary) hypertension: Code(s): I10 - Essential (primary) hypertension Status: Acute Assessment and Plan: BP reviewed and has been above target, likely because she had not been on her antihypertensive regimen. Last BP 150/80 Resume home regimen of hydralazine, clonidine, and metoprolol Subjective Date/time seen: 06/01/21 13:48 Interval history: date of service: 06/01/2021 Arpita Pop is a 76-year-old female with history atrial fibrillation on chronic anticoagulation, COPD, hyperlipidemia, hypertension, TIA, vascular dementia, and urinary retention now s/p suprapubic catheter placement on 05/27/2021 who is seen in follow-up for encephalopathy/suspected CVA. She is not able to provide any history. She does not give any verbal responses. Long conversation with her today. He notes that she has been weak at home and often unable to walk around. He states that last time she was hospitalized (at [facility]) she refused to eat, do therapy, and was poorly communicative. My initial impression was that she was significantly more confused/less responsive but subsequent information suggests she may be closer to her baseline than initially suspected. Review of Systems Review of Systems: ROS unobtainable: Yes unobtainable due to mental status Exam Narrative: Exam Narrative: Ms. Pop is a well-nourished 76-year-old female who is lying supine in bed. She appears comfortable and is in NARD. Neuro: asleep but arouses to verbal stimuli. No verbal responses provided. Difficulty obtaining neurologic
--- NOTE | 2021-06-01 14:38 | WPDNEURCNPN ---
Assessment and Plan Additional Plan cerebrovascular accident with moderate stenosis of the bilateral carotid siphons patient is already receiving apixaban long with the antihypertensive medication and considering her dementia obviously surgical intervention at the carotid level will not be warranted treatment will be continued as such along with the physical therapy Consult date: 06/01/21 Time Seen: 14:00 HPI: Arpita Pop is a 76 year old female admitted to the hospital through the emergency room where she was brought by the ambulance complaining of his stroke-like symptoms with last time seen within normal limits around 10:00 p.m. and waking up at 9:00 a.m. she was unable her alarm of and noted that her speech was slurred and she was unable to follow the verbal commands. Patient has ongoing history of 1. Hypertension 2. Atrial fibrillation for which she is on Eliquis 3. No smoking 4. Occasional drinking and 5. Full code status she has been taking atorvastatin 80 mg at night memantine 10 mg twice a day with Seroquel 12.5 mg HS and omeprazole 20 mg daily in addition to cephalexin 500 b.i.d. she has been documented in the past also to have bilateral renal artery stenosis, degenerative disc disease, GERD, moderate pulmonary arterial hypertension and peripheral neuropathy, sleep apnea, addition has undergone spinal surgery also bilateral carpal tunnel release and cataract extraction. Her initial CT scan this time only documented right basal gangliar and anterior limb right internal capsular infarct with atherosclerosis and cardiomegaly on x-ray chest, routine lab not significant Review of Systems Review of Systems: All systems reviewed & are unremarkable except as noted in HPI and below PMFSH Past Medical History Medical History Arthritis Atrial fibrillation Normal stress test April 2020 Back pain Bilateral renal artery stenosis Bilateral renal nurse to oasis noted on CTA evaluated at [facility] neyda Farias December 2019 COPD (chronic obstructive pulmonary disease) Degenerative disc disease Dyslipidemia GERD (gastroesophageal reflux disease) Hypertension Moderate pulmonary arterial systolic hypertension Echocardiogram April 2020: EF 60-65%, normal diastolic function, atrial fibrillation, moderate left atrial enlargement, moderate to severe tricuspid valve regurgitation moderate pulmonary hypertension with RVSP of 54 Obesity (BMI 30.0-34.9) Osteoporosis Peripheral neuropathy Physical debility Pneumonia due to COVID-19 virus 09/08/2020 treated with Remdesivir dexamethasone and 1 unit of convalesant plasma Presence of suprapubic catheter Sleep apnea Severe obstructive sleep apnea on polysomnogram October 2014 with recommended CPAP of 18 SMA stenosis TIA (transient ischemic attack) x3 Ulcer Urinary retention with incomplete bladder emptying Vascular dementia with behavior disturbance Surgical History Surgical History H/O Spinal surgery H/O: hysterectomy History of bladder suspension procedure History of carpal tunnel release bilateral History of orthopedic surgery heel spurs, bilateral bunionectomy Hx of appendectomy Hx of cataract surgery Hx of cholecystectomy Family History Family History Father Diabetes mellitus Hypertension Cerebrovascular accident Cardiovascular disease Hyperlipidemia Psychiatric illness Mother Diabetes mellitus Hypertension Cerebrovascular accident Psychiatric illness Cardiovascular disease Hyperlipidemia Social History Social History Social History: the patient lives with her . the patient is listed as a full code. She is listed as a former smoker. Primary care physician: Dr. Adan Mix Smoking packs per day: 0.5 Smoking cigarettes per day: 10.0
[2021-06-02] VITALS (10 sets, daily range): BP systolic 132–196; BP diastolic 71–100; PULSE 70–120; RESP 16–20; TEMP 35.8–36.4; O2SAT 92–99
[2021-06-02 05:56] LABS: Hematocrit 42.1 % (37.0-47.0); Hemoglobin 13.3 g/dL (12.0-15.0)
[2021-06-02 06:09] LABS: Anion Gap 7 mmol/L (8-16); Blood Urea Nitrogen 17 mg/dL (7-17); Calcium 9.4 mg/dL (8.4-10.2); Carbon Dioxide 26 mmol/L (22-30); Chloride 101 mmol/L (98-107); Estimated CRCL calculation 54 ml/min; Estimated Glomerular Filt Rate > 60; Glucose 94 mg/dL (65-110); Magnesium 2.1 mg/dL (1.6-2.3); Potassium 3.3 mmol/L (3.4-5.0); Sodium 134 mmol/L (137-145)
[2021-06-02] MEDS: POTASSIUM CHLORIDE 20 MEQ TABLET PO (09:11)
[2021-06-02] MEDS: APIXABAN 5 MG TABLET PO ×2 (09:12→17:30)
[2021-06-02] MEDS: ASPIRIN 81 MG CHEWABLE TABLET PO (09:12)
[2021-06-02] MEDS: METOPROLOL TARTRATE 25 MG TABLET PO ×2 (09:12→21:12)
[2021-06-02] MEDS: FOLIC ACID 1 MG TABLET PO (09:12)
[2021-06-02] MEDS: cloNIDine HCL 0.1 MG TABLET PO ×2 (09:12→17:31)
[2021-06-02] MEDS: hydrALAZINE HCL 25 MG TABLET PO ×2 (09:12→17:31)
[2021-06-02] MEDS: THIAMINE HCL 100 MG TABLET PO (09:12)
--- NOTE | 2021-06-02 16:31 | P.PNIM_ITS ---
Progress Note: A&P Assessment and Plan (1) Acute cerebrovascular accident (CVA): Code(s): I63.9 - Cerebral infarction, unspecified Status: Suspected Assessment and Plan: Concern for CVA based on overall clinical picture with reports of right facial drooping and right arm and leg weakness. * initial head CT with evidence of old infarct but no acute findings * head/neck CTA showed no carotid bulb stenosis but did show atherosclerotic plaque with moderate stenosis of the bilateral carotid siphons. No significant stenosis at the basilar arteries. She is a poor surgical candidate given her dementia. * carotid Doppler with 0% stenosis * echo reviewed with normal EF and no significant valvular disease * she does have atrial fibrillation and had been off of her Eliquis perioperatively for suprapubic catheter placement; Eliquis has been resumed * Unfortunately she is not able to get an MRI at this facility due to her bladder stimulator * due to this, head CT was repeated 05/31 again with no acute findings - this suggests that if she did have an acute stroke, it is small in size. Case discussed with [facility] team [facility] via phone. * appreciate PT/OT evals * repeat MBS performed 05/31 with recommendations for mildly thin liquids and pureed diet; tolerating well * continue aspirin * lipid panel reviewed and is within normal limits * appreciate neurology consultation (2) Encephalopathy: Code(s): G93.40 - Encephalopathy, unspecified Status: Acute Assessment and Plan: Progressive confusion and weakness. She is becoming more alert today; talking more and able to follow commands * As above, no acute findings of CVA on imaging. * EEG ordered and awaiting completion, hopefully can be completed on Thursday * No evidence of acute UTI or other infectious process. Urine culture ordered * Electrolytes are stable * TSH, B12, folate, ammonia within normal limits; monitor CBC and BMP * Continue thiamine and folic acid (3) Presence of suprapubic catheter: Code(s): Z93.59 - Other cystostomy status Status: Acute Assessment and Plan: Inserted on 05/27/[address] Roberts due to total urinary incontinence * some leakage around suprapubic catheter * appreciate urology consultation * UA without concerns for infection * SP tube to be changed monthly (4) Atrial fibrillation: Code(s): I48.91 - Unspecified atrial fibrillation Status: Acute Assessment and Plan: Rate is controlled * Continue eliquis * Continue metoprolol (5) Essential (primary) hypertension: Code(s): I10 - Essential (primary) hypertension Status: Acute Assessment and Plan: BP reviewed and had been above target while off her antihypertensive regimen. Improving now with last BP 132/88 * Resume home regimen of hydralazine, clonidine, and metoprolol * Review of BP trends suggest historically difficult to control blood pressure Subjective Date/time seen: 06/02/21 16:31 Interval history: date of service: 06/01/2021 Arpita Pop is a 76-year-old female with history atrial fibrillation on chronic anticoagulation, COPD, hyperlipidemia, hypertension, TIA, vascular dementia, and urinary retention now s/p suprapubic catheter placement on 05/27/2021 who is seen in follow-up for encephalopathy/suspected CVA. She is more alert today and is able to answer some of my questions, but often times sp eech is nonsensical. she seems to be mixing up her words. She was able to tell me her name and her birthday and s
--- NOTE | 2021-06-02 16:31 | PM.IMPN ---
Progress Note: A&P Assessment and Plan (1) Acute cerebrovascular accident (CVA): Code(s): I63.9 - Cerebral infarction, unspecified Status: Suspected Assessment and Plan: Concern for CVA based on overall clinical picture with reports of right facial drooping and right arm and leg weakness. initial head CT with evidence of old infarct but no acute findings head/neck CTA showed no carotid bulb stenosis but did show atherosclerotic plaque with moderate stenosis of the bilateral carotid siphons. No significant stenosis at the basilar arteries. She is a poor surgical candidate given her dementia. carotid Doppler with 0% stenosis echo reviewed with normal EF and no significant valvular disease she does have atrial fibrillation and had been off of her Eliquis perioperatively for suprapubic catheter placement; Eliquis has been resumed Unfortunately she is not able to get an MRI at this facility due to her bladder stimulator due to this, head CT was repeated 05/31 again with no acute findings - this suggests that if she did have an acute stroke, it is small in size. Case discussed with [facility] team [facility] via phone. appreciate PT/OT evals repeat MBS performed 05/31 with recommendations for mildly thin liquids and pureed diet; tolerating well continue aspirin lipid panel reviewed and is within normal limits appreciate neurology consultation (2) Encephalopathy: Code(s): G93.40 - Encephalopathy, unspecified Status: Acute Assessment and Plan: Progressive confusion and weakness. She is becoming more alert today; talking more and able to follow commands As above, no acute findings of CVA on imaging. EEG ordered and awaiting completion, hopefully can be completed on Thursday No evidence of acute UTI or other infectious process. Urine culture ordered Electrolytes are stable TSH, B12, folate, ammonia within normal limits; monitor CBC and BMP Continue thiamine and folic acid (3) Presence of suprapubic catheter: Code(s): Z93.59 - Other cystostomy status Status: Acute Assessment and Plan: Inserted on 05/27/[address] Roberts due to total urinary incontinence some leakage around suprapubic catheter appreciate urology consultation UA without concerns for infection SP tube to be changed monthly (4) Atrial fibrillation: Code(s): I48.91 - Unspecified atrial fibrillation Status: Acute Assessment and Plan: Rate is controlled Continue eliquis Continue metoprolol (5) Essential (primary) hypertension: Code(s): I10 - Essential (primary) hypertension Status: Acute Assessment and Plan: BP reviewed and had been above target while off her antihypertensive regimen. Improving now with last BP 132/88 Resume home regimen of hydralazine, clonidine, and metoprolol Review of BP trends suggest historically difficult to control blood pressure Subjective Date/time seen: 06/02/21 16:31 Interval history: date of service: 06/01/2021 Arpita Pop is a 76-year-old female with history atrial fibrillation on chronic anticoagulation, COPD, hyperlipidemia, hypertension, TIA, vascular dementia, and urinary retention now s/p suprapubic catheter placement on 05/27/2021 who is seen in follow-up for encephalopathy/suspected CVA. She is more alert today and is able to answer some of my questions, but often times speech is nonsensical. she seems to be mixing up her words. She was able to tell me her name and her birthday and she knew she was in the hospital. She said that she ate some lunch but could not tell me what she ate. She denies any pain or difficulty breathing. When I asked her to move her right arm she said not that one and then instead moved the left arm. Unable to contribute to history further. Review of Systems Review of Systems: ROS unobtainable: Yes unobtainable due to mental status Exam Narrative:
[2021-06-03] MEDS: ONDANSETRON INJ 4 MG/2 ML VIAL IV PUSH (05:03)
[2021-06-03 05:52] VITALS: BP 166/90; PULSE 114; RESP 20; TEMP 36.5; O2SAT 95
[2021-06-03 05:56] LABS: Hematocrit 44.4 % (37.0-47.0); Hemoglobin 14.2 g/dL (12.0-15.0)
[2021-06-03 06:08] LABS: Anion Gap 6 mmol/L (8-16); Blood Urea Nitrogen 14 mg/dL (7-17); Calcium 9.3 mg/dL (8.4-10.2); Carbon Dioxide 27 mmol/L (22-30); Chloride 102 mmol/L (98-107); Estimated CRCL calculation 62 ml/min; Estimated Glomerular Filt Rate > 60; Glucose 100 mg/dL (65-110); Magnesium 1.9 mg/dL (1.6-2.3); Potassium 3.8 mmol/L (3.4-5.0); Sodium 135 mmol/L (137-145)
[2021-06-03] MEDS: APIXABAN 5 MG TABLET PO ×2 (09:53→18:13)
[2021-06-03] MEDS: cloNIDine HCL 0.1 MG TABLET PO ×2 (09:53→18:14)
[2021-06-03] MEDS: ASPIRIN 81 MG CHEWABLE TABLET PO (09:53)
[2021-06-03] MEDS: FOLIC ACID 1 MG TABLET PO (09:53)
[2021-06-03] MEDS: METOPROLOL TARTRATE 25 MG TABLET PO ×2 (09:53→20:45)
[2021-06-03] MEDS: hydrALAZINE HCL 25 MG TABLET PO ×2 (09:53→18:13)
--- NOTE | 2021-06-03 10:01 | WPDNEUROPN ---
Progress Note: A&P Additional Plan treatment will be continued as such Review of Systems Review of Systems: All systems reviewed & are unremarkable except as noted in HPI and below Exam Narrative: Exam Narrative: remains awake alert, heart regular lungs clear abdomen is soft and neuro examination unchanged except the right hemiparesis with hyperreflexia and upgoing plantar response Objective Data Vital Signs Vital Signs: Vital Signs - 24 hr 06/02/21 12:00 06/02/21 16:00 06/02/21 21:12 Temperature 35.8 C L 36.4 C L Pulse Rate 87 120 H 80 Respiratory Rate 18 20 Blood Pressure 132/88 196/96 H Pulse Oximetry 97 99 06/02/21 21:30 06/03/21 05:52 Temperature 36.3 C L 36.5 C Pulse Rate 80 114 H Respiratory Rate 16 20 Blood Pressure 157/86 H 166/90 H Pulse Oximetry 94 95 Intake/Output Intake/Output: Intake & Output 05/31/21 06/01/21 06/02/21 06/03/21 23:59 23:59 23:59 23:59 Intake Total 2100 1190 570 Output Total 2200 1675 550 400 Balance -100 -485 20 -400 Meds/Results Medications: Active Medications Generic Name Dose Route Start Last Admin Trade Name Freq PRN Reason Stop Dose Admin Apixaban 5 mg 06/01/21 09:00 06/03/21 09:53 Apixaban 5 Mg Tablet PO 5 mg BID YONAS Administration Aspirin 81 mg 05/30/21 08:00 06/03/21 09:53 Aspirin 81 Mg Chewable Tablet PO 81 mg DAILY@0800 YONAS Administration Clonidine HCl 0.1 mg 06/01/21 09:00 06/03/21 09:53 Clonidine Hcl 0.1 Mg Tablet PO 0.1 mg BID YONAS Administration Folic Acid 1 mg 05/31/21 16:25 06/03/21 09:53 Folic Acid 1 Mg Tablet PO 1 mg DAILY YONAS Administration Hydralazine HCl 25 mg 05/31/21 17:00 06/03/21 09:53 Hydralazine Hcl 25 Mg Tablet PO 25 mg BID YONAS Administration Metoprolol Tartrate 25 mg 05/31/21 21:00 06/03/21 09:53 Metoprolol Tartrate 25 Mg Tablet PO 25 mg Q12HR YONAS Administration Ondansetron HCl 4 mg 05/30/21 14:00 06/03/21 05:03 Ondansetron Inj 4 Mg/2 Ml Vial IV PUSH 4 mg Q6H PRN Administration Nausea And Vomiting Thiamine HCl 100 mg 05/31/21 16:25 06/02/21 09:12 Thiamine Hcl 100 Mg Tablet PO 100 mg QAM YONAS Administration Radiology Results: ITS Impressions Head/Neck CTA 05/29/21 12:47 IMPRESSION: 1. 0% stenosis of the left and right carotid bulbs relative to normal distal artery lumen diameter (NASCET criteria). 2. Atherosclerotic plaque with moderate stenosis at the bilateral carotid siphons. 3. Evaluation of the carotid CT angiogram only minimally limited by motion artifact. Evaluation of the brain CT angiogram is mild to moderately limited by prominent motion artifact. Carotid Doppler Study 05/29/21 18:42 IMPRESSION: 1. Less than 50 percent stenosis in the right internal carotid artery. 2. Less than 50 percent stenosis in the left internal carotid artery. > Head CT 05/31/21 09:09 IMPRESSION: Old right basal ganglia and anterior limb right internal capsule infarcts Cerebral atherosclerosis and chronic small vessel ischemic changes of the cerebral white matter No acute intracranial finding or significant change since 10/04/2020 Modified Barium Swallow 05/31/21 15:19 IMPRESSION: Modified esophagram findings as above. Please refer to the speech therapy report for specific recommendations. Chest X-Ray 06/01/21 09:48 IMPRESSION: Cardiomegaly Labs Labs: Laboratory Results - last 24 hr 06/03/21 06/03/21 05:23 05:23 Hgb 14.2 Hct 44.4 Sodium 135 L Potassium 3.8 Chloride 102 Carbon Dioxide 27 Anion Gap 6 L BUN 14 Creatinine 0.70 Estim Creat Clear Calc 62 Estimated GFR > 60 Glucose 100 Calcium 9.3 Magnesium 1.9 Quality VTE Prophylaxis VTE prophylaxis: mechanical ordered
[2021-06-03 10:35] VITALS: BP 119/88; PULSE 72; RESP 16; TEMP 36.3; O2SAT 96
--- NOTE | 2021-06-03 11:00 | WPDNEUROLOGY ---
Neurology EEG Report General Information Date of Study: 06/03/21 TEST eeg DIAGNOSIS Encephalopathy CONDITION OF RECORDING awake and drowsy EEG NUMBER [id number] CLINICAL HISTORY patient came to the hospital for the complaints of change in the mental status with difficulties in his speech EEG DESCRIPTION basic resting occipital frequency consists of low to medium voltage 9 to 11 hertz per 2nd alpha admixed with low-voltage 15 to 18 hertz per 2nd beta, during drowsiness, low-voltage beta activity is seen diffusely. Hyperventilation not done. Photic stimulation not done. Non paroxysmal, nonfocal ,nonlateralizing. IMPRESSION No significant abnormalities noted in this tracing which was interrupted as the patient became nauseous and was unable to stay laying down with eyes closed. Clinical correlation recommended if the diagnosis of seizure is strongly suspected repeat EEG suggested
--- NOTE | 2021-06-03 11:34 | PCNFU ---
Nutrition Follow-Up Complete: Altered nutritional status related to acute CVA as evidence by 0% meal consumption, expressive aphasia, and swallowing precaution recommendations. Goal: Meet estimated nutritional needs. Patient has not met goal. Will continue to work towards goal. Pt current nutrition is Regular, Pureed Level 4, Mildly thick liquids. Last recorded weight is 100 kg. Bowel Motility: No recorded bowel movements. Labs Reviewed: Hgb 14.2, Hct 44.4, Na 135, K 3.8, BUN 14, Cr .70, Glu 100 Meds Noted: Eliquis, Aspirin, Catapres, Folic Acid, Apresoline Tab, Lopressor, Zofran, Vitamin B-1. Additional Notes: Patient reported that breakfast was not good. Patient also reports that she is not hungry due to vomiting and nausea. Fair appetite. No skin break down. Receiving Ensure Compact nutritional supplement BID providing 220 kcals and 9 gm protein. Will continue to monitor bowel motility, meal consumption, and weight. Follow up in 3 days.
--- NOTE | 2021-06-03 12:03 | WPDUROPN2 ---
Progress Note: A&P Assessment and Plan (1) Encephalopathy: Code(s): G93.40 - Encephalopathy, unspecified Status: Acute Assessment and Plan: her neurostimulator is now been turned off. she is approved for an MRI of the head only (2) Presence of suprapubic catheter: Code(s): Z93.59 - Other cystostomy status Status: Acute Assessment and Plan: patent and draining Subjective Subjective Date/Time Seen: 06/03/21 12:03 Suprapubic tube is draining clear yellow urine. Her state her clinical condition is improving. I turned off her neurostimulator. She CAN have an MRI of the head if needed. in MRI of the head only is approved her labeling of her neurostimulator Exam Const: General: cooperative Urinary Catheter: Urinary Catheter: patent and draining and urine clear Skin: General skin exam: normal color Objective Data Vital Signs Vital Signs: Vital Signs - 24 hr 06/02/21 16:00 06/02/21 21:12 06/02/21 21:30 Temperature 97.5 F L 97.4 F L Pulse Rate 120 H 80 80 Respiratory Rate 20 16 Blood Pressure 196/96 H 157/86 H Pulse Oximetry 99 94 06/03/21 05:52 Temperature 97.7 F Pulse Rate 114 H Respiratory Rate 20 Blood Pressure 166/90 H Pulse Oximetry 95 Intake/Output Intake/Output: Intake & Output 05/31/21 06/01/21 06/02/21 06/03/21 23:59 23:59 23:59 23:59 Intake Total 2100 1190 570 Output Total 2200 1675 550 400 Balance -100 -485 20 -400 Meds/Results Medications: Active Medications Generic Name Dose Route Start Last Admin Trade Name Joselitoq PRN Reason Stop Dose Admin Apixaban 5 mg 06/01/21 09:00 06/03/21 09:53 Apixaban 5 Mg Tablet PO 5 mg BID YONAS Administration Aspirin 81 mg 05/30/21 08:00 06/03/21 09:53 Aspirin 81 Mg Chewable Tablet PO 81 mg DAILY@0800 YONAS Administration Clonidine HCl 0.1 mg 06/01/21 09:00 06/03/21 09:53 Clonidine Hcl 0.1 Mg Tablet PO 0.1 mg BID YONAS Administration Folic Acid 1 mg 05/31/21 16:25 06/03/21 09:53 Folic Acid 1 Mg Tablet PO 1 mg DAILY YONAS Administration Hydralazine HCl 25 mg 05/31/21 17:00 06/03/21 09:53 Hydralazine Hcl 25 Mg Tablet PO 25 mg BID YONAS Administration Metoprolol Tartrate 25 mg 05/31/21 21:00 06/03/21 09:53 Metoprolol Tartrate 25 Mg Tablet PO 25 mg Q12HR YONAS Administration Ondansetron HCl 4 mg 05/30/21 14:00 06/03/21 05:03 Ondansetron Inj 4 Mg/2 Ml Vial IV PUSH 4 mg Q6H PRN Administration Nausea And Vomiting Thiamine HCl 100 mg 05/31/21 16:25 06/02/21 09:12 Thiamine Hcl 100 Mg Tablet PO 100 mg QAM YONAS Administration Radiology Results: ITS Impressions Head/Neck CTA 05/29/21 12:47 IMPRESSION: 1. 0% stenosis of the left and right carotid bulbs relative to normal distal artery lumen diameter (NASCET criteria). 2. Atherosclerotic plaque with moderate stenosis at the bilateral carotid siphons. 3. Evaluation of the carotid CT angiogram only minimally limited by motion artifact. Evaluation of the brain CT angiogram is mild to moderately limited by prominent motion artifact. Carotid Doppler Study 05/29/21 18:42 IMPRESSION: 1. Less than 50 percent stenosis in the right internal carotid artery. 2. Less than 50 percent stenosis in the left internal carotid artery. > Head CT 05/31/21 09:09 IMPRESSION: Old right basal ganglia and anterior limb right internal capsule infarcts Cerebral atherosclerosis and chronic small vessel ischemic changes of the cerebral white matter No acute intracranial finding or significant change since 10/04/2020 Modified Barium Swallow 05/31/21 15:19 IMPRESSION: Modified esophagram findings as above. Please refer to the speech therapy report for specific recommendations. Chest X-Ray 06/01/21 09:48 IMPRESSION: Cardiomegaly Labs Labs: Laboratory Results - last 24 hr 06/03/21 06/03/21 05:23 05:23 Hgb 14.2 Hct 44.4 Sodium 135 L
--- NOTE | 2021-06-03 12:16 | PCNSR ---
On 06/03/21, the student,Juanis Allan, provided care and completed [facility] documentation on this patient. I have reviewed the student's documentation and agree with the findings.
[2021-06-03 16:05] VITALS: BP 170/98; PULSE 62; RESP 20; TEMP 36.2; O2SAT 95
--- NOTE | 2021-06-03 18:12 | P.PNIM_ITS ---
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 No significant stenosis at the basilar arteries. She is a poor surgical candidate given her dementia. * carotid Doppler with 0% stenosis * echo reviewed with normal EF and no significant valvular disease * she does have atrial fibrillation and had been off of her Eliquis perioperatively for suprapubic catheter placement; Eliquis has been resumed * Unfortunately she is not able to get an MRI at this facility due to her bladder stimulator * due to this, head CT was repeated 05/31 again with no acute findings - this suggests that if she did have an acute stroke, it is small in size. [facility]. * appreciate PT/OT evals * repeat MBS performed 05/31 with recommendations for mildly thin liquids and pureed diet; tolerating well * continue aspirin * lipid panel reviewed and is within normal limits * appreciate neurology consultation (2) Encephalopathy: Code(s): G93.40 - Encephalopathy, unspecified Status: Acute Assessment and Plan: Progressive confusion and weakness. She is becoming more alert today; talking more and able to follow commands * As above, no acute findings of CVA on imaging. * EEG with no significant abnormalities on limited study which was interrupted as patient unable to stay supine * No evidence of acute UTI or other infectious process. Urine culture ordered * Electrolytes are stable * TSH, B12, folate, ammonia within normal limits; monitor CBC and BMP * Continue thiamine and folic acid (3) Presence of suprapubic catheter: Code(s): Z93.59 - Other cystostomy status Status: Acute Assessment and Plan: Inserted on 05/27/[address] Roberts due to total urinary incontinence * some leakage around suprapubic catheter * appreciate urology consultation * UA without concerns for infection * SP tube to be changed monthly (4) Atrial fibrillation: Code(s): I48.91 - Unspecified atrial fibrillation Status: Acute Assessment and Plan: Rate is controlled * Continue eliquis * Continue metoprolol (5) Essential (primary) hypertension: Code(s): I10 - Essential (primary) hypertension Status: Acute Assessment and Plan: BP reviewed and had been above target while off her antihypertensive regimen. Improving now. * Resume home regimen of hydralazine, clonidine, and metoprolol * Review of BP trends suggest historically difficult to control blood pressure (6) Dementia: Code(s): F03.90 - Unspecified dementia without behavioral disturbance Status: Acute Assessment and Plan: History of vascular dementia * I saw the patient in September 2020 and at that time noted she was A&Ox1 and pleasantly confused * It seems her mental status waxes and wanes and really she doesn't appear to be too far off her baseline at this time. Subjective Date/time seen: 06/03/21 18:12 Interval history: date of service: 06/03/2021 Arpita Pop is a 76-year-old female with history atrial fibr
--- NOTE | 2021-06-03 18:12 | PM.IMPN ---
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 No significant stenosis at the basilar arteries. She is a poor surgical candidate given her dementia. carotid Doppler with 0% stenosis echo reviewed with normal EF and no significant valvular disease she does have atrial fibrillation and had been off of her Eliquis perioperatively for suprapubic catheter placement; Eliquis has been resumed Unfortunately she is not able to get an MRI at this facility due to her bladder stimulator due to this, head CT was repeated 05/31 again with no acute findings - this suggests that if she did have an acute stroke, it is small in size. Case discussed with stroke team at [facility] via phone. appreciate PT/OT evals repeat MBS performed 05/31 with recommendations for mildly thin liquids and pureed diet; tolerating well continue aspirin lipid panel reviewed and is within normal limits appreciate neurology consultation (2) Encephalopathy: Code(s): G93.40 - Encephalopathy, unspecified Status: Acute Assessment and Plan: Progressive confusion and weakness. She is becoming more alert today; talking more and able to follow commands As above, no acute findings of CVA on imaging. EEG with no significant abnormalities on limited study which was interrupted as patient unable to stay supine No evidence of acute UTI or other infectious process. Urine culture ordered Electrolytes are stable TSH, B12, folate, ammonia within normal limits; monitor CBC and BMP Continue thiamine and folic acid (3) Presence of suprapubic catheter: Code(s): Z93.59 - Other cystostomy status Status: Acute Assessment and Plan: Inserted on 05/27/[address] Roberts due to total urinary incontinence some leakage around suprapubic catheter appreciate urology consultation U[facility] without concerns for infection SP tube to be changed monthly (4) Atrial fibrillation: Code(s): I48.91 - Unspecified atrial fibrillation Status: Acute Assessment and Plan: Rate is controlled Continue eliquis Continue metoprolol (5) Essential (primary) hypertension: Code(s): I10 - Essential (primary) hypertension Status: Acute Assessment and Plan: BP reviewed and had been above target while off her antihypertensive regimen. Improving now. Resume home regimen of hydralazine, clonidine, and metoprolol Review of BP trends suggest historically difficult to control blood pressure (6) Dementia: Code(s): F03.90 - Unspecified dementia without behavioral disturbance Status: Acute Assessment and Plan: History of vascular dementia I saw the patient in September 2020 and at that time noted she was A&Ox1 and pleasantly confused It seems her mental status waxes and wanes and really she doesn't appear to be too far off her baseline at this time. Subjective Date/time seen: 06/03/21 18:12 Interval history: date of service: 06/03/2021 Arpita Pop is a 76-year-old female with history atrial fibrillation on chronic anticoagulation, COPD, hyperlipidemia, hypertension, TIA, vascular dementia, and urinary retention now s/p suprapubic catheter placement on 05/27/2021 who is seen in follow-up for encephalopathy/suspected CVA. She is more alert today. She is sitting up in her bed eating dinner and is more conversational. She is still having confusion was some of her words but is able to communicate more effectively. She denies headache, confusion,
[2021-06-03] MEDS: THIAMINE HCL 100 MG TABLET PO (18:13)
[2021-06-03 20:00] VITALS: BP 155/86; PULSE 88; RESP 16; TEMP 36.3; O2SAT 94
[2021-06-03 20:45] VITALS: PULSE 88
[2021-06-04] VITALS: BP 146/93; PULSE 78; RESP 14; TEMP 36.4; O2SAT 95
[2021-06-04 04:00] VITALS: BP 111/87; PULSE 92; RESP 18; TEMP 36.4; O2SAT 98
[2021-06-04] MEDS: ACETAMINOPHEN 500 MG TABLET 1000 MG PO ×3 (05:19→21:01)
[2021-06-04 05:59] LABS: Anion Gap 8 mmol/L (8-16); Blood Urea Nitrogen 15 mg/dL (7-17); Calcium 9.4 mg/dL (8.4-10.2); Carbon Dioxide 31 mmol/L (22-30); Chloride 97 mmol/L (98-107); Estimated CRCL calculation 62 ml/min; Estimated Glomerular Filt Rate > 60; Glucose 125 mg/dL (65-110); Potassium 3.6 mmol/L (3.4-5.0); Sodium 136 mmol/L (137-145)
[2021-06-04 09:45] VITALS: BP 155/98; PULSE 91; RESP 20; TEMP 36.1; O2SAT 93
[2021-06-04] MEDS: ASPIRIN 81 MG CHEWABLE TABLET PO (10:08)
[2021-06-04] MEDS: METOPROLOL TARTRATE 25 MG TABLET PO ×2 (10:08→20:59)
[2021-06-04] MEDS: cloNIDine HCL 0.1 MG TABLET PO ×2 (10:08→17:11)
[2021-06-04] MEDS: FOLIC ACID 1 MG TABLET PO (10:08)
[2021-06-04] MEDS: hydrALAZINE HCL 25 MG TABLET PO ×2 (10:08→17:12)
[2021-06-04] MEDS: APIXABAN 5 MG TABLET PO ×2 (10:08→17:17)
[2021-06-04] MEDS: THIAMINE HCL 100 MG TABLET PO (10:08)
--- NOTE | 2021-06-04 13:02 | P.PNIM_ITS ---
Progress Note: A&P Assessment and Plan (1) Acute cerebrovascular accident (CVA): Code(s): I63.9 - Cerebral infarction, unspecified Status: Suspected Assessment and Plan: Concern for CVA based on overall clinical picture with persistent right sided weakness and expressive aphasia. 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 No significant stenosis at the basilar arteries. She is a poor surgical candidate given her dementia. * Carotid Doppler with 0% stenosis LISA * Echo reviewed with normal EF and no significant valvular disease * She does have atrial fibrillation and had been off of her Eliquis perioperatively for suprapubic catheter placement; Eliquis has been resumed * Unfortunately she is not able to get an MRI at this facility due to her bladder stimulator * Due to this, head CT was repeated 05/31 again with no acute findings - this suggests that if she did have an acute stroke, it is small in size. Previous provider discussed case with stroke team at [facility] via phone. * Repeat MBS performed 05/31 with recommendations for mildly thin liquids and pureed diet; tolerating well * Continue aspirin * Lipid panel reviewed and is within normal limits * Appreciate neurology consultation * Appreciate PT/OT evals. Dispo is SNF; awaiting insurance authorization. (2) Encephalopathy: Code(s): G93.40 - Encephalopathy, unspecified Status: Acute Assessment and Plan: Progressive confusion and weakness. She is becoming more alert today; talking and having a conversation with me, able to follow simple commands. * As above, no acute findings of CVA on imaging. * EEG with no significant abnormalities on limited study which was interrupted as patient unable to stay supine * No evidence of acute UTI or other infectious process. Urine culture negative. * Electrolytes are stable * TSH, B12, folate, ammonia within normal limits; monitor CBC and BMP * Continue thiamine and folic acid (3) Presence of suprapubic catheter: Code(s): Z93.59 - Other cystostomy status Status: Acute Assessment and Plan: Inserted on 05/27/[address] Roberts due to total urinary incontinence * some leakage around suprapubic catheter previously, not noted today thus far * appreciate urology consultation * UA without concerns for infection * SP tube to be changed monthly (4) Atrial fibrillation: Code(s): I48.91 - Unspecified atrial fibrillation Status: Acute Assessment and Plan: Rate is controlled * Continue eliquis * Continue metoprolol (5) Essential (primary) hypertension: Code(s): I10 - Essential (primary) hypertension Status: Acute Assessment and Plan: BP reviewed and had been above target while off her antihypertensive regimen. Improving now. * Resume home regimen of hydralazine, clonidine, and metoprolol * Review of BP trends suggest historically difficult to control blood pressure (6) Dementia: Code(s): F03.90 - Unspecified dementia without behavioral disturbance Status: Acute Assessment and Plan: History of vascular dementia * Noted patient was A&Ox1 and pleasantly confused on previous admission Sep 2020. * It seems her mental status waxes and wanes and really she doesn't appear to be too far off her baseline at this time. Subjective Date/time seen: 06/04/21
--- NOTE | 2021-06-04 13:02 | PM.IMPN ---
Progress Note: A&P Assessment and Plan (1) Acute cerebrovascular accident (CVA): Code(s): I63.9 - Cerebral infarction, unspecified Status: Suspected Assessment and Plan: Concern for CVA based on overall clinical picture with persistent right sided weakness and expressive aphasia. 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 No significant stenosis at the basilar arteries. She is a poor surgical candidate given her dementia. Carotid Doppler with 0% stenosis LISA Echo reviewed with normal EF and no significant valvular disease She does have atrial fibrillation and had been off of her Eliquis perioperatively for suprapubic catheter placement; Eliquis has been resumed Unfortunately she is not able to get an MRI at this facility due to her bladder stimulator Due to this, head CT was repeated 05/31 again with no acute findings - this suggests that if she did have an acute stroke, it is small in size. Previous provider discussed case with stroke team at [facility] via phone. Repeat MBS performed 05/31 with recommendations for mildly thin liquids and pureed diet; tolerating well Continue aspirin Lipid panel reviewed and is within normal limits Appreciate neurology consultation Appreciate PT/OT evals. Dispo is SNF; awaiting insurance authorization. (2) Encephalopathy: Code(s): G93.40 - Encephalopathy, unspecified Status: Acute Assessment and Plan: Progressive confusion and weakness. She is becoming more alert today; talking and having a conversation with me, able to follow simple commands. As above, no acute findings of CVA on imaging. EEG with no significant abnormalities on limited study which was interrupted as patient unable to stay supine No evidence of acute UTI or other infectious process. Urine culture negative. Electrolytes are stable TSH, B12, folate, ammonia within normal limits; monitor CBC and BMP Continue thiamine and folic acid (3) Presence of suprapubic catheter: Code(s): Z93.59 - Other cystostomy status Status: Acute Assessment and Plan: Inserted on 05/27/[address] Roberts due to total urinary incontinence some leakage around suprapubic catheter previously, not noted today thus far appreciate urology consultation [facility] without concerns for infection SP tube to be changed monthly (4) Atrial fibrillation: Code(s): I48.91 - Unspecified atrial fibrillation Status: Acute Assessment and Plan: Rate is controlled Continue eliquis Continue metoprolol (5) Essential (primary) hypertension: Code(s): I10 - Essential (primary) hypertension Status: Acute Assessment and Plan: BP reviewed and had been above target while off her antihypertensive regimen. Improving now. Resume home regimen of hydralazine, clonidine, and metoprolol Review of BP trends suggest historically difficult to control blood pressure (6) Dementia: Code(s): F03.90 - Unspecified dementia without behavioral disturbance Status: Acute Assessment and Plan: History of vascular dementia Noted patient was A&Ox1 and pleasantly confused on previous admission Sep 2020. It seems her mental status waxes and wanes and really she doesn't appear to be too far off her baseline at this time. Subjective Date/time seen: 06/04/21 1100 Interval history: Arpita Pop is a 76-year-old female with history atrial fibrillation on chronic anticoagulation, COPD, hyperlipidemia, hypertension, TIA, vascular dementia, and urinary retention now s/p suprapubic catheter placement on 05/27/2021 who is seen in follow-up for encephalopathy/suspected CVA. She is awake and having a conversation with me. She is tearful discussing going to rehab and she is frustrated with the [facility]
[2021-06-04 15:50] VITALS: BP 151/81; PULSE 82; RESP 24; TEMP 36.1; O2SAT 96
[2021-06-04 20:59] VITALS: PULSE 96
[2021-06-04 21:03] VITALS: BP 136/76; PULSE 96; RESP 18; TEMP 35.6; O2SAT 97
[2021-06-05] VITALS (7 sets, daily range): BP systolic 146–159; BP diastolic 66–89; PULSE 68–102; RESP 16–18; TEMP 36–36.6; O2SAT 94–97
[2021-06-05] MEDS: ACETAMINOPHEN 500 MG TABLET 1000 MG PO (02:55)
[2021-06-05] MEDS: traMADol HCL (*CRX) 50 MG TABLET PO (04:38)
[2021-06-05] MEDS: FOLIC ACID 1 MG TABLET PO (08:35)
[2021-06-05] MEDS: APIXABAN 5 MG TABLET PO ×2 (08:35→16:14)
[2021-06-05] MEDS: ASPIRIN 81 MG CHEWABLE TABLET PO (08:35)
[2021-06-05] MEDS: cloNIDine HCL 0.1 MG TABLET PO ×2 (08:35→16:14)
[2021-06-05] MEDS: hydrALAZINE HCL 25 MG TABLET PO ×2 (08:35→16:14)
[2021-06-05] MEDS: THIAMINE HCL 100 MG TABLET PO (08:35)
[2021-06-05] MEDS: METOPROLOL TARTRATE 25 MG TABLET PO ×2 (08:35→20:46)
--- NOTE | 2021-06-05 16:00 | P.PNIM_ITS ---
Progress Note: A&P Assessment and Plan (1) Acute cerebrovascular accident (CVA): Code(s): I63.9 - Cerebral infarction, unspecified Status: Suspected Assessment and Plan: Concern for CVA based on overall clinical picture with persistent right sided weakness and expressive aphasia. 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 No significant stenosis at the basilar arteries. She is a poor surgical candidate given her dementia. * Carotid Doppler with 0% stenosis LISA * Echo reviewed with normal EF and no significant valvular disease * She does have atrial fibrillation and had been off of her Eliquis perioperatively for suprapubic catheter placement; Eliquis has been resumed * Unfortunately she is not able to get an MRI at this facility due to her bladder stimulator * Due to this, head CT was repeated 05/31 again with no acute findings - this suggests that if she did have an acute stroke, it is small in size. Discussed case with stroke team at [facility] via phone. * Repeat MBS performed 05/31 with recommendations for mildly thin liquids and pureed diet; tolerating well * Continue aspirin * Lipid panel reviewed and is within normal limits * Appreciate neurology consultation * Appreciate PT/OT evals. Dispo is SNF; awaiting insurance authorization. (2) Encephalopathy: Code(s): G93.40 - Encephalopathy, unspecified Status: Acute Assessment and Plan: Progressive confusion and weakness early in hospital stay that continues to improve. she is able to participate in conversation and follow commands now. * As above, no acute findings of CVA on imaging. * EEG with no significant abnormalities on limited study which was interrupted as patient unable to stay supine * No evidence of acute UTI or other infectious process. Urine culture negative. * Electrolytes are stable * TSH, B12, folate, ammonia within normal limits; monitor CBC and BMP * Continue thiamine and folic acid (3) Presence of suprapubic catheter: Code(s): Z93.59 - Other cystostomy status Status: Acute Assessment and Plan: Inserted on 05/27/[address] Roberts due to total urinary incontinence * some leakage around suprapubic catheter previously, not noted today thus far * appreciate urology consultation * UA without concerns for infection * SP tube to be changed monthly (4) Atrial fibrillation: Code(s): I48.91 - Unspecified atrial fibrillation Status: Acute Assessment and Plan: Rate is controlled * Continue eliquis * Continue metoprolol (5) Essential (primary) hypertension: Code(s): I10 - Essential (primary) hypertension Status: Acute Assessment and Plan: BP reviewed and had been above target while off her antihypertensive regimen. Improving. Last BP 150/82. * Continue home regimen of hydralazine, clonidine, and metoprolol * Review of BP trends suggest historically difficult to control blood pressure (6) Dementia: Code(s): F03.90 - Unspecified dementia without behavioral disturbance Status: Acute Assessment and Plan: History of vascular dementia * Noted patient was A&Ox1 and pleasantly confused on previous admission Sep 2020. * It seems her mental status waxes and wanes and cognitively is at her baseline at this time. Additional Plan Planning for discharge to SNF. Awaiting insura
--- NOTE | 2021-06-05 16:00 | PM.IMPN ---
Progress Note: A&P Assessment and Plan (1) Acute cerebrovascular accident (CVA): Code(s): I63.9 - Cerebral infarction, unspecified Status: Suspected Assessment and Plan: Concern for CVA based on overall clinical picture with persistent right sided weakness and expressive aphasia. 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 No significant stenosis at the basilar arteries. She is a poor surgical candidate given her dementia. Carotid Doppler with 0% stenosis LISA Echo reviewed with normal EF and no significant valvular disease She does have atrial fibrillation and had been off of her Eliquis perioperatively for suprapubic catheter placement; Eliquis has been resumed Unfortunately she is not able to get an MRI at this facility due to her bladder stimulator Due to this, head CT was repeated 05/31 again with no acute findings - this suggests that if she did have an acute stroke, it is small in size. Discussed case with stroke team at [facility] via phone. Repeat MBS performed 05/31 with recommendations for mildly thin liquids and pureed diet; tolerating well Continue aspirin Lipid panel reviewed and is within normal limits Appreciate neurology consultation Appreciate PT/OT evals. Dispo is SNF; awaiting insurance authorization. (2) Encephalopathy: Code(s): G93.40 - Encephalopathy, unspecified Status: Acute Assessment and Plan: Progressive confusion and weakness early in hospital stay that continues to improve. she is able to participate in conversation and follow commands now. As above, no acute findings of CVA on imaging. EEG with no significant abnormalities on limited study which was interrupted as patient unable to stay supine No evidence of acute UTI or other infectious process. Urine culture negative. Electrolytes are stable TSH, B12, folate, ammonia within normal limits; monitor CBC and BMP Continue thiamine and folic acid (3) Presence of suprapubic catheter: Code(s): Z93.59 - Other cystostomy status Status: Acute Assessment and Plan: Inserted on 05/27/[address] Roberts due to total urinary incontinence some leakage around suprapubic catheter previously, not noted today thus far appreciate urology consultation [facility] without concerns for infection SP tube to be changed monthly (4) Atrial fibrillation: Code(s): I48.91 - Unspecified atrial fibrillation Status: Acute Assessment and Plan: Rate is controlled Continue eliquis Continue metoprolol (5) Essential (primary) hypertension: Code(s): I10 - Essential (primary) hypertension Status: Acute Assessment and Plan: BP reviewed and had been above target while off her antihypertensive regimen. Improving. Last BP 150/82. Continue home regimen of hydralazine, clonidine, and metoprolol Review of BP trends suggest historically difficult to control blood pressure (6) Dementia: Code(s): F03.90 - Unspecified dementia without behavioral disturbance Status: Acute Assessment and Plan: History of vascular dementia Noted patient was A&Ox1 and pleasantly confused on previous admission Sep 2020. It seems her mental status waxes and wanes and cognitively is at her baseline at this time. Additional Plan Planning for discharge to SNF. Awaiting insurance authorization. Hopeful discharge tomorrow. Subjective Date/time seen: 06/05/21 16:00 Interval history: Date of service: 06/05/2021 Arpita Pop is a 76-year-old female with history of atrial fibrillation on chronic anticoagulation, COPD, hyperlipidemia, hypertension, TIA, vascular dementia, and urinary retention now s/p suprapubic catheter placement on 05/27/2021 who is seen in follow-up for encephalopathy/suspected
[2021-06-06] VITALS: BP 142/97; PULSE 119; RESP 18; TEMP 36.1; O2SAT 97
[2021-06-06 04:00] VITALS: BP 164/85; PULSE 56; RESP 18; TEMP 36.3; O2SAT 97
[2021-06-06 08:00] VITALS: BP 160/99; PULSE 82; RESP 20; TEMP 36.7; O2SAT 96
[2021-06-06 08:59] VITALS: PULSE 82
[2021-06-06] MEDS: THIAMINE HCL 100 MG TABLET PO (08:59)
[2021-06-06] MEDS: cloNIDine HCL 0.1 MG TABLET PO (08:59)
[2021-06-06] MEDS: ASPIRIN 81 MG CHEWABLE TABLET PO (08:59)
[2021-06-06] MEDS: APIXABAN 5 MG TABLET PO (08:59)
[2021-06-06] MEDS: FOLIC ACID 1 MG TABLET PO (08:59)
[2021-06-06] MEDS: hydrALAZINE HCL 25 MG TABLET PO (08:59)
[2021-06-06] MEDS: METOPROLOL TARTRATE 25 MG TABLET PO (08:59)
--- NOTE | 2021-06-06 10:17 | PM.DS ---
DS: Admitting Diagnosis Admitting Diagnosis CVA DS: Discharge Diagnosis Discharge Diagnosis (1) Acute cerebrovascular accident (CVA): Code(s): I63.9 - Cerebral infarction, unspecified Status: Suspected Assessment and Plan: Date of Admission 05/29/21 Date of Discharge 06/06/21 Ms. Pop is a 76yo F with history of hypertension and atrial fibrillation on long-term anticoagulation with Eliquis who presented to the ED for evaluation of right facial drooping and paralysis to her right arm and leg that was discovered when she woke up around 9:00 AM 05/29/21. she recently had a suprapubic urinary catheter placed on 05/27/2021. Her anticoagulation with Eliquis had been on hold for that procedure. 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 CTA brain demonstrated atherosclerotic plaque with moderate stenosis at the bilateral carotid siphons with 0% stenosis at the left and right carotid bulbs. She was outside of the time window to receive tPA as her [id number] was the evening prior. It is documented that she was unable to undergo MRI due to a bladder stimulator device. A repeat CT brain 05/31 again did not demonstrate any acute findings. She was evaluated by Neurology. Previous hospitalist provider discussed her case with [facility] for recommendations. She was started on aspirin and statin therapy for stroke risk reduction. Her Eliquis was resumed. Her suprapubic urinary catheter remained intact without issues, UA without concern for infection. She continued to work with PT / OT /ST. She did continue to have flaccid right upper and lower extremity and persistent expressive aphasia. she is able to answer some questions with short phrases. She underwent modified barium swallow x2 and speech therapy recommended mildly thin liquids with nectar thick consistency and pureed diet. We recommend to continue speech therapy at rehab. She was felt to be a good candidate to continue PT / OT / ST at correction facility. She was hemodynamically stable for discharge on 06/06/2021 to SNF. Concern for CVA based on overall clinical picture with persistent right sided weakness and expressive aphasia. 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 No significant stenosis at the basilar arteries. She is a poor surgical candidate given her dementia. Carotid Doppler with 0% stenosis LISA Echo reviewed with normal EF and no significant valvular disease She does have atrial fibrillation and had been off of her Eliquis perioperatively for suprapubic catheter placement; Eliquis has been resumed Unfortunately she was not able to get an MRI at this facility due to her bladder stimulator Due to this, head CT was repeated 05/31 again with no acute findings - this suggests that if she did have an acute stroke, it is small in size. Discussed case with stroke team at [facility] via phone. Repeat MBS performed 05/31 with speech therapy recommendations for mildly thin liquids and pureed diet; tolerating well Continue aspirin. Lipid panel reviewed and is within normal limits. Atorvastatin initiated. Evaluated by Neurology. Continue PT/OT / ST at [facility]. (2) Encephalopathy: Code(s): G93.40 - Encephalopathy, unspecified Status: Acute Assessment and Plan: Progressive confusion and weakness early in hospital stay that continues to improve. She is able to participate in conversation and follow commands now. As above, no acute findings on CT brain. EEG with no significant abnormalities on limited study which was interrupted as patient unable to stay supine No evidence of acute UTI or other infect
[2021-06-06 10:39] VITALS: O2SAT 96
== END 2021-06-06 12:21 | DRG 65 ==
LOC: ANHED 13:43 → ANH2MED 05-30 01:35
PROVIDERS: Nurse Practitioner; Physician Assistant; Admitting Provider Internal Medicine; Emergency Provider Emergency Medicine; PCP Family Medicine; Visit Provider Internal Medicine
DX: I63.9 Cerebral infarction, unspecified (principal); G93.40 Encephalopathy, unspecified; I48.20 Chronic atrial fibrillation, unspecified; F01.51 Vascular dementia, unspecified severity, with behavioral disturbance; G81.91 Hemiplegia, unspecified affecting right dominant side; Z68.41 Body mass index [BMI] 40.0-44.9, adult; I50.32 Chronic diastolic (congestive) heart failure; R29.810 Facial weakness; R47.81 Slurred speech; R47.01 Aphasia; R29.712 NIHSS score 12; I11.0 Hypertensive heart disease with heart failure; F32.9 Major depressive disorder, single episode, unspecified; E78.5 Hyperlipidemia, unspecified; M19.90 Unspecified osteoarthritis, unspecified site; I70.1 Atherosclerosis of renal artery; K21.9 Gastro-esophageal reflux disease without esophagitis; J44.9 Chronic obstructive pulmonary disease, unspecified; M81.0 Age-related osteoporosis without current pathological fracture; G62.9 Polyneuropathy, unspecified; N39.498 Other specified urinary incontinence; G47.33 Obstructive sleep apnea (adult) (pediatric); E66.9 Obesity, unspecified; Z90.710 Acquired absence of both cervix and uterus; Z79.01 Long term (current) use of anticoagulants; Z86.73 Personal history of transient ischemic attack (TIA), and cerebral infarction without residual deficits; Z86.16 Personal history of COVID-19; Z90.49 Acquired absence of other specified parts of digestive tract; Z87.891 Personal history of nicotine dependence; Z93.59 Other cystostomy status
CPT/HCPCS: 36415; 70450; 70496; 70498; 71045; 73502; 80048; 80053; 80061; 81001; 82140; 82607; 82746; 82948; 83605; 83615; 83690; 83735; 84443; 84484; 85014; 85018; 85025; 85610; 85730; 87086; 87088; 92507; 92523; 92526; 92610; 92611; 93005; 93306; 93880; 95816; 96375; 96376; 97110; 97162; 97166; 97530; 97535; 99285; A9270; J0131; J0360; J2270; J2405; J3475; J7030; Q9967

== ENCOUNTER 2021-07-02 16:35 | Inpatient (IN) | payer MEDICARE, SELFPAY ==
--- NOTE | ~2021-07-02 | CT_ITS ---
EXAMINATION: CT abdomen pelvis w con DATE: 07/02/2021 18:57 INDICATION: Generalized abdominal pain TECHNIQUE: Computed tomography (CT) of the abdomen and pelvis was performed with 100 cc Omnipaque 350 intravenous contrast. Automated exposure control and iterative reconstruction technique were employe d. Exam dose: 795.89 mGy-cm total exam DLP. COMPARISON: 09/08/2020 CT abdomen pelvis FINDINGS: Bilateral lower lung atelectasis. Cardiomegaly. Coronary artery calcification. No pericardial or pleural effusion. The gallbladder is absent. The liver, spleen, pancreas, and adrenal glands and right kidney appear un remarkable. Occasional small left renal cysts. No urinary tract calculus or hydroureteronephrosis. There is a suprapubic catheter in the urinary bladder. There is some pericystic fat stranding and mil d to moderate bladder wall thickening; recommend clinical correlation for possible cystitis. Abdominal aortic and iliac arterial atherosclerotic calcification. Numerous diverticula of the colon; no CT evidence of diverticulitis. No bowel obstruction or intraper itoneal free air. Small fat-containing umbilical hernia. Status post hysterectomy. There is a battery pack in the right lower back with associated left sacral lead. Degenerative changes of the thoracic and lumbar spine. Bilateral hip osteoarthritis. IMPRESSION: Diverticulosis of the colon; no CT evidence of diverticulitis Cardiomegaly, coronary atherosclerosis Status post cholecystectomy Status post hysterectomy Occasional small left renal cysts Suprapubic urinary bladder catheter; pericystic fat stranding and mild to moderate bladder wall thick ening; recommend clinical correlation for possible cystitis Reviewed, dictated and finalized at [facility] Reviewed, dictated and finalized at [facility]. IMPRESSION: Diverticulosis of the colon; no CT evidence of diverticulitis Cardiomegaly, coronary atherosclerosis Status post cholecystectomy Status post hysterectomy Occasional small left renal cysts Suprapubic urinary bladder catheter; pericystic fat stranding and mild to moder ate bladder wall thickening; recommend clinical correlation for possible cystit is
--- NOTE | ~2021-07-02 | CT_ITS ---
EXAMINATION: CT brain wo con DATE: 07/02/2021 18:57 INDICATION: Altered mental state TECHNIQUE: Computed tomography (CT) of the head was performed without intravenous contrast. The mA wa s adjusted according to patient size. Iterative reconstruction technique was employed. Exam dose: 60 5.33 mGy-cm total exam DLP. COMPARISON: 05/31/2021 CT brain FINDINGS: Bilateral vertebral artery and basilar artery calcification. Bilateral carotid siphon and s upraclinoid internal carotid artery calcifications. There is prominent patchy nonspecific diminished attenuation of cerebral white matter, likely due to chronic small vessel ischemic changes. Chronic appearing lacunar infarct of the right frontal periventricular area. Chronic posterior left p arietal focal infarct. No intracranial mass lesion or hemorrhage. No midline shift or mass effect effect. No subdural or epi dural hematoma. No fracture or bone destruction of the cranial vault. The mastoid air cells and included paranasal sinuses are normally developed and aerated. IMPRESSION: Cerebral atherosclerosis and chronic small vessel ischemic changes of cerebral white mat ter Chronic bilateral infarcts No acute intracranial finding Reviewed, dictated and finalized at [facility] Reviewed, dictated and finalized at [facility] IMPRESSION: Cerebral atherosclerosis and chronic small vessel ischemic changes of cerebral white matter Chronic bilateral infarcts No acute intracranial finding
[2021-07-02 16:36] VITALS: BP 139/77; PULSE 115; RESP 22; O2SAT 93
--- NOTE | 2021-07-02 16:45 | ECG_ITS ---
Measurements Intervals [place] Rate: 112 P: ND: 0 QRS: 13 QRSD: 82 T: 96 QT: 331 QTc: 453 Interpretive Statements ATRIAL FIBRILLATION WITH RAPID VENTRICULAR RESPONSE VENTRICULAR PREMATURE COMPLEX NONSPECIFIC ST & T-WAVE ABNORMALITY- HIGH LATERAL LEADS BASELINE ARTIFACT- I, II, AVR, AVL, V1 ABNORMAL ECG Electronically Signed On 07-03-2021 7:58:07 CDT by Jerry Falk D.O.
--- NOTE | 2021-07-02 16:56 | PC.NURSE ---
pt suprapubic catheter is hard, and not draining appropriately. there is a small amount of dark brown and milky colored urine in drainage bag.
[2021-07-02] MEDS: SODIUM CHLORIDE 0.9% IV 1,000 ML 999 ML IV CONT ×3 (17:04→20:54)
[2021-07-02 17:05] VITALS: RESP 26; O2SAT 97
--- NOTE | 2021-07-02 17:09 | PC.NURSE ---
there are pressure ulcers that are open and pink in color noted to patients buttocks, there are blisters of different sizes noted to pt groin.
[2021-07-02 17:14] LABS: Basophils Percent Auto 0.3 % (0.2-1.2); Eosinophils Percent Auto 0.2 % (0-4.4); Hematocrit 42.1 % (37.0-47.0); Hemoglobin 13.7 g/dL (12.0-15.0); Immature Granulocyte Percent A 0.6 % (0-0.5); Lymphocytes Absolute Auto 1.65 K/mm3 (0.9-3.2); Lymphocytes Percent Auto 10.5 % (18.3-44.2); Mean Corpuscular HGB Conc 32.5 g/dl (32-36); Mean Corpuscular Hemoglobin 29.3 pg (26-34); Mean Platelet Volume 9.5 fl (7.4-10.4); Monocytes Absolute Auto 1.1 K/mm3 (0.1-0.6); Monocytes Percent Auto 7.3 % (2.6-8.5); Neutrophils Absolute Auto 12.7 K/mm3 (1.3-6.7); Neutrophils Percent Auto 81.1 % (45.5-73.1); Platelet Count Result 450 k/mm3 (150-375); Red Blood Count 4.68 M/mm3 (4.2-5.4); White Blood Count 15.6 K/mm3 (4.5-10.0)
[2021-07-02 17:26] LABS: Lactic Acid Reflex 3.4 mmol/L (0.7-2.1)
[2021-07-02 17:28] LABS: Alanine Aminotransferase 37 U/L (4-35); Albumin Level 3.9 g/dL (3.5-5.1); Alkaline Phosphatase 157 U/L (38-126); Anion Gap 12 mmol/L (8-16); Aspartate Amino Transferase 56 U/L (14-36); Bilirubin,Total 1.3 mg/dL (0.2-1.3); Blood Urea Nitrogen 21 mg/dL (7-17); Calcium 10.2 mg/dL (8.4-10.2); Carbon Dioxide 24 mmol/L (22-30); Chloride 93 mmol/L (98-107); Estimated CRCL calculation 46 ml/min; Estimated Glomerular Filt Rate > 60; Glucose 132 mg/dL (65-110); Potassium 3.6 mmol/L (3.4-5.0); Sodium 129 mmol/L (137-145)
[2021-07-02 17:29] LABS: Acetaminophen < 10 ug/mL (10-30); Ethanol < 10 mg/dL (<10); Salicylate < 1.0 mg/dL (2-20)
--- NOTE | 2021-07-02 17:44 | ED.GENADULT ---
HPI - General Adult General Chief complaint: Unspecified Stated complaint: Unspecified Time Seen by Provider: 07/02/21 16:38 History of Present Illness HPI narrative: Patient presents for altered mental status. Patient was recently admitted for CVA and urinary incontinence and had a suprapubic catheter placed proximally 1 month ago. She was in a nursing facility was released a couple days ago. Since being home she has become more confused and combative. Family were also noted drainage around her catheter site was concerned and brought her in for evaluation. Family reports the catheter has not been changed out since its initial placement. Related Data Home Medications Medication Instructions Recorded Confirmed cholecalciferol (vitamin D3) 1,250 1,250 mcg PO WEEKLY 07/02/21 mcg (50,000 unit) capsule Allergies Allergy/AdvReac Type Severity Reaction Status Date / Time propoxyphene Allergy Severe HIVES Verified 07/02/21 16:48 amoxicillin Allergy Unknown Nausea Verified 07/02/21 16:48 clindamycin Allergy Unknown Unknown Verified 07/02/21 16:48 codeine Allergy Unknown HIVES but Verified 07/02/21 16:48 tolerates hydrocodone donepezil Allergy Unknown Unknown Verified 07/02/21 16:48 hydrochlorothiazide Allergy Unknown Skin Verified 07/02/21 16:48 Reaction latex Allergy Unknown SWELLING/RA Verified 07/02/21 16:48 SH lisinopril Allergy Unknown cough Verified 07/02/21 16:48 meloxicam Allergy Unknown ulcer Verified 07/02/21 16:48 olmesartan Allergy Unknown Unknown Verified 07/02/21 16:48 Penicillins Allergy Unknown Rash Verified 07/02/21 16:48 spironolactone Allergy Unknown hyperkalemi Verified 07/02/21 16:48 a Review of Systems Review of Systems: ROS unobtainable: Yes unobtainable due to mental status PMFSH Past Medical History Medical History Arthritis Atrial fibrillation Normal stress test April 2020 Back pain Bilateral renal artery stenosis Bilateral renal nurse to oasis noted on CTA evaluated at [facility] neyda Farias December 2019 COPD (chronic obstructive pulmonary disease) Degenerative disc disease Dyslipidemia GERD (gastroesophageal reflux disease) Hypertension Moderate pulmonary arterial systolic hypertension Echocardiogram April 2020: EF 60-65%, normal diastolic function, atrial fibrillation, moderate left atrial enlargement, moderate to severe tricuspid valve regurgitation moderate pulmonary hypertension with RVSP of 54 Obesity (BMI 30.0-34.9) Osteoporosis Peripheral neuropathy Physical debility Pneumonia due to COVID-19 virus 09/08/2020 treated with Remdesivir dexamethasone and 1 unit of convalesant plasma Presence of suprapubic catheter Sleep apnea Severe obstructive sleep apnea on polysomnogram October 2014 with recommended CPAP of 18 SMA stenosis TIA (transient ischemic attack) x3 Ulcer Urinary retention with incomplete bladder emptying Vascular dementia with behavior disturbance Surgical History Surgical History H/O Spinal surgery H/O: hysterectomy History of bladder suspension procedure History of carpal tunnel release bilateral History of orthopedic surgery heel spurs, bilateral bunionectomy Hx of appendectomy Hx of cataract surgery Hx of cholecystectomy Family History Family History Father Diabetes mellitus Hypertension Cerebrovascular accident Cardiovascular disease Hyperlipidemia Psychiatric illness Mother Diabetes mellitus Hypertension Cerebrovascular accident Psychiatric illness Cardiovascular disease Hyperlipidemia Social History Social History Social History: the patient lives with her . the patient is listed as a full code. She is listed as a former smoker. Primary care physician: Dr. Adan Francis
[2021-07-02] MEDS: MORPHINE SULFATE (*CRX) 4 MG/ML INJ IV PUSH (18:06)
--- NOTE | 2021-07-02 19:09 | PC.NURSE ---
report to tamika [place].
[2021-07-02 20:09] LABS: Reflex Lactic Acid Yes or No Add Lactic
[2021-07-02 20:30] LABS: Add Urine Microscopic? YES; Appearance Urine Cloudy (Clear); Bilirubin Urine 2+ (Negative); Blood Urine 1+ (Negative); Glucose Urine UA Negative (Negative); Ketones Urine Negative (Negative); Leukocyte Esterase Ur Trace LEU/UL (Negative); Nitrate Urine Negative (Negative); Protein Urine 3+ mg/dL (Negative); pH Urine >=9.0 (5.0-9.0)
[2021-07-02 20:31] LABS: Color Urine Brown (Yellow)
[2021-07-02 20:47] VITALS: BP 141/97; PULSE 118; RESP 20; TEMP 36.7; O2SAT 96
[2021-07-02 21:00] VITALS: BP 160/103; PULSE 125; RESP 21; O2SAT 96
[2021-07-02 21:02] LABS: Lactic Acid 1.2 mmol/L (0.7-2.1)
[2021-07-02 21:17] LABS: Squamous Epithelial Cell Urine Rare /hpf (Few); Triple Phosphate Crystal Urine Present /hpf
[2021-07-02 21:18] LABS: Amorphous Sediment Urine Moderate; Bacteria Urine 4+ /hpf
[2021-07-02 21:35] LABS: Amphetamine Screen Urine Negative (Negative); Barbiturate Screen Urine Negative (Negative); Benzodiazepines Screen Urine Negative (Negative); Cannabinoid Screen Urine Negative (Negative); Cocaine Screen Urine Negative (Negative); Methadone Screen Urine Negative (Negative); Opiate Screen Urine Negative (Negative); Phencyclidine Screen Urine Negative (Negative)
--- NOTE | 2021-07-02 22:28 | PM.IMHP ---
H&P: HPI History of Present Illness Date/Time: 07/02/21 22:28 Chief Complaint: Abdominal pain Narrative: 76-year-old female with past medical history of dementia, severe hearing loss, hypertension, atrial fibrillation, COPD, obstructive sleep apnea and recent hospitalization 05/27/2021 for suprapubic catheter placement and removal of bladder stimulator who presented to the ER via EMS from home due to abdominal pain. EMS originally received a call for a ?sick case?. When they arrived at the patient's home she was found to be screaming and was disheveled. Patient was unable to answer questions for ER staff or for me at the time of my evaluation. She reportedly told the ER staff that she has been having abdominal pain for 3 weeks. She was noted to have foul-smelling and pearly and drainage leaking from around her suprapubic catheter site. The ER physician exchanges the patient's suprapubic catheter as it was not draining. At the time he exchanged the catheter there was frankly purulent appearing material Branden exited the patient's bladder as well as a large amount of turbid urine. Patient was reportedly afebrile on presentation to the ER. She was found to be in AFib RVR but does have a history of chronic atrial fibrillation. She was unable to tell me if she was having any nausea or vomiting. She did not seem aware that she was in the ER. She did awake to verbal stimuli but was confused. Within a minute or so of Maria Esther waking the patient she started screaming out in pain in grabbing the side of the bed. She was intermittently stiff when this would occur. Her heart rate jumped from 103 up to 130s. She initially grab that her chest. The patient does have a history of chest pain and pass it was reproducible to palpation. Her chest discomfort did seem to be reproducible again as well. Her abdominal size exam seemed to be more significant with her abdomen being distended. It still felt as if her bladder was also quite distended. Her suprapubic catheter was now draining about 150 mL of dark fletcher turbid urine. She does have a abdominal hernia that is soft and reducible when she relaxes her abdomen. She does have some voluntary guarding. She had normoactive bowel sounds. She was unable to state if she was having any nausea or vomiting. Review of Systems Review of Systems: ROS unobtainable: Yes unobtainable due to medical condition (Dementia) and unobtainable due to mental status [facility] Past Medical History Medical History (Updated 07/02/21 @ 22:45 by Deann Leonard DO) Arthritis Atrial fibrillation Normal stress test April 2020 Back pain Bilateral renal artery stenosis Bilateral renal artery stenosis noted on CTA evaluated at [facility] Dr. 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 Degenerative disc disease Dyslipidemia GERD (gastroesophageal reflux disease) Hypertension Moderate pulmonary arterial systolic hypertension Echocardiogram April 2020: EF 60-65%, normal diastolic function, atrial fibrillation, moderate left atrial enlargement, moderate to severe tricuspid valve regurgitation moderate pulmonary hypertension with RVSP of 54 Obesity (BMI 30.0-34.9) Osteoporosis Peripheral neuropathy Physical debility Pneumonia due to COVID-19 virus 09/08/2020 treated with Remdesivir dexamethasone and 1 unit of convalesant plasma Sleep apnea Severe obstructive sleep apnea on polysomnogram October 2014 with recommended CPAP of 18 SMA stenosis TIA (transient ischemic attack) x3 Ulcer Urinary retention with incomplete bladder emptying Vascular dementia with behavior disturbance Surgical History Surgical History (Updated 07/02/21 @ 22:43 by Deann Leonard DO) H/O Spinal surgery H/O: hysterectomy History of bladder suspension procedure History of carpal tunnel release bilateral History of o
[2021-07-02 22:41] VITALS: BP 144/81; PULSE 132; RESP 20; O2SAT 97
[2021-07-02] MEDS: MORPHINE SULFATE (*CRX) 2 MG/ML INJ IV PUSH (22:44)
[2021-07-02] MEDS: SODIUM CHLORIDE 0.9% IV 1,000 ML 125 ML IV CONT (23:37)
[2021-07-03] VITALS (18 sets, daily range): BP systolic 138–167; BP diastolic 62–92; PULSE 84–142; RESP 14–22; TEMP 36–36.8; O2SAT 92–98; BMI 29.0
[2021-07-03 00:34] LABS: Troponin I < 0.012 ng/mL (0.000-0.034)
[2021-07-03] MEDS: METOPROLOL TARTRATE INJ 5 MG/5 ML VIAL IV PUSH (00:44)
[2021-07-03 04:55] LABS: Hematocrit 34.2 % (37.0-47.0); Hemoglobin 10.8 g/dL (12.0-15.0); Mean Corpuscular HGB Conc 31.6 g/dl (32-36); Mean Corpuscular Volume 91.9 fl (80-100); Platelet Count Result 340 k/mm3 (150-375); Red Blood Count 3.72 M/mm3 (4.2-5.4); White Blood Count 12.5 K/mm3 (4.5-10.0)
[2021-07-03] MEDS: SODIUM CHLORIDE 0.9% IV 1,000 ML 125 ML IV CONT ×2 (05:16→16:38)
--- NOTE | 2021-07-03 05:27 | PC.NURSE ---
called dr. montes for afib in s. She said it was chronic and gave order for an IV push Metoprolol and plans to restart PO home meds
[2021-07-03 05:29] LABS: Anion Gap 7 mmol/L (8-16); Blood Urea Nitrogen 15 mg/dL (7-17); Calcium 9.3 mg/dL (8.4-10.2); Carbon Dioxide 25 mmol/L (22-30); Chloride 102 mmol/L (98-107); Estimated CRCL calculation 69 ml/min; Estimated Glomerular Filt Rate > 60; Glucose 102 mg/dL (65-110); Sodium 134 mmol/L (137-145)
[2021-07-03] MEDS: MORPHINE SULFATE (*CRX) 4 MG/ML INJ IV PUSH ×2 (05:46→20:23)
[2021-07-03] MEDS: DULoxetine HCL 60 MG CAPSULE.DR PO (08:25)
[2021-07-03] MEDS: FOLIC ACID 1 MG TABLET PO (08:25)
[2021-07-03] MEDS: THIAMINE HCL 100 MG TABLET PO (08:25)
[2021-07-03] MEDS: METOPROLOL TARTRATE 25 MG TABLET PO ×2 (08:25→20:15)
[2021-07-03] MEDS: cloNIDine HCL 0.1 MG TABLET PO ×2 (08:25→16:54)
[2021-07-03] MEDS: hydrALAZINE HCL 25 MG TABLET PO ×2 (08:26→16:54)
[2021-07-03] MEDS: APIXABAN 5 MG TABLET PO ×2 (08:26→20:15)
[2021-07-03] MEDS: ASPIRIN 81 MG CHEWABLE TABLET PO (08:26)
--- NOTE | 2021-07-03 14:15 | PM.IMPN ---
Progress Note: A&P Assessment and Plan (1) Sepsis: Qualifiers: Sepsis type: sepsis due to unspecified organism Sepsis acute organ dysfunction status: with acute organ dysfunction Severe sepsis acute organ dysfunction type: encephalopathy Severe sepsis shock status: without septic shock Qualified Code(s): A41.9 - Sepsis, unspecified organism; R65.20 - Severe sepsis without septic shock; G93.40 - Encephalopathy, unspecified Code(s): A41.9 - Sepsis, unspecified organism Status: Acute (2) Urinary tract infection associated with cystostomy catheter: Qualifiers: Encounter type: initial encounter Qualified Code(s): T83.510A - Infection and inflammatory reaction due to cystostomy catheter, initial encounter; N39.0 - Urinary tract infection, site not specified Code(s): T83.510A - Infection and inflammatory reaction due to cystostomy catheter, initial encounter; N39.0 - Urinary tract infection, site not specified Status: Acute (3) Suprapubic catheter dysfunction: Qualifiers: Encounter type: initial encounter Qualified Code(s): T83.010A - Breakdown (mechanical) of cystostomy catheter, initial encounter Code(s): T83.010A - Breakdown (mechanical) of cystostomy catheter, initial encounter Status: Acute (4) Chronic atrial fibrillation with RVR: Code(s): I48.20 - Chronic atrial fibrillation, unspecified Status: Acute (5) Dementia: Qualifiers: Dementia type: vascular dementia Dementia behavioral disturbance: with behavioral disturbance Qualified Code(s): F01.51 - Vascular dementia with behavioral disturbance Code(s): F03.90 - Unspecified dementia without behavioral disturbance Status: Acute (6) Hyponatremia: Code(s): E87.1 - Hypo-osmolality and hyponatremia Status: Acute Additional Plan Sepsis likely from urinary tract infection CT abdomen with no evidence of diverticulitis suprapubic catheter with pericystic fat stranding and mild to moderate bladder wall thickening Acute encephalopathy CT head with cerebral atherosclerosis and chronic small-vessel ischemic changes of the cerebral white matter chronic bilateral infarcts with no acute intracranial findings. Likely due to sepsis Lactic acidosis this has resolved Elevated transaminases likely from sepsis continue to monitor Catheter associated we urinary tract infection on Rocephin. Follow urine culture Atrial fibrillation with RVR currently rate controlled on Eliquis at home which is resumed. Chronic dementia Chronic hyponatremia DVT prophylaxis on Eliquis Full code status Subjective Date/time seen: 07/03/21 14:15 Interval history: Feels okay. She says she is sore in her abdomen. No fever or chills. She is more awake and conversive today as compared to was some mention in the chart yesterday. She had her suprapubic catheter exchanged last night Review of Systems Review of Systems: All systems reviewed & are unremarkable except as noted in HPI and below (HPI) Exam Narrative: General: Anxious looking, not in acute distress HEENT: Mucous membranes are dry Head normocephalic atraumatic, Respiratory: Shallow respirations, no increased work of breathing, equal breath sounds Cardiovascular: Irregularly irregular, rate controlled 2+ bilateral radial pedal pulses, Gastrointestinal: Soft generalized tenderness Suprapubic catheter in place with drainage around the catheter insertion site Skin: Generalized pallor, warm to touch Neurological: Alert and conversant following commands moves all extremities Psychiatric: Cooperative anxious at times : Suprapubic catheter in place draining dark fletcher colored urine that is turbid in appearance Hematologic/lymphatic: No petechiae, no bruising, no anterior cervical or submandibular lymphadenopathy Objective Data Vital Signs Vital Signs: Vital Signs - 24 hr 07/02/21 16:36 07/02/21 17:05 07/02/21 20:47 Temperature
--- NOTE | 2021-07-03 16:24 | WPDURCON ---
Assessment and Plan Assessment and plan (1) Suprapubic catheter dysfunction: Qualifiers: Encounter type: initial encounter Qualified Code(s): T83.010A - Breakdown (mechanical) of cystostomy catheter, initial encounter Code(s): T83.010A - Breakdown (mechanical) of cystostomy catheter, initial encounter Status: Acute Assessment and Plan: Will need continued monthly changes starting 08/02/2021. (2) Urinary tract infection associated with cystostomy catheter: Qualifiers: Encounter type: initial encounter Qualified Code(s): T83.510A - Infection and inflammatory reaction due to cystostomy catheter, initial encounter; N39.0 - Urinary tract infection, site not specified Code(s): T83.510A - Infection and inflammatory reaction due to cystostomy catheter, initial encounter; N39.0 - Urinary tract infection, site not specified Status: Acute Assessment and Plan: Continue IV ceftriaxone, tailor abx to culture results. Urology Consult Note HPI Date Seen: 07/03/21 Requesting Physician: Deann Leonard DO Primary Care Provider: Adan Mix MD Consult Narrative Narrative: Arpita Pop is a 76 year old female who presented to the ER last night d/t acute onset of confusion and combative behavior. She was recently admitted last month s/p suprapubic tube placement by Dr. Roberts on 05/27/2021 for a CVA and infection following the surgery. She then went to rehab and was discharged home a few days ago. She had an appt to have her SP tube changed in the office tomorrow, but her called yesterday and stated she was too ill and weak to transport here so he was requesting home health do it in a few days. I tried returning their call last night and no one answered prior to her admission. Her WBC is 12.5 which is improved from 15.6 and creatinine is 0.60. CT scan 07/02/2021 shows fat stranding/mild moderate bladder wall thickness indicating cystitis. She has purulent drainage around her SP tube and it was changed last night in the ER. She is very confused today but is able to answer some questions. Urine and blood cultures are pending. Review of Systems Review of Systems: ROS unobtainable: Yes unobtainable due to mental status PMFSH Past Medical History Medical History Arthritis Atrial fibrillation Normal stress test April 2020 Back pain Bilateral renal artery stenosis Bilateral renal artery stenosis noted on CTA evaluated at [place] On[facility] 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 Degenerative disc disease Dyslipidemia GERD (gastroesophageal reflux disease) Hypertension Moderate pulmonary arterial systolic hypertension Echocardiogram April 2020: EF 60-65%, normal diastolic function, atrial fibrillation, moderate left atrial enlargement, moderate to severe tricuspid valve regurgitation moderate pulmonary hypertension with RVSP of 54 Obesity (BMI 30.0-34.9) Osteoporosis Peripheral neuropathy Physical debility Pneumonia due to COVID-19 virus 09/08/2020 treated with Remdesivir dexamethasone and 1 unit of convalesant plasma Sleep apnea Severe obstructive sleep apnea on polysomnogram October 2014 with recommended CPAP of 18 SMA stenosis TIA (transient ischemic attack) x3 Ulcer Urinary retention with incomplete bladder emptying Vascular dementia with behavior disturbance Surgical History Surgical History H/O Spinal surgery H/O: hysterectomy History of bladder suspension procedure History of carpal tunnel release bilateral History of orthopedic surgery heel spurs, bilateral bunionectomy Hx of appendectomy Hx of cataract surgery Hx of cholecystectomy Presence of suprapubic catheter (05/27/21) Family History Fa
[2021-07-04] VITALS (14 sets, daily range): BP systolic 154–170; BP diastolic 79–104; PULSE 80–114; RESP 12–20; TEMP 36.4–37.1; O2SAT 95–97
[2021-07-04] MEDS: SODIUM CHLORIDE 0.9% IV 1,000 ML 125 ML IV CONT ×2 (01:02→10:52)
[2021-07-04 05:20] LABS: Basophils Percent Auto 0.4 % (0.2-1.2); Eosinophils Absolute Auto 0.2 K/mm3 (0-0.3); Eosinophils Percent Auto 1.8 % (0-4.4); Hematocrit 33.7 % (37.0-47.0); Hemoglobin 10.6 g/dL (12.0-15.0); Immature Granulocyte Absolute 0.04 K/mm3 (0.00-0.031); Immature Granulocyte Percent A 0.4 % (0-0.5); Lymphocytes Absolute Auto 1.45 K/mm3 (0.9-3.2); Lymphocytes Percent Auto 15.4 % (18.3-44.2); Mean Corpuscular HGB Conc 31.5 g/dl (32-36); Mean Corpuscular Hemoglobin 28.2 pg (26-34); Mean Corpuscular Volume 89.6 fl (80-100); Mean Platelet Volume 9.4 fl (7.4-10.4); Monocytes Absolute Auto 0.9 K/mm3 (0.1-0.6); Monocytes Percent Auto 9.4 % (2.6-8.5); Neutrophils Absolute Auto 6.8 K/mm3 (1.3-6.7); Neutrophils Percent Auto 72.6 % (45.5-73.1); Platelet Count Result 380 k/mm3 (150-375); Red Blood Count 3.76 M/mm3 (4.2-5.4); White Blood Count 9.4 K/mm3 (4.5-10.0)
[2021-07-04 05:44] LABS: Alanine Aminotransferase 30 U/L (4-35); Albumin Level 2.7 g/dL (3.5-5.1); Alkaline Phosphatase 127 U/L (38-126); Anion Gap 9 mmol/L (8-16); Aspartate Amino Transferase 49 U/L (14-36); Bilirubin,Total 0.7 mg/dL (0.2-1.3); Blood Urea Nitrogen 10 mg/dL (7-17); Calcium 8.9 mg/dL (8.4-10.2); Carbon Dioxide 21 mmol/L (22-30); Chloride 100 mmol/L (98-107); Estimated CRCL calculation 99 ml/min; Estimated Glomerular Filt Rate > 60; Glucose 93 mg/dL (65-110); Potassium 3.6 mmol/L (3.4-5.0); Sodium 130 mmol/L (137-145)
[2021-07-04] MEDS: FOLIC ACID 1 MG TABLET PO (10:51)
[2021-07-04] MEDS: METOPROLOL TARTRATE 25 MG TABLET PO ×2 (10:51→20:35)
[2021-07-04] MEDS: APIXABAN 5 MG TABLET PO ×2 (10:51→20:35)
[2021-07-04] MEDS: THIAMINE HCL 100 MG TABLET PO (10:51)
[2021-07-04] MEDS: cloNIDine HCL 0.1 MG TABLET PO ×2 (10:51→17:08)
[2021-07-04] MEDS: ERGOCALCIFEROL 50,000 UNIT CAPSULE 50000 UNITS PO (10:51)
[2021-07-04] MEDS: DULoxetine HCL 60 MG CAPSULE.DR PO (10:51)
[2021-07-04] MEDS: hydrALAZINE HCL 25 MG TABLET PO ×2 (10:51→17:08)
[2021-07-04] MEDS: ASPIRIN 81 MG CHEWABLE TABLET PO (10:52)
--- NOTE | 2021-07-04 13:26 | PM.IMPN ---
Progress Note: A&P Assessment and Plan (1) Sepsis: Qualifiers: Sepsis type: sepsis due to unspecified organism Sepsis acute organ dysfunction status: with acute organ dysfunction Severe sepsis acute organ dysfunction type: encephalopathy Severe sepsis shock status: without septic shock Qualified Code(s): A41.9 - Sepsis, unspecified organism; R65.20 - Severe sepsis without septic shock; G93.40 - Encephalopathy, unspecified Code(s): A41.9 - Sepsis, unspecified organism Status: Acute (2) Urinary tract infection associated with cystostomy catheter: Qualifiers: Encounter type: initial encounter Qualified Code(s): T83.510A - Infection and inflammatory reaction due to cystostomy catheter, initial encounter; N39.0 - Urinary tract infection, site not specified Code(s): T83.510A - Infection and inflammatory reaction due to cystostomy catheter, initial encounter; N39.0 - Urinary tract infection, site not specified Status: Acute (3) Suprapubic catheter dysfunction: Qualifiers: Encounter type: initial encounter Qualified Code(s): T83.010A - Breakdown (mechanical) of cystostomy catheter, initial encounter Code(s): T83.010A - Breakdown (mechanical) of cystostomy catheter, initial encounter Status: Acute (4) Chronic atrial fibrillation with RVR: Code(s): I48.20 - Chronic atrial fibrillation, unspecified Status: Acute (5) Dementia: Qualifiers: Dementia type: vascular dementia Dementia behavioral disturbance: with behavioral disturbance Qualified Code(s): F01.51 - Vascular dementia with behavioral disturbance Code(s): F03.90 - Unspecified dementia without behavioral disturbance Status: Acute (6) Hyponatremia: Code(s): E87.1 - Hypo-osmolality and hyponatremia Status: Acute (7) Bacteremia: Code(s): R78.81 - Bacteremia Status: Acute Additional Plan Sepsis likely from urinary tract infection CT abdomen with no evidence of diverticulitis suprapubic catheter with pericystic fat stranding and mild to moderate bladder wall thickening. Urine culture with Gram-negative bacilli on ceftriaxone will continue same await finalization Bacteremia with Gram-positive cocci in clusters empirically placed on vancomycin however could be a contamination repeat blood culture has been obtained and will be followed. Acute encephalopathy CT head with cerebral atherosclerosis and chronic small-vessel ischemic changes of the cerebral white matter chronic bilateral infarcts with no acute intracranial findings. Likely due to sepsis Lactic acidosis this has resolved Elevated transaminases likely from sepsis continue to monitor Catheter associated we urinary tract infection on Rocephin. Follow urine culture. She has her suprapubic catheter exchange now urology following. Atrial fibrillation with RVR currently rate controlled on Eliquis at home which is resumed. Chronic dementia Chronic hyponatremia DVT prophylaxis on Eliquis Full code status Subjective Date/time seen: 07/04/21 13:26 Interval history: No overnight events. Remains afebrile startles when I get and and gets anxious with minimal stimulation. Looks more comfortable than yesterday though Review of Systems Review of Systems: All systems reviewed & are unremarkable except as noted in HPI and below (HPI) Exam Narrative: General: Anxious looking, not in acute distress looks comfortable HEENT: Mucous membranes are dry Head normocephalic atraumatic Respiratory: Shallow respirations, no increased work of breathing, equal breath sounds Cardiovascular: Irregularly irregular, rate controlled 2+ bilateral radial pedal pulses, Gastrointestinal: Soft generalized tenderness Suprapubic catheter in place with minimal drainage around the catheter insertion site today Skin: Generalized pallor, warm to touch Neurological: Alert and conversant following commands moves all extremities P
[2021-07-04] MEDS: dilTIAZem HCL 30 MG TABLET PO ×2 (17:09→23:23)
[2021-07-04] MEDS: HYOSCYAMINE SULFATE 0.125 MG TABLET PO (20:35)
[2021-07-04] MEDS: MORPHINE SULFATE (*CRX) 4 MG/ML INJ IV PUSH (21:02)
[2021-07-04] MEDS: fentaNYL CITRATE INJ (*CRX) 100 MCG/2 ML VIAL 25 MCG IV PUSH (23:19)
[2021-07-04] MEDS: LORazepam INJ (*CRX) 2 MG/ML VIAL 0.5 MG IV PUSH (23:56)
[2021-07-05] VITALS (16 sets, daily range): BP systolic 119–172; BP diastolic 56–111; PULSE 62–118; RESP 16–22; TEMP 36.3–36.8; O2SAT 93–98
[2021-07-05 06:02] LABS: Basophils Absolute Auto 0.1 K/mm3 (0.0-0.1); Basophils Percent Auto 0.6 % (0.2-1.2); Eosinophils Absolute Auto 0.1 K/mm3 (0-0.3); Eosinophils Percent Auto 1.7 % (0-4.4); Hematocrit 35.6 % (37.0-47.0); Hemoglobin 11.6 g/dL (12.0-15.0); Immature Granulocyte Absolute 0.04 K/mm3 (0.00-0.031); Immature Granulocyte Percent A 0.5 % (0-0.5); Lymphocytes Absolute Auto 1.32 K/mm3 (0.9-3.2); Lymphocytes Percent Auto 16.9 % (18.3-44.2); Mean Corpuscular HGB Conc 32.6 g/dl (32-36); Mean Corpuscular Hemoglobin 28.6 pg (26-34); Mean Corpuscular Volume 87.9 fl (80-100); Mean Platelet Volume 9.2 fl (7.4-10.4); Monocytes Absolute Auto 0.8 K/mm3 (0.1-0.6); Monocytes Percent Auto 10.8 % (2.6-8.5); Neutrophils Absolute Auto 5.4 K/mm3 (1.3-6.7); Neutrophils Percent Auto 69.5 % (45.5-73.1); Platelet Count Result 411 k/mm3 (150-375); Red Blood Count 4.05 M/mm3 (4.2-5.4); Red Cell Distribution Width 13.7 % (11.5-14.5); White Blood Count 7.8 K/mm3 (4.5-10.0)
[2021-07-05 06:13] LABS: Alanine Aminotransferase 30 U/L (4-35); Albumin Level 3.2 g/dL (3.5-5.1); Alkaline Phosphatase 130 U/L (38-126); Anion Gap 10 mmol/L (8-16); Aspartate Amino Transferase 46 U/L (14-36); Bilirubin,Total 0.8 mg/dL (0.2-1.3); Blood Urea Nitrogen 5 mg/dL (7-17); Carbon Dioxide 26 mmol/L (22-30); Chloride 93 mmol/L (98-107); Estimated CRCL calculation 99 ml/min; Estimated Glomerular Filt Rate > 60; Glucose 105 mg/dL (65-110); Potassium 2.7 mmol/L (3.4-5.0); Sodium 129 mmol/L (137-145)
[2021-07-05] MEDS: POTASSIUM CHLORIDE 20 MEQ TABLET 40 MEQ PO (06:44)
[2021-07-05] MEDS: dilTIAZem HCL 30 MG TABLET PO ×2 (06:45→17:13)
[2021-07-05 06:46] LABS: Magnesium 1.6 mg/dL (1.6-2.3)
--- NOTE | 2021-07-05 08:30 | P.CDI_ITS ---
CDI Query Clarification Request -Acute Encephalopathy, likely due to sepsis has been documented. Please further specify type of encephalopathy: * Metabolic * Toxic * Hypertensive * Hepatic * Anoxic * Other * Unable to determine <Renetta Verdin RN - Last Filed: 07/05/21 08:33>
--- NOTE | 2021-07-05 08:30 | WPDCDIQUERY2 ---
CDI Query Clarification Request -Acute Encephalopathy, likely due to sepsis has been documented. Please further specify type of encephalopathy: Metabolic Toxic Hypertensive Hepatic Anoxic Other Unable to determine <Renetta Verdin RN - Last Filed: 07/05/21 08:33>
[2021-07-05] MEDS: MAGNESIUM SULF 2 GM/WATER 50ML 2 GM/50 ML BAG IVPB (09:22)
[2021-07-05] MEDS: APIXABAN 5 MG TABLET PO ×2 (09:26→20:33)
[2021-07-05] MEDS: cloNIDine HCL 0.1 MG TABLET PO ×2 (09:26→17:13)
[2021-07-05] MEDS: FOLIC ACID 1 MG TABLET PO (09:26)
[2021-07-05] MEDS: THIAMINE HCL 100 MG TABLET PO (09:27)
[2021-07-05] MEDS: METOPROLOL TARTRATE 25 MG TABLET PO ×2 (09:27→20:32)
[2021-07-05] MEDS: hydrALAZINE HCL 25 MG TABLET PO ×2 (09:28→17:13)
[2021-07-05] MEDS: ASPIRIN 81 MG CHEWABLE TABLET PO (09:28)
[2021-07-05] MEDS: DULoxetine HCL 60 MG CAPSULE.DR PO (09:28)
--- NOTE | 2021-07-05 13:38 | PM.IMPN ---
Progress Note: A&P Assessment and Plan (1) Sepsis: Qualifiers: Sepsis type: sepsis due to unspecified organism Sepsis acute organ dysfunction status: with acute organ dysfunction Severe sepsis acute organ dysfunction type: encephalopathy Severe sepsis shock status: without septic shock Qualified Code(s): A41.9 - Sepsis, unspecified organism; R65.20 - Severe sepsis without septic shock; G93.40 - Encephalopathy, unspecified Code(s): A41.9 - Sepsis, unspecified organism Status: Acute (2) Urinary tract infection associated with cystostomy catheter: Qualifiers: Encounter type: initial encounter Qualified Code(s): T83.510A - Infection and inflammatory reaction due to cystostomy catheter, initial encounter; N39.0 - Urinary tract infection, site not specified Code(s): T83.510A - Infection and inflammatory reaction due to cystostomy catheter, initial encounter; N39.0 - Urinary tract infection, site not specified Status: Acute (3) Suprapubic catheter dysfunction: Qualifiers: Encounter type: initial encounter Qualified Code(s): T83.010A - Breakdown (mechanical) of cystostomy catheter, initial encounter Code(s): T83.010A - Breakdown (mechanical) of cystostomy catheter, initial encounter Status: Acute (4) Chronic atrial fibrillation with RVR: Code(s): I48.20 - Chronic atrial fibrillation, unspecified Status: Acute (5) Dementia: Qualifiers: Dementia type: vascular dementia Dementia behavioral disturbance: with behavioral disturbance Qualified Code(s): F01.51 - Vascular dementia with behavioral disturbance Code(s): F03.90 - Unspecified dementia without behavioral disturbance Status: Acute (6) Hyponatremia: Code(s): E87.1 - Hypo-osmolality and hyponatremia Status: Acute (7) Bacteremia: Code(s): R78.81 - Bacteremia Status: Acute (8) Hypokalemia: Code(s): E87.6 - Hypokalemia Status: Acute (9) Hypomagnesemia: Code(s): E83.42 - Hypomagnesemia Status: Acute Additional Plan # Sepsis likely from urinary tract infection CT abdomen with no evidence of diverticulitis suprapubic catheter with pericystic fat stranding and mild to moderate bladder wall thickening. Urine culture with Gram-negative bacilli on ceftriaxone finalized as Proteus sensitive to ceftriaxone will continue same # Bacteremia with Gram-positive cocci in clusters empirically placed on vancomycin however could be a contamination repeat blood culture has been obtained and will be followed. blood culture turns pack as cons likely contamination will stop vancomycin repeat cultures has been negative # Acute metabolic encephalopathy CT head with cerebral atherosclerosis and chronic small-vessel ischemic changes of the cerebral white matter chronic bilateral infarcts with no acute intracranial findings. Likely due to sepsis # Lactic acidosis this has resolved # Elevated transaminases likely from sepsis continue to monitor # Catheter associated we urinary tract infection on Rocephin. Follow urine culture. She has her suprapubic catheter exchange now urology following. # Atrial fibrillation with RVR currently rate controlled on Eliquis at home which is resumed. #Chronic dementia # Chronic hyponatremia # DVT prophylaxis on Eliquis # Full code status Subjective Date/time seen: 07/05/21 13:38 Interval history: She has been getting IV lorazepam and morphine for pain. Was drowsy and sleepy this morning. Arousable and denies any ongoing issues. She remains confused Review of Systems Review of Systems: All systems reviewed & are unremarkable except as noted in HPI and below (HPI) Exam Narrative: General: Anxious looking, not in acute distress looks comfortable little drowsy but arousable HEENT: Mucous membranes are dry Head normocephalic atraumatic Respiratory: Shallow respirations, no increased work of breathing, equal
--- NOTE | 2021-07-05 15:13 | PCPTNOTE ---
Assessment attempted for 20 minutes. Pt gave infor but when attempting to do musce testing and mobiity, the pt had very severe pain with attempts. RN present and PT to try tomorrow and have pt get meds before attempt of PT.
[2021-07-05] MEDS: LORazepam INJ (*CRX) 2 MG/ML VIAL 0.5 MG IV PUSH (17:13)
[2021-07-05 17:18] LABS: Potassium 3.6 mmol/L (3.4-5.0)
[2021-07-05] MEDS: HYDROcodone/acetaminophen (*CRX) 5-325 MG TABLET 1 TAB PO (22:47)
[2021-07-06] VITALS (16 sets, daily range): BP systolic 134–157; BP diastolic 67–84; PULSE 62–103; RESP 16–24; TEMP 35.7–36.7; O2SAT 93–96
[2021-07-06] MEDS: dilTIAZem HCL 30 MG TABLET PO ×4 (00:26→18:10)
[2021-07-06 05:17] LABS: Basophils Percent Auto 0.7 % (0.2-1.2); Eosinophils Absolute Auto 0.1 K/mm3 (0-0.3); Eosinophils Percent Auto 2.3 % (0-4.4); Hematocrit 34.4 % (37.0-47.0); Hemoglobin 11.1 g/dL (12.0-15.0); Immature Granulocyte Absolute 0.03 K/mm3 (0.00-0.031); Immature Granulocyte Percent A 0.5 % (0-0.5); Lymphocytes Absolute Auto 1.32 K/mm3 (0.9-3.2); Lymphocytes Percent Auto 21.5 % (18.3-44.2); Mean Corpuscular HGB Conc 32.3 g/dl (32-36); Mean Corpuscular Hemoglobin 28.4 pg (26-34); Mean Platelet Volume 9.2 fl (7.4-10.4); Monocytes Absolute Auto 0.8 K/mm3 (0.1-0.6); Monocytes Percent Auto 13.4 % (2.6-8.5); Neutrophils Absolute Auto 3.8 K/mm3 (1.3-6.7); Neutrophils Percent Auto 61.6 % (45.5-73.1); Platelet Count Result 408 k/mm3 (150-375); Red Blood Count 3.91 M/mm3 (4.2-5.4); Red Cell Distribution Width 13.8 % (11.5-14.5); White Blood Count 6.1 K/mm3 (4.5-10.0)
[2021-07-06 05:21] LABS: Alanine Aminotransferase 27 U/L (4-35); Albumin Level 2.8 g/dL (3.5-5.1); Alkaline Phosphatase 107 U/L (38-126); Anion Gap 7 mmol/L (8-16); Aspartate Amino Transferase 39 U/L (14-36); Bilirubin,Total 0.5 mg/dL (0.2-1.3); Blood Urea Nitrogen 8 mg/dL (7-17); Calcium 8.6 mg/dL (8.4-10.2); Carbon Dioxide 26 mmol/L (22-30); Chloride 94 mmol/L (98-107); Estimated CRCL calculation 82 ml/min; Estimated Glomerular Filt Rate > 60; Glucose 106 mg/dL (65-110); Potassium 3.3 mmol/L (3.4-5.0); Sodium 127 mmol/L (137-145)
[2021-07-06] MEDS: ASPIRIN 81 MG CHEWABLE TABLET PO (08:51)
[2021-07-06] MEDS: cloNIDine HCL 0.1 MG TABLET PO ×2 (08:52→18:08)
[2021-07-06] MEDS: hydrALAZINE HCL 25 MG TABLET PO ×2 (08:52→18:10)
[2021-07-06] MEDS: FOLIC ACID 1 MG TABLET PO (08:52)
[2021-07-06] MEDS: METOPROLOL TARTRATE 25 MG TABLET PO ×2 (08:52→20:01)
[2021-07-06] MEDS: APIXABAN 5 MG TABLET PO ×2 (08:52→20:01)
[2021-07-06] MEDS: DULoxetine HCL 60 MG CAPSULE.DR PO (08:52)
[2021-07-06] MEDS: THIAMINE HCL 100 MG TABLET PO (08:53)
--- NOTE | 2021-07-06 08:56 | PCPTNOTE ---
Attempted PT eval this a.m. - unable to complete due to pt unable to move due to increase in discomfort with abdomen. Will try again tomorrow.
[2021-07-06] MEDS: HYDROcodone/acetaminophen (*CRX) 5-325 MG TABLET 1 TAB PO ×3 (09:22→20:09)
--- NOTE | 2021-07-06 12:31 | PM.IMPN ---
Progress Note: A&P Additional Plan # Sepsis likely from urinary tract infection CT abdomen with no evidence of diverticulitis suprapubic catheter with pericystic fat stranding and mild to moderate bladder wall thickening. Urine culture with Gram-negative bacilli on ceftriaxone finalized as Proteus sensitive to ceftriaxone will continue same (plan 07/02-07/08) # Bacteremia with caog negative staph 1/2 bottles empirically placed on vancomycin however could be a contamination repeat blood culture has been obtained and negative. Stop vancomycin repeat cultures has been negative, monitor clinically # Acute metabolic encephalopathy CT head with cerebral atherosclerosis and chronic small-vessel ischemic changes of the cerebral white matter chronic bilateral infarcts with no acute intracranial findings. Likely due to sepsis. # Lactic acidosis this has resolved # Elevated transaminases likely from sepsis, now normalized # Catheter associated urinary tract infection on Rocephin. Follow urine culture. She has her suprapubic catheter exchanged in ER 07/02 on presentation as it was not draining, Urology saw her, recommended monthly changes starting 08/02/2021 # Atrial fibrillation with RVR currently rate controlled with metoprolol, and is on Eliquis at home which is resumed. #Chronic dementia # Chronic hyponatremia # DVT prophylaxis on Eliquis # Full code status Subjective Date/time seen: 07/06/21 12:31 When I visited with her this morning she was alert and pleasant. Physical therapy and occupational therapy or just in her home, however she did not participate significantly as she reported pain in her extremities and also fatigue. They did on her upper extremities. She reports continued pain although seems to be better controlled. Hemodynamically stable. Afebrile. Review of Systems Review of Systems: All systems reviewed & are unremarkable except as noted in HPI and below Exam Narrative: Gen: Alert, NAD Abd: Soft, NT, ND, suprapubic catheter Heart: RRR Lungs: CTAB Ext: Trace lower extremity edema Objective Data Vital Signs Vital Signs: Vital Signs - 24 hr 07/05/21 14:00 07/05/21 16:00 07/05/21 18:00 Temperature 97.4 F L Pulse Rate 82 103 H 98 Respiratory Rate 22 H Blood Pressure 170/103 H Pulse Oximetry 95 07/05/21 19:43 07/05/21 20:00 07/05/21 20:32 Temperature 97.5 F L Pulse Rate 95 93 100 Respiratory Rate 18 Blood Pressure 119/56 L Pulse Oximetry 94 08/27/21 22:00 07/05/21 23:57 07/06/21 00:00 Temperature 97.8 F Pulse Rate 90 97 78 Respiratory Rate 16 Blood Pressure 160/93 H Pulse Oximetry 96 07/06/21 02:00 07/06/21 03:54 07/06/21 04:00 Temperature 97.8 F Pulse Rate 80 72 84 Respiratory Rate 16 Blood Pressure 142/84 H Pulse Oximetry 94 07/06/21 06:00 07/06/21 08:00 07/06/21 08:52 Temperature 98.1 F Pulse Rate 71 81 87 Respiratory Rate 22 H Blood Pressure 157/67 H Pulse Oximetry 93 07/06/21 10:00 07/06/21 12:00 Temperature Pulse Rate 66 70 Respiratory Rate Blood Pressure Pulse Oximetry Intake/Output Intake/Output: Intake & Output 07/03/21 07/04/21 07/05/21 07/06/21 23:59 23:59 23:59 23:59 Intake Total 2540 2590 840 600 Output Total 575 1150 4000 1150 [facility] [id number] [phone] [phone] Meds/Results Medications: Active Medications Generic Name Dose Route Start Last Admin Trade Name Freq PRN Reason Stop Dose Admin Hydrocodone Bitart/Acetaminophen 1 tab 07/05/21 13:42 07/06/21 09:22 Hydrocodone/Acetaminophen (*Crx) 5-325 Mg Tablet PO 1 tab Q4H PRN Administration Pain Rated 4-6 Apixaban 5 mg 07/03/21 09:00 07/06/21 08:52 Apixaban 5 Mg Tablet PO 5 mg Q12HR YONAS Administration Aspirin 81 mg 07/03/21 08:00 07/06/21 08:51 Aspirin 81 Mg Chewable Tablet PO 81 mg DAILY@0800 YONAS Administration Clonidine HCl 0.1 mg 07/03/21 09:00 07/06/21 08:52 Clonidine Hcl 0.1 Mg Tablet PO 0.1 mg BID SC
[2021-07-06] MEDS: POTASSIUM CHLORIDE 20 MEQ TABLET 40 MEQ PO (15:31)
[2021-07-07] VITALS (9 sets, daily range): BP systolic 121–163; BP diastolic 62–74; PULSE 49–78; RESP 14–20; TEMP 36.3–36.8; O2SAT 91–97
[2021-07-07] MEDS: dilTIAZem HCL 30 MG TABLET PO ×5 (00:13→23:12)
[2021-07-07] MEDS: LORazepam INJ (*CRX) 2 MG/ML VIAL 0.5 MG IV PUSH ×2 (02:49→20:54)
[2021-07-07 05:27] LABS: Anion Gap 4 mmol/L (8-16); Blood Urea Nitrogen 9 mg/dL (7-17); Calcium 8.9 mg/dL (8.4-10.2); Carbon Dioxide 27 mmol/L (22-30); Chloride 101 mmol/L (98-107); Estimated CRCL calculation 81 ml/min; Estimated Glomerular Filt Rate > 60; Glucose 102 mg/dL (65-110); Potassium 3.8 mmol/L (3.4-5.0); Sodium 132 mmol/L (137-145)
--- NOTE | 2021-07-07 07:46 | PC.NURSE ---
This patient, Arpita Pop, was transferred to [facility] on 07/07/21 at 0746. Personal belongings sent with patient. Report given to Jennifer KENNEDY. Appropriate documentation sent with patient.
[2021-07-07] MEDS: ASPIRIN 81 MG CHEWABLE TABLET PO (09:29)
[2021-07-07] MEDS: cloNIDine HCL 0.1 MG TABLET PO ×2 (09:30→17:26)
[2021-07-07] MEDS: APIXABAN 5 MG TABLET PO ×2 (09:30→20:53)
[2021-07-07] MEDS: DULoxetine HCL 60 MG CAPSULE.DR PO (09:30)
[2021-07-07] MEDS: hydrALAZINE HCL 25 MG TABLET PO ×2 (09:30→17:26)
[2021-07-07] MEDS: METOPROLOL TARTRATE 25 MG TABLET PO ×2 (09:30→20:54)
[2021-07-07] MEDS: FOLIC ACID 1 MG TABLET PO (09:30)
[2021-07-07] MEDS: THIAMINE HCL 100 MG TABLET PO (09:31)
--- NOTE | 2021-07-07 10:33 | PM.IMPN ---
Progress Note: A&P Assessment and Plan (1) Sepsis: Qualifiers: Sepsis acute organ dysfunction status: with acute organ dysfunction Sepsis type: sepsis due to unspecified organism Severe sepsis acute organ dysfunction type: encephalopathy Severe sepsis shock status: without septic shock Qualified Code(s): A41.9 - Sepsis, unspecified organism; R65.20 - Severe sepsis without septic shock; G93.40 - Encephalopathy, unspecified Code(s): A41.9 - Sepsis, unspecified organism Status: Acute (2) Urinary tract infection associated with cystostomy catheter: Qualifiers: Encounter type: initial encounter Qualified Code(s): T83.510A - Infection and inflammatory reaction due to cystostomy catheter, initial encounter; N39.0 - Urinary tract infection, site not specified Code(s): T83.510A - Infection and inflammatory reaction due to cystostomy catheter, initial encounter; N39.0 - Urinary tract infection, site not specified Status: Acute (3) Suprapubic catheter dysfunction: Qualifiers: Encounter type: initial encounter Qualified Code(s): T83.010A - Breakdown (mechanical) of cystostomy catheter, initial encounter Code(s): T83.010A - Breakdown (mechanical) of cystostomy catheter, initial encounter Status: Acute (4) Chronic atrial fibrillation with RVR: Code(s): I48.20 - Chronic atrial fibrillation, unspecified Status: Acute (5) Dementia: Qualifiers: Dementia behavioral disturbance: with behavioral disturbance Dementia type: vascular dementia Qualified Code(s): F01.51 - Vascular dementia with behavioral disturbance Code(s): F03.90 - Unspecified dementia without behavioral disturbance Status: Acute (6) Hyponatremia: Code(s): E87.1 - Hypo-osmolality and hyponatremia Status: Acute (7) Bacteremia: Code(s): R78.81 - Bacteremia Status: Acute (8) Hypokalemia: Code(s): E87.6 - Hypokalemia Status: Acute (9) Hypomagnesemia: Code(s): E83.42 - Hypomagnesemia Status: Acute Additional Plan # Sepsis likely from urinary tract infection CT abdomen with no evidence of diverticulitis suprapubic catheter with pericystic fat stranding and mild to moderate bladder wall thickening. Urine culture with Gram-negative bacilli on ceftriaxone finalized as Proteus sensitive to ceftriaxone will continue same (plan 07/02-07/08) # Bacteremia with caog negative staph 1/2 bottles empirically placed on vancomycin however could be a contamination repeat blood culture has been obtained and negative. Stop vancomycin repeat cultures has been negative, monitor clinically # Acute metabolic encephalopathy CT head with cerebral atherosclerosis and chronic small-vessel ischemic changes of the cerebral white matter chronic bilateral infarcts with no acute intracranial findings. Likely due to sepsis. # Lactic acidosis this has resolved # Elevated transaminases likely from sepsis, now normalized # Catheter associated urinary tract infection on Rocephin. Follow urine culture. She has her suprapubic catheter exchanged in ER 07/02 on presentation as it was not draining, Urology saw her, recommended monthly changes starting 08/02/2021 # Atrial fibrillation with RVR currently rate controlled with metoprolol, and is on Eliquis at home which is resumed. #Chronic dementia # Chronic hyponatremia: improved # Hypertension: Continue home meds, added amlodipine for better control, titrate and monitor # DVT prophylaxis on Eliquis # Full code status Dispo: Has been slow to work with PT/OT with concern about home return with . I discussed her care with her 07/07 in detail, updated him on her progress, and he voiced inability to take care of her at home currently. Appreciate child care center administrator help with placement. Subjective Date/time seen: 07/07/21 10:33 No major issues overnight. Hemodynamically stable. Afebrile. Reports feeling better t
[2021-07-07] MEDS: HYDROcodone/acetaminophen (*CRX) 5-325 MG TABLET 1 TAB PO ×2 (15:26→20:53)
[2021-07-07] MEDS: amLODIPine BESYLATE 5 MG TABLET PO (16:19)
[2021-07-08 05:00] VITALS: BP 152/82; PULSE 83; RESP 16; TEMP 36.7; O2SAT 92
[2021-07-08 06:05] LABS: Anion Gap 6 mmol/L (8-16); Blood Urea Nitrogen 13 mg/dL (7-17); Calcium 9.1 mg/dL (8.4-10.2); Carbon Dioxide 29 mmol/L (22-30); Chloride 96 mmol/L (98-107); Estimated CRCL calculation 69 ml/min; Estimated Glomerular Filt Rate > 60; Glucose 95 mg/dL (65-110); Potassium 3.8 mmol/L (3.4-5.0); Sodium 131 mmol/L (137-145)
[2021-07-08] MEDS: dilTIAZem HCL 30 MG TABLET PO ×3 (06:10→18:23)
[2021-07-08] MEDS: THIAMINE HCL 100 MG TABLET PO (09:15)
[2021-07-08] MEDS: ASPIRIN 81 MG CHEWABLE TABLET PO (09:15)
[2021-07-08] MEDS: amLODIPine BESYLATE 5 MG TABLET PO (09:15)
[2021-07-08] MEDS: DULoxetine HCL 60 MG CAPSULE.DR PO (09:15)
[2021-07-08] MEDS: FOLIC ACID 1 MG TABLET PO (09:15)
[2021-07-08] MEDS: hydrALAZINE HCL 25 MG TABLET PO ×2 (09:15→16:55)
[2021-07-08] MEDS: cloNIDine HCL 0.1 MG TABLET PO ×2 (09:15→16:55)
[2021-07-08] MEDS: APIXABAN 5 MG TABLET PO ×2 (09:15→21:17)
[2021-07-08 09:16] VITALS: PULSE 74
[2021-07-08] MEDS: METOPROLOL TARTRATE 25 MG TABLET PO ×2 (09:16→21:16)
[2021-07-08] MEDS: HYDROcodone/acetaminophen (*CRX) 5-325 MG TABLET 1 TAB PO ×2 (10:24→21:16)
--- NOTE | 2021-07-08 12:06 | PM.IMPN ---
Progress Note: A&P Assessment and Plan (1) Sepsis: Qualifiers: Sepsis type: sepsis due to unspecified organism Sepsis acute organ dysfunction status: with acute organ dysfunction Severe sepsis acute organ dysfunction type: encephalopathy Severe sepsis shock status: without septic shock Qualified Code(s): A41.9 - Sepsis, unspecified organism; R65.20 - Severe sepsis without septic shock; G93.40 - Encephalopathy, unspecified Code(s): A41.9 - Sepsis, unspecified organism Status: Acute (2) Urinary tract infection associated with cystostomy catheter: Qualifiers: Encounter type: initial encounter Qualified Code(s): T83.510A - Infection and inflammatory reaction due to cystostomy catheter, initial encounter; N39.0 - Urinary tract infection, site not specified Code(s): T83.510A - Infection and inflammatory reaction due to cystostomy catheter, initial encounter; N39.0 - Urinary tract infection, site not specified Status: Acute (3) Suprapubic catheter dysfunction: Qualifiers: Encounter type: initial encounter Qualified Code(s): T83.010A - Breakdown (mechanical) of cystostomy catheter, initial encounter Code(s): T83.010A - Breakdown (mechanical) of cystostomy catheter, initial encounter Status: Acute (4) Chronic atrial fibrillation with RVR: Code(s): I48.20 - Chronic atrial fibrillation, unspecified Status: Acute (5) Dementia: Qualifiers: Dementia type: vascular dementia Dementia behavioral disturbance: with behavioral disturbance Qualified Code(s): F01.51 - Vascular dementia with behavioral disturbance Code(s): F03.90 - Unspecified dementia without behavioral disturbance Status: Acute (6) Hyponatremia: Code(s): E87.1 - Hypo-osmolality and hyponatremia Status: Acute (7) Bacteremia: Code(s): R78.81 - Bacteremia Status: Acute (8) Hypokalemia: Code(s): E87.6 - Hypokalemia Status: Acute (9) Hypomagnesemia: Code(s): E83.42 - Hypomagnesemia Status: Acute Additional Plan # Sepsis likely from urinary tract infection CT abdomen with no evidence of diverticulitis suprapubic catheter with pericystic fat stranding and mild to moderate bladder wall thickening. Urine culture with Gram-negative bacilli on ceftriaxone finalized as Proteus sensitive to ceftriaxone will continue same (plan 07/02-07/08) # Bacteremia with caog negative staph 1/2 bottles empirically placed on vancomycin however could be a contamination repeat blood culture has been obtained and negative. Stop vancomycin repeat cultures has been negative, monitor clinically # Acute metabolic encephalopathy CT head with cerebral atherosclerosis and chronic small-vessel ischemic changes of the cerebral white matter chronic bilateral infarcts with no acute intracranial findings. Likely due to sepsis. # Lactic acidosis this has resolved # Elevated transaminases likely from sepsis, now normalized # Catheter associated urinary tract infection finished Rocephin. Follow urine culture. She has her suprapubic catheter exchanged in ER 07/02 on presentation as it was not draining, Urology saw her, recommended monthly changes starting 08/02/2021 # Atrial fibrillation with RVR currently rate controlled with metoprolol, and is on Eliquis at home which is resumed. #Chronic dementia # Chronic hyponatremia: improved # Hypertension: Continue home meds, added amlodipine for better control, titrate and monitor # DVT prophylaxis on Eliquis # Full code status Dispo: Has been slow to work with PT/OT with concern about home return with . I discussed her care with her 07/07 in detail, updated him on her progress, and he voiced inability to take care of her at home currently. Appreciate care transitions manager help with placement. Subjective Date/time seen: 07/08/21 12:06 Uneventful night, hemodynamically stable, afebrile. Denies any new symptoms, Sle
[2021-07-08 12:54] VITALS: BMI 11.0
[2021-07-08 14:00] VITALS: BP 116/56; PULSE 86; RESP 16; TEMP 36.1; O2SAT 94
--- NOTE | 2021-07-08 18:18 | PC.NURSE ---
IV occluded. Attempted to restart x 2 without success. Patient crying and refusing to have IV restarted. Called and spoke with Dr. Broussard. Orders received.
[2021-07-08 20:00] VITALS: PULSE 50; RESP 20; O2SAT 95
[2021-07-08 21:16] VITALS: PULSE 74
[2021-07-08] MEDS: CIPROFLOXACIN 500 MG TAB PO (21:16)
[2021-07-08 22:00] VITALS: BP 127/51; PULSE 50; RESP 20; TEMP 36.5; O2SAT 95
[2021-07-09] MEDS: dilTIAZem HCL 30 MG TABLET PO ×3 (00:40→12:05)
[2021-07-09 06:50] VITALS: BP 146/83; PULSE 79; RESP 16; TEMP 36.4; O2SAT 93
[2021-07-09] MEDS: ASPIRIN 81 MG CHEWABLE TABLET PO (08:18)
[2021-07-09 08:19] VITALS: PULSE 67
[2021-07-09] MEDS: hydrALAZINE HCL 25 MG TABLET PO (08:19)
[2021-07-09] MEDS: METOPROLOL TARTRATE 25 MG TABLET PO (08:19)
[2021-07-09] MEDS: amLODIPine BESYLATE 5 MG TABLET PO (08:19)
[2021-07-09] MEDS: FOLIC ACID 1 MG TABLET PO (08:19)
[2021-07-09] MEDS: DULoxetine HCL 60 MG CAPSULE.DR PO (08:19)
[2021-07-09] MEDS: cloNIDine HCL 0.1 MG TABLET PO (08:19)
[2021-07-09] MEDS: APIXABAN 5 MG TABLET PO (08:19)
[2021-07-09] MEDS: THIAMINE HCL 100 MG TABLET PO (08:19)
--- NOTE | 2021-07-09 11:35 | PM.IMPN ---
Progress Note: A&P Assessment and Plan (1) Sepsis: Qualifiers: Sepsis type: sepsis due to unspecified organism Sepsis acute organ dysfunction status: with acute organ dysfunction Severe sepsis acute organ dysfunction type: encephalopathy Severe sepsis shock status: without septic shock Qualified Code(s): A41.9 - Sepsis, unspecified organism; R65.20 - Severe sepsis without septic shock; G93.40 - Encephalopathy, unspecified Code(s): A41.9 - Sepsis, unspecified organism Status: Acute (2) Urinary tract infection associated with cystostomy catheter: Qualifiers: Encounter type: initial encounter Qualified Code(s): T83.510A - Infection and inflammatory reaction due to cystostomy catheter, initial encounter; N39.0 - Urinary tract infection, site not specified Code(s): T83.510A - Infection and inflammatory reaction due to cystostomy catheter, initial encounter; N39.0 - Urinary tract infection, site not specified Status: Acute (3) Suprapubic catheter dysfunction: Qualifiers: Encounter type: initial encounter Qualified Code(s): T83.010A - Breakdown (mechanical) of cystostomy catheter, initial encounter Code(s): T83.010A - Breakdown (mechanical) of cystostomy catheter, initial encounter Status: Acute (4) Chronic atrial fibrillation with RVR: Code(s): I48.20 - Chronic atrial fibrillation, unspecified Status: Acute (5) Dementia: Qualifiers: Dementia type: vascular dementia Dementia behavioral disturbance: with behavioral disturbance Qualified Code(s): F01.51 - Vascular dementia with behavioral disturbance Code(s): F03.90 - Unspecified dementia without behavioral disturbance Status: Acute (6) Hyponatremia: Code(s): E87.1 - Hypo-osmolality and hyponatremia Status: Acute (7) Bacteremia: Code(s): R78.81 - Bacteremia Status: Acute (8) Hypokalemia: Code(s): E87.6 - Hypokalemia Status: Acute (9) Hypomagnesemia: Code(s): E83.42 - Hypomagnesemia Status: Acute Additional Plan # Sepsis likely from urinary tract infection CT abdomen with no evidence of diverticulitis suprapubic catheter with pericystic fat stranding and mild to moderate bladder wall thickening. Urine culture with Gram-negative bacilli on ceftriaxone finalized as Proteus sensitive to ceftriaxone finished course 07/08 # Bacteremia with caog negative staph 1/2 bottles empirically placed on vancomycin however could be a contamination repeat blood culture has been obtained and negative. Stop vancomycin repeat cultures has been negative, monitor clinically # Acute metabolic encephalopathy CT head with cerebral atherosclerosis and chronic small-vessel ischemic changes of the cerebral white matter chronic bilateral infarcts with no acute intracranial findings. Likely due to sepsis. Resolved. # Lactic acidosis this has resolved # Elevated transaminases likely from sepsis, now normalized # Catheter associated urinary tract infection finished Rocephin. Follow urine culture. She has her suprapubic catheter exchanged in ER 07/02 on presentation as it was not draining, Urology saw her, recommended monthly changes starting 08/02/2021 # Atrial fibrillation with RVR currently rate controlled with metoprolol, and is on Eliquis at home which is resumed. #Chronic dementia # Chronic hyponatremia: improved # Hypertension: Continue home meds, added amlodipine for better control, titrate and monitor # DVT prophylaxis on Eliquis # Full code status Dispo: Has been slow to work with PT/OT with concern about home return with . I discussed her care with her 07/07 in detail, updated him on her progress, and he voiced inability to take care of her at home currently. Appreciate assurance services manager health care help with placement. Subjective Date/time seen: 07/09/21 11:35 No new issues overnight. Patient feels comfortable this morning. Hemodynamically sta
--- NOTE | 2021-07-09 12:21 | PM.DS ---
DS: Admitting Diagnosis Admitting Diagnosis Abdominal pain Altered mental status DS: Discharge Diagnosis Discharge Diagnosis (1) Sepsis: Qualifiers: Sepsis type: sepsis due to unspecified organism Sepsis acute organ dysfunction status: with acute organ dysfunction Severe sepsis acute organ dysfunction type: encephalopathy Severe sepsis shock status: without septic shock Qualified Code(s): A41.9 - Sepsis, unspecified organism; R65.20 - Severe sepsis without septic shock; G93.40 - Encephalopathy, unspecified Code(s): A41.9 - Sepsis, unspecified organism Status: Acute (2) Urinary tract infection associated with cystostomy catheter: Qualifiers: Encounter type: initial encounter Qualified Code(s): T83.510A - Infection and inflammatory reaction due to cystostomy catheter, initial encounter; N39.0 - Urinary tract infection, site not specified Code(s): T83.510A - Infection and inflammatory reaction due to cystostomy catheter, initial encounter; N39.0 - Urinary tract infection, site not specified Status: Acute (3) Suprapubic catheter dysfunction: Qualifiers: Encounter type: initial encounter Qualified Code(s): T83.010A - Breakdown (mechanical) of cystostomy catheter, initial encounter Code(s): T83.010A - Breakdown (mechanical) of cystostomy catheter, initial encounter Status: Acute (4) Chronic atrial fibrillation with RVR: Code(s): I48.20 - Chronic atrial fibrillation, unspecified Status: Acute (5) Dementia: Qualifiers: Dementia type: vascular dementia Dementia behavioral disturbance: with behavioral disturbance Qualified Code(s): F01.51 - Vascular dementia with behavioral disturbance Code(s): F03.90 - Unspecified dementia without behavioral disturbance Status: Acute (6) Hyponatremia: Code(s): E87.1 - Hypo-osmolality and hyponatremia Status: Acute (7) Bacteremia: Code(s): R78.81 - Bacteremia Status: Acute (8) Hypokalemia: Code(s): E87.6 - Hypokalemia Status: Acute (9) Hypomagnesemia: Code(s): E83.42 - Hypomagnesemia Status: Acute DS: Summary Hospital Course Hospital Course: This is a 76-year-old woman with past medical history of atrial fibrillation, dementia, hearing loss, urinary retention status post suprapubic catheter, COPD, CVA, hyperlipidemia, GERD, hypertension, pulmonary hypertension, obesity, who presented to the hospital on 07/02 being transported by EMS for abdominal pain. She was noted to have foul-smelling purulent discharge leaking from around her suprapubic catheter in the emergency department. The area was cleaned and the catheter was exchanged. Urology evaluated the patient, and recommended continued monthly changes of her suprapubic starting 08/02/2021. She was initiated on ceftriaxone in the emergency department for infection. Urine culture later grew Proteus vulgaris. This was sensitive to ceftriaxone and a seven-day course was finished on 07/08. On presentation she multiple electrolyte abnormalities with low potassium and magnesium which were replaced. She was noted to have low sodium which was mild and improved with hydration. She did have blood culture with growth of coagulase negative staph 1/2 bottles empirically placed on vancomycin however repeat blood culture obtained and negative. Stopped vancomycin repeat cultures has been negative, no evidence of infection was noted clinically. She was noted initially to have some episodes of atrial fibrillation with rapid ventricular response. This was controlled with metoprolol. Her Eliquis was continued for anticoagulation. Her blood pressure was noted to be above target during her stay. Amlodipine was added to her blood pressure regimen and should continue to be titrated in the outpatient setting as needed. She did have some altered mental status in the initial part of her hospital stay, likely relate
[2021-07-09 14:00] VITALS: BP 124/71; PULSE 94; RESP 20; TEMP 35.9; O2SAT 95
== END 2021-07-09 17:15 | DRG 698 ==
LOC: ANHED 20:56 → ANHIMU 22:42 → ANH2MED 07-09 12:33 → ANHIMU 07-11 12:30
PROVIDERS: Internal Medicine; Admitting Provider Internal Medicine; Emergency Provider Emergency Medicine; PCP Family Medicine; Visit Provider Internal Medicine Nephrology
DX: T83.510A Infection and inflammatory reaction due to cystostomy catheter, initial encounter (principal); A41.9 Sepsis, unspecified organism; R65.20 Severe sepsis without septic shock; G93.41 Metabolic encephalopathy; N39.0 Urinary tract infection, site not specified; E87.1 Hypo-osmolality and hyponatremia; F01.51 Vascular dementia, unspecified severity, with behavioral disturbance; T83.010A Breakdown (mechanical) of cystostomy catheter, initial encounter; J44.9 Chronic obstructive pulmonary disease, unspecified; E78.5 Hyperlipidemia, unspecified; I27.21 Secondary pulmonary arterial hypertension; I10 Essential (primary) hypertension; K21.9 Gastro-esophageal reflux disease without esophagitis; H91.90 Unspecified hearing loss, unspecified ear; G47.33 Obstructive sleep apnea (adult) (pediatric); E83.42 Hypomagnesemia; E87.6 Hypokalemia; Z79.82 Long term (current) use of aspirin; Z79.899 Other long term (current) drug therapy; Z86.16 Personal history of COVID-19; Z86.73 Personal history of transient ischemic attack (TIA), and cerebral infarction without residual deficits; Z87.891 Personal history of nicotine dependence
CPT/HCPCS: 36415; 70450; 74177; 80048; 80053; 80307; 81001; 83605; 83735; 84132; 84484; 85025; 85027; 87040; 87077; 87086; 87088; 87186; 93005; 96361; 96365; 96366; 96367; 96368; 96375; 96376; 97110; 97162; 97166; 97530; 97535; 99285; A9270; G0378; J0696; J2060; J2270; J3010; J3370; J3475; J3480; J7030; Q9967

== ENCOUNTER 2021-07-13 22:12 | Observation (INO) | payer MEDICARE, SELFPAY ==
--- NOTE | ~2021-07-13 | CT_ITS ---
EXAMINATION: CT abdomen pelvis w con DATE: 07/13/2021 23:41 INDICATION: Abdominal pain. TECHNIQUE: Computed tomography (CT) of the abdomen and pelvis was performed with 100 mL Omnipaque 350 intravenous contrast. Automated exposure control and iterative reconstruction technique were employe d. The dose-length product was 985.24 mGy-cm. COMPARISON: CT abdomen and pelvis 07/02/2021 FINDINGS: The visualized portions of the lung bases demonstrate mild atelectasis. No pleural effusion . Cardiomegaly is noted. There are coronary artery calcifications. No pericardial effusion. The liver , spleen, pancreas, and adrenal glands are normal. There is cortical thinning of the kidneys. There a re cysts in the kidneys measuring up to 7 mm in the left. A suprapubic catheter is noted. Stool diste nds the rectum. There are scattered diverticula in the colon. There is fat stranding around a diverti culum of sigmoid colon with local bowel wall thickening, consistent with diverticulitis. There are no dilated loops of bowel. The appendix is not visualized. There are no pathologically enlarged lymph n odes. There is an electrode in left S3 neural foramen. There is a small volume of pelvic ascites. The re is severe thoracic and lumbar spondylosis. IMPRESSION: 1. Acute sigmoid diverticulitis. No perforation or abscess. 2. Small volume of ascites. Reviewed, dictated and finalized at location A.
[2021-07-13 22:18] VITALS: BP 159/81; PULSE 106; RESP 20; TEMP 36.8; O2SAT 95
--- NOTE | 2021-07-13 22:19 | ECG_ITS ---
Measurements Intervals [place] Rate: 106 P: [place]: 0 QRS: 3 QRSD: 90 T: -57 QT: 405 QTc: 540 Interpretive Statements ATRIAL FIBRILLATION WITH RAPID VENTRICULAR RESPONSE VENTRICULAR PREMATURE COMPLEXES LOW QRS VOLTAGE IN PRECORDIAL LEADS CONSIDER INFERIOR INFARCT, AGE INDETERMINATE BORDERLINE ST-T WAVE ABNORMALITY- HIGH LATERAL LEADS BASELINE ARTIFACT- II, III, AVR, AVF, V2-V6 ABNORMAL ECG Electronically Signed On 07-14-2021 7:08:33 CDT by Jerry Falk D.O.
--- NOTE | 2021-07-13 22:29 | ED.ABDPAIN ---
HPI - Abdominal Pain General Chief Complaint: Abdominal Pain Stated Complaint: abd pain Time Seen by Provider: 07/13/21 22:19 Source: RN notes reviewed History of Present Illness HPI narrative: Patient presents emergency department from home for abdominal pain. Patient states symptoms began 2 days ago states pain is diffusely throughout the abdomen described as cramping denies any fevers or chills chest pain, shortness of breath nausea vomiting. States she has been having diarrhea. The patient was given morphine and Zofran by EMS Related Data Home Medications Medication Instructions Recorded Confirmed cholecalciferol (vitamin D3) 1,250 1,250 mcg PO WEEKLY 07/02/21 07/03/21 mcg (50,000 unit) capsule Allergies Allergy/AdvReac Type Severity Reaction Status Date / Time propoxyphene Allergy Severe HIVES Verified 07/02/21 16:48 clindamycin Allergy Unknown Unknown Verified 07/02/21 16:48 codeine Allergy Unknown HIVES but Verified 07/02/21 16:48 tolerates hydrocodone donepezil Allergy Unknown Unknown Verified 07/02/21 16:48 hydrochlorothiazide Allergy Unknown Skin Verified 07/02/21 16:48 Reaction latex Allergy Unknown SWELLING/RA Verified 07/02/21 16:48 SH lisinopril Allergy Unknown cough Verified 07/02/21 16:48 meloxicam Allergy Unknown ulcer Verified 07/02/21 16:48 olmesartan Allergy Unknown Unknown Verified 07/02/21 16:48 Penicillins Allergy Unknown Rash Verified 07/02/21 16:48 spironolactone Allergy Unknown hyperkalemi Verified 07/02/21 16:48 a amoxicillin AdvReac Unknown Nausea Verified 07/03/21 17:10 Review of Systems Review of Systems: Gen.: Denies fevers or chills ENT: Denies congestion Respiratory: Denies shortness of breath or cough CV: Denies chest pain or palpitations GI: See HPI Musculoskeletal: Denies back pain or muscle pain Neuro: Denies numbness, tingling, weakness or focal weakness Skin: Denies rash Except as documented, all other systems reviewed and negative PMFSH Past Medical History Medical History Arthritis Atrial fibrillation Normal stress test April 2020 Back pain Bilateral renal artery stenosis Bilateral renal artery stenosis noted on CTA evaluated at 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 Degenerative disc disease Dyslipidemia GERD (gastroesophageal reflux disease) Hypertension Moderate pulmonary arterial systolic hypertension Echocardiogram April 2020: EF 60-65%, normal diastolic function, atrial fibrillation, moderate left atrial enlargement, moderate to severe tricuspid valve regurgitation moderate pulmonary hypertension with RVSP of 54 Obesity (BMI 30.0-34.9) Osteoporosis Peripheral neuropathy Physical debility Pneumonia due to COVID-19 virus 09/08/2020 treated with Remdesivir dexamethasone and 1 unit of convalesant plasma Sleep apnea Severe obstructive sleep apnea on polysomnogram October 2014 with recommended CPAP of 18 SMA stenosis TIA (transient ischemic attack) x3 Ulcer Urinary retention with incomplete bladder emptying Vascular dementia with behavior disturbance Surgical History Surgical History H/O Spinal surgery H/O: hysterectomy History of bladder suspension procedure History of carpal tunnel release bilateral History of orthopedic surgery heel spurs, bilateral bunionectomy Hx of appendectomy Hx of cataract surgery Hx of cholecystectomy Presence of suprapubic catheter (05/27/21) Family History Family History Father Diabetes mellitus Hypertension Cerebrovascular accident Cardiovascular disease Hyperlipidemia Psychiatric illness Mother Diabetes mellitus Hypertension Cerebrovascular acciden
[2021-07-13 22:36] LABS: Basophils Percent Auto 0.2 % (0.2-1.2); Eosinophils Absolute Auto 0.1 K/mm3 (0-0.3); Hematocrit 36.7 % (37.0-47.0); Immature Granulocyte Absolute 0.04 K/mm3 (0.00-0.031); Immature Granulocyte Percent A 0.3 % (0-0.5); Lymphocytes Absolute Auto 2.01 K/mm3 (0.9-3.2); Mean Corpuscular HGB Conc 32.7 g/dl (32-36); Mean Corpuscular Hemoglobin 29.1 pg (26-34); Mean Corpuscular Volume 89.1 fl (80-100); Mean Platelet Volume 8.8 fl (7.4-10.4); Monocytes Absolute Auto 0.9 K/mm3 (0.1-0.6); Monocytes Percent Auto 7.4 % (2.6-8.5); Neutrophils Absolute Auto 9.5 K/mm3 (1.3-6.7); Neutrophils Percent Auto 75.1 % (45.5-73.1); Platelet Count Result 465 k/mm3 (150-375); Red Blood Count 4.12 M/mm3 (4.2-5.4); Red Cell Distribution Width 14.6 % (11.5-14.5); White Blood Count 12.6 K/mm3 (4.5-10.0)
[2021-07-13 22:44] LABS: INR 1.3; Prothrombin Time 16.2 Seconds (11.1-14.7)
[2021-07-13 22:45] LABS: Partial Thromboplastin Time 38.7 SECONDS (22.3-36.8)
[2021-07-13 22:55] LABS: Alanine Aminotransferase 26 U/L (4-35); Albumin Level 3.4 g/dL (3.5-5.1); Alkaline Phosphatase 117 U/L (38-126); Anion Gap 7 mmol/L (8-16); Aspartate Amino Transferase 32 U/L (14-36); Bilirubin,Total 0.5 mg/dL (0.2-1.3); Blood Urea Nitrogen 14 mg/dL (7-17); Carbon Dioxide 24 mmol/L (22-30); Chloride 100 mmol/L (98-107); Estimated CRCL calculation 70 ml/min; Estimated Glomerular Filt Rate > 60; Glucose 113 mg/dL (65-110); Lipase 108 U/L (23-300); Potassium 3.4 mmol/L (3.4-5.0); Sodium 131 mmol/L (137-145)
[2021-07-13 23:14] LABS: Add Urine Microscopic? YES; Appearance Urine Turbid (Clear); Bacteria Urine 4+ /hpf; Bilirubin Urine Negative (Negative); Blood Urine 1+ (Negative); Color Urine Yellow (Yellow); Glucose Urine UA Negative (Negative); Ketones Urine Negative (Negative); Leukocyte Esterase Ur 2+ LEU/UL (Negative); Mucus Urine Heavy /lpf; Nitrate Urine Positive (Negative); Protein Urine 2+ mg/dL (Negative); RBC Urine >75 /hpf (0-2); Specific Grav Ur 1.016 (1.001-1.035); Urobilinogen Urine Negative mg/dL (<2.0); WBC Clumps Urine Present /HPF; WBC Urine >75 /hpf
[2021-07-13] MEDS: SODIUM CHLORIDE 0.9% IV 1,000 ML 999 ML IV CONT (23:51)
[2021-07-13 23:58] VITALS: BP 131/101; PULSE 112; RESP 22; O2SAT 94
[2021-07-14] VITALS (19 sets, daily range): BP systolic 118–146; BP diastolic 53–84; PULSE 57–124; RESP 14–22; TEMP 36.4–36.9; O2SAT 93–98; BMI 32.1
[2021-07-14 00:18] LABS: Lactic Acid Reflex 1.1 mmol/L (0.7-2.1)
[2021-07-14] MEDS: metroNIDAZOLE 500 MG/ISO 100ML 500 MG/100 ML BAG 100 MG IVPB ×5 (01:27→23:04)
[2021-07-14] MEDS: dilTIAZem HCL 30 MG TABLET PO ×4 (01:31→23:05)
[2021-07-14] MEDS: SODIUM CHLORIDE 0.9% IV 1,000 ML 125 ML IV CONT (02:58)
--- NOTE | 2021-07-14 03:56 | ADMGEN ---
This patient, Arpita Pop, was admitted to IMU Room 206-02 on 07/14/21 at 0230. Patient/family oriented to hospital policies and general routines including ID bracelet, bed and alarms, visiting hours, pain management, procedures, bathroom and other care routines, personal items, smoking policy, room service/diet, and visiting hours. Information on how to activate the Rapid Response Team has been discussed. Patient/Family are encouraged to report perceived risks to care and to ask questions if they do not understand what they are told or what they should do.
--- NOTE | 2021-07-14 08:22 | PM.IMHP ---
H&P: HPI History of Present Illness Date/Time: 07/14/21 08:22 Chief Complaint: Abdominal pain Narrative: This is a 76-year-old woman with past medical history of atrial fibrillation, dementia, hearing loss, urinary retention status post suprapubic catheter, COPD, CVA, hyperlipidemia, GERD, hypertension, pulmonary hypertension, obesity, who presented to the hospital last night, being sent from her long-term, for evaluation of abdominal pain. Described as crampy abdominal pain. This started 2 days ago. This was associated with some nausea and diarrhea. I spoke with her who was with her last night on presentation, will provide information as well. She was recently discharged from the hospital on 07/08 and she was admitted with sepsis and urinary tract infection related to her suprapubic catheter which was exchanged. In the emergency department she was noted to be afebrile, blood pressure was 131/101, heart rate 112, and atrial fibrillation. Electrolyte panel mild hyponatremia but otherwise unremarkable. WBC was slightly elevated at 12.6. Other labs reviewed. Urinalysis showed significant pyuria and hematuria with bacteria. CT scan of the abdomen showed evidence of diverticulitis. Formal report not available to me currently. She was initiated on levofloxacin and Flagyl. Given IV fluids. And diltiazem 30 mg 1 tablet. Review of Systems Review of Systems: All systems reviewed & are unremarkable except as noted in HPI and below PMFSH Past Medical History Medical History Arthritis Atrial fibrillation Normal stress test April 2020 Back pain Bilateral renal artery stenosis Bilateral renal artery stenosis noted on CTA evaluated at 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 Degenerative disc disease Dyslipidemia GERD (gastroesophageal reflux disease) Hypertension Moderate pulmonary arterial systolic hypertension Echocardiogram April 2020: EF 60-65%, normal diastolic function, atrial fibrillation, moderate left atrial enlargement, moderate to severe tricuspid valve regurgitation moderate pulmonary hypertension with RVSP of 54 Obesity (BMI 30.0-34.9) Osteoporosis Peripheral neuropathy Physical debility Pneumonia due to COVID-19 virus 09/08/2020 treated with Remdesivir dexamethasone and 1 unit of convalesant plasma Sleep apnea Severe obstructive sleep apnea on polysomnogram October 2014 with recommended CPAP of 18 SMA stenosis TIA (transient ischemic attack) x3 Ulcer Urinary retention with incomplete bladder emptying Vascular dementia with behavior disturbance Surgical History Surgical History H/O Spinal surgery H/O: hysterectomy History of bladder suspension procedure History of carpal tunnel release bilateral History of orthopedic surgery heel spurs, bilateral bunionectomy Hx of appendectomy Hx of cataract surgery Hx of cholecystectomy Presence of suprapubic catheter (05/27/21) Family History Family History Father Diabetes mellitus Hypertension Cerebrovascular accident Cardiovascular disease Hyperlipidemia Psychiatric illness Mother Diabetes mellitus Hypertension Cerebrovascular accident Psychiatric illness Cardiovascular disease Hyperlipidemia Social History Social History Social History: She lives with her . the patient is listed as a full code. She is listed as a former smoker. Primary care physician: Dr. Adan Mix Smoking packs per day: 0.5 Smoking cigarettes per day: 10.0 Years smoked: 15 Smoking pack-years: 7.50 Smoking status: Former smoker
[2021-07-14] MEDS: POTASSIUM CHLORIDE 20 MEQ TABLET 40 MEQ PO (09:37)
[2021-07-14] MEDS: METOPROLOL TARTRATE 50 MG TAB PO (09:38)
[2021-07-14] MEDS: APIXABAN 5 MG TABLET PO ×2 (09:38→18:16)
[2021-07-14] MEDS: THIAMINE HCL 100 MG TABLET PO (09:38)
[2021-07-14] MEDS: cloNIDine HCL 0.1 MG TABLET PO ×2 (09:38→20:29)
[2021-07-14] MEDS: FOLIC ACID 1 MG TABLET PO (09:39)
[2021-07-14] MEDS: DULoxetine HCL 60 MG CAPSULE.DR PO (09:40)
[2021-07-14] MEDS: METOPROLOL TARTRATE 25 MG TABLET PO (20:28)
[2021-07-14] MEDS: ATORVASTATIN 20 MG TABLET PO (20:29)
[2021-07-15] VITALS (16 sets, daily range): BP systolic 137–174; BP diastolic 63–81; PULSE 65–88; RESP 17–18; TEMP 36.5–37.2; O2SAT 93–98
[2021-07-15] MEDS: dilTIAZem HCL 30 MG TABLET PO ×3 (05:08→17:50)
[2021-07-15] MEDS: metroNIDAZOLE 500 MG/ISO 100ML 500 MG/100 ML BAG 100 MG IVPB ×2 (05:08→12:49)
[2021-07-15 05:32] LABS: Basophils Absolute Auto 0.1 K/mm3 (0.0-0.1); Basophils Percent Auto 0.6 % (0.2-1.2); Eosinophils Absolute Auto 0.2 K/mm3 (0-0.3); Eosinophils Percent Auto 2.6 % (0-4.4); Hematocrit 35.1 % (37.0-47.0); Hemoglobin 11.1 g/dL (12.0-15.0); Immature Granulocyte Absolute 0.02 K/mm3 (0.00-0.031); Immature Granulocyte Percent A 0.2 % (0-0.5); Lymphocytes Absolute Auto 2.15 K/mm3 (0.9-3.2); Lymphocytes Percent Auto 25.5 % (18.3-44.2); Mean Corpuscular HGB Conc 31.6 g/dl (32-36); Mean Corpuscular Hemoglobin 28.5 pg (26-34); Mean Corpuscular Volume 90.2 fl (80-100); Mean Platelet Volume 9.9 fl (7.4-10.4); Monocytes Absolute Auto 0.8 K/mm3 (0.1-0.6); Monocytes Percent Auto 9.5 % (2.6-8.5); Neutrophils Absolute Auto 5.2 K/mm3 (1.3-6.7); Neutrophils Percent Auto 61.6 % (45.5-73.1); Platelet Count Result 443 k/mm3 (150-375); Red Blood Count 3.89 M/mm3 (4.2-5.4); Red Cell Distribution Width 14.5 % (11.5-14.5); White Blood Count 8.4 K/mm3 (4.5-10.0)
[2021-07-15 05:45] LABS: Alanine Aminotransferase 32 U/L (4-35); Albumin Level 3.4 g/dL (3.5-5.1); Alkaline Phosphatase 104 U/L (38-126); Anion Gap 8 mmol/L (8-16); Aspartate Amino Transferase 45 U/L (14-36); Bilirubin,Total 0.5 mg/dL (0.2-1.3); Blood Urea Nitrogen 9 mg/dL (7-17); Calcium 9.4 mg/dL (8.4-10.2); Carbon Dioxide 24 mmol/L (22-30); Chloride 105 mmol/L (98-107); Estimated CRCL calculation 71 ml/min; Estimated Glomerular Filt Rate > 60; Glucose 97 mg/dL (65-110); Sodium 137 mmol/L (137-145)
[2021-07-15] MEDS: ASPIRIN 81 MG CHEWABLE TABLET PO (09:03)
[2021-07-15] MEDS: cloNIDine HCL 0.1 MG TABLET PO ×2 (09:03→21:42)
[2021-07-15] MEDS: METOPROLOL TARTRATE 25 MG TABLET PO ×2 (09:03→21:42)
[2021-07-15] MEDS: DULoxetine HCL 60 MG CAPSULE.DR PO (09:04)
[2021-07-15] MEDS: FOLIC ACID 1 MG TABLET PO (09:04)
[2021-07-15] MEDS: THIAMINE HCL 100 MG TABLET PO (09:04)
[2021-07-15] MEDS: APIXABAN 5 MG TABLET PO ×2 (09:04→17:50)
--- NOTE | 2021-07-15 09:59 | PM.IMPN ---
Progress Note: A&P Assessment and Plan (1) Diverticulitis large intestine: Code(s): K57.32 - Diverticulitis of large intestine without perforation or abscess without bleeding Status: Acute Assessment and Plan: Initiated on levofloxacin and Flagyl 07/14- IVF until good oral intake Clear liquids and advance as tolerated Supportive measures (2) Urinary tract infection associated with cystostomy catheter: Qualifiers: Encounter type: initial encounter Qualified Code(s): T83.510A - Infection and inflammatory reaction due to cystostomy catheter, initial encounter; N39.0 - Urinary tract infection, site not specified Code(s): T83.510A - Infection and inflammatory reaction due to cystostomy catheter, initial encounter; N39.0 - Urinary tract infection, site not specified Status: Acute Assessment and Plan: Recurrent issue in the presence suprapubic catheter Continue levofloxacin which was initiated for diverticulitis Monitor symptoms Urine culture pending (3) Hypokalemia: Code(s): E87.6 - Hypokalemia Status: Acute Assessment and Plan: Replaced (4) Hyponatremia: Code(s): E87.1 - Hypo-osmolality and hyponatremia Status: Acute Assessment and Plan: Chronic, mild, stable, monitor (5) Hypertension: Code(s): I10 - Essential (primary) hypertension Status: Acute Assessment and Plan: Continue amlodipine On diltiazem and metoprolol for atrial fibrillation rate controlled (6) Chronic atrial fibrillation with RVR: Code(s): I48.20 - Chronic atrial fibrillation, unspecified Status: Acute Assessment and Plan: Continue home diltiazem and 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 Slept well. Hemodynamically stable. Afebrile. Reports some mild abdominal pain but improved. Review of Systems Review of Systems: All systems reviewed & are unremarkable except as noted in HPI and below Exam Narrative: Gen: Alert, NAD Abd: Soft, TTP diffusely, BS+ Heart: Irregularly irregular Lungs: CTAB Ext: No bilateral lower extremity edema Objective Data Vital Signs Vital Signs: Vital Signs - 24 hr 07/14/21 10:00 07/14/21 11:53 07/14/21 12:00 Temperature 98.4 F Pulse Rate 86 57 L 64 Respiratory Rate 14 Blood Pressure 122/71 Pulse Oximetry 95 07/14/21 14:00 07/14/21 16:00 07/14/21 18:00 Temperature 97.7 F Pulse Rate 68 64 65 Respiratory Rate 16 Blood Pressure 146/80 H Pulse Oximetry 96 07/14/21 19:38 07/14/21 20:00 07/14/21 20:28 Temperature 97.6 F Pulse Rate 65 64 64 Respiratory Rate 18 18 Blood Pressure 122/76 Pulse Oximetry 94 94 07/14/21 21:32 07/14/21 23:33 07/15/21 00:00 Temperature 97.8 F Pulse Rate 62 61 70 Respiratory Rate 18 18 Blood Pressure 118/53 L Pulse Oximetry 94 94 07/15/21 02:00 07/15/21 03:32 07/15/21 05:45 Temperature Pulse Rate 72 76 68 Respiratory Rate Blood Pressure Pulse Oximetry 07/15/21 08:00 07/15/21 09:03 Temperature 97.8 F Pulse Rate 67 88 Respiratory Rate 18 Blood Pressure 174/77 H Pulse Oximetry 98 Intake/Output Intake/Output: Intake & Output 07/12/21 07/13/21 07/14/21 07/15/21 23:59 23:59 23:59 23:59 Intake Total 2780 600 Output Total 1300 1100 Balance 1480 -500 Meds/Results Medications: Active Medications Generic Name Dose Route Start Last Admin Trade Name Freq PRN Reason Stop Dose Admin Apixaban 5 mg 07/14/21 09:00 07/15/21 09:04 Apixaban 5 Mg Tablet PO 5 mg BID YONAS Administration Aspirin 81 mg 07/15/21 08:00 07/15/21 09:03 Aspirin 81 Mg Chewable Tablet PO 81 mg DAILY@0800 [facility] Administration Atorvastatin Calcium 20 mg 07/14/21 21:00 07/14/21 20:29 Atorvastatin 20 Mg Tablet PO
[2021-07-15] MEDS: amLODIPine BESYLATE 5 MG TABLET PO (10:52)
--- NOTE | 2021-07-15 17:25 | PC.NURSE ---
This patient, Arpita Pop, was received from [facility] on 07/15/21 at 1756. Patient/family oriented to unit policies and routines. Report received from BRENT Aguilera.
[2021-07-15] MEDS: ONDANSETRON INJ 4 MG/2 ML VIAL IV PUSH (17:50)
[2021-07-15] MEDS: levoFLOXacin 750 MG TABLET PO (17:50)
[2021-07-15] MEDS: metroNIDAZOLE 250 MG TABLET 500 MG PO (21:43)
[2021-07-15] MEDS: ATORVASTATIN 20 MG TABLET PO (21:43)
[2021-07-16] VITALS (12 sets, daily range): BP systolic 114–130; BP diastolic 73–89; PULSE 59–94; RESP 14–20; TEMP 36.1–37; O2SAT 96–99
[2021-07-16] MEDS: dilTIAZem HCL 30 MG TABLET PO ×4 (00:21→17:23)
[2021-07-16] MEDS: metroNIDAZOLE 250 MG TABLET 500 MG PO ×2 (06:07→13:36)
--- NOTE | 2021-07-16 07:20 | PCOTNOTE ---
The OT treatment on 07/15/21 was unable to be completed due to the holiday. Will continue plan of care.
[2021-07-16] MEDS: amLODIPine BESYLATE 5 MG TABLET PO (08:34)
[2021-07-16] MEDS: levoFLOXacin 750 MG TABLET PO (08:35)
[2021-07-16] MEDS: APIXABAN 5 MG TABLET PO ×2 (08:35→17:23)
[2021-07-16] MEDS: METOPROLOL TARTRATE 25 MG TABLET PO ×2 (08:35→20:55)
[2021-07-16] MEDS: cloNIDine HCL 0.1 MG TABLET PO ×2 (08:36→20:55)
[2021-07-16] MEDS: DULoxetine HCL 60 MG CAPSULE.DR PO (08:36)
[2021-07-16] MEDS: THIAMINE HCL 100 MG TABLET PO (08:36)
[2021-07-16] MEDS: FOLIC ACID 1 MG TABLET PO (08:36)
[2021-07-16] MEDS: ASPIRIN 81 MG CHEWABLE TABLET PO (08:36)
--- NOTE | 2021-07-16 10:09 | PC.NURSE ---
Dr Salinas on floor and notified of ESBL in urine.
--- NOTE | 2021-07-16 10:17 | PM.IMPN ---
Progress Note: A&P Assessment and Plan (1) Diverticulitis large intestine: Code(s): K57.32 - Diverticulitis of large intestine without perforation or abscess without bleeding Status: Acute Assessment and Plan: This is a 76-year-old woman with past medical history of atrial fibrillation, dementia, hearing loss, urinary retention status post suprapubic catheter, COPD, CVA, hyperlipidemia, GERD, hypertension, pulmonary hypertension, and obesity, who presented to the hospital 07/13, being sent from her [place] [facility], for evaluation of abdominal pain. Described as crampy abdominal pain. This started 2 days prior. This was associated with some nausea and diarrhea. I spoke with her who is very familiar with her to verify details. She was recently discharged from the hospital on 07/08 and she was admitted with sepsis and urinary tract infection related to her suprapubic catheter which was exchanged. In the emergency department she was noted to be afebrile, blood pressure was 131/101, heart rate 112, and atrial fibrillation. Electrolyte panel mild hyponatremia but otherwise unremarkable. WBC was slightly elevated at 12.6. Urinalysis showed significant pyuria and hematuria with bacteria. CT scan of the abdomen showed evidence of diverticulitis. She was initiated on levofloxacin and Flagyl. Given IV fluids. Initially was NPO, then her diet slowly advanced. She was able to tolerate clear liquids. Her white cell count normalized. Her heart rate improved and was rate controlled for most her stay. Her urine culture grew E coli was multidrug resistant but sensitive to Augmentin. She was switched to Augmentin to cover both her urine infection and diverticulitis. She will need 7 more days of Augmentin. She was hemodynamically stable and afebrile during her hospital stay. Will need colonoscopy in 6-8 weeks after discharge and resolution of her diverticulitis. Initiated on levofloxacin and Flagyl 07/14-07/16 then transitioned to Augmentin 07/16 given urine coverage as well Clear liquids and advance as tolerated Oral intake poor continue to encourage Supportive measures Will need colonoscopy in 6-8 weeks after discharge and resolution of her diverticulitis (2) Urinary tract infection associated with cystostomy catheter: Qualifiers: Encounter type: initial encounter Qualified Code(s): T83.510A - Infection and inflammatory reaction due to cystostomy catheter, initial encounter; N39.0 - Urinary tract infection, site not specified Code(s): T83.510A - Infection and inflammatory reaction due to cystostomy catheter, initial encounter; N39.0 - Urinary tract infection, site not specified Status: Acute Assessment and Plan: Recurrent issue in the presence suprapubic catheter Continue levofloxacin which was initiated for diverticulitis Monitor symptoms Urine culture E Coli, ESBL, Sensitive to Augmentin. Penicillins with nausea and rash on her list. Does not recall. Will try today and treat with Benadryl as needed. If she Develops a rash, will discontinue and use alternative. (3) Hypokalemia: Code(s): E87.6 - Hypokalemia Status: Acute Assessment and Plan: Replaced (4) Hyponatremia: Code(s): E87.1 - Hypo-osmolality and hyponatremia Status: Acute Assessment and Plan: Chronic, mild, stable, monitor (5) Hypertension: Code(s): I10 - Essential (primary) hypertension Status: Acute Assessment and Plan: Continue amlodipine On diltiazem and metoprolol for atrial fibrillation rate controlled (6) Chronic atrial fibrillation with RVR: Code(s): I48.20 - Chronic atrial fibrillation, unspecified Status: Acute Assessment and Plan: Continue home diltiazem and metoprolol [employer] hemodynamics Continue home apixaban Subjective Date/time seen: 07/16/21 10:17 No major issues overnight. Hemodynamically stable. Reports her abdominal pain is
[2021-07-16] MEDS: AMOXICILLIN/CLAVULANATE K 875-125 MG TAB 1 TABLET PO ×2 (11:39→20:55)
--- NOTE | 2021-07-16 14:27 | PC.NURSE ---
On 07/16/21, the student, Niyah Hutchins, provided care and completed [facility] documentation on this patient. I have reviewed the student's documentation and agree with the findings.
[2021-07-16] MEDS: ATORVASTATIN 20 MG TABLET PO (20:55)
[2021-07-17] VITALS: PULSE 73
[2021-07-17] MEDS: dilTIAZem HCL 30 MG TABLET PO ×2 (00:47→05:08)
[2021-07-17 04:00] VITALS: PULSE 67
[2021-07-17 04:35] VITALS: BP 114/60; PULSE 73; RESP 17; TEMP 36.6; O2SAT 97
--- NOTE | 2021-07-17 08:18 | PCOTNOTE ---
Attempted to see patient this am, however patient declined due to fatigue. Pt reported being up all night stating, I'm exhausted. I just want to go back to sleep.
[2021-07-17 09:20] VITALS: PULSE 64
--- NOTE | 2021-07-17 09:39 | PM.DS ---
DS: Admitting Diagnosis Discharge Date 07/17/2021 Admitting Diagnosis Abdominal pain DS: Discharge Diagnosis Discharge Diagnosis (1) Diverticulitis large intestine: Code(s): K57.32 - Diverticulitis of large intestine without perforation or abscess without bleeding Status: Acute Assessment and Plan: Initiated on levofloxacin and Flagyl 07/14-07/16 then transitioned to Augmentin 07/16 given urine coverage as well Clear liquids and advance as tolerated Oral intake poor continue to encourage Supportive measures Will need colonoscopy in 6-8 weeks after discharge and resolution of her diverticulitis (2) Urinary tract infection associated with cystostomy catheter: Qualifiers: Encounter type: initial encounter Qualified Code(s): T83.510A - Infection and inflammatory reaction due to cystostomy catheter, initial encounter; N39.0 - Urinary tract infection, site not specified Code(s): T83.510A - Infection and inflammatory reaction due to cystostomy catheter, initial encounter; N39.0 - Urinary tract infection, site not specified Status: Acute Assessment and Plan: Recurrent issue in the presence suprapubic catheter Continue levofloxacin which was initiated for diverticulitis Monitor symptoms Urine culture E Coli, ESBL, Sensitive to Augmentin. Penicillins with nausea and rash on her list. Does not recall. Will try today and treat with Benadryl as needed. If she Develops a rash, will discontinue and use alternative. (3) Hypokalemia: Code(s): E87.6 - Hypokalemia Status: Acute Assessment and Plan: Replaced (4) Hyponatremia: Code(s): E87.1 - Hypo-osmolality and hyponatremia Status: Acute Assessment and Plan: Chronic, mild, stable, monitor (5) Hypertension: Code(s): I10 - Essential (primary) hypertension Status: Acute Assessment and Plan: Continue amlodipine On diltiazem and metoprolol for atrial fibrillation rate controlled (6) Chronic atrial fibrillation with RVR: Code(s): I48.20 - Chronic atrial fibrillation, unspecified Status: Acute Assessment and Plan: Continue home diltiazem and metoprolol [employer] hemodynamics Continue home apixaban DS: Summary Hospital Course Hospital Course: This is a 76-year-old woman with past medical history of atrial fibrillation, dementia, hearing loss, urinary retention status post suprapubic catheter, COPD, CVA, hyperlipidemia, GERD, hypertension, pulmonary hypertension, and obesity, who presented to the hospital 07/13, being sent from her snf, for evaluation of abdominal pain. Described as crampy abdominal pain. This started 2 days prior. This was associated with some nausea and diarrhea. I spoke with her who is very familiar with her to verify details. She was recently discharged from the hospital on 07/08 and she was admitted with sepsis and urinary tract infection related to her suprapubic catheter which was exchanged. In the emergency department she was noted to be afebrile, blood pressure was 131/101, heart rate 112, and atrial fibrillation. Electrolyte panel mild hyponatremia but otherwise unremarkable. WBC was slightly elevated at 12.6. Urinalysis showed significant pyuria and hematuria with bacteria. CT scan of the abdomen showed evidence of diverticulitis. She was initiated on levofloxacin and Flagyl. Given IV fluids. Initially was NPO, then her diet slowly advanced. She was able to tolerate clear liquids. Her white cell count normalized. Her heart rate improved and was rate controlled for most her stay. Her urine culture grew E coli was multidrug resistant but sensitive to Augmentin. She was switched to Augmentin to cover both her urine infection and diverticulitis. She will need 7 more days of Augmentin. She was hemodynamically stable and afebrile during her hospital stay. Will need colonoscopy in 6-8 weeks after discharge and resolution of her diverti
[2021-07-17] MEDS: THIAMINE HCL 100 MG TABLET PO (09:47)
[2021-07-17] MEDS: AMOXICILLIN/CLAVULANATE K 875-125 MG TAB 1 TABLET PO (09:47)
[2021-07-17] MEDS: cloNIDine HCL 0.1 MG TABLET PO (09:48)
[2021-07-17] MEDS: DULoxetine HCL 60 MG CAPSULE.DR PO (09:48)
[2021-07-17] MEDS: APIXABAN 5 MG TABLET PO (09:48)
[2021-07-17] MEDS: ASPIRIN 81 MG CHEWABLE TABLET PO (09:49)
[2021-07-17] MEDS: FOLIC ACID 1 MG TABLET PO (09:49)
[2021-07-17] MEDS: amLODIPine BESYLATE 5 MG TABLET PO (09:49)
== END 2021-07-17 11:08 ==
LOC: ANHED 07-14 01:07 → ANHIMU 07-14 01:10 → ANH2MED 07-15 15:33
PROVIDERS: Admitting Provider Internal Medicine; Emergency Provider Emergency Medicine; PCP Family Medicine; Visit Provider Internal Medicine Nephrology
DX: K57.32 Diverticulitis of large intestine without perforation or abscess without bleeding (principal); T83.510A Infection and inflammatory reaction due to cystostomy catheter, initial encounter; N39.0 Urinary tract infection, site not specified; E87.6 Hypokalemia; E87.1 Hypo-osmolality and hyponatremia; B96.20 Unspecified Escherichia coli [E. coli] as the cause of diseases classified elsewhere; E78.5 Hyperlipidemia, unspecified; F03.90 Unspecified dementia, unspecified severity, without behavioral disturbance, psychotic disturbance, mood disturbance, and anxiety; I10 Essential (primary) hypertension; I48.91 Unspecified atrial fibrillation; J44.9 Chronic obstructive pulmonary disease, unspecified; Z87.891 Personal history of nicotine dependence; Z86.73 Personal history of transient ischemic attack (TIA), and cerebral infarction without residual deficits
CPT/HCPCS: 36415; 74177; 80053; 81001; 83605; 83690; 85025; 85610; 85730; 87040; 87077; 87086; 87088; 87186; 93005; 96361; 96365; 96366; 96368; 96375; 96376; 97110; 97162; 97165; 97530; 97535; 99285; A9270; G0378; J0131; J1956; J2405; J7030; Q9967

== ENCOUNTER 2021-09-24 16:47 | Emergency (ER) | payer MEDICARE, SELFPAY ==
--- NOTE | ~2021-09-24 | CT_ITS ---
EXAMINATION: CT abdomen pelvis w con DATE: 09/24/2021 22:36 INDICATION: Abdominal pain TECHNIQUE: Computed tomography (CT) of the abdomen and pelvis was performed with 100 mL Omnipaque-350 intravenous contrast. Automated exposure control and iterative reconstruction technique were employe d. The dose-length product was 560.35 mGy-cm. COMPARISON: 07/13/2021 FINDINGS: Mild atelectasis in bilateral lower lung zones. Cardiomegaly. Atherosclerotic coronary artery calcifi cation. No pericardial or pleural effusion. Gallbladder is not visualized and likely surgically absen t. Liver, spleen, pancreas, bilateral adrenal glands and right kidney are normal. Subcentimeter cysts in the left kidney. There is moderate colonic diverticulosis with a sigmoid predominance. There is no adjacent inflammatory change to suggest diverticulitis. No bowel obstruction. The appendix is not visualized. No pericecal inflammatory change to suggest acute appendicitis. Suprapubic catheter exten ds into the bladder which demonstrates diffuse mild bladder wall thickening. Persistent mild fat stra nding surrounding the bladder consistent with cystitis either acute or chronic. There is mild urothel ial thickening along the bilateral ureters and renal pelvises and cannot exclude ascending urinary tr act infection. The uterus is not identified and has likely been surgically resected. No free intraper itoneal gas or fluid. No pathologically enlarged abdominal or pelvic lymphadenopathy. There is calcif ied atherosclerosis of the aorta and many of the other arteries. Severe thoracic and lumbar spondylos is. Sacral nerve root stimulator lead extending to the left S3 neural foramen. IMPRESSION: 1. Suprapubic bladder catheter with mild bladder wall thickening and surrounding inflammatory strandi ng and mild urothelial enhancement along the bilateral ureters and renal pelvises which could be seen with cystitis and ascending urinary tract infections. Correlate with urinalysis. 2. Diverticulosis. 3. Cardiomegaly. Reviewed, dictated and finalized at location A. IR SPECIALIST IMPRESSION: 1. Suprapubic bladder catheter with mild bladder wall thickening and surroundin g inflammatory stranding and mild urothelial enhancement along the bilateral ur eters and renal pelvises which could be seen with cystitis and ascending urinar y tract infections. Correlate with urinalysis. 2. Diverticulosis. 3. Cardiomegaly.
[2021-09-24 17:06] VITALS: BP 137/109; PULSE 73; RESP 18; TEMP 36.8; O2SAT 100
[2021-09-24 17:36] LABS: Add Urine Microscopic? YES; Appearance Urine Turbid (Clear); Bacteria Urine 2+ /hpf; Bilirubin Urine 1+ (Negative); Blood Urine 2+ (Negative); Color Urine Yellow (Yellow); Glucose Urine UA Negative (Negative); Ketones Urine Negative (Negative); Leukocyte Esterase Ur 3+ LEU/UL (Negative); Mucus Urine Heavy /lpf; Nitrate Urine Negative (Negative); Protein Urine 3+ mg/dL (Negative); RBC Urine >75 /hpf (0-2); Specific Grav Ur 1.017 (1.001-1.035); Squamous Epithelial Cell Urine Rare /hpf (Few); Urobilinogen Urine Negative mg/dL (<2.0); WBC Urine >75 /hpf
[2021-09-24 19:20] VITALS: BP 142/89; PULSE 74; RESP 16; O2SAT 98
--- NOTE | 2021-09-24 19:53 | ED.GENADULT ---
HPI - General Adult General Chief complaint: Urogenital-Female Stated complaint: catheter not draining Time Seen by Provider: 09/24/21 19:44 Source: patient and RN notes reviewed History of Present Illness HPI narrative: Patient is a 76 y/o female complaining of decreased output from suprapubic catheter. She has urine leaking from around the catheter and from her urethra. There is no known alleviating or exacerbating factor. She had her catheter changed 2-3 weeks ago. She also has some generalized abdominal pain since yesterday. She has no vomiting or diarrhea. Related Data Home Medications Medication Instructions Recorded Confirmed atorvastatin 20 mg PO HS 07/14/21 07/14/21 Allergies Allergy/AdvReac Type Severity Reaction Status Date / Time propoxyphene Allergy Severe HIVES Verified 07/14/21 06:01 clindamycin Allergy Unknown Unknown Verified 07/14/21 06:01 codeine Allergy Unknown HIVES but Verified 07/14/21 06:01 tolerates hydrocodone donepezil Allergy Unknown Unknown Verified 07/14/21 06:01 hydrochlorothiazide Allergy Unknown Skin Verified 07/14/21 06:01 Reaction latex Allergy Unknown SWELLING/RA Verified 07/14/21 06:01 SH lisinopril Allergy Unknown cough Verified 07/14/21 06:01 meloxicam Allergy Unknown ulcer Verified 07/14/21 06:01 olmesartan Allergy Unknown Unknown Verified 07/14/21 06:01 Penicillins Allergy Unknown Rash Verified 07/14/21 06:01 spironolactone Allergy Unknown hyperkalemi Verified 07/14/21 06:01 a amoxicillin AdvReac Unknown Nausea Verified 07/16/21 13:46 Review of Systems Constitutional: Constitutional: Denies chills, Denies fever(s), Denies headache(s) and Denies weakness Eyes: Eyes: Denies blurry vision ENT: Denies headache(s) and Denies neck pain Cardiovascular: Cardiovascular: Denies chest pain and Denies dyspnea Respiratory: Respiratory: Denies cough and Denies dyspnea Gastrointestinal: Gastrointestinal: Reports abdominal pain, Denies diarrhea, Denies nausea and Denies vomiting Genitourinary: Genitourinary: Reports as per HPI, Denies hematuria, Denies dysuria and Reports other (decreased urination) Musculoskeletal: Musculoskeletal: Denies back pain and Denies neck pain Neurologic: Denies headache(s) and Denies weakness [facility] Past Medical History Medical History Arthritis Atrial fibrillation Normal stress test April 2020 Back pain Bilateral renal artery stenosis Bilateral renal artery stenosis noted on CTA evaluated at [facility] Dr. 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 Degenerative disc disease Dyslipidemia GERD (gastroesophageal reflux disease) Hypertension Moderate pulmonary arterial systolic hypertension Echocardiogram April 2020: EF 60-65%, normal diastolic function, atrial fibrillation, moderate left atrial enlargement, moderate to severe tricuspid valve regurgitation moderate pulmonary hypertension with RVSP of 54 Obesity (BMI 30.0-34.9) Osteoporosis Peripheral neuropathy Physical debility Pneumonia due to COVID-19 virus 09/08/2020 treated with Remdesivir dexamethasone and 1 unit of convalesant plasma Sleep apnea Severe obstructive sleep apnea on polysomnogram October 2014 with recommended CPAP of 18 SMA stenosis TIA (transient ischemic attack) x3 Ulcer Urinary retention with incomplete bladder emptying Vascular dementia with behavior disturbance Surgical History Surgical History H/O Spinal surgery H/O: hysterectomy History of bladder suspension procedure History of carpal tunnel release bilateral History of orthopedic surgery heel spurs, bilateral bunionectomy Hx of appendectomy Hx of cataract surgery Hx of cholecystectomy Presence of suprapubic catheter (05/27/21) Family H
[2021-09-24 20:31] VITALS: BP 136/90; PULSE 97; RESP 18; O2SAT 97
[2021-09-24] MEDS: SODIUM CHLORIDE 0.9% IV 1,000 ML 999 ML IV CONT (20:31)
[2021-09-24 20:33] LABS: Basophils Absolute Auto 0.1 K/mm3 (0.0-0.1); Basophils Percent Auto 0.6 % (0.2-1.2); Eosinophils Absolute Auto 0.3 K/mm3 (0-0.3); Eosinophils Percent Auto 3.1 % (0-4.4); Hematocrit 36.9 % (37.0-47.0); Hemoglobin 11.8 g/dL (12.0-15.0); Immature Granulocyte Absolute 0.03 K/mm3 (0.00-0.031); Immature Granulocyte Percent A 0.3 % (0-0.5); Lymphocytes Absolute Auto 3.04 K/mm3 (0.9-3.2); Lymphocytes Percent Auto 35.4 % (18.3-44.2); Mean Corpuscular Hemoglobin 29.4 pg (26-34); Mean Corpuscular Volume 91.8 fl (80-100); Mean Platelet Volume 9.2 fl (7.4-10.4); Monocytes Absolute Auto 0.7 K/mm3 (0.1-0.6); Monocytes Percent Auto 8.6 % (2.6-8.5); Neutrophils Absolute Auto 4.5 K/mm3 (1.3-6.7); Platelet Count Result 330 k/mm3 (150-375); Red Blood Count 4.02 M/mm3 (4.2-5.4); Red Cell Distribution Width 14.8 % (11.5-14.5); White Blood Count 8.6 K/mm3 (4.5-10.0)
[2021-09-24 20:46] LABS: Alanine Aminotransferase 12 U/L (4-35); Albumin Level 4.2 g/dL (3.5-5.1); Alkaline Phosphatase 117 U/L (38-126); Anion Gap 8 mmol/L (8-16); Aspartate Amino Transferase 22 U/L (14-36); Bilirubin,Total 0.5 mg/dL (0.2-1.3); Blood Urea Nitrogen 11 mg/dL (7-17); Calcium 9.8 mg/dL (8.4-10.2); Carbon Dioxide 29 mmol/L (22-30); Chloride 102 mmol/L (98-107); Estimated CRCL calculation 61 ml/min; Estimated Glomerular Filt Rate > 60; Glucose 97 mg/dL (65-110); Lipase 56 U/L (23-300); Potassium 3.9 mmol/L (3.4-5.0); Sodium 139 mmol/L (137-145)
[2021-09-24 22:46] VITALS: BP 189/80; PULSE 80; RESP 16; O2SAT 97
[2021-09-24 23:30] VITALS: BP 147/86; PULSE 91; RESP 22; O2SAT 96
--- NOTE | 2021-09-24 23:30 | PC.NURSE ---
Assumed car of pt at this time. Pt alert and supine on stretcher per baseline. Pts catheter patent and draining. Pt and family updated on POC.
[2021-09-25] MEDS: CIPROFLOXACIN 400 MG/D5W 200ML 200 ML 200 MG IVPB (00:02)
[2021-09-25 00:32] VITALS: BP 161/97; PULSE 81; RESP 16; O2SAT 97
[2021-09-25 01:13] VITALS: BP 136/78; PULSE 83; RESP 19; O2SAT 95
== END 2021-09-25 01:37 | disposition home or self-care (01) ==
PROVIDERS: Emergency Provider Emergency Medicine; PCP Family Medicine
DX: T83.010A Breakdown (mechanical) of cystostomy catheter, initial encounter (principal); T83.510A Infection and inflammatory reaction due to cystostomy catheter, initial encounter; I48.91 Unspecified atrial fibrillation; I70.1 Atherosclerosis of renal artery; I27.21 Secondary pulmonary arterial hypertension; I07.1 Rheumatic tricuspid insufficiency; J44.9 Chronic obstructive pulmonary disease, unspecified; F01.51 Vascular dementia, unspecified severity, with behavioral disturbance; E78.5 Hyperlipidemia, unspecified; K21.9 Gastro-esophageal reflux disease without esophagitis; M81.0 Age-related osteoporosis without current pathological fracture; G62.9 Polyneuropathy, unspecified; Z86.73 Personal history of transient ischemic attack (TIA), and cerebral infarction without residual deficits; Z86.16 Personal history of COVID-19; Z87.01 Personal history of pneumonia (recurrent); Z98.49 Cataract extraction status, unspecified eye; Z87.891 Personal history of nicotine dependence; Z79.01 Long term (current) use of anticoagulants
CPT/HCPCS: 36415; 51705; 74177; 80053; 81001; 83690; 85025; 87077; 87086; 87088; 87186; 96361; 96365; 99284; J0744; J7030; Q9967

== ENCOUNTER 2022-01-27 12:03 | Inpatient (IN) | payer MEDICARE, MEDICAID, SELFPAY ==
[2022-01-27] VITALS (18 sets, daily range): BP systolic 110–159; BP diastolic 76–99; PULSE 67–126; RESP 14–39; TEMP 36.2–36.6; O2SAT 92–98
--- NOTE | ~2022-01-27 | CT_ITS ---
EXAMINATION: CT abdomen pelvis w con DATE: 01/27/2022 13:48 INDICATION: Hematuria, dark urine and sepsis TECHNIQUE: Computed tomography (CT) of the abdomen and pelvis was performed with 100 mL Omnipaque-350 intravenous contrast. Automated exposure control and iterative reconstruction technique were employe d. The dose-length product was 955.73 mGy-cm. COMPARISON: 09/24/2021 FINDINGS: Respiratory motion and mild atelectasis at the bilateral lung bases. Cardiomegaly. Atherosclerotic co ronary artery calcification. No pericardial or pleural effusion. Gallbladder is nonvisualized and lik shahana surgically absent. Liver, spleen, pancreas, bilateral adrenal glands and right kidney are normal. Again seen are couple subcentimeter left renal cyst. There is moderate colonic diverticulosis with a sigmoid predominance. There is no adjacent inflammatory change to suggest diverticulitis. No bowel obstruction. The appendix is not visualized. No pericecal inflammatory change to suggest acute append icitis. Suprapubic Aiken catheter within the decompressed bladder. There is mild bladder wall thicken ing in part to decompressed state although there is also stranding in the fat surrounding the base of the bladder consistent with cystitis. The uterus is not identified and has likely been surgically re sected. No free intraperitoneal gas or fluid. No pathologically enlarged abdominal or pelvic lymphade nopathy. There is calcified atherosclerosis of the aorta and many of the other arteries. Penetrating atherosclerotic ulcer along the left side of the infrarenal aorta with small pseudoaneurysm extending additional 7 mm beyond the calcified intimal atherosclerotic plaque. No additional mild aneurysmal d ilation of the left common iliac artery which measures up to 1.9 cm with additional small penetrating atherosclerotic ulcer. Sacral nerve root stimulator with lead extending from posterior to anterior t hrough the left S3 neural foramen. Severe thoracic and moderate to severe lumbar spondylosis. IMPRESSION: 1. Suprapubic bladder catheter with mild bladder wall thickening and surrounding inflammatory strandi ng consistent with cystitis. 2. Diverticulosis. 3. Likely. 4. 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 Reviewed, dictated and finalized at location A. IMPRESSION: 1. Suprapubic bladder catheter with mild bladder wall thickening and surroundin g inflammatory stranding consistent with cystitis. 2. Diverticulosis. 3. Likely. 4. Penetrating atherosclerotic ulcers with small associated aneurysms at the de scending thoracic aorta and left common iliac artery.
--- NOTE | ~2022-01-27 | CT_ITS ---
EXAMINATION: CT brain wo con DATE: 01/28/2022 09:40 INDICATION: Increasing right-sided weakness TECHNIQUE: Computed tomography (CT) of the head was performed without intravenous contrast. The dose- length product was 681.00 mGy-cm. Automated exposure control and iterative reconstruction technique w ere employed. 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 Generalized atrophy. Chronic right lacunar inf arction. There are scattered moderate periventricular and subcortical white matter changes, most like ly related to small vessel ischemic disease (microangiopathy). No acute intracranial hemorrhage, infa rction, mass or mass effect. There is ethmoid and sphenoid sinus disease. Mastoids are pneumatized. N o depressed skull fractures. IMPRESSION: 1. No acute intracranial abnormality. 2: Right lacunar and left parietal infarctions. 3: Chronic age-related findings. 4: Ethmoid and sphenoid sinusitis. Reviewed, dictated and finalized at location A.
--- NOTE | ~2022-01-27 | XR_ITS ---
EXAMINATION: XR chest 1V INDICATION: Weakness, history of hypertension TECHNIQUE: AP view of the chest is obtained. COMPARISON: 06/01/2021 FINDINGS: The lungs are free of acute opacities. There is no pleural effusion or pneumothorax. Cardio megaly is noted. There is osteoarthritis of the shoulders. IMPRESSION: 1. Cardiomegaly. Reviewed, dictated and finalized at location B. IMPRESSION: 1. Cardiomegaly.
--- NOTE | 2022-01-27 12:06 | ECG_ITS ---
Measurements Intervals [place] Rate: 116 P: WA: 0 QRS: 7 QRSD: 82 T: 22 QT: 373 QTc: 518 Interpretive Statements ATRIAL FIBRILLATION WITH RAPID VENTRICULAR RESPONSE POSSIBLE INFERIOR MYOCARDIAL INFARCTION , PROBABLY OLD [30 ms Q WAVE IN II/aVF] ABNORMAL RHYTHM ECG COMPARED TO ECG 07/13/2021 22:50:44 NO SIGNIFICANT CHANGES Electronically Signed On 01-27-2022 15:48:38 CDT by Adan Morton M.D.
[2022-01-27 12:26] LABS: Basophils Percent Auto 0.6 % (0.2-1.2); Eosinophils Absolute Auto 0.3 K/mm3 (0-0.3); Eosinophils Percent Auto 3.6 % (0-4.4); Hematocrit 40.8 % (37.0-47.0); Hemoglobin 12.7 g/dL (12.0-15.0); Immature Granulocyte Absolute 0.01 K/mm3 (0.00-0.031); Immature Granulocyte Percent A 0.1 % (0-0.5); Lymphocytes Absolute Auto 2.09 K/mm3 (0.9-3.2); Lymphocytes Percent Auto 29.2 % (18.3-44.2); Mean Corpuscular HGB Conc 31.1 g/dl (32-36); Mean Corpuscular Hemoglobin 29.6 pg (26-34); Mean Corpuscular Volume 95.1 fl (80-100); Mean Platelet Volume 8.7 fl (7.4-10.4); Monocytes Absolute Auto 0.6 K/mm3 (0.1-0.6); Monocytes Percent Auto 8.5 % (2.6-8.5); Neutrophils Absolute Auto 4.2 K/mm3 (1.3-6.7); Platelet Count Result 425 k/mm3 (150-375); Red Blood Count 4.29 M/mm3 (4.2-5.4); Red Cell Distribution Width 13.9 % (11.5-14.5); White Blood Count 7.2 K/mm3 (4.5-10.0)
[2022-01-27 12:37] LABS: Add Urine Microscopic? YES; Appearance Urine Cloudy (Clear); Bilirubin Urine Negative (Negative); Blood Urine 3+ (Negative); Color Urine Amber (Yellow); Glucose Urine UA Negative (Negative); Ketones Urine Negative (Negative); Leukocyte Esterase Ur 3+ LEU/UL (Negative); Mucus Urine Few /lpf; Nitrate Urine Negative (Negative); Protein Urine 2+ mg/dL (Negative); RBC Urine >75 /hpf (0-2); Specific Grav Ur 1.024 (1.001-1.035); Urobilinogen Urine Negative mg/dL (<2.0); WBC Urine >75 /hpf
[2022-01-27 12:44] LABS: Alanine Aminotransferase 18 U/L (4-35); Albumin Level 3.8 g/dL (3.5-5.1); Alkaline Phosphatase 96 U/L (38-126); Anion Gap 4 mmol/L (8-16); Aspartate Amino Transferase 25 U/L (14-36); Bilirubin,Total 0.2 mg/dL (0.2-1.3); Blood Urea Nitrogen 18 mg/dL (7-17); Calcium 9.1 mg/dL (8.4-10.2); Carbon Dioxide 31 mmol/L (22-30); Chloride 103 mmol/L (98-107); Estimated CRCL calculation 46 ml/min; Estimated Glomerular Filt Rate > 60; Glucose 103 mg/dL (65-110); Potassium 3.6 mmol/L (3.4-5.0); Sodium 138 mmol/L (137-145)
[2022-01-27 13:31] LABS: Creatine Kinase 23 U/L (30-135); Lactic Acid Reflex 0.9 mmol/L (0.7-2.1)
--- NOTE | 2022-01-27 15:05 | ED.WEAKNESS ---
HPI - Weakness General Chief complaint: Weakness Stated complaint: weakness/urine issues Time Seen by Provider: 01/27/22 13:01 Source: patient History of Present Illness HPI Narrative: Patient presents with weakness. He has a history of prior CVA chronic indwelling [place] catheter and suprapubic catheter due to urinary incontinence. Family and home health nurse has noticed increased weakness over the past few days and she appears somewhat more confused than usual. They are also concerned about dark colored urine so she was referred to the ER for evaluation. Patient reports some abdominal pain generalized weakness and having a hard time with her mobility. She denies any fevers, chest pain, shortness of breath or cough. Related Data Home Medications Medication Instructions Recorded Confirmed atorvastatin 20 mg PO HS 07/14/21 01/27/22 acetaminophen 500 mg tablet 500 mg PO DAILY PRN tablet 09/30/21 01/13/22 apixaban [Eliquis] 5 mg PO DAILY 01/27/22 01/27/22 ascorbate calcium (vitamin C) 500 mg PO DAILY 01/27/22 01/27/22 hyoscyamine sulfate mg 01/27/22 thiamine HCl (vitamin B1) 100 mg PO DAILY 01/27/22 01/27/22 Allergies Allergy/AdvReac Type Severity Reaction Status Date / Time propoxyphene Allergy Severe HIVES Verified 01/13/22 10:28 clindamycin Allergy Unknown Unknown Verified 01/13/22 10:28 codeine Allergy Unknown HIVES but Verified 01/13/22 10:28 tolerates hydrocodone donepezil Allergy Unknown Unknown Verified 01/13/22 10:28 hydrochlorothiazide Allergy Unknown Skin Verified 01/13/22 10:28 Reaction latex Allergy Unknown SWELLING/RA Verified 01/13/22 10:28 SH lisinopril Allergy Unknown cough Verified 01/13/22 10:28 meloxicam Allergy Unknown ulcer Verified 01/13/22 10:28 olmesartan Allergy Unknown Unknown Verified 01/13/22 10:28 Penicillins Allergy Unknown Rash Verified 01/13/22 10:28 spironolactone Allergy Unknown hyperkalemi Verified 01/13/22 10:28 a amoxicillin AdvReac Unknown Nausea Verified 01/13/22 10:28 Review of Systems Review of Systems: CONSTITUTIONAL: Denies fever, chills, or sweats. EYES: Denies visual changes, redness, or discharge. ENT: Denies rhinorrhea, congestion, sore throat, or otalgia. CARDIOVASCULAR: Denies chest pain, palpitations, or edema. RESPIRATORY: Denies cough or dyspnea. GASTROINTESTINAL: Denies nausea, vomiting, or diarrhea. GENITOURINARY: Denies dysuria or hematuria. SKIN: Denies rash or itching. MUSCULOSKELETAL: Denies back pain, joint pain, or myalgia. NEUROLOGIC: Denies headache, numbness, dizziness, or weakness. PSYCHIATRIC: Denies anxiety or depression. All systems reviewed & are unremarkable except as noted in HPI and below PMFSH Past Medical History Medical History Arthritis Atrial fibrillation Normal stress test April 2020 Back pain Bilateral renal artery stenosis Bilateral renal artery stenosis noted on CTA evaluated at 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 Degenerative disc disease Dyslipidemia GERD (gastroesophageal reflux disease) Hypertension Moderate pulmonary arterial systolic hypertension Echocardiogram April 2020: EF 60-65%, normal diastolic function, atrial fibrillation, moderate left atrial enlargement, moderate to severe tricuspid valve regurgitation moderate pulmonary hypertension with RVSP of 54 Obesity (BMI 30.0-34.9) Osteoporosis Peripheral neuropathy Physical debility Pneumonia due to COVID-19 virus 09/08/2020 treated with Remdesivir dexamethasone and 1 unit of convalesant plasma Sleep apnea Severe obstructive sleep apnea on polysomnogram October 2014 with recommended CPAP of 18 SMA stenosis TIA (transient ischemic attack) x3 Ulcer Urinary retention with incomplete bladder emptying Vascular dementia with behavi
--- NOTE | 2022-01-27 15:15 | PM.IMHP ---
H&P: HPI History of Present Illness Date/Time: 01/27/22 15:15 Chief Complaint: Weakness. Narrative: This is a 76-year-old female with history of stroke, dementia, hypertension, atrial fibrillation, sleep apnea, and several other comorbidities who presented to the emergency department from home for evaluation of weakness. She has some expressive aphasia from a previous stroke and thus some of the following history is obtained via a review of her electronic medical records as well as discussions with her . According to the patient, she was able to ambulate with a walker up until the last couple of weeks. Since that time she has gotten progressively more weak to the point where she really can not even get up and walk and she has been spending most of her time in bed. She has a suprapubic catheter and is my understanding that family members and/or home health nurse has noticed that she has had decreased urine output and that her urine is much darker than usual and it is it has a strong smell. She endorses mild abdominal discomfort though it is mainly in the periumbilical and epigastric region. She also endorses quite a bit of nausea, significant heartburn, and a decreased appetite with poor oral intake these last several weeks. CT of the abdomen and pelvis showed mild bladder wall thickening with surrounding inflammatory stranding consistent with cystitis and given concerns for UTI and her decrease in mobility she is being admitted for further care. At the time my evaluation she is complaining of low back pain from the bed. She is also very tearful that she has not been able to get up and walk these past few weeks. On exam she cannot even lift her right leg off of the bed which she states is chronic though I wonder how she is able to ambulate at home with a walker prior to the last few weeks. She denies change in focal weakness, paresthesias, facial droop, dysarthria, and dysphagia. Review of Systems Review of Systems: Twelve systems were reviewed. She denies fever, chills, and sweats. No headache. No cold or flu symptoms. She denies cough and shortness of breath. No chest pain, pleuritic pain, or palpitations. She denies dysphagia and concerns for aspiration. She denies diarrhea. She PMFSH Past Medical History Medical History (Updated 01/27/22 @ 21:03 by Leonila Arita PA-C) Arthritis Atrial fibrillation Normal stress test April 2020 Bilateral renal artery stenosis Bilateral renal artery stenosis noted on CTA evaluated at [facility] Dr. Farias December 2019 Cerebrovascular accident Evidence of old right basal ganglia and anterior limb right internal capsule infarcts. Chronic obstructive pulmonary disease Degenerative disc disease Dyslipidemia GERD (gastroesophageal reflux disease) Hypertension Moderate pulmonary arterial systolic hypertension Echocardiogram April 2020: EF 60-65%, normal diastolic function, atrial fibrillation, moderate left atrial enlargement, moderate to severe tricuspid valve regurgitation moderate pulmonary hypertension with RVSP of 54 Obesity (BMI 30.0-34.9) Osteoporosis Peripheral neuropathy Physical debility Pneumonia due to COVID-19 virus 09/08/2020 treated with Remdesivir dexamethasone and 1 unit of convalesant plasma Sleep apnea Severe obstructive sleep apnea on polysomnogram October 2014 with recommended CPAP of 18 SMA stenosis TIA (transient ischemic attack) x3 Ulcer Urinary retention with incomplete bladder emptying Vascular dementia with behavior disturbance Surgical History Surgical History (Updated 01/27/22 @ 20:54 by Leonila Arita PA-C) History of appendectomy History of bilateral carpal tunnel release History of bladder suspension procedure History of bunionectomy of both great toes History of cataract extraction History of cholecystectomy History of hysterectomy History of orthopedic surgery Bilateral heel spur removal. History of spinal surgery Presence of suprapubic cathete
[2022-01-27 16:07] LABS: Lipase 67 U/L (23-300)
--- NOTE | 2022-01-27 18:14 | ADMGEN ---
This patient, Arpita Pop, was admitted to Medical Room 344-01. Patient/family oriented to hospital policies and general routines including ID bracelet, bed and alarms, visiting hours, pain management, procedures, bathroom and other care routines, personal items, smoking policy, room service/diet, and visiting hours. Information on how to activate the Rapid Response Team has been discussed. Patient/Family are encouraged to report perceived risks to care and to ask questions if they do not understand what they are told or what they should do.
[2022-01-27] MEDS: SODIUM CHLORIDE 0.9% IV 1,000 ML 125 ML IV CONT (18:34)
[2022-01-28] VITALS (8 sets, daily range): BP systolic 119–142; BP diastolic 72–94; PULSE 75–123; RESP 16–20; TEMP 35.7–36.3; O2SAT 94–97; BMI 10.0
[2022-01-28 06:00] LABS: Hematocrit 38.9 % (37.0-47.0); Hemoglobin 12.4 g/dL (12.0-15.0); Mean Corpuscular HGB Conc 31.9 g/dl (32-36); Mean Corpuscular Hemoglobin 29.3 pg (26-34); Mean Platelet Volume 9.1 fl (7.4-10.4); Platelet Count Result 419 k/mm3 (150-375); Red Blood Count 4.23 M/mm3 (4.2-5.4); Red Cell Distribution Width 13.4 % (11.5-14.5); White Blood Count 6.6 K/mm3 (4.5-10.0)
[2022-01-28 06:14] LABS: Alanine Aminotransferase 17 U/L (4-35); Albumin Level 3.8 g/dL (3.5-5.1); Alkaline Phosphatase 100 U/L (38-126); Anion Gap 7 mmol/L (8-16); Aspartate Amino Transferase 26 U/L (14-36); Bilirubin,Total 0.3 mg/dL (0.2-1.3); Blood Urea Nitrogen 12 mg/dL (7-17); Calcium 8.9 mg/dL (8.4-10.2); Carbon Dioxide 25 mmol/L (22-30); Chloride 107 mmol/L (98-107); Estimated CRCL calculation 60 ml/min; Estimated Glomerular Filt Rate > 60; Glucose 101 mg/dL (65-110); Potassium 3.6 mmol/L (3.4-5.0); Sodium 139 mmol/L (137-145)
[2022-01-28] MEDS: SODIUM CHLORIDE 0.9% IV 1,000 ML 75 ML IV CONT (06:48)
[2022-01-28] MEDS: THIAMINE HCL 100 MG TABLET PO (09:53)
[2022-01-28] MEDS: ASCORBIC ACID 500 MG TABLET PO (09:53)
[2022-01-28] MEDS: APIXABAN 5 MG TABLET PO (09:53)
[2022-01-28] MEDS: METOPROLOL TARTRATE 12.5 MG TABLET PO ×2 (09:54→21:00)
[2022-01-28] MEDS: ASPIRIN 81 MG CHEWABLE TABLET PO (09:54)
[2022-01-28] MEDS: amLODIPine BESYLATE 5 MG TABLET PO (09:55)
[2022-01-28] MEDS: DULoxetine HCL 60 MG CAPSULE.DR PO (09:55)
--- NOTE | 2022-01-28 10:18 | PCSTNOTE ---
Please refer to the Bedside Swallow Evaluation in the EMR. Please note, silent aspiration cannot be ruled out at bedside.
--- NOTE | 2022-01-28 14:09 | PM.IMPN ---
Progress Note: A&P Assessment and Plan (1) Weakness: Code(s): R53.1 - Weakness Status: Acute Assessment and Plan: - The patient was brought in today for evaluation of weakness, reportedly not able to ambulate with a walker over the last 2 weeks. On exam she can not really even lift her right leg off of the bed and she is unable to tell me whether not this is chronic thus will obtain a brain CT for initial evaluation. CT of the abdomen and pelvis did not mention any bony abnormalities. Her urinalysis is abnormal however she is afebrile and have a normal white blood cell count and this may not be a true a an active infection. She also looks dry on exam you which may be a factor in her weakness as well. - PT and OT evaluation for possible placement. (2) Abnormal urinalysis: Code(s): R82.90 - Unspecified abnormal findings in urine Status: Acute Assessment and Plan: - She was started on ceftriaxone in the emergency department and we will continue with that given her abnormal CT findings though I suspect these findings may be chronic due to her suprapubic catheter. (3) Abnormal computed tomography of abdomen and pelvis: Code(s): R93.5 - Abnormal findings on diagnostic imaging of other abdominal regions, including retroperitoneum Status: Acute Assessment and Plan: - In addition to findings of cystitis her CT also showed penetrating atherosclerotic ulcers with small associated aneurysms at the descending thoracic aorta and left common iliac artery. She is on atorvastatin and these can be followed as an outpatient. (4) Atrial fibrillation: Code(s): I48.91 - Unspecified atrial fibrillation Status: Acute Assessment and Plan: - She is rate controlled on metoprolol. Continue apixaban for stroke prophylaxis. - She is noted to be tachycardic at times, however, it is noted to be when she is crying and emotionally upset regarding her inability to communicate. (5) Essential (primary) hypertension: Code(s): I10 - Essential (primary) hypertension Status: Acute Assessment and Plan: - Blood pressures were reviewed and they have been a bit high those she is anxious and tearful at the time my evaluation which may be driving up her blood pressures. Her antihypertensives will be resumed and blood pressures will be monitored closely. (6) Dehydration: Code(s): E86.0 - Dehydration Status: Acute Assessment and Plan: - She is dry by history and exam and she will be hydrated overnight. I will ask the speech therapist to do a bedside swallow on her tomorrow to ensure she is not having difficulties swallowing as she is unable to really articulate why she is not eating or drinking much the last couple of weeks. If her swallow study is okay, may be prudent to have GI evaluate her as she is quite tender to palpation epigastric region and there is a documented history of previous gastric ulcers. Time Spent With Patient Time with patient: 15 - 25 minutes Subjective Date/time seen: 01/28/22 0900 This pt. was examined at the bedside in interval assessment. She has no current complaints other than feeling weak and that she became that way all of a sudden. She has a history of CVA last year and she states she has been able to ambulate with a walker up until the last two weeks and she has slowly become increasingly more weak, but not focal. She has an indwelling suprapubic catheter and although she is not showing objective signs of infection with exception of UA and bladder wall thickening on CT, she is being treated with Rocephin. She is very and obviously bothered by her aphasia and has extreme difficulty getting her words out at times and she becomes visibly irritated and frustrated with herself. She states her tells her to just not talk. She then becomes more tearful. Pt. will likely need placement due to her current level of functioning. We are await
[2022-01-28] MEDS: ATORVASTATIN 20 MG TABLET PO (21:00)
[2022-01-28] MEDS: MELATONIN 3 MG TABLET PO (21:00)
[2022-01-29] VITALS (7 sets, daily range): BP systolic 129–153; BP diastolic 69–82; PULSE 80–100; RESP 18–86; TEMP 36.2–36.6; O2SAT 95–98
[2022-01-29] MEDS: SODIUM CHLORIDE 0.9% IV 1,000 ML 75 ML IV CONT (06:16)
[2022-01-29] MEDS: THIAMINE HCL 100 MG TABLET PO (08:46)
[2022-01-29] MEDS: ASPIRIN 81 MG CHEWABLE TABLET PO (08:46)
[2022-01-29] MEDS: METOPROLOL TARTRATE 12.5 MG TABLET PO ×2 (08:46→20:04)
[2022-01-29] MEDS: APIXABAN 5 MG TABLET PO (08:46)
[2022-01-29] MEDS: DULoxetine HCL 60 MG CAPSULE.DR PO (08:46)
[2022-01-29] MEDS: amLODIPine BESYLATE 5 MG TABLET PO (08:46)
[2022-01-29] MEDS: ASCORBIC ACID 500 MG TABLET PO (08:46)
--- NOTE | 2022-01-29 13:55 | PM.IMPN ---
Progress Note: A&P Assessment and Plan (1) Weakness: Code(s): R53.1 - Weakness Status: Acute Assessment and Plan: - The patient was brought in today for evaluation of weakness, reportedly not able to ambulate with a walker over the last 2 weeks. On exam she can not really even lift her right leg off of the bed and she is unable to tell me whether not this is chronic thus will obtain a brain CT for initial evaluation. CT of the abdomen and pelvis did not mention any bony abnormalities. Her urinalysis is abnormal however she is afebrile and have a normal white blood cell count and this may not be a true a an active infection. She also looks dry on exam you which may be a factor in her weakness as well. - Patient is to be placed at discharge. (2) Abnormal urinalysis: Code(s): R82.90 - Unspecified abnormal findings in urine Status: Acute Assessment and Plan: - Continue Rocephin as patient has had Enterococcus grow out of her Urine culture. - Awaiting sensitivity results. (3) Abnormal computed tomography of abdomen and pelvis: Code(s): R93.5 - Abnormal findings on diagnostic imaging of other abdominal regions, including retroperitoneum Status: Acute Assessment and Plan: - In addition to findings of cystitis her CT also showed penetrating atherosclerotic ulcers with small associated aneurysms at the descending thoracic aorta and left common iliac artery. She is on atorvastatin and these can be followed as an outpatient. (4) Atrial fibrillation: Qualifiers: Atrial fibrillation type: unspecified chronic Qualified Code(s): I48.20 - Chronic atrial fibrillation, unspecified Code(s): I48.91 - Unspecified atrial fibrillation Status: Acute Assessment and Plan: - She is rate controlled on metoprolol. Continue apixaban for stroke prophylaxis. - She is noted to be tachycardic at times, however, it is noted to be when she is crying and emotionally upset regarding her inability to communicate. (5) Essential (primary) hypertension: Code(s): I10 - Essential (primary) hypertension Status: Acute Assessment and Plan: - Blood pressures were reviewed and they have been a bit high those she is anxious and tearful at the time my evaluation which may be driving up her blood pressures. Her antihypertensives will be resumed and blood pressures will be monitored closely. (6) Dehydration: Code(s): E86.0 - Dehydration Status: Acute Assessment and Plan: - Pt. now well hydrated. - Tolerating oral intake well and passed her swallow evaluation. Time Spent With Patient Time with patient: 15 - 25 minutes Subjective Date/time seen: 01/29/22 0840 This pt. was examined at the bedside in interval assessment. She has improved mood today and her urine grew out Enterococcus of which we are still awaiting sensitivity. Pt. will continue on Rocephin until then. In addition, she will also be transitioning to a intermediate at discharge as the significant other can no longer care for her. Review of Systems Review of Systems: A full 12 point ROS was performed and is otherwise negative with exception of what is noted in HPI All systems reviewed & are unremarkable except as noted in HPI and below Exam Narrative: General: Chronically ill-appearing female supine in bed. In no distress. Weight: 72.6 kg. BMI: 31.3. HEENT: Normocephalic, atraumatic. She is wearing hearing aid. PERRL, EOMI. Sclerae anicteric. Mucous membranes are dry. Lips are chapped and peeling. Poor dentition. Oropharynx poorly visualized. Neck: Supple. No lymphadenopathy, JVD, or obvious bruits. Respiratory: Respirations are nonlabored and lungs are clear to auscultation. Cardiovascular: Irregularly irregular with S1-S2. No murmur, rub, or gallop. Gastrointestinal: Abdomen is soft and nondistended with positive bowel sounds. A suprapubic catheter is present with a jesús
[2022-01-29] MEDS: ATORVASTATIN 20 MG TABLET PO (20:04)
[2022-01-29] MEDS: MELATONIN 3 MG TABLET PO (22:36)
[2022-01-30 06:00] VITALS: BP 152/92; PULSE 90; RESP 18; TEMP 36.6; O2SAT 97
[2022-01-30 10:06] VITALS: PULSE 92
[2022-01-30] MEDS: ASPIRIN 81 MG CHEWABLE TABLET PO (10:06)
[2022-01-30] MEDS: METOPROLOL TARTRATE 12.5 MG TABLET PO ×2 (10:06→20:29)
[2022-01-30] MEDS: APIXABAN 5 MG TABLET PO (10:06)
[2022-01-30] MEDS: THIAMINE HCL 100 MG TABLET PO (10:06)
[2022-01-30] MEDS: DULoxetine HCL 60 MG CAPSULE.DR PO (10:06)
[2022-01-30] MEDS: ASCORBIC ACID 500 MG TABLET PO (10:06)
[2022-01-30] MEDS: amLODIPine BESYLATE 5 MG TABLET PO (10:07)
[2022-01-30] MEDS: SODIUM CHLORIDE 0.9% IV 1,000 ML 75 ML IV CONT (11:28)
--- NOTE | 2022-01-30 11:43 | P.CDI_ITS ---
CDI Query Clarification Request -01/27 Hospitalist documented: CT of the abdomen and pelvis showed mild bladder wall thickening with surr ounding inflammatory stranding consistent with cystitis and given concerns for UTI and her decrease in mobility she is being admitted for further care. -01/27 Hospitalist documented: - Abnormal urinalysis: -R82.90 - Unspecified abnormal findings in urine Assessment and Plan: - She was started on ceftriaxone in the emergency department and we will continue with that given her abnormal CT findings though I suspect these findings may be chronic due to her suprapubic catheter. For coding purposes, please clarify if there is possibly a more specific diagnosis for above findings
[2022-01-30 11:49] LABS: Hematocrit 38.2 % (37.0-47.0); Hemoglobin 12.7 g/dL (12.0-15.0); Mean Corpuscular HGB Conc 33.2 g/dl (32-36); Mean Corpuscular Volume 90.1 fl (80-100); Mean Platelet Volume 9.2 fl (7.4-10.4); Platelet Count Result 428 k/mm3 (150-375); Red Blood Count 4.24 M/mm3 (4.2-5.4); Red Cell Distribution Width 13.2 % (11.5-14.5); White Blood Count 6.9 K/mm3 (4.5-10.0)
--- NOTE | 2022-01-30 11:51 | WPDCDIQUERY2 ---
CDI Query Clarification Request 01/27 Hospitalist documented: - Abnormal computed tomography of abdomen and pelvis: -R93.5 - Abnormal findings on diagnostic imaging of other abdominal regions, including retroperitoneum -Assessment and Plan: - In addition to findings of cystitis her CT also showed penetrating atherosclerotic ulcers with small associated aneurysms at the descending thoracic aorta and left common iliac artery. She is on atorvastatin and these can be followed as an outpatient. For coding purposes, please clarify if there is possibly a more specific diagnosis for above findings or if unable to determine
[2022-01-30 12:00] LABS: Potassium 3.5 mmol/L (3.4-5.0)
--- NOTE | 2022-01-30 12:00 | WPDCDIQUERY2 ---
CDI Query Clarification Request -01/27 ER physician documented: -Clinical Impression: -Weakness -UTI (urinary tract infection) -Qualifiers: -Urinary tract infection type: acute cystitis Hematuria presence: with hematuria Qualified Code(s): N30.01 - Acute cystitis with hematuria -UA may be colonized but there is a large amount of white CT with concern for cystitis remainder of work-up was clinically unremarkable. For coding purposes, please clarify if Urinary tract infection type, acute cystitis with hematuria, has been ruled in, ruled out or unable to determine
[2022-01-30 12:05] LABS: Anion Gap 5 mmol/L (8-16); Blood Urea Nitrogen 12 mg/dL (7-17); Calcium 9.1 mg/dL (8.4-10.2); Carbon Dioxide 30 mmol/L (22-30); Chloride 103 mmol/L (98-107); Estimated CRCL calculation 53 ml/min; Estimated Glomerular Filt Rate > 60; Glucose 115 mg/dL (65-110); Sodium 138 mmol/L (137-145)
--- NOTE | 2022-01-30 13:00 | PM.IMPN ---
Progress Note: A&P Assessment and Plan (1) UTI (urinary tract infection): Qualifiers: Hematuria presence: with hematuria Urinary tract infection type: acute cystitis Qualified Code(s): N30.01 - Acute cystitis with hematuria Code(s): N39.0 - Urinary tract infection, site not specified Status: Acute Assessment and Plan: Presented with increased weakness and noted to have dark urine Urinalysis was abnormal on presentation Started on IV Rocephin Urine culture with growth of Enterococcus Will discontinue ceftriaxone and begin vancomycin today (2) Weakness: Code(s): R53.1 - Weakness Status: Acute Assessment and Plan: Presented to ED for evaluation of increased weakness, reportedly was not able to ambulate with her walker for 2 weeks Suspect this is acute on chronic issue. Patient likely chronically weak due to history of CVA and physical deconditioning, acutely worsened by UTI and dehydration Appreciate PT/OT eval Planning for SNF on discharge (3) Abnormal computed tomography of abdomen and pelvis: Code(s): R93.5 - Abnormal findings on diagnostic imaging of other abdominal regions, including retroperitoneum Status: Acute Assessment and Plan: CT abdomen/pelvis showed penetrating atherosclerotic ulcer of infrarenal aorta with small associated aneurysms at the descending thoracic aorta and left common iliac artery. She is on atorvastatin and these can be followed as an outpatient. (4) Atrial fibrillation: Qualifiers: Atrial fibrillation type: unspecified chronic Qualified Code(s): I48.20 - Chronic atrial fibrillation, unspecified Code(s): I48.91 - Unspecified atrial fibrillation Status: Acute Assessment and Plan: Rate is controlled. Continue metoprolol Continue apixaban for stroke prophylaxis (5) Essential (primary) hypertension: Code(s): I10 - Essential (primary) hypertension Status: Acute Assessment and Plan: Blood pressures reviewed and have been reasonable. Last BP 152/92 prior to receiving antihypertensives Continue amlodipine and metoprolol tartrate Monitor blood pressure trends and adjust medication regimen as needed (6) Dehydration: Code(s): E86.0 - Dehydration Status: Acute Assessment and Plan: She has been adequately rehydrated Will discontinue IV fluids at this time. Encourage appropriate p.o. intake Subjective Date/time seen: 01/30/22 13:00 Interval history: Date of service: 01/30/2022 Arpita Pop is a 76-year-old female with a history of CVA with associated expressive aphasia, vascular dementia, urinary retention requiring suprapubic catheter, HIRAM, COPD, atrial fibrillation on chronic anticoagulation who is seen in follow-up for UTI. The patient is resting comfortably on my evaluation. She did awake when I greeted her. She was not able to provide any history due to her dementia she reported feeling comfortable. She had a lunch tray next to her and I asked if she was hungry. She was surprised that it was time to eat again and she reported she just had breakfast. Was not able to provide any additional history from the patient. Spoke with patient's RN, Bia today reports the patient removed her IV this morning. She has reportedly removed several IVs. She has also been quite tearful and crying out repeatedly since the beginning of her admission. On my evaluation she is comfortable in she did hello rate having another IV placed this afternoon. Review of Systems Review of Systems: ROS unobtainable: Yes unobtainable due to mental status Exam Narrative: General: Well-nourished, chronically ill-appearing 76 year-old female, supine in bed, comfortable, NARD Neuro: Asleep, arouses to verbal stimuli, oriented to self (states 1st name but not last name) states the year is April, unable to answer any additional orientation questions, expressive
[2022-01-30 14:00] VITALS: BP 145/70; PULSE 87; RESP 16; TEMP 36.8; O2SAT 97
[2022-01-30 19:56] VITALS: O2SAT 96
[2022-01-30 20:24] VITALS: BP 151/94; PULSE 100; RESP 20; TEMP 36.2; O2SAT 95
[2022-01-30 20:29] VITALS: PULSE 87
[2022-01-30] MEDS: ATORVASTATIN 20 MG TABLET PO (20:29)
[2022-01-31] MEDS: SODIUM CHLORIDE 0.9% IV 1,000 ML 75 ML IV CONT (01:18)
[2022-01-31 05:06] VITALS: BP 153/88; PULSE 97; RESP 18; TEMP 36.2; O2SAT 93
[2022-01-31 05:35] LABS: Hematocrit 39.3 % (37.0-47.0); Hemoglobin 12.4 g/dL (12.0-15.0); Mean Corpuscular HGB Conc 31.6 g/dl (32-36); Mean Corpuscular Hemoglobin 29.2 pg (26-34); Mean Corpuscular Volume 92.7 fl (80-100); Platelet Count Result 388 k/mm3 (150-375); Red Blood Count 4.24 M/mm3 (4.2-5.4); Red Cell Distribution Width 13.3 % (11.5-14.5)
[2022-01-31 05:47] LABS: Anion Gap 6 mmol/L (8-16); Blood Urea Nitrogen 10 mg/dL (7-17); Carbon Dioxide 27 mmol/L (22-30); Chloride 106 mmol/L (98-107); Estimated CRCL calculation 54 ml/min; Estimated Glomerular Filt Rate > 60; Glucose 98 mg/dL (65-110); Potassium 3.5 mmol/L (3.4-5.0); Sodium 139 mmol/L (137-145)
[2022-01-31] MEDS: THIAMINE HCL 100 MG TABLET PO (08:49)
[2022-01-31] MEDS: amLODIPine BESYLATE 5 MG TABLET PO (08:49)
[2022-01-31] MEDS: DULoxetine HCL 60 MG CAPSULE.DR PO (08:49)
[2022-01-31] MEDS: ERGOCALCIFEROL 50,000 UNIT CAPSULE 50000 UNITS PO (08:49)
[2022-01-31] MEDS: ASCORBIC ACID 500 MG TABLET PO (08:49)
[2022-01-31] MEDS: ASPIRIN 81 MG CHEWABLE TABLET PO (08:49)
[2022-01-31] MEDS: APIXABAN 5 MG TABLET PO (08:49)
[2022-01-31 08:50] VITALS: PULSE 100
[2022-01-31] MEDS: METOPROLOL TARTRATE 12.5 MG TABLET PO ×2 (08:50→20:35)
--- NOTE | 2022-01-31 13:35 | PM.IMPN ---
Progress Note: A&P Assessment and Plan (1) UTI (urinary tract infection): Qualifiers: Hematuria presence: with hematuria Urinary tract infection type: acute cystitis Qualified Code(s): N30.01 - Acute cystitis with hematuria Code(s): N39.0 - Urinary tract infection, site not specified Status: Acute Assessment and Plan: Presented with increased weakness and noted to have dark urine Urinalysis was abnormal on presentation Started on IV Rocephin Urine culture with growth of Enterococcus Will discontinue ceftriaxone and begin vancomycin today (2) Weakness: Code(s): R53.1 - Weakness Status: Acute Assessment and Plan: Presented to ED for evaluation of increased weakness, reportedly was not able to ambulate with her walker for 2 weeks Suspect this is acute on chronic issue. Patient likely chronically weak due to history of CVA and physical deconditioning, acutely worsened by UTI and dehydration Appreciate PT/OT eval Planning for SNF on discharge (3) Abnormal computed tomography of abdomen and pelvis: Code(s): R93.5 - Abnormal findings on diagnostic imaging of other abdominal regions, including retroperitoneum Status: Acute Assessment and Plan: CT abdomen/pelvis showed penetrating atherosclerotic ulcer of infrarenal aorta with small associated aneurysms at the descending thoracic aorta and left common iliac artery. She is on atorvastatin and these can be followed as an outpatient. (4) Atrial fibrillation: Qualifiers: Atrial fibrillation type: unspecified chronic Qualified Code(s): I48.20 - Chronic atrial fibrillation, unspecified Code(s): I48.91 - Unspecified atrial fibrillation Status: Acute Assessment and Plan: Rate is controlled. Continue metoprolol Continue apixaban for stroke prophylaxis (5) Essential (primary) hypertension: Code(s): I10 - Essential (primary) hypertension Status: Acute Assessment and Plan: Blood pressures reviewed and have been reasonable. Last BP 152/92 prior to receiving antihypertensives Continue amlodipine and metoprolol tartrate Monitor blood pressure trends and adjust medication regimen as needed (6) Dehydration: Code(s): E86.0 - Dehydration Status: Acute Assessment and Plan: She has been adequately rehydrated Will discontinue IV fluids at this time. Encourage appropriate p.o. intake Time Spent With Patient Time with patient: 15 - 25 minutes Subjective Date/time seen: 01/31/22 1000 This pt. was examined at the bedside this morning in interval assessment. She appears very tired today, but rouses normally and is able to speak more clearly. She has no complaints of pain and no dyspnea. She is awaiting SNF placement. Review of Systems Review of Systems: A 12 point ROS was performed and is otherwise unremarkable with exception of what is noted in HPI. All systems reviewed & are unremarkable except as noted in HPI and below Exam Narrative: General: Well-nourished, chronically ill-appearing 76 year-old female, supine in bed, comfortable, NARD Neuro: Aphasic, but when given time to think and respond, the patient is A&Ox2 for me today. Person and place. HEENMT: normocephalic, atraumatic, EOMI, sclerae anicteric Respiratory: clear to auscultation bilaterally, nonlabored breathing Cardio: regular rate, irregular rhythm of noted a-fib with rate control Abdomen: nondistended, normoactive bowel sounds, soft, nontender to palpation : Catheter patent draining straw-colored urine Extremities: no edema or erythema Skin: no rashes or lesions, warm and dry Psych: Difficult to assess. Objective Data Vital Signs Vital Signs: Vital Signs - 24 hr 01/30/22 14:00 01/30/22 19:56 01/30/22 20:24 Temperature 98.3 F 97.1 F L Pulse Rate 87 100 Respiratory Rate 16 20 Blood Pressure 145/70 H 151/94 H Pulse Oximetry 97 96 95 01/30
[2022-01-31 14:30] VITALS: BP 152/82; PULSE 101; RESP 18; TEMP 36.6; O2SAT 95
[2022-01-31 20:35] VITALS: PULSE 83
[2022-01-31] MEDS: ATORVASTATIN 20 MG TABLET PO (20:35)
[2022-01-31 20:59] VITALS: BP 160/96; PULSE 101; RESP 18; TEMP 36.2; O2SAT 95
[2022-01-31 21:01] VITALS: O2SAT 95
[2022-02-01 06:13] VITALS: BP 133/79; PULSE 57; RESP 16; TEMP 36.1; O2SAT 96
[2022-02-01 09:19] VITALS: PULSE 57
[2022-02-01] MEDS: METOPROLOL TARTRATE 12.5 MG TABLET PO (09:19)
[2022-02-01] MEDS: THIAMINE HCL 100 MG TABLET PO (09:19)
[2022-02-01] MEDS: amLODIPine BESYLATE 5 MG TABLET PO (09:19)
[2022-02-01] MEDS: ASPIRIN 81 MG CHEWABLE TABLET PO (09:20)
[2022-02-01] MEDS: APIXABAN 5 MG TABLET PO (09:20)
[2022-02-01] MEDS: DULoxetine HCL 60 MG CAPSULE.DR PO (09:20)
[2022-02-01] MEDS: ASCORBIC ACID 500 MG TABLET PO (09:20)
--- NOTE | 2022-02-01 10:53 | PM.DS ---
DS: Admitting Diagnosis Discharge Date 02/01/2022 Admitting Diagnosis 1) Weakness 2) Abnormal UA 3) Abnormal CT of abdomen and pelvis 4) Atrial Fibrillation 5) HTN 6) Dehydration DS: Discharge Diagnosis Discharge Diagnosis (1) UTI (urinary tract infection): Qualifiers: Hematuria presence: with hematuria Urinary tract infection type: acute cystitis Qualified Code(s): N30.01 - Acute cystitis with hematuria Code(s): N39.0 - Urinary tract infection, site not specified Status: Acute Assessment and Plan: Presented with increased weakness and noted to have dark urine Urinalysis was abnormal on presentation Started on IV Rocephin Urine culture with growth of Enterococcus Will discontinue ceftriaxone and begin vancomycin today - 02/01/22, date of discharge - Pt's urine grew out Enterococcus. It is only sensitive to Vancomycin, Ampicillin and Nitrofurantoin. She is allergic to PCN's and will need multiple days of Vanc if we continue IV administration. Therefore, she will be placed on a 7 day course of Nitrofurantoin as an outpatient. (2) Weakness: Code(s): R53.1 - Weakness Status: Acute Assessment and Plan: Presented to ED for evaluation of increased weakness, reportedly was not able to ambulate with her walker for 2 weeks Suspect this is acute on chronic issue. Patient likely chronically weak due to history of CVA and physical deconditioning, acutely worsened by UTI and dehydration Appreciate PT/OT eval Planning for SNF on discharge - 02/01/22, date of discharge - Pt. is not happy about going to a SNF, but there is caregiver stress at home and she is very weak. Clinically she is medically stable for discharge at this time as she is at her baseline. 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 She is on atorvastatin and these can be followed as an outpatient. - 02/01/22, date of discharge - Pt. will be asked to have followed up as an outpatient. (4) Atrial fibrillation: Qualifiers: Atrial fibrillation type: unspecified chronic Qualified Code(s): I48.20 - Chronic atrial fibrillation, unspecified Code(s): I48.91 - Unspecified atrial fibrillation Status: Acute Assessment and Plan: Rate is controlled. Continue metoprolol Continue apixaban for stroke prophylaxis - 02/01/22, date of discharge - Continue Eliquis at this time as pt. is currently in Atrial fibrillation with a controlled rate. (5) Essential (primary) hypertension: Code(s): I10 - Essential (primary) hypertension Status: Acute Assessment and Plan: Blood pressures reviewed and have been reasonable. Last BP 152/92 prior to receiving antihypertensives Continue amlodipine and metoprolol tartrate Monitor blood pressure trends and adjust medication regimen as needed - 02/01/22, date of discharge - Continue home medications as her BP has been stable. PCP to adjust as needed. (6) Dehydration: Code(s): E86.0 - Dehydration Status: Resolved Assessment and Plan: She has been adequately rehydrated Will discontinue IV fluids at this time. Encourage appropriate p.o. intake - 02/01/22, date of discharge - RESOLVED. Pt. eats and drinks well on her own. DS: Summary Hospital Course Reason for hospitalization: Weakness Hospital Course: This very pleasant 76 year old female patient with history of stroke, severe aphasia and dysarthria secondary to the stroke, dementia, hypertension, atrial fibrillation, sleep apnea, and several other comorbidities who presented to the emergency department from home for evaluati
[2022-02-01 11:50] LABS: EDCOVIDSCREEN Negative (Negative)
[2022-02-01 14:12] VITALS: BP 135/96; PULSE 109; RESP 16; TEMP 36.3; O2SAT 95
[2022-02-01 15:07] LABS: Vancomycin Trough 9.7 ug/mL (10.0-20.0)
== END 2022-02-01 15:30 | DRG 690 ==
LOC: ANHED 15:19 → ANH3MED 16:12
PROVIDERS: Physician Assistant; Admitting Provider Internal Medicine; Emergency Provider Emergency Medicine; PCP Family Medicine; Visit Provider Nurse Practitioner Adult Health
DX: N30.01 Acute cystitis with hematuria (principal); F01.51 Vascular dementia, unspecified severity, with behavioral disturbance; R53.1 Weakness; R93.5 Abnormal findings on diagnostic imaging of other abdominal regions, including retroperitoneum; I48.91 Unspecified atrial fibrillation; I10 Essential (primary) hypertension; E86.0 Dehydration; Z87.891 Personal history of nicotine dependence; E66.9 Obesity, unspecified; K21.9 Gastro-esophageal reflux disease without esophagitis; G47.33 Obstructive sleep apnea (adult) (pediatric); E78.5 Hyperlipidemia, unspecified; M19.91 Primary osteoarthritis, unspecified site; R33.9 Retention of urine, unspecified; I27.20 Pulmonary hypertension, unspecified; G62.9 Polyneuropathy, unspecified; Z86.16 Personal history of COVID-19; Z20.822 Contact with and (suspected) exposure to COVID-19; Z83.3 Family history of diabetes mellitus; Z82.49 Family history of ischemic heart disease and other diseases of the circulatory system; Z82.3 Family history of stroke; B95.2 Enterococcus as the cause of diseases classified elsewhere; I69.320 Aphasia following cerebral infarction; Z79.899 Other long term (current) drug therapy; Z79.82 Long term (current) use of aspirin; M81.0 Age-related osteoporosis without current pathological fracture; I70.1 Atherosclerosis of renal artery
CPT/HCPCS: 36415; 70450; 71045; 74177; 80048; 80053; 80202; 81001; 82550; 83605; 83690; 84443; 85025; 85027; 87077; 87086; 87088; 87186; 87426; 92610; 93005; 96361; 96365; 96366; 96367; 97110; 97162; 97166; 97530; 97535; 99285; A9270; C9803; G0378; J0131; J0696; J3370; J7030; Q9967

== ENCOUNTER 2022-08-14 10:44 | Outpatient (CLI) | payer MEDICARE, MEDICAID, SELFPAY ==
[2022-08-14 11:36] LABS: Basophils Percent Auto 0.5 % (0.2-1.2); Eosinophils Absolute Auto 0.1 K/mm3 (0-0.3); Eosinophils Percent Auto 1.8 % (0-4.4); Hematocrit 43.8 % (37.0-47.0); Immature Granulocyte Absolute 0.02 K/mm3 (0.00-0.031); Immature Granulocyte Percent A 0.3 % (0-0.5); Lymphocytes Absolute Auto 1.53 K/mm3 (0.9-3.2); Mean Corpuscular Hemoglobin 29.4 pg (26-34); Mean Corpuscular Volume 91.8 fl (80-100); Mean Platelet Volume 9.8 fl (7.4-10.4); Monocytes Absolute Auto 0.7 K/mm3 (0.1-0.6); Neutrophils Absolute Auto 4.9 K/mm3 (1.3-6.7); Neutrophils Percent Auto 67.4 % (45.5-73.1); Platelet Count Result 275 k/mm3 (150-375); Red Blood Count 4.77 M/mm3 (4.2-5.4); Red Cell Distribution Width 13.8 % (11.5-14.5); White Blood Count 7.3 K/mm3 (4.5-10.0)
[2022-08-14 11:47] LABS: Alanine Aminotransferase 19 U/L (6-35); Albumin Level 4.5 g/dL (3.5-5.1); Alkaline Phosphatase 122 U/L (38-126); Anion Gap 14 mmol/L (8-16); Aspartate Amino Transferase 22 U/L (14-36); Bilirubin,Total 0.9 mg/dL (0.2-1.3); Blood Urea Nitrogen 28 mg/dL (7-17); Calcium 9.3 mg/dL (8.4-10.2); Carbon Dioxide 23 mmol/L (22-30); Chloride 101 mmol/L (98-107); Cholesterol 120 mg/dL (0-200); Estimated Glomerular Filt Rate 54; Glucose 102 mg/dL (65-110); HDL Direct 39 mg/dL; Potassium 4.1 mmol/L (3.4-5.0); Sodium 138 mmol/L (137-145); Triglycerides 71 mg/dL (<150)
[2022-08-14 11:57] LABS: LDL Cholesterol Direct 54 mg/dL
== END 2022-08-14 10:45 | disposition home or self-care (01) ==
LOC: ANHLAB 10:47
PROVIDERS: PCP Family Medicine; Visit Provider Physician Assistant
DX: E78.5 Hyperlipidemia, unspecified (principal); F03.90 Unspecified dementia, unspecified severity, without behavioral disturbance, psychotic disturbance, mood disturbance, and anxiety; Z79.899 Other long term (current) drug therapy; R73.03 Prediabetes
CPT/HCPCS: 36415; 80053; 80061; 84443; 85025

== ENCOUNTER 2022-09-01 13:28 | Observation (INO) | payer MEDICARE, MEDICAID, SELFPAY ==
[2022-09-01] VITALS (17 sets, daily range): BP systolic 118–169; BP diastolic 68–103; PULSE 54–90; RESP 16–20; TEMP 36.6; O2SAT 90–98
--- NOTE | ~2022-09-01 | CT_ITS ---
EXAMINATION: CT abdomen pelvis w con DATE: 09/01/2022 18:32 INDICATION: Abdominal pain, melena TECHNIQUE: Computed tomography (CT) of the abdomen and pelvis was performed with 100 CC Omnipaque 350 intravenous contrast. Automated exposure control and iterative reconstruction technique were employe d. Exam dose: 1109.44 mGy-cm total exam DLP. COMPARISON: 01/27/2022 CT abdomen pelvis FINDINGS: Mild atelectasis in the lower lung zones. Cardiomegaly. Coronary artery calcification. No p ericardial or pleural effusion. The liver, spleen, pancreas, adrenal glands and kidneys are unremarkable. The gallbladder is not iden tified. No bile duct or pancreatic duct dilatation. No urinary tract calculus or hydroureteronephrosi s. There is a suprapubic catheter within the relatively evacuated urinary bladder. There is prominent ge neralized urinary bladder wall thickening and some perivesical fat stranding, suggesting cystitis. St atus post hysterectomy. There are numerous diverticula of left and right colon; no CT evidence of diverticulitis. No bowel ob struction, bowel wall thickening, pneumatosis or intraperitoneal free air is detected. There is atherosclerotic calcification of the abdominal aorta. Approximately 2 cm left common iliac a rtery aneurysm. No intraperitoneal or retroperitoneal or pelvic mass lesion or adenopathy or ascites. Extensive degenerative changes of the thoracic and lumbar spine. Interval irregularity and sclerosis at the vertebral endplates at L3-4 since 01/27/2022. Consider discitis. Moderately severe degenerative disc disease throughout remainder of the lumbar and lumbosacral area. Right battery pack with neurot ransmitter lead extending through left sacral neural foramen. Osteoarthritic changes at the hip joints. IMPRESSION: Suprapubic catheter with evidence of cystitis Diverticulosis of left and right colon Status post cholecystectomy Status post hysterectomy Left sacral neurotransmitter lead Degenerative changes of thoracic and lumbar spine with interval suggestion of discitis at L3-4 Reviewed, dictated and finalized at [facility] Reviewed, dictated and finalized at [facility]. IMPRESSION: Suprapubic catheter with evidence of cystitis Diverticulosis of left and right colon Status post cholecystectomy Status post hysterectomy Left sacral neurotransmitter lead Degenerative changes of thoracic and lumbar spine with interval suggestion of d iscitis at L3-4
--- NOTE | 2022-09-01 14:09 | ECG_ITS ---
Measurements Intervals [place] Rate: 93 P: [place]: 0 QRS: 12 QRSD: 79 T: 30 QT: 364 QTc: 455 Interpretive Statements ATRIAL FIBRILLATION LOW QRS VOLTAGE IN PRECORDIAL LEADS POSSIBLE ANTERIOR MYOCARDIAL INFARCTION , OF INDETERMINATE AGE POSSIBLE INFERIOR MYOCARDIAL INFARCTION , OF INDETERMINATE AGE ABNORMAL ECG COMPARED TO ECG 01/27/2022 12:07:33 NO SIGNIFICANT CHANGES Electronically Signed On 09-01-2022 16:27:04 CDT by Maksim Ramos M.D.
[2022-09-01 14:39] LABS: Alanine Aminotransferase 23 U/L (6-35); Albumin Level 4.1 g/dL (3.5-5.1); Alkaline Phosphatase 99 U/L (38-126); Anion Gap 14 mmol/L (8-16); Aspartate Amino Transferase 27 U/L (14-36); Bilirubin,Total 0.7 mg/dL (0.2-1.3); Blood Urea Nitrogen 24 mg/dL (7-17); Calcium 8.9 mg/dL (8.4-10.2); Carbon Dioxide 28 mmol/L (22-30); Chloride 100 mmol/L (98-107); Estimated CRCL calculation 35 ml/min; Estimated Glomerular Filt Rate 48; Glucose 113 mg/dL (65-110); INR 1.6; Potassium 4.3 mmol/L (3.4-5.0); Prothrombin Time 18.1 Seconds (11.1-14.7); Sodium 142 mmol/L (137-145)
[2022-09-01 14:40] LABS: Partial Thromboplastin Time 33.6 SECONDS (22.3-36.8)
[2022-09-01 14:54] LABS: Basophils Absolute Auto 0.1 K/mm3 (0.0-0.1); Basophils Percent Auto 0.8 % (0.2-1.2); Eosinophils Absolute Auto 0.1 K/mm3 (0-0.3); Eosinophils Percent Auto 1.9 % (0-4.4); Hemoglobin 13.3 g/dL (12.0-15.0); Immature Granulocyte Absolute 0.01 K/mm3 (0.00-0.031); Immature Granulocyte Percent A 0.2 % (0-0.5); Lymphocytes Absolute Auto 2.23 K/mm3 (0.9-3.2); Lymphocytes Percent Auto 34.6 % (18.3-44.2); Mean Corpuscular HGB Conc 31.7 g/dl (32-36); Mean Corpuscular Hemoglobin 29.5 pg (26-34); Mean Corpuscular Volume 93.1 fl (80-100); Mean Platelet Volume 9.5 fl (7.4-10.4); Monocytes Absolute Auto 0.4 K/mm3 (0.1-0.6); Monocytes Percent Auto 6.2 % (2.6-8.5); Neutrophils Absolute Auto 3.6 K/mm3 (1.3-6.7); Neutrophils Percent Auto 56.3 % (45.5-73.1); Platelet Count Result 315 k/mm3 (150-375); Red Blood Count 4.51 M/mm3 (4.2-5.4); Red Cell Distribution Width 13.8 % (11.5-14.5); White Blood Count 6.4 K/mm3 (4.5-10.0)
--- NOTE | 2022-09-01 17:23 | ED.GIBLEED ---
HPI - GI Bleed General Chief complaint: Back Pain/Injury <KURTIS Cheek Last Filed: 09/02/22 01:33> Stated complaint: GI bleed <KURTIS Cheek Last Filed: 09/02/22 01:33> Time Seen by Provider: 09/01/22 16:58 <KURTIS Cheek Last Filed: 09/02/22 01:33> Source: patient <KURTIS Cheek Last Filed: 09/02/22 01:33> Mode of arrival: wheelchair <KURTIS Cheek Last Filed: 09/02/22 01:33> Limitations: no limitations <KURTIS Cheek Last Filed: 09/02/22 01:33> History of Present Illness HPI Narrative: This is a 77-year-old female that presents to the emergency department for dark stools. Ongoing over the last 2 days. Reports some lower abdominal discomfort. Reports she has been having some low back pain over the last couple of months. Denies fevers or vomiting. <KURTIS Cheek Last Filed: 09/02/22 01:33> Related Data Home medications: Home Medications Medication Instructions Recorded Confirmed buspirone 5 mg tablet 5 mg PO BID 09/02/22 09/02/22 duloxetine 60 mg capsule,delayed 60 mg PO DAILY 09/02/22 09/02/22 release oxybutynin chloride 5 mg tablet 5 mg PO TID PRN Bladder Spasms 09/02/22 09/02/22 <KURTIS Cheek Last Filed: 09/02/22 01:33> Allergies/Adverse reactions: Allergies Allergy/AdvReac Type Severity Reaction Status Date / Time propoxyphene Allergy Severe HIVES Verified 08/13/22 14:55 clindamycin Allergy Unknown Unknown Verified 08/13/22 14:55 codeine Allergy Unknown HIVES but Verified 08/13/22 14:55 tolerates hydrocodone donepezil Allergy Unknown Unknown Verified 08/13/22 14:55 hydrochlorothiazide Allergy Unknown Skin Verified 08/13/22 14:55 Reaction latex Allergy Unknown SWELLING/RA Verified 08/13/22 14:55 SH lisinopril Allergy Unknown cough Verified 08/13/22 14:55 meloxicam Allergy Unknown ulcer Verified 08/13/22 14:55 olmesartan Allergy Unknown Unknown Verified 08/13/22 14:55 Penicillins Allergy Unknown Rash Verified 08/13/22 14:55 spironolactone Allergy Unknown hyperkalemi Verified 08/13/22 14:55 a amoxicillin AdvReac Unknown Nausea Verified 08/13/22 14:55 <Lavern Yates PA-C - Last Filed: 09/02/22 01:33> Review of Systems Review of Systems: CONSTITUTIONAL: Denies fever GASTROINTESTINAL: Reports abdominal pain, and melena <Lavern Yates PA-C - Last Filed: 09/02/22 01:33> All systems reviewed & are unremarkable except as noted in HPI and below <Lavern Yates PA-C - Last Filed: 09/02/22 01:33> [facility] Past Medical History Medical History: Medical History (Updated 09/02/22 @ 00:57 by Lavern Yates PA-C) Arthritis Atrial fibrillation Normal stress test April 2020 Bilateral renal artery stenosis Bilateral renal artery stenosis noted on CTA evaluated at [facility] Dr. Farias December 2019 Cerebrovascular accident Evidence of old right basal ganglia and anterior limb right internal capsule infarcts. Chronic obstructive pulmonary disease Degenerative disc disease Dyslipidemia GERD (gastroesophageal reflux disease) Hypertension Moderate pulmonary arterial systolic hypertension Echocardiogram April 2020: EF 60-65%, normal diastolic function, atrial fibrillation, moderate left atrial enlargement, moderate to severe tricuspid valve regurgitation moderate pulmonary hypertension with RVSP of 54 Obesity (BMI 30.0-34.9) Osteoporosis Peripheral neuropathy Physical debility Pneumonia due to COVID-19 virus 09/08/2020 treated with Remdesivir dexamethasone and 1 unit of convalesant plasma Sleep apnea Severe obstructive sleep apnea on polysomnogram October 2014 with recommended CPAP of 18 SMA stenosis TIA (transient ischemic attack) x3 Ulcer Urinary retention with incomplete bladder emptying Vascular dementia with behavior disturbance <Lavern Yates PA-C - Last Filed: 09/02/22 01:33> Surgical History Surgical History:
[2022-09-01 20:35] LABS: Lactic Acid Reflex 0.9 mmol/L (0.7-2.0)
[2022-09-01 20:38] LABS: CRP < 0.5 mg/dL (<1.0)
[2022-09-01 20:49] LABS: Erythrocyte Sedimentation Rate 39 mm/hr (0-20)
[2022-09-01 21:26] LABS: Add Urine Microscopic? YES; Appearance Urine Turbid (Clear); Bilirubin Urine Negative (Negative); Budding Yeast Urine Present /hpf; Color Urine Yellow (Yellow); Glucose Urine UA Negative (Negative); Ketones Urine Negative (Negative); Leukocyte Esterase Ur 3+ LEU/UL (Negative); Nitrate Urine Positive (Negative); Protein Urine Negative (Negative); RBC Urine 21-50 /hpf (0-2); Uric Acid Crystals Urine Present /hpf; Urobilinogen Urine Negative mg/dL (<2.0); WBC Urine 51-75 /hpf
[2022-09-01 21:28] LABS: Blood Urine Negative (Negative); Specific Grav Ur 1.033 (1.001-1.035)
[2022-09-01 22:01] LABS: Hematocrit 39.5 % (37.0-47.0); Hemoglobin 12.7 g/dL (12.0-15.0)
--- NOTE | 2022-09-01 22:52 | PC.NURSE ---
ON WAITLIST FOR BED AT [facility] WHEN BED AVAILABLE.
[2022-09-02 04:26] LABS: Hematocrit 40.6 % (37.0-47.0); Hemoglobin 13.1 g/dL (12.0-15.0)
--- NOTE | 2022-09-02 05:14 | PC.NURSE ---
Spoke with Judy at [facility], no beds available currently.
[2022-09-02 05:25] VITALS: PULSE 88; O2SAT 98
--- NOTE | 2022-09-02 07:50 | IDPHARM ---
Subjective Pharmacy was consulted by Juan F Yates regarding infectious diseases for Arpita Pop. Arpita Pop is a 77 year old F with concerns regarding a potential UTI. Background The patient had received one dose of ceftriaxone last night (09/01 ~2099). The patient had presented for a suspected GI bleed and oral antibiotics at this time is less preferred. Additionally, the patient has a history of enterococcus and proteus mirabilis in the urine in the last year with ESBL e coli history present >12 months ago. Blood and urine cultures for this visit have been sent yesterday. Patient has a CrCl of ~35 mL/min (Scr 1.1). WBC yesterday 6.4. Assessment/Recommendation/Discussion Discussed with Skip Lopes about this patient as he is current provider for patient. Discussed differences between UTI and ASB and that ASB normally does not warrant coverage. Symptoms were not noted in the discussion, but understanding that the consulting provider was looking to treat. Looking to cover pathogens grown in last year from our micro record, options are limited due to the nature of these bugs. Reliable monotherapy IV options first line options are generally beta-lactams and due to the nature of enterococcus only Zosyn and Unasyn are appropriate. Neither of these are appropriate for disseminated ESBL infections. Discussed patient allergies with provider and will start Unasyn 1.5 g q6h. Eagerly await culture and sensitivity as well as symptom evaluation as her course evolves. Thank you for the interesting consult. Eric Sabillon, PharmD Infectious Disease/Antimicrobial Stewardship Pharmacist 09/02/22; 0924
[2022-09-02] MEDS: AMPICILLIN SULB 1.5 GM/NS 50ML 1.5 GM/50 ML VIAL IVPB (08:47)
[2022-09-02 10:09] LABS: Hematocrit 42.2 % (37.0-47.0); Hemoglobin 13.8 g/dL (12.0-15.0)
--- NOTE | 2022-09-02 10:09 | PC.NURSE ---
Discovered that patients old suprapubic catheter had fallen out during the night at some point. Tried to reinsert a 16 [place] which is what the patient had in previously, it would not advance. Tried every size smaller until we were able to get an 8 [place] in. notified.
[2022-09-02] MEDS: cefTRIAXone 2 GM in SODIUM CHLORIDE 0.9% IV 100 ML 200 ML IVPB (14:34)
[2022-09-02 15:17] VITALS: BMI 26.6
[2022-09-02 15:23] VITALS: BP 150/86; PULSE 105; RESP 18; TEMP 36.4; O2SAT 94
--- NOTE | 2022-09-02 15:23 | ADMGEN ---
This patient, Arpita Pop, was admitted to Medical Room 342-01. Patient/family oriented to hospital policies and general routines including ID bracelet, bed and alarms, visiting hours, pain management, procedures, bathroom and other care routines, personal items, smoking policy, room service/diet, and visiting hours. Information on how to activate the Rapid Response Team has been discussed. Patient/Family are encouraged to report perceived risks to care and to ask questions if they do not understand what they are told or what they should do.
[2022-09-02 16:00] VITALS: PULSE 103
[2022-09-02 17:19] LABS: Hematocrit 42.1 % (37.0-47.0); Hemoglobin 13.4 g/dL (12.0-15.0)
--- NOTE | 2022-09-02 18:15 | PM.TDS ---
Transfer Discharge Sum: Prov Provider Date of admission: 09/02/22 18:15 <Leonila Arita PA-C - Last Filed: 09/03/22 01:20> Primary care physician: Adan Mix MD <Leonila Arita PA-C - Last Filed: 09/03/22 01:20> Admitting clinician: China Coleman MD <Leonila Arita PA-C - Last Filed: 09/03/22 01:20> Attending physician on admission: China Coleman <Leonila Arita PA-C - Last Filed: 09/03/22 01:20> Consults: 09/01/22 23:15 Consult Infectious Disease Pharmacist Routine Comment: UTI, hx drug resistant organisms <Leonila Arita PA-C - Last Filed: 09/03/22 01:20> Attending physician on discharge: China Coleman <Leonila Arita PA-C - Last Filed: 09/03/22 01:20> Discharging clinician: Leonila Arita <Leonila Arita PA-C - Last Filed: 09/03/22 01:20> Anticipated date of transfer: 09/02/22 <Leonila Arita PA-C - Last Filed: 09/03/22 01:20> [facility] <Leonila Arita PA-C - Last Filed: 09/03/22 01:20> DS: Admitting Diagnosis Discharge Date 09/02/22 <Leonila Arita PA-C - Last Filed: 09/03/22 01:20> Admitting Diagnosis 1. Melena. 2. Epigastric pain. 3. Possible diskitis at L3-L4. 4. Renal insufficiency. 5. Abnormal urinalysis. 6. Persistent atrial fibrillation. 7. Gastroesophageal reflux disease. 8. Obstructive sleep apnea on CPAP. <KURTIS Montalvo Last Filed: 09/03/22 01:20> DS: Discharge Diagnosis Discharge Diagnosis (1) Melena: Code(s): K92.1 - Melena <Leonila Arita PA-C - Last Filed: 09/03/22:20> Status: Acute <Leonila BryantKURTIS beaver - Last Filed: 09/03/22:20> Assessment and Plan: The patient reports passing dark stools for 2 days in her stool was Hemoccult positive. Hemoglobin hematocrit have remained stable. <Leonila G. KURTIS Arita - Last Filed: 09/03/22:20> (2) Epigastric pain: Code(s): R10.13 - Epigastric pain <Leonila López KURTIS Arita - Last Filed: 09/03/22 01:20> Status: Acute <Leonila Lóepz KURTIS Arita - Last Filed: 09/03/22 01:20> Assessment and Plan: Patient reports quite a bit of epigastric burning, belching, and discomfort. Suspect esophagitis, gastritis, or even ulcer. She will eventually need an EGD to help determine the source of her melena. Continue IV Protonix 40 milligrams daily. <Leonila Arita PA-C - Last Filed: 09/03/22 01:20> (3) Discitis of lumbar region: Code(s): M46.46 - Discitis, unspecified, lumbar region <Leonila JessicaFord Arita PA-C - Last Filed: 09/03/22 01:20> Status: Acute <Leonila López KURTIS Arita - Last Filed: 09/03/22 01:20> Assessment and Plan: CT of the abdomen/pelvis incidentally showed findings suggestive of diskitis at L3-L4. Transfer is being arranged to an outside facility which has the capabilities of doing an MRI with a bladder stimulator in place. <Leonila Arita PA-C - Last Filed: 09/03/22 01:20> (4) Renal insufficiency: Code(s): N28.9 - Disorder of kidney and ureter, unspecified <KURTIS Montalvo Last Filed: 09/03/22 01:20> Status: Acute <Leonila GFord Arita PA-C - Last Filed: 09/03/22 01:20> Assessment and Plan: Suprapubic catheter is patent and draining. Likely she has a bit dehydrated due to poor oral intake the last couple of days. <Leonila Arita PA-C - Last Filed: 09/03/22 01:20> (5) Abnormal urinalysis: Code(s): R82.90 - Unspecified abnormal findings in urine <Leonila Arita PA-C - Last Filed: 09/03/22 01:20> Status: Acute <Leonila Arita PA-C - Last Filed: 09/03/22 01:20> Assessment and Plan: Likely colonization given indwelling suprapubic catheter. No signs of systemic infection. Urine culture pending. <Leonila Arita PA-C - Last Filed: 09/03/22 01:20>
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
[2022-09-02 20:00] VITALS: PULSE 119
[2022-09-02] MEDS: ONDANSETRON INJ 4 MG/2 ML VIAL IV PUSH (20:01)
[2022-09-02] MEDS: PANTOPRAZOLE SODIUM IV 40 MG VIAL IV PUSH (20:28)
[2022-09-02 21:38] VITALS: BP 152/102; PULSE 102; RESP 22; TEMP 37.2; O2SAT 94
== END 2022-09-02 22:00 | disposition short-term general hospital (02) ==
LOC: ANHED 09-02 14:11 → ANH3MED 09-02 14:23
PROVIDERS: Emergency Medicine; Physician Assistant; Admitting Provider Family Medicine; Emergency Provider Emergency Medicine; PCP Family Medicine; Visit Provider Family Medicine
DX: K92.1 Melena (principal); R10.13 Epigastric pain; M46.46 Discitis, unspecified, lumbar region; N28.9 Disorder of kidney and ureter, unspecified; R82.90 Unspecified abnormal findings in urine; I48.19 Other persistent atrial fibrillation; K21.9 Gastro-esophageal reflux disease without esophagitis; G47.33 Obstructive sleep apnea (adult) (pediatric); Z99.89 Dependence on other enabling machines and devices; M16.9 Osteoarthritis of hip, unspecified; J44.9 Chronic obstructive pulmonary disease, unspecified; I10 Essential (primary) hypertension; E66.9 Obesity, unspecified; Z68.26 Body mass index [BMI] 26.0-26.9, adult; K57.30 Diverticulosis of large intestine without perforation or abscess without bleeding; M81.0 Age-related osteoporosis without current pathological fracture; F01.518 Vascular dementia, unspecified severity, with other behavioral disturbance; I48.91 Unspecified atrial fibrillation; Z96.0 Presence of urogenital implants; Z90.49 Acquired absence of other specified parts of digestive tract; Z90.710 Acquired absence of both cervix and uterus; R94.31 Abnormal electrocardiogram [ECG] [EKG]; Z96.82 Presence of neurostimulator; Z86.73 Personal history of transient ischemic attack (TIA), and cerebral infarction without residual deficits; Z87.891 Personal history of nicotine dependence; Z79.01 Long term (current) use of anticoagulants; Z82.49 Family history of ischemic heart disease and other diseases of the circulatory system; Z79.899 Other long term (current) drug therapy; Z82.3 Family history of stroke; Z84.89 Family history of other specified conditions
CPT/HCPCS: 36415; 74177; 80053; 81001; 83605; 85014; 85018; 85025; 85610; 85652; 85730; 86140; 86850; 86900; 86901; 87040; 87086; 93005; 96365; 96367; 96375; 96376; 99285; C9113; G0378; J0295; J0696; J2405; J3370; Q9967

== ENCOUNTER 2022-09-22 00:31 | Emergency (ER) | payer MEDICARE, MEDICAID, SELFPAY ==
[2022-09-22 00:26] VITALS: BP 119/86; PULSE 97; RESP 20; TEMP 36.8; O2SAT 98
[2022-09-22 03:06] LABS: Basophils Absolute Auto 0.1 K/mm3 (0.0-0.1); Basophils Percent Auto 0.8 % (0.2-1.2); Eosinophils Absolute Auto 0.4 K/mm3 (0-0.3); Eosinophils Percent Auto 5.2 % (0-4.4); Hemoglobin 12.9 g/dL (12.0-15.0); Immature Granulocyte Absolute 0.01 K/mm3 (0.00-0.031); Immature Granulocyte Percent A 0.1 % (0-0.5); Lymphocytes Absolute Auto 3.33 K/mm3 (0.9-3.2); Lymphocytes Percent Auto 40.3 % (18.3-44.2); Mean Corpuscular HGB Conc 32.3 g/dl (32-36); Mean Corpuscular Hemoglobin 30.4 pg (26-34); Mean Corpuscular Volume 94.3 fl (80-100); Mean Platelet Volume 10.6 fl (7.4-10.4); Monocytes Absolute Auto 0.8 K/mm3 (0.1-0.6); Monocytes Percent Auto 9.2 % (2.6-8.5); Neutrophils Absolute Auto 3.7 K/mm3 (1.3-6.7); Neutrophils Percent Auto 44.4 % (45.5-73.1); Platelet Count Result 383 k/mm3 (150-375); Red Blood Count 4.24 M/mm3 (4.2-5.4); Red Cell Distribution Width 13.9 % (11.5-14.5); White Blood Count 8.3 K/mm3 (4.5-10.0)
--- NOTE | 2022-09-22 03:29 | ED.FEMALEGU ---
HPI - Female Genitourinary General Chief complaint: Urogenital-Female Stated complaint: suprapubic cath leaking Time Seen by Provider: 09/22/22 01:04 Source: patient, EMS and RN notes reviewed Mode of arrival: EMS Limitations: other (poor historian) History of Present Illness HPI Narrative: This is a 77 year old female with history of suprapubic catheter who presents for evaluation of leaking suprapubic catheter. Patient is oriented x 3 but she unable to state why she is here for evaluation. She has appointment with urology soon for catheter exchange. She denies abdominal pain, back pain, nausea, vomiting or fever. She does report pain at catheter insertion site. Related Data Home Medications Medication Instructions Recorded Confirmed buspirone 5 mg tablet 5 mg PO BID 09/02/22 09/02/22 duloxetine 60 mg capsule,delayed 60 mg PO DAILY 09/02/22 09/02/22 release oxybutynin chloride 5 mg tablet 5 mg PO TID PRN Bladder Spasms 09/02/22 09/02/22 Allergies Allergy/AdvReac Type Severity Reaction Status Date / Time propoxyphene Allergy Severe HIVES Verified 09/22/22 00:38 clindamycin Allergy Unknown Unknown Verified 09/22/22 00:38 codeine Allergy Unknown HIVES but Verified 09/22/22 00:38 tolerates hydrocodone donepezil Allergy Unknown Unknown Verified 09/22/22 00:38 hydrochlorothiazide Allergy Unknown Skin Verified 09/22/22 00:38 Reaction latex Allergy Unknown SWELLING/RA Verified 09/22/22 00:38 SH lisinopril Allergy Unknown cough Verified 09/22/22 00:38 meloxicam Allergy Unknown ulcer Verified 09/22/22 00:38 olmesartan Allergy Unknown Unknown Verified 09/22/22 00:38 Penicillins Allergy Unknown Rash Verified 09/22/22 00:38 spironolactone Allergy Unknown hyperkalemi Verified 09/22/22 00:38 a amoxicillin AdvReac Unknown Nausea Verified 09/22/22 00:38 Review of Systems Review of Systems: All systems reviewed & are unremarkable except as noted in HPI and below Constitutional: Constitutional: Denies chills and Denies fatigue Cardiovascular: Cardiovascular: Denies chest pain and Denies rapid heart rate Respiratory: Respiratory: Denies chest congestion and Denies cough Gastrointestinal: Gastrointestinal: Denies abdominal pain, Denies bloating, Denies nausea and Denies vomiting [facility] Past Medical History Medical History Arthritis Bilateral renal artery stenosis Bilateral renal artery stenosis noted on CTA evaluated at [facility] Dr. Farias December 2019. Cerebrovascular accident Evidence of old right basal ganglia and anterior limb right internal capsule infarcts. Chronic obstructive pulmonary disease Degenerative disc disease Dyslipidemia Gastroesophageal reflux disease Hypertension Moderate pulmonary arterial systolic hypertension Echocardiogram April 2020: EF 60-65%, normal diastolic function, atrial fibrillation, moderate left atrial enlargement, moderate to severe tricuspid valve regurgitation moderate pulmonary hypertension with RVSP of 54 Osteoporosis Peripheral neuropathy Persistent atrial fibrillation Pneumonia due to COVID-19 virus 09/08/2020 treated with Remdesivir and dexamethasone and 1 unit of convalesant plasma. Sleep apnea Severe obstructive sleep apnea on polysomnogram October 2014 with recommended CPAP of 18. SMA stenosis Transient ischemic attack Ulcer Urinary retention with incomplete bladder emptying Vascular dementia with behavior disturbance Surgical History Surgical History History of appendectomy History of bilateral carpal tunnel release History of bladder suspension procedure History of bunionectomy of both great toes History of cataract extraction History of cholecystectomy History of hysterectomy History of orthopedic surgery Bilateral heel spur removal. History of spinal surgery Presence of suprapubic catheter (05/27/21) Family History
[2022-09-22 03:36] LABS: Alanine Aminotransferase 16 U/L (6-35); Alkaline Phosphatase 101 U/L (38-126); Anion Gap 11 mmol/L (8-16); Aspartate Amino Transferase 21 U/L (14-36); Bilirubin,Total 0.5 mg/dL (0.2-1.3); Blood Urea Nitrogen 17 mg/dL (7-17); Calcium 9.1 mg/dL (8.4-10.2); Carbon Dioxide 29 mmol/L (22-30); Chloride 100 mmol/L (98-107); Estimated Glomerular Filt Rate > 60; Glucose 100 mg/dL (65-110); Potassium 4.6 mmol/L (3.4-5.0); Sodium 140 mmol/L (137-145)
[2022-09-22 04:12] VITALS: BP 150/68; PULSE 63; RESP 17; TEMP 36.4; O2SAT 96
[2022-09-22 04:27] LABS: Appearance Urine Clear (Clear); Bilirubin Urine 1+ (Negative); Blood Urine 3+ (Negative); Glucose Urine UA Negative (Negative); Ketones Urine Trace mg/dL (Negative); Leukocyte Esterase Ur 3+ LEU/UL (Negative); Nitrate Urine Positive (Negative); Protein Urine 3+ mg/dL (Negative); Specific Grav Ur 1.015 (1.001-1.035)
[2022-09-22 04:31] LABS: Bacteria Urine Trace /hpf; Mucus Urine Rare /lpf; RBC Urine >75 /hpf (0-2); WBC Clumps Urine Present /HPF; WBC Urine >75 /hpf
[2022-09-22 04:33] LABS: Add Urine Microscopic? YES; Color Urine Light Red (Yellow)
--- NOTE | 2022-09-22 04:54 | PC.NURSE ---
0444 Merry, patients nurse at [facility] calls to get update. She informs this nurse that the patient has a urologist appt scheduled for the of this month and that she was sent her for evaluation at the request of patients PCP for the suprapubic cath leaking urine around the site of insertion. ERP notified.
--- NOTE | 2022-09-22 05:28 | PC.NURSE ---
0521: BRENT Wadsworth called and said this patient had the bladder stimulator placed at [facility].
== END 2022-09-22 07:14 ==
PROVIDERS: Emergency Provider General Practice; PCP Family Medicine
DX: Z43.5 Encounter for attention to cystostomy (principal); I70.1 Atherosclerosis of renal artery; I27.20 Pulmonary hypertension, unspecified; I48.19 Other persistent atrial fibrillation; F01.518 Vascular dementia, unspecified severity, with other behavioral disturbance; J44.9 Chronic obstructive pulmonary disease, unspecified; E78.5 Hyperlipidemia, unspecified; G62.9 Polyneuropathy, unspecified; G47.30 Sleep apnea, unspecified; K21.9 Gastro-esophageal reflux disease without esophagitis; M81.0 Age-related osteoporosis without current pathological fracture; M19.90 Unspecified osteoarthritis, unspecified site; Z86.16 Personal history of COVID-19; Z87.01 Personal history of pneumonia (recurrent); Z98.49 Cataract extraction status, unspecified eye; Z90.710 Acquired absence of both cervix and uterus; Z87.891 Personal history of nicotine dependence
CPT/HCPCS: 36415; 80053; 81001; 85025; 87077; 87086; 87186; 96365; 99284; J0696

== ENCOUNTER 2023-02-22 15:51 | Inpatient (IN) | payer MEDICARE, MEDICAID, SELFPAY ==
--- NOTE | ~2023-02-22 | CT_ITS ---
EXAMINATION: CTA abdomen pelvis DATE: 02/22/2023 19:23 INDICATION: Generalized abdominal pain. Hematochezia. TECHNIQUE: Computed tomographic angiography (CTA) of the abdomen and pelvis was performed with 100 mL Omnipaque-350 intravenous contrast. Additional 3D reconstructions utilizing rotating maximum intensi ty projection (MIP) were performed. Automated exposure control and iterative reconstruction technique were employed. The dose-length product was 1064.20 mGy-cm. COMPARISON: CT abdomen dated 09/01/2022 FINDINGS: Mild discoid atelectasis at the lingula. Cardiomegaly with right ventricular and atrial enlargement. Atherosclerotic coronary artery calcific a . No pericardial or pleural effusion. Gallbladder is nonvi sualized and likely surgically absent. Liver, spleen, pancreas, bilateral adrenal glands and kidneys are normal. Suprapubic Aiken catheter within the decompressed bladder. There is mild stranding surrou nding the bladder which suggests cystitis. The uterus is not identified and has likely been surgicall y resected. There is moderate scattered colonic diverticulosis without adjacent inflammatory stran ding to suggest diverticulitis. There is calcified atherosclerosis of the aorta and many of the other arteries. There is severe (>70% ) stenosis at the origin of the superior mesenteric artery. The abdominal aorta is normal in caliber. There are penetrating atherosclerotic ulcers with associated small saccular aneurysm extending 8 mm beyond the margin of the calcified intimal atherosclerotic plaque along the left side of the infraren al aorta and with fusiform aneurysm measuring 1.8 cm diameter of the left common iliac artery. No free intraperitoneal gas or fluid. No pathologically enlarged abdominal or pelvic lymphadenopathy. Sacral nerve root stimulator device in the subcutaneous tissues posterior to the right iliac crest a nd with lead extending through the left S3 neural foramen. Severe lumbar and lower thoracic spondylos is. Moderate bilateral hip osteoarthritis. IMPRESSION: 1. Diverticulosis. 2. Suprapubic bladder catheter with likely secondary chronic mild cystitis. Correlate with urinalysis . 3. Cardiomegaly. 4. 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 5. No significant change in chronic penetrating atherosclerotic ulcers with associated small aneurysm s at the infrarenal abdominal aorta and left common iliac artery. Reviewed, dictated and finalized at location A. IMPRESSION: 1. Diverticulosis. 2. Suprapubic bladder catheter with likely secondary chronic mild cystitis. Cor relate with urinalysis. 3. Cardiomegaly. 4. 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 5. No significant change in chronic penetrating atherosclerotic ulcers with ass ociated small aneurysms at the infrarenal abdominal aorta and left common iliac artery.
--- NOTE | ~2023-02-22 | XR_ITS ---
EXAMINATION: XR chest 1V portable DATE: 02/22/2023 18:09 INDICATION: Decreased lung sounds TECHNIQUE: frontal view of the chest was obtained. COMPARISON: Chest radiograph dated 01/27/2022 FINDINGS: Linear band of discoid atelectasis/scarring at the medial left lower lung zone. No other airspace opa cities, pulmonary edema, pleural effusion or pneumothorax. Cardiomegaly. Moderate degenerative skelet al changes at the thoracic spine and bilateral shoulders. IMPRESSION: 1. Mild discoid atelectasis/scarring at the left lower lung zone. 2. Cardiomegaly. Reviewed, dictated and finalized at location A.
[2023-02-22 15:53] VITALS: BP 93/59; PULSE 80; RESP 16; TEMP 36.6; O2SAT 100
--- NOTE | 2023-02-22 17:26 | ED.FEMALEGU ---
HPI - Female Genitourinary General Chief complaint: Urogenital-Female <Symone Sherman PA-C - Last Filed: 02/22/23 22:51> Stated complaint: superpubic catheter out <Symone Sherman PA-C - Last Filed: 02/22/23 22:51> Time Seen by Provider: 02/22/23 17:08 <Symone Sherman PA-C - Last Filed: 02/22/23 22:51> History of Present Illness HPI Narrative: 77-year-old female with a history of atrial fibrillation, GERD, CVA with resultant expressive aphasia, dementia, renal insufficiency reports for evaluation of her suprapubic catheter which was removed 1.5 hours prior to arrival. Due to patient's dementia, has patient's assists with history. He reports that he heard the patient in the shower yell and came to check on her and noticed her suprapubic catheter had been removed, he is unsure whether she removed it or it fell out. He reported that she went to her urologist 3 days ago and had had a new catheter placed, she goes to urology every week for catheter changes. She has had a suprapubic catheter for 2 and half to 3 years due to incontinence. Patient was also diagnosed with a yeast infection under her pannus and was prescribed a nystatin powder by her urologist per the , however they have not picked it up yet from the pharmacy. Patient's reports they have nystatin powder at home he will begin to use. Patient is also complaining of generalized abdominal pain that started 1 week ago along with 1 episode of diarrhea daily and bright red blood per rectum with bowel movements. She reports the blood is on the toilet paper and in the toilet bowl. Patient's states that the patient has had intermittent diarrhea with reported hematochezia for multiple decades, and he believes this is unchanged from her baseline. Pt reporting dyspnea that is unchanged from baseline. Denies cough, congestion, fever, body aches, chills, nausea, vomiting, melena, hematemesis. Pt reporting hematuria from suprapubic catheter. Pt ambulated with a walker at home and wheelchair when she leaves the house. Pt's states patient has had fecal incontinence since her stroke and wears depends daily. <Symone Sherman PA-C - Last Filed: 02/22/23 22:51> Related Data Home medications: Home Medications Medication Instructions Recorded Confirmed duloxetine 60 mg capsule,delayed 60 mg PO DAILY 09/02/22 11/26/22 release oxybutynin chloride 5 mg tablet 5 mg PO TID PRN Bladder Spasms 09/02/22 11/26/22 <Symone Sherman PA-C - Last Filed: 02/22/23 22:51> Allergies/Adverse reactions: Allergies Allergy/AdvReac Type Severity Reaction Status Date / Time propoxyphene Allergy Severe HIVES Verified 02/22/23 15:52 clindamycin Allergy Unknown Unknown Verified 02/22/23 15:52 codeine Allergy Unknown HIVES but Verified 02/22/23 15:52 tolerates hydrocodone donepezil Allergy Unknown Unknown Verified 02/22/23 15:52 hydrochlorothiazide Allergy Unknown Skin Verified 02/22/23 15:52 Reaction latex Allergy Unknown SWELLING/RA Verified 02/22/23 15:52 SH lisinopril Allergy Unknown cough Verified 02/22/23 15:52 meloxicam Allergy Unknown ulcer Verified 02/22/23 15:52 olmesartan Allergy Unknown Unknown Verified 02/22/23 15:52 Penicillins Allergy Unknown Rash Verified 02/22/23 15:52 spironolactone Allergy Unknown hyperkalemi Verified 02/22/23 15:52 a amoxicillin AdvReac Unknown Nausea Verified 02/22/23 15:52 <Symone Sherman PA-C - Last Filed: 02/22/23 22:51> Review of Systems Review of Systems: CONSTITUTIONAL: Denies fever, chills EYES: Denies visual changes, redness, or discharge. ENT: Denies rhinorrhea, congestion, sore throat, or otalgia. CARDIOVASCULAR: Denies chest pain, palpitations, or edema. RESPIRATORY: Denies cough GASTROINTESTINAL: See HPI GENITOURINARY: See HPI SKIN: Denies rash or itching. MUSCULOSKELETAL: Denies back pain, joint pain, or myalgia. NEUROLOGIC: Denies headache, numbness,
--- NOTE | 2023-02-22 17:27 | ECG_ITS ---
Measurements Intervals [place] Rate: 52 P: HI: 0 QRS: 11 QRSD: 81 T: 71 QT: 429 QTc: 399 Interpretive Statements ATRIAL FIBRILLATION WITH SLOW VENTRICULAR RESPONSE ABNORMAL RHYTHM ECG COMPARED TO ECG 09/01/2022 14:13:34 NO SIGNIFICANT CHANGES Electronically Signed On 02-22-2023 19:25:07 CDT by Daniella Galicia M.D.
[2023-02-22] MEDS: SODIUM CHLORIDE 0.9% IV 1,000 ML 999 ML IV CONT (18:10)
[2023-02-22 18:11] LABS: Basophils Absolute Auto 0.1 K/mm3 (0.0-0.1); Basophils Percent Auto 0.7 % (0.2-1.2); Eosinophils Absolute Auto 0.2 K/mm3 (0-0.3); Eosinophils Percent Auto 2.2 % (0-4.4); Hematocrit 38.5 % (37.0-47.0); Hemoglobin 12.4 g/dL (12.0-15.0); Immature Granulocyte Absolute 0.02 K/mm3 (0.00-0.031); Immature Granulocyte Percent A 0.3 % (0-0.5); Lymphocytes Absolute Auto 2.03 K/mm3 (0.9-3.2); Lymphocytes Percent Auto 26.7 % (18.3-44.2); Mean Corpuscular HGB Conc 32.2 g/dl (32-36); Mean Corpuscular Hemoglobin 29.7 pg (26-34); Mean Corpuscular Volume 92.3 fl (80-100); Mean Platelet Volume 9.5 fl (7.4-10.4); Monocytes Absolute Auto 0.7 K/mm3 (0.1-0.6); Monocytes Percent Auto 8.7 % (2.6-8.5); Neutrophils Absolute Auto 4.7 K/mm3 (1.3-6.7); Neutrophils Percent Auto 61.4 % (45.5-73.1); Platelet Count Result 306 k/mm3 (150-375); Red Blood Count 4.17 M/mm3 (4.2-5.4); White Blood Count 7.6 K/mm3 (4.5-10.0)
[2023-02-22 18:24] LABS: Appearance Urine Turbid (Clear); Bacteria Urine 3+ /hpf; Bilirubin Urine 1+ (Negative); Blood Urine 3+ (Negative); Color Urine Dark Yellow (Yellow); Glucose Urine UA Negative (Negative); Ketones Urine 1+ mg/dL (Negative); Leukocyte Esterase Ur 3+ LEU/UL (Negative); Need Manual Microscopic Reviewed; Nitrate Urine Positive (Negative); Non Pathogenic Casts >20; Protein Urine 3+ mg/dL (Negative); RBC Urine >100 /hpf (0-2); Specific Grav Ur 1.029 (1.001-1.035); Squamous Epithelial Cell Urine Many /hpf (Few); WBC Urine >100 /hpf
[2023-02-22 18:25] LABS: Add Urine Microscopic? YES; Lactic Acid Reflex 1.5 mmol/L (0.7-2.0)
[2023-02-22 18:33] VITALS: BP 113/66; PULSE 59; RESP 18; O2SAT 93
[2023-02-22 18:38] LABS: Alanine Aminotransferase 17 U/L (6-35); Alkaline Phosphatase 113 U/L (38-126); Anion Gap 6 mmol/L (8-16); Aspartate Amino Transferase 20 U/L (14-36); Bilirubin,Total 0.5 mg/dL (0.2-1.3); Blood Urea Nitrogen 21 mg/dL (7-17); Calcium 9.1 mg/dL (8.4-10.2); Carbon Dioxide 31 mmol/L (22-30); Chloride 102 mmol/L (98-107); Estimated CRCL calculation 50 ml/min; Estimated Glomerular Filt Rate > 60; Glucose 87 mg/dL (65-110); Lipase 65 U/L (23-300); Potassium 4.2 mmol/L (3.4-5.0); Sodium 139 mmol/L (137-145)
[2023-02-22 19:14] VITALS: BP 114/70; PULSE 74; RESP 17; O2SAT 96
--- NOTE | 2023-02-22 20:42 | PM.IMHP ---
H&P: HPI History of Present Illness Date/Time: 02/22/23 20:42 Chief Complaint: Suprapubic catheter came out Narrative: This is a 77-year-old female patient who has a history of atrial fibrillation, GERD dementia CVA with expressive aphasia and chronic renal insufficiency. The patient came to the emergency room to be evaluated for her suprapubic catheter that came out 1-1/2 hours prior to arrival to the emergency room. The was initially in the room giving any information. The patient was in the shower and she started to yell and went to check on her noticed that the suprapubic catheter had been removed. The patient had recently gone to the urologist 3 days ago and had a new catheter placed. She has been going to the urologist every week for catheter changes. She has had this suprapubic catheter for approximately 3 years due to urinary incontinence. The patient recently was diagnosed with a yeast infection around her suprapubic insertion site and was prescribed nystatin however the has not picked up the prescription yet. The patient also stated she is having some intermittent diarrhea and bloody stools for many years. When I saw the patient she was talking in full sentences without difficulty. However she stated that her memory was poor that her would be able to answer the questions more appropriately. However the patient's has already gone home. Her urine is positive for UTI. She currently has a suprapubic catheter in place and is draining cloudy yellow fluid. Abdominal pelvis CTA was read as the following. Diverticulosis. 2. Suprapubic bladder catheter with likely secondary chronic mild cystitis. Correlate with urinalysis. 3. Cardiomegaly. 4. 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 5. No significant change in chronic penetrating atherosclerotic ulcers with associated small aneurysms at the infrarenal abdominal aorta and left common iliac artery. The severe stenosis of the SMA was noted in her history previous of this appears to be chronic. Chest x-ray was read as mild discoid atelectasis/scarring at the left lower lung zones. Cardiomegaly. The patient was started on Primaxin and she has had a history of ESBL in the past. The patient is being admitted to inpatient status on the date of service of 02/22/2023. Review of Systems Review of Systems: All systems reviewed & are unremarkable except as noted in HPI and below Constitutional: Constitutional: Reports as per HPI and Reports no additional constitutional complaints Eyes: Eyes: Reports as per HPI and Reports no additional eye complaints ENT: Reports system reviewed and no additional complaints, except as documented and Reports Normal hearing present Cardiovascular: Cardiovascular: Reports no additional cardiovascular complaints Respiratory: Respiratory: Reports no additional respiratory complaints and Reports no additional respiratory complaints Gastrointestinal: Gastrointestinal: Reports as per HPI and Reports no additional gastrointestinal complaints Musculoskeletal: Musculoskeletal: Reports no additional musculoskeletal complaints Integumentary/Breasts: Skin/Breast: Reports system reviewed and no additional complaints, except as docu and Reports as per HPI Neurologic: Reports system reviewed and no additional complaints, except as documented, Reports as per HPI and Reports Normal hearing present Psychiatric: Psychiatric: Reports no additional psychiatric complaints and Reports as per HPI Endocrine: Endocrine: Reports no additional endocrine complaints Hematologic/Lymphatic: Hematologic/Lymphatic: Reports no additional hematologic/lymphatic complaints Allergic/Immunologic: Allergic/Immunologic: Reports no additional allergic/immunologic complaints PMFSH Past Medical History Medical History Arthritis Bilateral renal artery stenosis Bilateral renal artery s
[2023-02-22 21:31] VITALS: BP 122/66; PULSE 68; RESP 18; O2SAT 90
[2023-02-22 22:04] VITALS: BMI 37.6
[2023-02-22 22:07] VITALS: BP 148/92; PULSE 54; RESP 24; TEMP 36.3; O2SAT 90; BMI 37.5
--- NOTE | 2023-02-22 22:47 | ADMGEN ---
This patient, Arpita Pop, was admitted to 3 Med Surg Room 305-02 at 2200. Patient/family oriented to hospital policies and general routines including ID bracelet, bed and alarms, visiting hours, pain management, procedures, bathroom and other care routines, personal items, smoking policy, room service/diet, and visiting hours. Information on how to activate the Rapid Response Team has been discussed. Patient/Family are encouraged to report perceived risks to care and to ask questions if they do not understand what they are told or what they should do.
[2023-02-23] VITALS (10 sets, daily range): BP systolic 130–159; BP diastolic 60–63; PULSE 57–97; RESP 14–18; TEMP 36–36.1; O2SAT 83–96
[2023-02-23 06:59] LABS: Basophils Percent Auto 0.4 % (0.2-1.2); Eosinophils Absolute Auto 0.2 K/mm3 (0-0.3); Eosinophils Percent Auto 2.8 % (0-4.4); Hematocrit 41.7 % (37.0-47.0); Hemoglobin 13.6 g/dL (12.0-15.0); Immature Granulocyte Absolute 0.01 K/mm3 (0.00-0.031); Immature Granulocyte Percent A 0.1 % (0-0.5); Lymphocytes Absolute Auto 2.17 K/mm3 (0.9-3.2); Lymphocytes Percent Auto 27.2 % (18.3-44.2); Mean Corpuscular HGB Conc 32.6 g/dl (32-36); Mean Corpuscular Hemoglobin 30.5 pg (26-34); Mean Corpuscular Volume 93.5 fl (80-100); Mean Platelet Volume 9.4 fl (7.4-10.4); Monocytes Absolute Auto 0.6 K/mm3 (0.1-0.6); Monocytes Percent Auto 7.6 % (2.6-8.5); Neutrophils Percent Auto 61.9 % (45.5-73.1); Platelet Count Result 298 k/mm3 (150-375); Red Blood Count 4.46 M/mm3 (4.2-5.4)
[2023-02-23 07:08] LABS: Lactic Acid Reflex 2.1 mmol/L (0.7-2.0)
[2023-02-23 07:20] LABS: Alanine Aminotransferase 18 U/L (6-35); Albumin Level 4.4 g/dL (3.5-5.1); Alkaline Phosphatase 129 U/L (38-126); Anion Gap 7 mmol/L (8-16); Aspartate Amino Transferase 22 U/L (14-36); Bilirubin,Total 0.7 mg/dL (0.2-1.3); Blood Urea Nitrogen 11 mg/dL (7-17); Calcium 9.2 mg/dL (8.4-10.2); Carbon Dioxide 29 mmol/L (22-30); Chloride 103 mmol/L (98-107); Estimated CRCL calculation 64 ml/min; Estimated Glomerular Filt Rate > 60; Glucose 103 mg/dL (65-110); Potassium 3.8 mmol/L (3.4-5.0); Sodium 139 mmol/L (137-145)
[2023-02-23] MEDS: NYSTATIN OINTMENT 15 GM TUBE 1 APPLIC TOPICAL ×2 (08:15→21:24)
[2023-02-23] MEDS: busPIRone HCL 2.5 MG TABLET 7.5 MG PO ×2 (09:45→16:29)
[2023-02-23] MEDS: APIXABAN 5 MG TABLET PO ×2 (09:45→16:29)
[2023-02-23] MEDS: amLODIPine BESYLATE 5 MG TABLET 10 MG PO (09:45)
[2023-02-23] MEDS: THIAMINE HCL 100 MG TABLET PO (09:46)
[2023-02-23] MEDS: METOPROLOL TARTRATE 50 MG TAB PO ×2 (09:46→21:24)
[2023-02-23] MEDS: DULoxetine HCL 60 MG CAPSULE.DR PO (09:46)
[2023-02-23] MEDS: QUEtiapine FUMARATE 25 MG TABLET PO ×3 (09:47→16:30)
[2023-02-23] MEDS: ASCORBIC ACID 500 MG TABLET PO (09:47)
[2023-02-23 09:56] LABS: Reflex Lactic Acid Yes or No Add Lactic
[2023-02-23 10:18] LABS: Lactic Acid 2.2 mmol/L (0.7-2.0)
--- NOTE | 2023-02-23 11:45 | P.PNIM_ITS ---
Progress Note: A&P Assessment and Plan (1) Urinary tract infection: Qualifiers: Hematuria presence: with hematuria Urinary tract infection type: acute cystitis Qualified Code(s): N30.01 - Acute cystitis with hematuria Code(s): N39.0 - Urinary tract infection, site not specified Status: Acute Assessment and Plan: * Ua appears infectious * Most likely related to chronic indwelling catheter * Urine culture pending * Continue antibiotics for now * Wonder if this really could be colonization, with CTA results indicating a chronic cystitis * Adjust antibiotics to culture results (2) Candidiasis: Code(s): B37.9 - Candidiasis, unspecified Status: Acute Assessment and Plan: * Found to have yeast around the site of the catheter * Nystatin continued * Continue site care as ordered * Consider wound help (3) Obstructive sleep apnea on CPAP: Code(s): G47.33 - Obstructive sleep apnea (adult) (pediatric); Z99.89 - Dependence on other enabling machines and devices Status: Acute Assessment and Plan: * Continue with home settings for CPAP/BiPAP (4) GERD (gastroesophageal reflux disease): Code(s): K21.9 - Gastro-esophageal reflux disease without esophagitis Status: Chronic Assessment and Plan: * Continue with home medication * Stable and chronic (5) Dyslipidemia: Code(s): E78.5 - Hyperlipidemia, unspecified Status: Acute Assessment and Plan: * Continue with atorvastatin * Lipid panel in the am * Adjust therapy as CTA of the abd/pel shows multiple areas of stenosis (6) Presence of suprapubic catheter: Onset Date: 05/27/21 Code(s): Z93.59 - Other cystostomy status Status: Acute Assessment and Plan: * Suprapubic catheter dislodged * Replaced * Currently draining a clear yellow urine (7) CHF (congestive heart failure): Qualifiers: Heart failure chronicity: acute on chronic Heart failure type: diastolic Qualified Code(s): I50.33 - Acute on chronic diastolic (congestive) heart failure Code(s): I50.9 - Heart failure, unspecified Status: Acute Assessment and Plan: * Echo from 2020 showed EF of 60-65% with an abnormal diastolic dysfunction * Most likely a chronic diastolic heart failure not in acute exacerbation * Continue with metoprolol and amlodipine * trend urine output * daily weights * adjust therapy as indicated (8) Atrial fibrillation: Code(s): I48.91 - Unspecified atrial fibrillation Status: Acute Assessment and Plan: * Continue with metoprolol and Eliquis * Chronic * heart rate controlled * trend heart rate * adjust therapy as indicated (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 * Found on the CT in Aug * Currently at 70% * No indication for intervention at this time * continue eliquis * obtain lipid panel in the am Time Spent With Pat
--- NOTE | 2023-02-23 11:45 | PM.IMPN ---
Progress Note: A&P Assessment and Plan (1) Urinary tract infection: Qualifiers: Hematuria presence: with hematuria Urinary tract infection type: acute cystitis Qualified Code(s): N30.01 - Acute cystitis with hematuria Code(s): N39.0 - Urinary tract infection, site not specified Status: Acute Assessment and Plan: Ua appears infectious Most likely related to chronic indwelling catheter Urine culture pending Continue antibiotics for now Wonder if this really could be colonization, with CTA results indicating a chronic cystitis Adjust antibiotics to culture results (2) Candidiasis: Code(s): B37.9 - Candidiasis, unspecified Status: Acute Assessment and Plan: Found to have yeast around the site of the catheter Nystatin continued Continue site care as ordered Consider wound help (3) Obstructive sleep apnea on CPAP: Code(s): G47.33 - Obstructive sleep apnea (adult) (pediatric); Z99.89 - Dependence on other enabling machines and devices Status: Acute Assessment and Plan: Continue with home settings for CPAP/BiPAP (4) GERD (gastroesophageal reflux disease): Code(s): K21.9 - Gastro-esophageal reflux disease without esophagitis Status: Chronic Assessment and Plan: Continue with home medication Stable and chronic (5) Dyslipidemia: Code(s): E78.5 - Hyperlipidemia, unspecified Status: Acute Assessment and Plan: Continue with atorvastatin Lipid panel in the am Adjust therapy as CTA of the abd/pel shows multiple areas of stenosis (6) Presence of suprapubic catheter: Onset Date: 05/27/21 Code(s): Z93.59 - Other cystostomy status Status: Acute Assessment and Plan: Suprapubic catheter dislodged Replaced Currently draining a clear yellow urine (7) CHF (congestive heart failure): Qualifiers: Heart failure chronicity: acute on chronic Heart failure type: diastolic Qualified Code(s): I50.33 - Acute on chronic diastolic (congestive) heart failure Code(s): I50.9 - Heart failure, unspecified Status: Acute Assessment and Plan: Echo from 2020 showed EF of 60-65% with an abnormal diastolic dysfunction Most likely a chronic diastolic heart failure not in acute exacerbation Continue with metoprolol and amlodipine trend urine output daily weights adjust therapy as indicated (8) Atrial fibrillation: Code(s): I48.91 - Unspecified atrial fibrillation Status: Acute Assessment and Plan: Continue with metoprolol and Eliquis Chronic heart rate controlled trend heart rate adjust therapy as indicated (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 Found on the CT in Aug Currently at 70% No indication for intervention at this time continue eliquis obtain lipid panel in the am Time Spent With Patient Time: 52 minutes Time with patient: Greater than 35 minutes Subjective Date/time seen: 02/23/23 1145 Interval history: 02/23/23 114 Patient is lying in bed eating her lunch. She stated that she is feeling okay she is just having a lot of pain in her stomach. She stated that it is pretty intermittent and that it is coming from the catheter. When I went to look at the abdomen and it is pretty run red looking. She did have a lot of pain just by lifting her pannus. She denies any current chest pain, nausea, vomiting, diarrhea, constipation, shortness of breath, weakness or fatigue. Urine is draining out clear and yellow. Labs and vitals look good at this time. Will await urine culture results. 02/22/23? 20:42 This
[2023-02-23] MEDS: ATORVASTATIN 20 MG TABLET PO (21:24)
[2023-02-24] VITALS (9 sets, daily range): BP systolic 105–130; BP diastolic 58–98; PULSE 57–85; RESP 14–22; TEMP 35.8–36.7; O2SAT 94–98
--- NOTE | 2023-02-24 06:00 | ECHO_ITS ---
Patient Info Name: Arpita Pop Age: 77 years : 1945 Gender: Female Ht: 60 in Wt: 192 lbs BSA: 1.97 m2 HR: 63 bpm BP: 130 / 63 mmHg Heart Rhythm: Atrial Fibrillation Technical Quality: Fair Exam Date: 02/24/2023 7:39 AM Exam Location: [facility] Patient Status: Inpatient Admit Date: 02/22/2023 Staff Ordering Physician: Symone Sherman PA-C Mixing Technician: Arpita Heredia RDCS Attending Provider: Jeremy Alarcon MD Referring Physician: Lane NICHOLAS; Exam Type: CA echo doppler color flow Study Info Indications - Cardiomegaly, Dyspnea Complete two-dimensional, color flow and Doppler transthoracic echocardiogram is performed. Summary 1. Complete two-dimensional, color flow and Doppler transthoracic echocardiogram is performed. 2. Left ventricular chamber dimension is normal. 3. Left ventricular systolic function is normal, estimated at 60-65%. 4. The left ventricular diastolic function is abnormal. 5. E/e' 16 is elevated. 6. Atrial fibrillation. 7. Left atrial chamber dimension is mildly enlarged. 8. There is mild aortic valve sclerosis. 9. There is mild to moderate aortic valve stenosis with a peak velocity of 157 cm/s, mean gradient of 5 mmHg, and aortic valve area of 1.3 cm2. 10. The mitral valve has moderately calcified annulus. 11. There is mild mitral valve regurgitation. 12. There is mild tricuspid valve regurgitation. 13. No pulmonary hypertension, estimated pulmonary arterial systolic pressure is 33 mmHg. 14. There is trivial pericardial effusion. Left Ventricle E/e' 16 is elevated. Atrial fibrillation. Left ventricular chamber dimension is normal. Left ventricular systolic function is normal, estimated at 60-65%. The left ventricular diastolic function is abnormal. Right Ventricle Right ventricular chamber dimension is normal. Right ventricular systolic function is normal. Left Atria Left atrial chamber dimension is mildly enlarged. Right Atria Right atrial chamber dimension is normal. Aortic Valve The aortic valve is not well visualized. Cannot determine number of aortic valve leaflets. There is mild aortic valve sclerosis. There is mild to moderate aortic valve stenosis with a peak velocity of 157 cm/s, mean gradient of 5 mmHg, and aortic valve area of 1.3 cm2. There is no aortic valve regurgitation. Pulmonic Valve There is no pulmonic regurgitation. Mitral Valve The mitral valve has moderately calcified annulus. There is no mitral valve stenosis. There is mild mitral valve regurgitation. Tricuspid Valve There is mild tricuspid valve regurgitation. No pulmonary hypertension, estimated pulmonary arterial systolic pressure is 33 mmHg. Pericardium/Pleural There is trivial pericardial effusion. Inferior Vena Cava Normal inferior vena cava with >50% collapse upon inspiration consistent with normal right atrial pressure, 5 mmHg. Aorta The aortic root size at the sinus of Valsalva is normal. Left Ventricular Outflow Tract Name Value Normal LVOT 2D LVOT Diameter 2.0 cm LVOT Doppler LVOT Peak Gradient 2 mmHg
[2023-02-24 06:22] LABS: Basophils Percent Auto 0.7 % (0.2-1.2); Eosinophils Absolute Auto 0.2 K/mm3 (0-0.3); Eosinophils Percent Auto 4.3 % (0-4.4); Hematocrit 41.5 % (37.0-47.0); Hemoglobin 13.4 g/dL (12.0-15.0); Immature Granulocyte Absolute 0.01 K/mm3 (0.00-0.031); Immature Granulocyte Percent A 0.2 % (0-0.5); Mean Corpuscular HGB Conc 32.3 g/dl (32-36); Mean Corpuscular Hemoglobin 30.2 pg (26-34); Mean Corpuscular Volume 93.5 fl (80-100); Mean Platelet Volume 9.6 fl (7.4-10.4); Monocytes Absolute Auto 0.6 K/mm3 (0.1-0.6); Monocytes Percent Auto 10.1 % (2.6-8.5); Neutrophils Absolute Auto 2.6 K/mm3 (1.3-6.7); Neutrophils Percent Auto 46.7 % (45.5-73.1); Platelet Count Result 301 k/mm3 (150-375); Red Blood Count 4.44 M/mm3 (4.2-5.4); Red Cell Distribution Width 13.2 % (11.5-14.5); White Blood Count 5.5 K/mm3 (4.5-10.0)
[2023-02-24 06:32] LABS: Alanine Aminotransferase 17 U/L (6-35); Alkaline Phosphatase 107 U/L (38-126); Anion Gap 5 mmol/L (8-16); Aspartate Amino Transferase 21 U/L (14-36); Bilirubin,Total 0.7 mg/dL (0.2-1.3); Blood Urea Nitrogen 16 mg/dL (7-17); Carbon Dioxide 32 mmol/L (22-30); Chloride 102 mmol/L (98-107); Cholesterol 117 mg/dL (0-200); Estimated CRCL calculation 50 ml/min; Estimated Glomerular Filt Rate > 60; Glucose 104 mg/dL (65-110); HDL Direct 33 mg/dL; Magnesium 2.1 mg/dL (1.6-2.3); Potassium 3.9 mmol/L (3.4-5.0); Sodium 139 mmol/L (137-145); Triglycerides 115 mg/dL (<150)
[2023-02-24 06:44] LABS: LDL Cholesterol Direct 56 mg/dL
[2023-02-24] MEDS: amLODIPine BESYLATE 5 MG TABLET 10 MG PO (08:22)
[2023-02-24] MEDS: QUEtiapine FUMARATE 25 MG TABLET PO ×3 (08:22→16:43)
[2023-02-24] MEDS: busPIRone HCL 2.5 MG TABLET 7.5 MG PO ×2 (08:22→16:43)
[2023-02-24] MEDS: METOPROLOL TARTRATE 50 MG TAB PO (08:23)
[2023-02-24] MEDS: DULoxetine HCL 60 MG CAPSULE.DR PO (08:23)
[2023-02-24] MEDS: APIXABAN 5 MG TABLET PO ×2 (08:23→16:44)
[2023-02-24] MEDS: ASCORBIC ACID 500 MG TABLET PO (08:24)
[2023-02-24] MEDS: NYSTATIN OINTMENT 15 GM TUBE 1 APPLIC TOPICAL ×2 (08:24→20:07)
[2023-02-24] MEDS: THIAMINE HCL 100 MG TABLET PO (08:24)
--- NOTE | 2023-02-24 10:15 | PM.IMPN ---
Progress Note: A&P Assessment and Plan (1) Urinary tract infection: Qualifiers: Hematuria presence: with hematuria Urinary tract infection type: acute cystitis Qualified Code(s): N30.01 - Acute cystitis with hematuria Code(s): N39.0 - Urinary tract infection, site not specified Status: Acute Assessment and Plan: Ua appears infectious Most likely related to chronic indwelling catheter Urine culture Ecoli Continue Primaxin for now Wonder if this really could be colonization, with CTA results indicating a chronic cystitis Adjust antibiotics to culture results (2) Candidiasis: Code(s): B37.9 - Candidiasis, unspecified Status: Acute Assessment and Plan: Found to have yeast around the site of the catheter Nystatin continued Continue site care as ordered Consider wound help (3) Obstructive sleep apnea on CPAP: Code(s): G47.33 - Obstructive sleep apnea (adult) (pediatric); Z99.89 - Dependence on other enabling machines and devices Status: Acute Assessment and Plan: Continue with home settings for CPAP/BiPAP (4) GERD (gastroesophageal reflux disease): Code(s): K21.9 - Gastro-esophageal reflux disease without esophagitis Status: Chronic Assessment and Plan: Continue with home medication Stable and chronic (5) Dyslipidemia: Code(s): E78.5 - Hyperlipidemia, unspecified Status: Acute Assessment and Plan: Continue with atorvastatin Lipid panel cholesterol 117, LDL 56, HDL 33, triglycerides 115 Adjust therapy as CTA of the abd/pel shows multiple areas of stenosis (6) Presence of suprapubic catheter: Onset Date: 05/27/21 Code(s): Z93.59 - Other cystostomy status Status: Acute Assessment and Plan: Suprapubic catheter dislodged Replaced Currently draining a clear yellow urine (7) CHF (congestive heart failure): Qualifiers: Heart failure chronicity: acute on chronic Heart failure type: diastolic Qualified Code(s): I50.33 - Acute on chronic diastolic (congestive) heart failure Code(s): I50.9 - Heart failure, unspecified Status: Acute Assessment and Plan: Echo from 2020 showed EF of 60-65% with an abnormal diastolic dysfunction Most likely a chronic diastolic heart failure not in acute exacerbation Continue with metoprolol and amlodipine trend urine output daily weights adjust therapy as indicated (8) Atrial fibrillation: Code(s): I48.91 - Unspecified atrial fibrillation Status: Acute Assessment and Plan: Continue with metoprolol and Eliquis Chronic heart rate controlled trend heart rate adjust therapy as indicated stable will discontinue telemetry (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 Found on the CT in Aug Currently at 70% No indication for intervention at this time continue eliquis obtain lipid panel cholesterol 117, LDL 56, HDL 33, triglycerides 115 Time Spent With Patient Time: 53 minutes, 15 minutes used to started new IV for the nurse Time with patient: Greater than 35 minutes Subjective Date/time seen: 02/24/23 1015 Interval history: 02/24/23 1015 Patient is lying in bed. Patient stated that she is doing okay her back hurts and she is having pain still on the lower quadrant area. She denies any chest pain, shortness a breath, nausea, vomiting, diarrhea constipation. She is up walking and she is going to the bathroom. She does reports having a bowel movement. Urine culture did come back as E coli worried that it might be ESBL. Will await full sensitivities. 02/23/23 2522
--- NOTE | 2023-02-24 10:15 | P.PNIM_ITS ---
Progress Note: A&P Assessment and Plan (1) Urinary tract infection: Qualifiers: Hematuria presence: with hematuria Urinary tract infection type: acute cystitis Qualified Code(s): N30.01 - Acute cystitis with hematuria Code(s): N39.0 - Urinary tract infection, site not specified Status: Acute Assessment and Plan: * Ua appears infectious * Most likely related to chronic indwelling catheter * Urine culture Ecoli * Continue Primaxin for now * Wonder if this really could be colonization, with CTA results indicating a chronic cystitis * Adjust antibiotics to culture results (2) Candidiasis: Code(s): B37.9 - Candidiasis, unspecified Status: Acute Assessment and Plan: * Found to have yeast around the site of the catheter * Nystatin continued * Continue site care as ordered * Consider wound help (3) Obstructive sleep apnea on CPAP: Code(s): G47.33 - Obstructive sleep apnea (adult) (pediatric); Z99.89 - Dependence on other enabling machines and devices Status: Acute Assessment and Plan: * Continue with home settings for CPAP/BiPAP (4) GERD (gastroesophageal reflux disease): Code(s): K21.9 - Gastro-esophageal reflux disease without esophagitis Status: Chronic Assessment and Plan: * Continue with home medication * Stable and chronic (5) Dyslipidemia: Code(s): E78.5 - Hyperlipidemia, unspecified Status: Acute Assessment and Plan: * Continue with atorvastatin * Lipid panel cholesterol 117, LDL 56, HDL 33, triglycerides 115 * Adjust therapy as CTA of the abd/pel shows multiple areas of stenosis (6) Presence of suprapubic catheter: Onset Date: 05/27/21 Code(s): Z93.59 - Other cystostomy status Status: Acute Assessment and Plan: * Suprapubic catheter dislodged * Replaced * Currently draining a clear yellow urine (7) CHF (congestive heart failure): Qualifiers: Heart failure chronicity: acute on chronic Heart failure type: diastolic Qualified Code(s): I50.33 - Acute on chronic diastolic (congestive) heart failure Code(s): I50.9 - Heart failure, unspecified Status: Acute Assessment and Plan: * Echo from 2020 showed EF of 60-65% with an abnormal diastolic dysfunction * Most likely a chronic diastolic heart failure not in acute exacerbation * Continue with metoprolol and amlodipine * trend urine output * daily weights * adjust therapy as indicated (8) Atrial fibrillation: Code(s): I48.91 - Unspecified atrial fibrillation Status: Acute Assessment and Plan: * Continue with metoprolol and Eliquis * Chronic * heart rate controlled * trend heart rate * adjust therapy as indicated * stable will discontinue telemetry (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 * Found on the CT in Aug * Currently at 70% * No indication for intervention at this time * continue eliquis * obtain lipid panel cholesterol 1
--- NOTE | 2023-02-24 11:18 | ECG_ITS ---
Measurements Intervals [place] Rate: 71 P: AR: 0 QRS: -4 QRSD: 81 T: 76 QT: 426 QTc: 466 Interpretive Statements ATRIAL FIBRILLATION LOW QRS VOLTAGE IN PRECORDIAL LEADS [QRS DEFLECTION < 1.0 mV IN CHEST LEADS] INFERIOR MYOCARDIAL INFARCTION , PROBABLY OLD [40+ ms Q WAVE AND/OR ST/T ABNORMALITY IN II/aVF] COMPARED TO ECG 02/22/2023 17:50:07 NO SIGNIFICANT CHANGES Electronically Signed On 02-24-2023 18:01:08 CDT by Dustin Sabillon M.D.
[2023-02-24] MEDS: ACETAMINOPHEN 325 MG TABLET 650 MG PO (20:06)
[2023-02-24] MEDS: METOPROLOL TARTRATE 25 MG TABLET PO (20:06)
[2023-02-24] MEDS: TOLNAFTATE 1% POWDER 45 GM BTL 1 APPLIC TOPICAL (20:07)
[2023-02-24] MEDS: ATORVASTATIN 20 MG TABLET PO (20:07)
[2023-02-25 05:55] VITALS: BP 125/67; PULSE 69; RESP 14; TEMP 36.1; O2SAT 96
[2023-02-25] MEDS: THIAMINE HCL 100 MG TABLET PO (09:06)
[2023-02-25] MEDS: DULoxetine HCL 60 MG CAPSULE.DR PO (09:06)
[2023-02-25] MEDS: APIXABAN 5 MG TABLET PO ×2 (09:07→16:25)
[2023-02-25] MEDS: QUEtiapine FUMARATE 25 MG TABLET PO ×3 (09:07→16:25)
[2023-02-25] MEDS: amLODIPine BESYLATE 5 MG TABLET 10 MG PO (09:07)
[2023-02-25] MEDS: ASCORBIC ACID 500 MG TABLET PO (09:07)
[2023-02-25] MEDS: busPIRone HCL 2.5 MG TABLET 7.5 MG PO ×2 (09:07→16:25)
[2023-02-25 09:08] VITALS: PULSE 60
[2023-02-25] MEDS: TOLNAFTATE 1% POWDER 45 GM BTL 1 APPLIC TOPICAL ×2 (09:08→20:31)
[2023-02-25] MEDS: NYSTATIN OINTMENT 15 GM TUBE 1 APPLIC TOPICAL ×2 (09:08→20:31)
[2023-02-25] MEDS: METOPROLOL TARTRATE 25 MG TABLET PO ×2 (09:08→20:21)
--- NOTE | 2023-02-25 09:15 | PM.IMPN ---
Progress Note: A&P Assessment and Plan (1) Urinary tract infection: Qualifiers: Hematuria presence: with hematuria Urinary tract infection type: acute cystitis Qualified Code(s): N30.01 - Acute cystitis with hematuria Code(s): N39.0 - Urinary tract infection, site not specified Status: Acute Assessment and Plan: Ua appears infectious Most likely related to chronic indwelling catheter Urine culture Ecoli Continue Primaxin for now Wonder if this really could be colonization, with CTA results indicating a chronic cystitis Adjust antibiotics to culture results (2) Candidiasis: Code(s): B37.9 - Candidiasis, unspecified Status: Acute Assessment and Plan: Found to have yeast around the site of the catheter Nystatin continued Continue site care as ordered Consider wound help (3) Obstructive sleep apnea on CPAP: Code(s): G47.33 - Obstructive sleep apnea (adult) (pediatric); Z99.89 - Dependence on other enabling machines and devices Status: Acute Assessment and Plan: Continue with home settings for CPAP/BiPAP (4) GERD (gastroesophageal reflux disease): Code(s): K21.9 - Gastro-esophageal reflux disease without esophagitis Status: Chronic Assessment and Plan: Continue with home medication Stable and chronic (5) Dyslipidemia: Code(s): E78.5 - Hyperlipidemia, unspecified Status: Acute Assessment and Plan: Continue with atorvastatin Lipid panel cholesterol 117, LDL 56, HDL 33, triglycerides 115 Adjust therapy as CTA of the abd/pel shows multiple areas of stenosis (6) Presence of suprapubic catheter: Onset Date: 05/27/21 Code(s): Z93.59 - Other cystostomy status Status: Acute Assessment and Plan: Suprapubic catheter dislodged Replaced Currently draining a clear yellow urine (7) CHF (congestive heart failure): Qualifiers: Heart failure chronicity: acute on chronic Heart failure type: diastolic Qualified Code(s): I50.33 - Acute on chronic diastolic (congestive) heart failure Code(s): I50.9 - Heart failure, unspecified Status: Acute Assessment and Plan: Echo from 2020 showed EF of 60-65% with an abnormal diastolic dysfunction Most likely a chronic diastolic heart failure not in acute exacerbation Continue with metoprolol and amlodipine trend urine output daily weights adjust therapy as indicated (8) Atrial fibrillation: Code(s): I48.91 - Unspecified atrial fibrillation Status: Acute Assessment and Plan: Continue with metoprolol and Eliquis Chronic heart rate controlled trend heart rate adjust therapy as indicated stable will discontinue telemetry (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 Found on the CT in Aug Currently at 70% No indication for intervention at this time continue eliquis obtain lipid panel cholesterol 117, LDL 56, HDL 33, triglycerides 115 Time Spent With Patient Time: 42 minutes Time with patient: Greater than 35 minutes Subjective Date/time seen: 02/25/23914 Interval history: 02/25/23914 Patient is lying comfortable in bed. She denies any current chest pain, shortness a breath, nausea, vomiting, diarrhea constipation. Patient did state that her abdomen was doing a whole lot better she does have some slight pain but not as bad as it has been. Still awaiting sensitivities for the urine culture. 02/24/23 1015 Patient is lying in bed. Patient stated that she is doing okay her back hurts and she is having pain still on the lower quadrant area. She denies any ch
[2023-02-25] MEDS: oxyBUTYnin CHLORIDE 5 MG TABLET PO ×2 (13:59→22:14)
[2023-02-25] MEDS: ACETAMINOPHEN 325 MG TABLET 650 MG PO (13:59)
[2023-02-25 14:00] VITALS: BP 120/59; PULSE 64; RESP 18; TEMP 36.1; O2SAT 95
[2023-02-25] MEDS: ATORVASTATIN 20 MG TABLET PO (20:20)
[2023-02-25 20:21] VITALS: PULSE 64
[2023-02-25 21:22] VITALS: BP 120/51; PULSE 55; RESP 17; TEMP 36.8; O2SAT 95
[2023-02-26 05:05] VITALS: BP 147/70; PULSE 81; RESP 18; TEMP 36.7; O2SAT 94
[2023-02-26] MEDS: oxyBUTYnin CHLORIDE 5 MG TABLET PO ×2 (06:15→08:53)
[2023-02-26] MEDS: NYSTATIN OINTMENT 15 GM TUBE 1 APPLIC TOPICAL (08:49)
[2023-02-26] MEDS: busPIRone HCL 2.5 MG TABLET 7.5 MG PO (08:50)
[2023-02-26] MEDS: THIAMINE HCL 100 MG TABLET PO (08:50)
[2023-02-26] MEDS: TOLNAFTATE 1% POWDER 45 GM BTL 1 APPLIC TOPICAL (08:50)
[2023-02-26 08:51] VITALS: PULSE 78
[2023-02-26] MEDS: amLODIPine BESYLATE 5 MG TABLET 10 MG PO (08:51)
[2023-02-26] MEDS: METOPROLOL TARTRATE 25 MG TABLET PO (08:51)
[2023-02-26] MEDS: ASCORBIC ACID 500 MG TABLET PO (08:51)
[2023-02-26] MEDS: SULFAMETHOXAZOLE/TRIMETHOPRIM 800/160 MG DS TABLET 1 TAB PO (08:51)
[2023-02-26] MEDS: APIXABAN 5 MG TABLET PO (08:52)
[2023-02-26] MEDS: DULoxetine HCL 60 MG CAPSULE.DR PO (08:52)
[2023-02-26] MEDS: QUEtiapine FUMARATE 25 MG TABLET PO ×2 (08:52→12:44)
--- NOTE | 2023-02-26 09:45 | P.DS_ITS ---
DS: Admitting Diagnosis Discharge Date 02/26/23 0945 Admitting Diagnosis UTI, dislodging of suprapubic catheter DS: Discharge Diagnosis Discharge Diagnosis (1) Urinary tract infection: Qualifiers: Hematuria presence: with hematuria Urinary tract infection type: acute cystitis Qualified Code(s): N30.01 - Acute cystitis with hematuria Code(s): N39.0 - Urinary tract infection, site not specified Status: Acute Assessment and Plan: * Ua appears infectious * Most likely related to chronic indwelling catheter * Urine culture Ecoli * Continue Primaxin for now * Wonder if this really could be colonization, with CTA results indicating a chronic cystitis * Adjust antibiotics to culture results (2) Candidiasis: Code(s): B37.9 - Candidiasis, unspecified Status: Acute Assessment and Plan: * Found to have yeast around the site of the catheter * Nystatin continued * Continue site care as ordered * Consider wound help (3) Obstructive sleep apnea on CPAP: Code(s): G47.33 - Obstructive sleep apnea (adult) (pediatric); Z99.89 - Dependence on other enabling machines and devices Status: Acute Assessment and Plan: * Continue with home settings for CPAP/BiPAP (4) GERD (gastroesophageal reflux disease): Code(s): K21.9 - Gastro-esophageal reflux disease without esophagitis Status: Chronic Assessment and Plan: * Continue with home medication * Stable and chronic (5) Dyslipidemia: Code(s): E78.5 - Hyperlipidemia, unspecified Status: Acute Assessment and Plan: * Continue with atorvastatin * Lipid panel cholesterol 117, LDL 56, HDL 33, triglycerides 115 * Adjust therapy as CTA of the abd/pel shows multiple areas of stenosis (6) Presence of suprapubic catheter: Onset Date: 05/27/21 Code(s): Z93.59 - Other cystostomy status Status: Acute Assessment and Plan: * Suprapubic catheter dislodged * Replaced * Currently draining a clear yellow urine (7) CHF (congestive heart failure): Qualifiers: Heart failure chronicity: acute on chronic Heart failure type: diastolic Qualified Code(s): I50.33 - Acute on chronic diastolic (congestive) heart failure Code(s): I50.9 - Heart failure, unspecified Status: Acute Assessment and Plan: * Echo from 2020 showed EF of 60-65% with an abnormal diastolic dysfunction * Most likely a chronic diastolic heart failure not in acute exacerbation * Continue with metoprolol and amlodipine * trend urine output * daily weights * adjust therapy as indicated (8) Atrial fibrillation: Code(s): I48.91 - Unspecified atrial fibrillation Status: Acute Assessment and Plan: * Continue with metoprolol and Eliquis * Chronic * heart rate controlled * trend heart rate * adjust therapy as indicated * stable will discontinue telemetry (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 * Found on the CT in [place]
--- NOTE | 2023-02-26 09:45 | PM.DS ---
DS: Admitting Diagnosis Discharge Date 02/26/23 0945 Admitting Diagnosis UTI, dislodging of suprapubic catheter DS: Discharge Diagnosis Discharge Diagnosis (1) Urinary tract infection: Qualifiers: Hematuria presence: with hematuria Urinary tract infection type: acute cystitis Qualified Code(s): N30.01 - Acute cystitis with hematuria Code(s): N39.0 - Urinary tract infection, site not specified Status: Acute Assessment and Plan: Ua appears infectious Most likely related to chronic indwelling catheter Urine culture Ecoli Continue Primaxin for now Wonder if this really could be colonization, with CTA results indicating a chronic cystitis Adjust antibiotics to culture results (2) Candidiasis: Code(s): B37.9 - Candidiasis, unspecified Status: Acute Assessment and Plan: Found to have yeast around the site of the catheter Nystatin continued Continue site care as ordered Consider wound help (3) Obstructive sleep apnea on CPAP: Code(s): G47.33 - Obstructive sleep apnea (adult) (pediatric); Z99.89 - Dependence on other enabling machines and devices Status: Acute Assessment and Plan: Continue with home settings for CPAP/BiPAP (4) GERD (gastroesophageal reflux disease): Code(s): K21.9 - Gastro-esophageal reflux disease without esophagitis Status: Chronic Assessment and Plan: Continue with home medication Stable and chronic (5) Dyslipidemia: Code(s): E78.5 - Hyperlipidemia, unspecified Status: Acute Assessment and Plan: Continue with atorvastatin Lipid panel cholesterol 117, LDL 56, HDL 33, triglycerides 115 Adjust therapy as CTA of the abd/pel shows multiple areas of stenosis (6) Presence of suprapubic catheter: Onset Date: 05/27/21 Code(s): Z93.59 - Other cystostomy status Status: Acute Assessment and Plan: Suprapubic catheter dislodged Replaced Currently draining a clear yellow urine (7) CHF (congestive heart failure): Qualifiers: Heart failure chronicity: acute on chronic Heart failure type: diastolic Qualified Code(s): I50.33 - Acute on chronic diastolic (congestive) heart failure Code(s): I50.9 - Heart failure, unspecified Status: Acute Assessment and Plan: Echo from 2020 showed EF of 60-65% with an abnormal diastolic dysfunction Most likely a chronic diastolic heart failure not in acute exacerbation Continue with metoprolol and amlodipine trend urine output daily weights adjust therapy as indicated (8) Atrial fibrillation: Code(s): I48.91 - Unspecified atrial fibrillation Status: Acute Assessment and Plan: Continue with metoprolol and Eliquis Chronic heart rate controlled trend heart rate adjust therapy as indicated stable will discontinue telemetry (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 Found on the CT in Aug Currently at 70% No indication for intervention at this time continue eliquis obtain lipid panel cholesterol 117, LDL 56, HDL 33, triglycerides 115 DS: Summary Hospital Course Hospital Course: patient is 69-year-old female with a past medical history of urinary incontinence with a suprapubic catheter present, frequent UTIs, CVA, dementia, hyperlipidemia, hypertension who presented to the ED after her suprapubic catheter got dislodged. Catheter has been changed out in the emergency room however patient's UA did appear to be infectious. Urine culture did come back grew E coli. Patient was started on Primaxin after review of other urinary tract infections. Patient also has a
== END 2023-02-26 13:40 | disposition home health service (06) | DRG 699 ==
LOC: ANHED 20:39 → ANH3MEDSUR 21:34
PROVIDERS: Nurse Practitioner; Admitting Provider Internal Medicine; Emergency Provider Physician Assistant; PCP Family Medicine; Visit Provider Nurse Practitioner
DX: T83.510A Infection and inflammatory reaction due to cystostomy catheter, initial encounter (principal); I48.19 Other persistent atrial fibrillation; N30.01 Acute cystitis with hematuria; K92.1 Melena; K55.1 Chronic vascular disorders of intestine; I50.32 Chronic diastolic (congestive) heart failure; I11.0 Hypertensive heart disease with heart failure; I69.320 Aphasia following cerebral infarction; I70.1 Atherosclerosis of renal artery; I27.21 Secondary pulmonary arterial hypertension; J44.9 Chronic obstructive pulmonary disease, unspecified; E78.5 Hyperlipidemia, unspecified; K57.30 Diverticulosis of large intestine without perforation or abscess without bleeding; K21.9 Gastro-esophageal reflux disease without esophagitis; M81.0 Age-related osteoporosis without current pathological fracture; R19.7 Diarrhea, unspecified; B96.20 Unspecified Escherichia coli [E. coli] as the cause of diseases classified elsewhere; B37.2 Candidiasis of skin and nail; G62.9 Polyneuropathy, unspecified; G47.30 Sleep apnea, unspecified; F01.50 Vascular dementia, unspecified severity, without behavioral disturbance, psychotic disturbance, mood disturbance, and anxiety; Z93.50 Unspecified cystostomy status; Z87.891 Personal history of nicotine dependence
CPT/HCPCS: 36415; 71045; 74174; 80053; 80061; 81001; 83605; 83690; 83735; 84443; 85025; 87040; 87077; 87086; 87088; 87186; 93005; 93306; 96361; 96365; 96367; 97110; 97116; 97161; 97165; 97530; 99285; A9270; J0131; J0743; J7030; J7050; Q9967

== ENCOUNTER 2023-07-27 15:13 | Inpatient (IN) | payer MEDICARE, MEDICAID, SELFPAY ==
[2023-07-27] VITALS (8 sets, daily range): BP systolic 118–148; BP diastolic 68–88; PULSE 87–109; RESP 13–26; TEMP 36.4–37.2; O2SAT 94–98
--- NOTE | ~2023-07-27 | CT_ITS ---
EXAMINATION: CT abdomen pelvis w con DATE: 07/27/2023 19:24 INDICATION: Low abdominal pain. TECHNIQUE: Computed tomography (CT) of the abdomen and pelvis was performed with 100 mL Omnipaque 350 intravenous contrast. Automated exposure control and iterative reconstruction technique were employe d. The dose-length product was 1330.25 mGy-cm. COMPARISON: CT abdomen and pelvis 02/22/2023 FINDINGS: The visualized portions of the lung bases demonstrate mild atelectasis and mild chronic rustam g disease. No pleural effusion. Cardiomegaly is noted. There are coronary artery calcifications. No p ericardial effusion. There is mild elevation of right hemidiaphragm. The liver and spleen are normal. The gallbladder is absent. The pancreas and adrenal glands are normal. There are cysts in the kidney s measuring up to 9 mm on the left. A suprapubic catheter is noted. Again seen is diffuse bladder wal l thickening. There is diverticulosis of the colon without evidence of diverticulitis. There are no d ilated loops of bowel. The appendix is not visualized. There is calcified atherosclerosis of the aort a and many of the other arteries. 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 There are bilateral inguin al hernias containing fat. There is an electrode in left S3 neural foramen. There is severe thoracic and lumbar spondylosis. IMPRESSION: 1. Bilateral inguinal hernias containing fat. 2. Diffuse bladder wall thickening again seen, consistent with chronic cystitis. Reviewed, dictated and finalized at location E. IMPRESSION: 1. Bilateral inguinal hernias containing fat. 2. Diffuse bladder wall thickening again seen, consistent with chronic cystitis .
--- NOTE | ~2023-07-27 | XR_ITS ---
EXAMINATION: XR ankle RT min 3V INDICATION: Right ankle pain TECHNIQUE: Three views of the right ankle are obtained. COMPARISON: 04/03/2015 FINDINGS: Bone alignment is normal. No acute fracture is identified. There is a chronic dislocation i nvolving the lateral malleolus with nonunion. There is mild soft tissue swelling of ankle. A posterio r calcaneal enthesophyte is noted. IMPRESSION: 1. No acute osseous abnormality. Reviewed, dictated and finalized at location B.
--- NOTE | ~2023-07-27 | XR_ITS ---
EXAMINATION: XR knee RT 3V DATE: 07/31/2023 13:28 INDICATION: Right knee pain TECHNIQUE: Four views of the right knee were obtained. COMPARISON: 10/11/2018 FINDINGS: Alignment is normal. No fracture or osteochondral lesion. There is mild tricompartmental os teoarthritis characterized by tiny marginal osteophytes. Chondrocalcinosis is noted. No joint effusio n/synovitis. Soft tissues are unremarkable. IMPRESSION: 1. No acute osseous abnormality. Reviewed, dictated and finalized at location B.
--- NOTE | ~2023-07-27 | XR_ITS ---
EXAMINATION: XR chest 1V portable DATE: 07/27/2023 17:22 INDICATION: Dementia. Fall. TECHNIQUE: A single frontal view of the chest was obtained. COMPARISON: Chest single view 02/22/2023 FINDINGS: There is mild elevation of right hemidiaphragm. There is mild atelectasis in left mid and l ower lung zones. There is a diffuse interstitial pattern, consistent mild pulmonary edema. No pleural effusion or pneumothorax. Cardiomegaly is noted. IMPRESSION: 1. Mild pulmonary edema. 2. Cardiomegaly. Reviewed, dictated and finalized at location E.
--- NOTE | ~2023-07-27 | US_ITS ---
EXAMINATION: US venous doppler LE RT DATE: 07/31/2023 13:11 INDICATION: Right lower limb pain TECHNIQUE: Bailey scale images without and with compression and Doppler images of the right lower extre mity veins were obtained. COMPARISON: None FINDINGS: The right common femoral vein, profunda femoral vein, femoral vein, popliteal vein, peronea l trunk, posterior tibial veins, and greater saphenous vein are patent. IMPRESSION: 1. Patent right lower extremity veins. No evidence of deep venous thrombosis. Reviewed, dictated and finalized at location B.
--- NOTE | ~2023-07-27 | XR_ITS ---
EXAMINATION: XR hip RT 2V w AP pelvis INDICATION: Right hip pain TECHNIQUE: AP view of the pelvis and two views of the right hip are obtained on four radiographs. COMPARISON: 06/03/2021 FINDINGS: Bone alignment is normal. There is no fracture. There is moderate osteoarthritis of the hip s. A stimulator device projects over the right midabdomen and its lead appears to enter the left pelv is. Calcified atherosclerosis is noted. IMPRESSION: 1. No acute osseous abnormality. Reviewed, dictated and finalized at location B.
--- NOTE | 2023-07-27 16:54 | ECG_ITS ---
Measurements Intervals [place] Rate: 78 P: MA: 0 QRS: 25 QRSD: 79 T: 84 QT: 398 QTc: 456 Interpretive Statements ATRIAL FIBRILLATION LOW QRS VOLTAGE IN PRECORDIAL LEADS CANNOT RULE OUT SEPTAL INFARCT, AGE INDETERMINATE BORDERLINE ST-T WAVE ABNORMALITY- HIGH LATERAL LEADS ABNORMAL ECG COMPARED TO ECG 02/24/2023 12:32:09 NO SIGNIFICANT CHANGES Electronically Signed On 07-27-2023 17:14:41 CDT by Jerry Falk D.O.
--- NOTE | 2023-07-27 17:01 | ED.BACK ---
HPI - Back Pain/Injury General Chief Complaint: Back Pain/Injury <Symone Sherman PA-C - Last Filed: 07/27/23 20:46> Stated Complaint: Fall <Symone Sherman PA-C - Last Filed: 07/27/23 20:46> Time Seen by Provider: 07/27/23 16:10 <Symone Sherman PA-C - Last Filed: 07/27/23 20:46> History of Present Illness HPI Narrative: 78-year-old female with a history of atrial fibrillation, dyslipidemia, GERD, CVA. chronic anticoagulation on eliquis for a fib reports for evaluation after she sat on the ground was unable to stand up. Patient's at bedside provides history. States the patient normally ambulates with a walker, however was having difficulty today. She demanded to be taken to the [facility] to get her hair done. When the patient was trying to be transferred from the [facility] to the car from her wheelchair, she lowered herself to the ground and was unable to stand up. EMS was then called and the patient was transferred to the emergency department for further evaluation. The patient has chronic low back pain and right upper extremity pain which she is complaining of now. She denies other pain. No saddle anesthesia. She did not hit her head or lose consciousness. states it was not a true fall, she simply lowered herself to the ground and sat there for 15 minutes until EMS arrived. Patient denies fever, chest pain and vomiting. She is reporting dyspnea that is worse with exertion, better when sitting still. Denies cough or congestion. She is a suprapubic catheter in place. She is normally ANO x1-2 per the . states pt is at her baseline or better. Patient's states that he no longer feels like he is able to care for the patient. States the patient has been sent to outpatient rehab facilities multiple times without success. He would like to discuss possible [facility] placement. <Symone Sherman PA-C - Last Filed: 07/27/23 20:46> Related Data Home Medications: Home Medications Medication Instructions Recorded Confirmed oxybutynin chloride 5 mg tablet 5 mg PO TID PRN Bladder Spasms 09/02/22 07/28/23 nystatin 100,000 unit/gram topical 100,000 unit topical PRN PRN Skin 02/23/23 07/28/23 powder Irritation <Symone Sherman PA-C - Last Filed: 07/27/23 20:46> Allergies/Adverse Reactions: Allergies Allergy/AdvReac Type Severity Reaction Status Date / Time propoxyphene Allergy Severe HIVES Verified 07/22/23 15:14 clindamycin Allergy Unknown Unknown Verified 07/22/23 15:14 codeine Allergy Unknown HIVES but Verified 07/22/23 15:14 tolerates hydrocodone donepezil Allergy Unknown Unknown Verified 07/22/23 15:14 hydrochlorothiazide Allergy Unknown Skin Verified 07/22/23 15:14 Reaction latex Allergy Unknown SWELLING/RA Verified 07/22/23 15:14 SH lisinopril Allergy Unknown cough Verified 07/22/23 15:14 meloxicam Allergy Unknown ulcer Verified 07/22/23 15:14 olmesartan Allergy Unknown Unknown Verified 07/22/23 15:14 Penicillins Allergy Unknown Rash Verified 07/22/23 15:14 spironolactone Allergy Unknown hyperkalemi Verified 07/22/23 15:14 a amoxicillin AdvReac Unknown Nausea Verified 07/22/23 15:14 <Symone Sherman PA-C - Last Filed: 07/27/23 20:46> Review of Systems Review of Systems: CONSTITUTIONAL: Denies fever, chills EYES: Denies visual changes, redness, or discharge. ENT: Denies rhinorrhea, congestion, sore throat, or otalgia. CARDIOVASCULAR: Denies chest pain, palpitations, or edema. RESPIRATORY: Denies cough or dyspnea. GASTROINTESTINAL: See HPI GENITOURINARY: Denies dysuria or hematuria. SKIN: Denies rash or itching. MUSCULOSKELETAL: See HPI NEUROLOGIC: Denies headache, numbness, dizziness, or weakness. PSYCHIATRIC: Denies anxiety or depression. <Symone Sherman PA-C - Last Filed: 07/27/23 20:46> [facility] Past Medical History Medical History: Medical History (Updated 07/28/23 @ 00:53 by Emory Willoughby
[2023-07-27 18:08] LABS: Basophils Absolute Auto 0.1 K/mm3 (0.0-0.1); Basophils Percent Auto 0.4 % (0.2-1.2); Eosinophils Percent Auto 0.1 % (0-4.4); Hematocrit 40.5 % (37.0-47.0); Immature Granulocyte Absolute 0.04 K/mm3 (0.00-0.031); Immature Granulocyte Percent A 0.3 % (0-0.5); Lymphocytes Absolute Auto 1.53 K/mm3 (0.9-3.2); Lymphocytes Percent Auto 11.4 % (18.3-44.2); Mean Corpuscular HGB Conc 32.1 g/dl (32-36); Mean Corpuscular Hemoglobin 29.7 pg (26-34); Mean Corpuscular Volume 92.5 fl (80-100); Monocytes Absolute Auto 1.2 K/mm3 (0.1-0.6); Neutrophils Absolute Auto 10.6 K/mm3 (1.3-6.7); Neutrophils Percent Auto 78.8 % (45.5-73.1); Platelet Count Result 308 k/mm3 (150-375); Red Blood Count 4.38 M/mm3 (4.2-5.4); Red Cell Distribution Width 14.3 % (11.5-14.5); White Blood Count 13.5 K/mm3 (4.5-10.0)
[2023-07-27 18:24] LABS: INR 1.5; Prothrombin Time 18.9 Seconds (11.1-14.7)
[2023-07-27 18:25] LABS: Partial Thromboplastin Time 29.2 SECONDS (22.3-36.8)
[2023-07-27 18:37] LABS: NT Pro B Type Natriuretic Pept 3030 pg/mL (19.9-100)
[2023-07-27 18:51] LABS: Alanine Aminotransferase 14 U/L (6-35); Alkaline Phosphatase 111 U/L (38-126); Anion Gap 9 mmol/L (8-16); Aspartate Amino Transferase 20 U/L (14-36); Bilirubin,Total 0.8 mg/dL (0.2-1.3); Blood Urea Nitrogen 28 mg/dL (7-17); Calcium 9.3 mg/dL (8.4-10.2); Carbon Dioxide 25 mmol/L (22-30); Chloride 100 mmol/L (98-107); Estimated CRCL calculation 34 ml/min; Estimated Glomerular Filt Rate 48; Glucose 103 mg/dL (65-110); Lipase 73 U/L (23-300); Potassium 4.5 mmol/L (3.4-5.0); Sodium 134 mmol/L (137-145)
[2023-07-27 19:00] LABS: Troponin I 0.013 ng/mL (0.000-0.034)
[2023-07-27] MEDS: ACETAMINOPHEN 325 MG TABLET 650 MG PO (19:44)
[2023-07-27 20:10] LABS: Appearance Urine Cloudy (Clear); Bacteria Urine 1+ /hpf; Bilirubin Urine Negative (Negative); Blood Urine 3+ (Negative); Color Urine Yellow (Yellow); Glucose Urine UA Negative (Negative); Ketones Urine Trace mg/dL (Negative); Leukocyte Esterase Ur 2+ LEU/UL (Negative); Need Manual Microscopic Reviewed; Nitrate Urine Negative (Negative); Non Pathogenic Casts >20; Protein Urine 1+ mg/dL (Negative); Squamous Epithelial Cell Urine Occasional /hpf (Few); Urobilinogen Urine 0.2 mg/dL (<2.0); WBC Urine >100 /hpf
[2023-07-27 20:11] LABS: Add Urine Microscopic? YES
[2023-07-27] MEDS: SODIUM CHLORIDE 0.9% IV 500 ML 50 ML IV CONT (21:17)
[2023-07-27 21:21] LABS: Lactic Acid Reflex 1.1 mmol/L (0.7-2.0)
--- NOTE | 2023-07-27 22:50 | PM.IMHP ---
H&P: HPI History of Present Illness Date/Time: 07/27/23 22:50 Chief Complaint: patient got here for evaluation by her with the weakness and difficulty ambulating Narrative: She is a very pleasant morbidly obese lady with chronic medical issues who normally ambulates at home with a walker but she has been lately feeling weak with difficulty ambulating. She went to the [facility] to get her hair done with her and was unable to sit in the car on the way back and had to lower herself to the ground. EMS was called patient brought to the ER for evaluation. Workup was done which showed finding consistent with UTI. She has suprapubic catheter in place. believes he is no longer able to take care of the patient at home. She has been sent to multiple rehab facilities in the past without any permanent solution. We'll admit the patient to medical floor, start her on IV antibiotics and would involve care coordination for probable patient placement in group home. Review of Systems Review of Systems: she denies any chest pain, palpitations fever rigor chills, nausea vomiting, dizziness and loss of consciousness. All systems reviewed & are unremarkable except as noted in HPI and below PMFSH Past Medical History Medical History (Updated 07/28/23 @ 00:53 by Emory Baker MD) Abusive emotional relationship with Acute GI bleeding Acute UTI Arthritis At high risk for falls Atrial fibrillation with RVR Bacteremia Bilateral renal artery stenosis Bilateral renal artery stenosis noted on CTA evaluated at [facility] Dr. Farias December 2019. Cerebrovascular accident Evidence of old right basal ganglia and anterior limb right internal capsule infarcts. Cervical radiculopathy Chronic obstructive pulmonary disease Chronic tension-type headache, not intractable Degenerative disc disease Dementia Discitis of lumbar region Diverticulitis large intestine Diverticulosis of colon Dyskinesia of esophagus Dyslipidemia Encephalopathy Essential (primary) hypertension Gastroesophageal reflux disease Hereditary and idiopathic neuropathy, unspecified Hypertension Hypertensive urgency Impaired ambulation Major depressive disorder, single episode, unspecified Moderate pulmonary arterial systolic hypertension Echocardiogram April 2020: EF 60-65%, normal diastolic function, atrial fibrillation, moderate left atrial enlargement, moderate to severe tricuspid valve regurgitation moderate pulmonary hypertension with RVSP of 54 Obesity (BMI 30.0-34.9) Obstructive sleep apnea (adult) (pediatric) Osteoporosis Overactive bladder Pancreatitis Peripheral neuropathy Persistent atrial fibrillation Pneumonia Pneumonia due to COVID-19 virus 09/08/2020 treated with Remdesivir and dexamethasone and 1 unit of convalesant plasma. PUD (peptic ulcer disease) Radiculopathy, lumbar region Sepsis Sleep apnea Severe obstructive sleep apnea on polysomnogram October 2014 with recommended CPAP of 18. SMA stenosis Suprapubic catheter dysfunction Total urinary incontinence Transient ischemic attack Ulcer Urinary retention with incomplete bladder emptying Urinary tract infection associated with cystostomy catheter UTI (urinary tract infection) UTI (urinary tract infection) due to urinary indwelling catheter Vascular dementia with behavior disturbance Surgical History Surgical History History of appendectomy History of bilateral carpal tunnel release History of bladder suspension procedure History of bunionectomy of both great toes History of cataract extraction History of cholecystectomy History of hysterectomy History of orthopedic surgery Bilateral heel spur removal. History of spinal surgery Presence of suprapubic catheter (05/27/21) Family History Family History Father Diabetes mellitus Hypertension Cerebrovascular
--- NOTE | 2023-07-27 23:16 | PC.NURSE ---
report and care given to BRENT Freeman. all questions answered.
--- NOTE | 2023-07-27 23:23 | PC.NURSE ---
unable to obtain and accurate bp. mannual bp were recorded
[2023-07-28] VITALS (9 sets, daily range): BP systolic 123–154; BP diastolic 68–105; PULSE 60–114; RESP 14–24; TEMP 36.2–36.7; O2SAT 90–96; BMI 39.5
[2023-07-28 06:34] LABS: Basophils Percent Auto 0.5 % (0.2-1.2); Eosinophils Absolute Auto 0.1 K/mm3 (0-0.3); Hematocrit 41.1 % (37.0-47.0); Hemoglobin 13.2 g/dL (12.0-15.0); Immature Granulocyte Absolute 0.04 K/mm3 (0.00-0.031); Immature Granulocyte Percent A 0.5 % (0-0.5); Lymphocytes Absolute Auto 1.88 K/mm3 (0.9-3.2); Lymphocytes Percent Auto 22.8 % (18.3-44.2); Mean Corpuscular HGB Conc 32.1 g/dl (32-36); Mean Corpuscular Hemoglobin 29.4 pg (26-34); Mean Corpuscular Volume 91.5 fl (80-100); Mean Platelet Volume 9.8 fl (7.4-10.4); Monocytes Absolute Auto 0.8 K/mm3 (0.1-0.6); Monocytes Percent Auto 9.6 % (2.6-8.5); Neutrophils Absolute Auto 5.4 K/mm3 (1.3-6.7); Neutrophils Percent Auto 65.6 % (45.5-73.1); Platelet Count Result 292 k/mm3 (150-375); Red Blood Count 4.49 M/mm3 (4.2-5.4); Red Cell Distribution Width 14.3 % (11.5-14.5); White Blood Count 8.2 K/mm3 (4.5-10.0)
[2023-07-28 06:42] LABS: Anion Gap 4 mmol/L (8-16); Blood Urea Nitrogen 19 mg/dL (7-17); Calcium 8.9 mg/dL (8.4-10.2); Carbon Dioxide 29 mmol/L (22-30); Chloride 104 mmol/L (98-107); Estimated CRCL calculation 50 ml/min; Estimated Glomerular Filt Rate > 60; Glucose 105 mg/dL (65-110); Magnesium 2.4 mg/dL (1.6-2.3); Phosphorus 3.4 mg/dL (2.5-4.5); Potassium 3.5 mmol/L (3.4-5.0); Sodium 137 mmol/L (137-145)
[2023-07-28] MEDS: APIXABAN 5 MG TABLET PO ×2 (09:22→21:39)
[2023-07-28] MEDS: busPIRone HCL 2.5 MG TABLET PO ×2 (09:23→17:13)
[2023-07-28] MEDS: busPIRone HCL 5 MG TABLET PO ×2 (09:23→17:13)
[2023-07-28] MEDS: QUEtiapine FUMARATE 25 MG TABLET PO ×2 (09:23→17:13)
[2023-07-28] MEDS: METOPROLOL TARTRATE 50 MG TAB PO ×2 (09:23→21:40)
[2023-07-28] MEDS: DULoxetine HCL 60 MG CAPSULE.DR PO (09:23)
[2023-07-28] MEDS: THIAMINE HCL 100 MG TABLET PO (09:23)
[2023-07-28] MEDS: ASCORBIC ACID 500 MG TABLET PO (09:23)
--- NOTE | 2023-07-28 11:28 | PM.IMPN ---
Progress Note: A&P Assessment and Plan (1) GERD (gastroesophageal reflux disease): Code(s): K21.9 - Gastro-esophageal reflux disease without esophagitis Status: Chronic (2) Dyslipidemia: Code(s): E78.5 - Hyperlipidemia, unspecified Status: Acute (3) Atrial fibrillation: Code(s): I48.91 - Unspecified atrial fibrillation Status: Acute (4) CHF (congestive heart failure): Onset Date: Unknown Qualifiers: Heart failure chronicity: acute on chronic Heart failure type: diastolic Qualified Code(s): I50.33 - Acute on chronic diastolic (congestive) heart failure Code(s): I50.9 - Heart failure, unspecified Status: Acute (5) Presence of suprapubic catheter: Onset Date: 05/27/21 Code(s): Z93.59 - Other cystostomy status Status: Acute (6) Cerebrovascular accident: Code(s): I63.9 - Cerebral infarction, unspecified Status: Acute (7) Obstructive sleep apnea on CPAP: Code(s): G47.33 - Obstructive sleep apnea (adult) (pediatric); Z99.89 - Dependence on other enabling machines and devices Status: Acute (8) UTI due to extended-spectrum beta lactamase (ESBL) producing Escherichia coli: Code(s): N39.0 - Urinary tract infection, site not specified; B96.29 - Other Escherichia coli [E. coli] as the cause of diseases classified elsewhere; Z16.12 - Extended spectrum beta lactamase (ESBL) resistance Status: Acute (9) Generalized weakness: Code(s): R53.1 - Weakness Status: Acute (10) Impaired ambulation: Code(s): R26.2 - Difficulty in walking, not elsewhere classified Status: Acute (11) At high risk for falls: Code(s): Z91.81 - History of falling Status: Acute Plan Patient has findings consistent with UTI with leukocytosis Patient has the history of ESBL UTI with sensitivities only to carbapenems. Continue meropenem Follow-up on Blood and urine cultures sent from the ER PT/OT evaluation ordered Care coordination consult for discharge planning to long term once patient is medically stable Time Spent With Patient Time: 42 minutes Time with patient: Greater than 35 minutes Subjective Date/time seen: 07/28/23 11:28 Interval history: Patient reports some weakness. No other complaints Review of Systems Review of Systems: she denies any chest pain, palpitations fever rigor chills, nausea vomiting, dizziness and loss of consciousness. All systems reviewed & are unremarkable except as noted in HPI and below Exam Narrative: PHYSICAL EXAMINATION: Vital signs: Please see the chart General physical exam: morbidly obese female, feeling weak tired fatigued, interacting well with the and nursing staff Head/eyes: Atraumatic, EOMI, PERRLA ENT: Moist mucous membranes, nasal passages clear Neck: Supple, full range of motion, trachea midline CVS: S1 + S2 + 0, regular rate and rhythm, no murmurs Respiratory: Bilaterally decreased air entry in both lung garcia, mild B/L crackles, symmetric chest expansion, no distress Abdomen: Soft, non-tender, bowel sounds +ve, no organomegaly Extremities: No clubbing, no cyanosis, +1 bilateral pitting edema, no calf tenderness Musculoskeletal: Moves all, decreased range of motion, no muscle spasms Skin: Warm, dry, no jaundice, no cyanosis Neurological: Awake, alert, oriented x 3, cranial nerves II-XII intact, no focal neurological deficits Psychiatric: Normal mood, non suicidal Objective Data Vital Signs Vital Signs: Vital Signs - 24 hr 07/27/23 15:37 07/27/23 15:56 07/27/23 16:06 Temperature 98.9 F 97.5 F L Pulse Rate 109 H 103 H 92 Respiratory Rate 17 23 H 23 H Blood Pressure 128/68 118/76 Pulse Oximetry 94 95 Oxygen Delivery Room Air 07/27/23 16:58 07/27/23 19:40 07/27/23 20:16 Temperature Pulse Rate 94 87 98 Respiratory Rate 13 26 H 14 Blood Pressure 138/88 Pulse Oximetry 98 98 98 Oxygen Del
[2023-07-28] MEDS: MEROPENEM 1 GM/NS 100 ML 1 GM/100 ML BAG IVPB ×2 (17:12→23:27)
[2023-07-28] MEDS: ATORVASTATIN 20 MG TABLET PO (21:39)
[2023-07-29] VITALS (9 sets, daily range): BP systolic 122–153; BP diastolic 65–93; PULSE 65–85; RESP 14–24; TEMP 35.9–36.7; O2SAT 91–95
[2023-07-29] MEDS: MEROPENEM 1 GM/NS 100 ML 1 GM/100 ML BAG IVPB ×2 (08:23→16:11)
[2023-07-29] MEDS: busPIRone HCL 2.5 MG TABLET PO ×2 (08:24→16:12)
[2023-07-29] MEDS: THIAMINE HCL 100 MG TABLET PO (08:24)
[2023-07-29] MEDS: ASCORBIC ACID 500 MG TABLET PO (08:24)
[2023-07-29] MEDS: DULoxetine HCL 60 MG CAPSULE.DR PO (08:24)
[2023-07-29] MEDS: METOPROLOL TARTRATE 50 MG TAB PO ×2 (08:24→20:47)
[2023-07-29] MEDS: busPIRone HCL 5 MG TABLET PO ×2 (08:24→16:12)
[2023-07-29] MEDS: APIXABAN 5 MG TABLET PO ×2 (08:25→20:43)
[2023-07-29] MEDS: QUEtiapine FUMARATE 25 MG TABLET PO ×3 (08:25→16:12)
--- NOTE | 2023-07-29 10:17 | PM.IMPN ---
Progress Note: A&P Assessment and Plan (1) GERD (gastroesophageal reflux disease): Code(s): K21.9 - Gastro-esophageal reflux disease without esophagitis Status: Chronic (2) Dyslipidemia: Code(s): E78.5 - Hyperlipidemia, unspecified Status: Acute (3) Atrial fibrillation: Code(s): I48.91 - Unspecified atrial fibrillation Status: Acute (4) CHF (congestive heart failure): Onset Date: Unknown Qualifiers: Heart failure chronicity: acute on chronic Heart failure type: diastolic Qualified Code(s): I50.33 - Acute on chronic diastolic (congestive) heart failure Code(s): I50.9 - Heart failure, unspecified Status: Acute (5) Presence of suprapubic catheter: Onset Date: 05/27/21 Code(s): Z93.59 - Other cystostomy status Status: Acute (6) Cerebrovascular accident: Code(s): I63.9 - Cerebral infarction, unspecified Status: Acute (7) Obstructive sleep apnea on CPAP: Code(s): G47.33 - Obstructive sleep apnea (adult) (pediatric); Z99.89 - Dependence on other enabling machines and devices Status: Acute (8) UTI due to extended-spectrum beta lactamase (ESBL) producing Escherichia coli: Code(s): N39.0 - Urinary tract infection, site not specified; B96.29 - Other Escherichia coli [E. coli] as the cause of diseases classified elsewhere; Z16.12 - Extended spectrum beta lactamase (ESBL) resistance Status: Acute (9) Generalized weakness: Code(s): R53.1 - Weakness Status: Acute (10) Impaired ambulation: Code(s): R26.2 - Difficulty in walking, not elsewhere classified Status: Acute (11) At high risk for falls: Code(s): Z91.81 - History of falling Status: Acute Plan Patient has findings consistent with UTI with leukocytosis Patient has the history of ESBL UTI with sensitivities only to carbapenems. Continue meropenem Follow-up on Blood and urine cultures sent from the ER PT/OT evaluation ordered Care coordination consult for discharge planning to shelter once patient is medically stable Time Spent With Patient Time: 42 minutes Time with patient: Greater than 35 minutes Subjective Date/time seen: 07/29/23 10:17 Interval history: generalized weakness. Hard of hearing Review of Systems Review of Systems: All systems reviewed & are unremarkable except as noted in HPI and below Exam Narrative: General physical exam: morbidly obese female, feeling weak tired fatigued Head/eyes: Atraumatic, EOMI, PERRLA ENT: Moist mucous membranes, nasal passages clear Neck: Supple, full range of motion, trachea midline CVS: S1 + S2 + 0, regular rate and rhythm, no murmurs Respiratory: Bilaterally decreased air entry in both lung garcia, mild B/L crackles, symmetric chest expansion, no distress Abdomen: Soft, non-tender, bowel sounds +ve, no organomegaly Extremities: No clubbing, no cyanosis, +1 bilateral pitting edema, no calf tenderness Musculoskeletal: Moves all, decreased range of motion, no muscle spasms Skin: Warm, dry, no jaundice, no cyanosis Neurological: Awake, alert, oriented x 3, cranial nerves II-XII intact, no focal neurological deficits Psychiatric: Normal mood, non suicidal Objective Data Vital Signs Vital Signs: Vital Signs - 24 hr 07/28/23 14:00 07/28/23 16:00 07/28/23 20:00 Temperature 98.0 F 98.0 F 98 F Pulse Rate 92 70 72 Respiratory Rate 14 14 24 H Blood Pressure 123/73 137/91 H 123/72 Pulse Oximetry 90 96 93 Oxygen Delivery 07/28/23 21:40 07/28/23 20:00 07/29/23 00:00 Temperature 97.5 F L Pulse Rate 88 65 Respiratory Rate 24 H Blood Pressure 127/80 Pulse Oximetry 93 Oxygen Delivery Room Air 07/29/23 04:00 07/29/23 08:24 07/29/23 08:00 Temperature 96.9 F L 96.6 F L Pulse Rate 82 80 79 Respiratory Rate 22 H 14 Blood Pressure 125/83 153/86 H Pulse Oximetry 95 93 Oxygen Delivery Intake/Output Intake/
[2023-07-29] MEDS: ATORVASTATIN 20 MG TABLET PO (20:44)
[2023-07-30] VITALS (9 sets, daily range): BP systolic 112–165; BP diastolic 61–93; PULSE 70–103; RESP 16–18; TEMP 36.2–37.1; O2SAT 92–96
[2023-07-30] MEDS: MEROPENEM 1 GM/NS 100 ML 1 GM/100 ML BAG IVPB ×4 (08:29→23:55)
[2023-07-30] MEDS: ACETAMINOPHEN 325 MG TABLET 650 MG PO ×2 (08:40→15:53)
[2023-07-30] MEDS: APIXABAN 5 MG TABLET PO ×2 (08:40→21:05)
[2023-07-30] MEDS: DULoxetine HCL 60 MG CAPSULE.DR PO (08:40)
[2023-07-30] MEDS: busPIRone HCL 2.5 MG TABLET PO ×2 (08:44→16:53)
[2023-07-30] MEDS: METOPROLOL TARTRATE 50 MG TAB PO ×2 (08:44→21:06)
[2023-07-30] MEDS: QUEtiapine FUMARATE 25 MG TABLET PO ×3 (08:44→16:52)
[2023-07-30] MEDS: busPIRone HCL 5 MG TABLET PO ×2 (08:44→16:53)
[2023-07-30] MEDS: ASCORBIC ACID 500 MG TABLET PO (08:45)
[2023-07-30] MEDS: THIAMINE HCL 100 MG TABLET PO (08:45)
--- NOTE | 2023-07-30 18:02 | PM.IMPN ---
Progress Note: A&P Assessment and Plan (1) GERD (gastroesophageal reflux disease): Code(s): K21.9 - Gastro-esophageal reflux disease without esophagitis Status: Chronic (2) Dyslipidemia: Code(s): E78.5 - Hyperlipidemia, unspecified Status: Acute (3) Atrial fibrillation: Code(s): I48.91 - Unspecified atrial fibrillation Status: Acute (4) CHF (congestive heart failure): Onset Date: Unknown Qualifiers: Heart failure chronicity: acute on chronic Heart failure type: diastolic Qualified Code(s): I50.33 - Acute on chronic diastolic (congestive) heart failure Code(s): I50.9 - Heart failure, unspecified Status: Acute (5) Presence of suprapubic catheter: Onset Date: 05/27/21 Code(s): Z93.59 - Other cystostomy status Status: Acute (6) Cerebrovascular accident: Code(s): I63.9 - Cerebral infarction, unspecified Status: Acute (7) Obstructive sleep apnea on CPAP: Code(s): G47.33 - Obstructive sleep apnea (adult) (pediatric); Z99.89 - Dependence on other enabling machines and devices Status: Acute (8) UTI due to extended-spectrum beta lactamase (ESBL) producing Escherichia coli: Code(s): N39.0 - Urinary tract infection, site not specified; B96.29 - Other Escherichia coli [E. coli] as the cause of diseases classified elsewhere; Z16.12 - Extended spectrum beta lactamase (ESBL) resistance Status: Acute (9) Generalized weakness: Code(s): R53.1 - Weakness Status: Acute (10) Impaired ambulation: Code(s): R26.2 - Difficulty in walking, not elsewhere classified Status: Acute (11) At high risk for falls: Code(s): Z91.81 - History of falling Status: Acute Plan Patient presented with generalized weakness. Workup revealed UTI she has suprapubic catheter in place. WBC count 13.5 on admission troponin negative LFTs normal UA positive for UTI. History of ESBL UTI on this sensitive to imipenem and Bactrim DS. Started on meropenem History of CHF elevated proBNP at 3030 PT OT ordered Atrial fibrillation Dyslipidemia COPD Degenerative disc disease Dementia Hypertension Depression Moderate to severe tricuspid regurgitation Moderate pulmonary hypertension HIRAM Peripheral neuropathy Sleep apnea unknown if on CPAP GERD CVA Chronic anticoagulation on Eliquis Failure to thrive DVT prophylaxis on Eliquis Code status full code Subjective Date/time seen: 07/30/23 18:02 Interval history: No new complaints chart reviewed. Denies any new complaints. No fever chills shortness of breath very hard of hearing Review of Systems Review of Systems: All systems reviewed & are unremarkable except as noted in HPI and below Exam Narrative: General physical exam: morbidly obese female, not in acute distress Head/eyes: Atraumatic, EOMI, PERRLA Neck: Supple, full range of motion, trachea midline CVS: S1 + S2 + 0, regular rate and rhythm, no murmurs Respiratory: Bilaterally decreased air entry in both lung garcia, mild B/L crackles, symmetric chest expansion, no distress Abdomen: Soft, non-tender, bowel sounds +ve, no organomegaly Extremities: No clubbing, no cyanosis, +1 bilateral pitting edema, no calf tenderness Musculoskeletal: Moves all, decreased range of motion, no muscle spasms Skin: Warm, dry, no jaundice, no cyanosis Neurological: Awake, alert, oriented x 3, cranial nerves II-XII intact, no focal neurological deficits Psychiatric: Normal mood, non suicidal Objective Data Vital Signs Vital Signs: Vital Signs - 24 hr 07/29/23 20:00 07/29/23 20:47 07/29/23 23:17 Temperature 97.1 F L 97.4 F L Pulse Rate 75 85 80 Respiratory Rate 18 16 Blood Pressure 127/79 144/93 H Pulse Oximetry 95 93 Oxygen Delivery 07/29/23 20:00 07/30/23 00:48 07/30/23 03:57 Temperature 98.8 F Pulse Rate 80 83 97 Respiratory Rate 16 18 Blood Pressure 136/86 140/86 Pulse O
[2023-07-30] MEDS: ATORVASTATIN 20 MG TABLET PO (21:05)
[2023-07-31] VITALS (9 sets, daily range): BP systolic 132–169; BP diastolic 66–97; PULSE 60–91; RESP 16–20; TEMP 36.2–36.4; O2SAT 93–98
[2023-07-31] MEDS: ACETAMINOPHEN 325 MG TABLET 650 MG PO ×2 (00:03→10:15)
[2023-07-31 07:36] LABS: Basophils Percent Auto 0.6 % (0.2-1.2); Eosinophils Absolute Auto 0.1 K/mm3 (0-0.3); Eosinophils Percent Auto 2.1 % (0-4.4); Hematocrit 41.9 % (37.0-47.0); Hemoglobin 13.2 g/dL (12.0-15.0); Immature Granulocyte Absolute 0.01 K/mm3 (0.00-0.031); Immature Granulocyte Percent A 0.2 % (0-0.5); Lymphocytes Absolute Auto 1.69 K/mm3 (0.9-3.2); Lymphocytes Percent Auto 27.2 % (18.3-44.2); Mean Corpuscular HGB Conc 31.5 g/dl (32-36); Mean Corpuscular Hemoglobin 29.7 pg (26-34); Mean Corpuscular Volume 94.4 fl (80-100); Mean Platelet Volume 9.8 fl (7.4-10.4); Monocytes Absolute Auto 0.7 K/mm3 (0.1-0.6); Monocytes Percent Auto 11.3 % (2.6-8.5); Neutrophils Absolute Auto 3.7 K/mm3 (1.3-6.7); Neutrophils Percent Auto 58.6 % (45.5-73.1); Platelet Count Result 273 k/mm3 (150-375); Red Blood Count 4.44 M/mm3 (4.2-5.4); Red Cell Distribution Width 14.4 % (11.5-14.5); White Blood Count 6.2 K/mm3 (4.5-10.0)
[2023-07-31 07:59] LABS: Alanine Aminotransferase 17 U/L (6-35); Albumin Level 3.8 g/dL (3.5-5.1); Alkaline Phosphatase 102 U/L (38-126); Anion Gap 9 mmol/L (8-16); Aspartate Amino Transferase 29 U/L (14-36); Bilirubin,Total 0.8 mg/dL (0.2-1.3); Blood Urea Nitrogen 13 mg/dL (7-17); Calcium 8.8 mg/dL (8.4-10.2); Carbon Dioxide 27 mmol/L (22-30); Chloride 104 mmol/L (98-107); Estimated CRCL calculation 57 ml/min; Estimated Glomerular Filt Rate > 60; Glucose 101 mg/dL (65-110); Magnesium 2.4 mg/dL (1.6-2.3); Potassium 4.1 mmol/L (3.4-5.0); Sodium 140 mmol/L (137-145)
[2023-07-31] MEDS: MEROPENEM 1 GM/NS 100 ML 1 GM/100 ML BAG IVPB (09:08)
[2023-07-31] MEDS: METOPROLOL TARTRATE 50 MG TAB PO ×2 (09:10→21:00)
[2023-07-31] MEDS: THIAMINE HCL 100 MG TABLET PO (09:10)
[2023-07-31] MEDS: QUEtiapine FUMARATE 25 MG TABLET PO ×3 (09:10→17:15)
[2023-07-31] MEDS: DULoxetine HCL 60 MG CAPSULE.DR PO (09:10)
[2023-07-31] MEDS: busPIRone HCL 5 MG TABLET PO ×2 (09:10→17:15)
[2023-07-31] MEDS: ASCORBIC ACID 500 MG TABLET PO (09:10)
[2023-07-31] MEDS: busPIRone HCL 2.5 MG TABLET PO ×2 (09:10→17:15)
[2023-07-31] MEDS: APIXABAN 5 MG TABLET PO ×2 (09:10→20:59)
[2023-07-31] MEDS: TOLNAFTATE 1% POWDER 45 GM BTL 1 APPLIC TOPICAL (10:17)
[2023-07-31] MEDS: ERTAPENEM 1 GM/NS 50 ML 1 GM/50 ML BAG IVPB (13:30)
--- NOTE | 2023-07-31 15:11 | PM.IMPN ---
Progress Note: A&P Assessment and Plan (1) GERD (gastroesophageal reflux disease): Code(s): K21.9 - Gastro-esophageal reflux disease without esophagitis Status: Chronic (2) Dyslipidemia: Code(s): E78.5 - Hyperlipidemia, unspecified Status: Acute (3) Atrial fibrillation: Code(s): I48.91 - Unspecified atrial fibrillation Status: Acute (4) CHF (congestive heart failure): Onset Date: Unknown Qualifiers: Heart failure chronicity: acute on chronic Heart failure type: diastolic Qualified Code(s): I50.33 - Acute on chronic diastolic (congestive) heart failure Code(s): I50.9 - Heart failure, unspecified Status: Acute (5) Presence of suprapubic catheter: Onset Date: 05/27/21 Code(s): Z93.59 - Other cystostomy status Status: Acute (6) Cerebrovascular accident: Code(s): I63.9 - Cerebral infarction, unspecified Status: Acute (7) Obstructive sleep apnea on CPAP: Code(s): G47.33 - Obstructive sleep apnea (adult) (pediatric); Z99.89 - Dependence on other enabling machines and devices Status: Acute (8) UTI due to extended-spectrum beta lactamase (ESBL) producing Escherichia coli: Code(s): N39.0 - Urinary tract infection, site not specified; B96.29 - Other Escherichia coli [E. coli] as the cause of diseases classified elsewhere; Z16.12 - Extended spectrum beta lactamase (ESBL) resistance Status: Acute (9) Generalized weakness: Code(s): R53.1 - Weakness Status: Acute (10) Impaired ambulation: Code(s): R26.2 - Difficulty in walking, not elsewhere classified Status: Acute (11) At high risk for falls: Code(s): Z91.81 - History of falling Status: Acute Plan Patient presented with generalized weakness. Workup revealed UTI she has suprapubic catheter in place. WBC count 13.5 on admission troponin negative LFTs normal UA positive for UTI. History of ESBL UTI on this sensitive to imipenem and Bactrim DS. Started on meropenem with switched to ertapenem for discharge planning empirically treat for ESBL related UTI the urine cultures been negative. Will complete the course with 7 days course History of CHF elevated proBNP at 3030 PT OT ordered right lower extremity movement is painful. Will get x-rays to rule out any fracture. Will also get venous duplex to rule out DVT Atrial fibrillation Dyslipidemia COPD Degenerative disc disease Dementia Hypertension Depression Moderate to severe tricuspid regurgitation Moderate pulmonary hypertension HIRAM Peripheral neuropathy Sleep apnea unknown if on CPAP GERD CVA Chronic anticoagulation on Eliquis Failure to thrive DVT prophylaxis on Eliquis Code status full code Subjective Date/time seen: 07/31/23 15:11 Interval history: Complains of pain and difficulty moving right lower extremity. Discussed with therapy. No other complaints. Review of Systems Review of Systems: All systems reviewed & are unremarkable except as noted in HPI and below Exam Narrative: General physical exam: morbidly obese female, not in acute distress Head/eyes: Atraumatic, EOMI, PERRLA Neck: Supple, full range of motion, trachea midline CVS: S1 + S2 + 0, regular rate and rhythm, no murmurs Respiratory: Bilaterally decreased air entry in both lung garcia, mild B/L crackles, symmetric chest expansion, no distress Abdomen: Soft, non-tender, bowel sounds +ve, no organomegaly Extremities: No clubbing, no cyanosis, +1 bilateral pitting edema, no calf tenderness Musculoskeletal: Moves all, decreased range of motion, no muscle spasms Right lower extremity sensitive to touch and painful movement Skin: Warm, dry, no jaundice, no cyanosis Neurological: Awake, alert, oriented x 3, cranial nerves II-XII intact, no focal neurological deficits Psychiatric: Normal mood, non suicidal Objective Data Vital Signs Vital Signs: Vital Signs - 24 hr 07/30/23
[2023-07-31] MEDS: ATORVASTATIN 20 MG TABLET PO (21:00)
[2023-08-01] VITALS (10 sets, daily range): BP systolic 125–163; BP diastolic 77–108; PULSE 66–103; RESP 16–20; TEMP 35.7–36.4; O2SAT 92–95
[2023-08-01] MEDS: ASCORBIC ACID 500 MG TABLET PO (09:41)
[2023-08-01] MEDS: QUEtiapine FUMARATE 25 MG TABLET PO ×3 (09:41→17:14)
[2023-08-01] MEDS: THIAMINE HCL 100 MG TABLET PO (09:41)
[2023-08-01] MEDS: DULoxetine HCL 60 MG CAPSULE.DR PO (09:41)
[2023-08-01] MEDS: METOPROLOL TARTRATE 50 MG TAB PO ×2 (09:41→20:26)
[2023-08-01] MEDS: APIXABAN 5 MG TABLET PO ×2 (09:41→20:26)
[2023-08-01] MEDS: busPIRone HCL 5 MG TABLET PO ×2 (09:41→17:15)
[2023-08-01] MEDS: busPIRone HCL 2.5 MG TABLET PO ×2 (09:41→17:15)
--- NOTE | 2023-08-01 13:18 | PM.IMPN ---
Progress Note: A&P Assessment and Plan (1) GERD (gastroesophageal reflux disease): Code(s): K21.9 - Gastro-esophageal reflux disease without esophagitis Status: Chronic (2) Dyslipidemia: Code(s): E78.5 - Hyperlipidemia, unspecified Status: Acute (3) Atrial fibrillation: Code(s): I48.91 - Unspecified atrial fibrillation Status: Acute (4) CHF (congestive heart failure): Onset Date: Unknown Qualifiers: Heart failure chronicity: acute on chronic Heart failure type: diastolic Qualified Code(s): I50.33 - Acute on chronic diastolic (congestive) heart failure Code(s): I50.9 - Heart failure, unspecified Status: Acute (5) Presence of suprapubic catheter: Onset Date: 05/27/21 Code(s): Z93.59 - Other cystostomy status Status: Acute (6) Cerebrovascular accident: Code(s): I63.9 - Cerebral infarction, unspecified Status: Acute (7) Obstructive sleep apnea on CPAP: Code(s): G47.33 - Obstructive sleep apnea (adult) (pediatric); Z99.89 - Dependence on other enabling machines and devices Status: Acute (8) UTI due to extended-spectrum beta lactamase (ESBL) producing Escherichia coli: Code(s): N39.0 - Urinary tract infection, site not specified; B96.29 - Other Escherichia coli [E. coli] as the cause of diseases classified elsewhere; Z16.12 - Extended spectrum beta lactamase (ESBL) resistance Status: Acute (9) Generalized weakness: Code(s): R53.1 - Weakness Status: Acute (10) Impaired ambulation: Code(s): R26.2 - Difficulty in walking, not elsewhere classified Status: Acute (11) At high risk for falls: Code(s): Z91.81 - History of falling Status: Acute Plan Patient presented with generalized weakness. Workup revealed UTI she has suprapubic catheter in place. WBC count 13.5 on admission troponin negative LFTs normal UA positive for UTI. History of ESBL UTI on this sensitive to imipenem and Bactrim DS. Started on meropenem with switched to ertapenem for discharge planning empirically treat for ESBL related UTI the urine cultures been negative. Will complete the course with 7 days course, day 5 today History of CHF elevated proBNP at 3030 PT OT ordered right lower extremity movement is painful. X-rays negative for fractures venous duplex negative for DVT Atrial fibrillation Dyslipidemia COPD Degenerative disc disease Dementia Hypertension Depression Moderate to severe tricuspid regurgitation Moderate pulmonary hypertension HIRAM Peripheral neuropathy Sleep apnea unknown if on CPAP GERD CVA Chronic anticoagulation on Eliquis Failure to thrive DVT prophylaxis on Eliquis Code status full code Subjective Date/time seen: 08/01/23 13:18 Interval history: Reports right lower extremity pain is better and moving better today. Review of Systems Review of Systems: All systems reviewed & are unremarkable except as noted in HPI and below Exam Narrative: General physical exam: morbidly obese female, not in acute distress Head/eyes: Atraumatic, EOMI, PERRLA Neck: Supple, full range of motion, trachea midline CVS: S1 + S2 + 0, regular rate and rhythm, no murmurs Respiratory: Bilaterally decreased air entry in both lung garcia, mild B/L crackles, symmetric chest expansion, no distress Abdomen: Soft, non-tender, bowel sounds +ve, no organomegaly Extremities: No clubbing, no cyanosis, +1 bilateral pitting edema, no calf tenderness Musculoskeletal: Moves all, decreased range of motion, no muscle spasms Right lower extremity sensitive to touch and painful movement Skin: Warm, dry, no jaundice, no cyanosis Neurological: Awake, alert, oriented x 3, cranial nerves II-XII intact, no focal neurological deficits Psychiatric: Normal mood, non suicidal Objective Data Vital Signs Vital Signs: Vital Signs - 24 hr 07/31/23 15:55 07/31/23 20:00 07/31/23 21:00 Temperature
[2023-08-01] MEDS: ERTAPENEM 1 GM/NS 50 ML 1 GM/50 ML BAG IVPB (13:24)
[2023-08-01] MEDS: ATORVASTATIN 20 MG TABLET PO (20:26)
[2023-08-02] VITALS (8 sets, daily range): BP systolic 123–145; BP diastolic 78–99; PULSE 84–99; RESP 17–28; TEMP 35.8–36.8; O2SAT 92–94
[2023-08-02] MEDS: busPIRone HCL 5 MG TABLET PO ×2 (09:04→17:07)
[2023-08-02] MEDS: busPIRone HCL 2.5 MG TABLET PO ×2 (09:04→17:07)
[2023-08-02] MEDS: THIAMINE HCL 100 MG TABLET PO (09:04)
[2023-08-02] MEDS: QUEtiapine FUMARATE 25 MG TABLET PO ×3 (09:04→17:07)
[2023-08-02] MEDS: APIXABAN 5 MG TABLET PO ×2 (09:04→20:42)
[2023-08-02] MEDS: ASCORBIC ACID 500 MG TABLET PO (09:04)
[2023-08-02] MEDS: DULoxetine HCL 60 MG CAPSULE.DR PO (09:05)
[2023-08-02] MEDS: METOPROLOL TARTRATE 50 MG TAB PO ×2 (09:05→20:42)
[2023-08-02 09:49] LABS: Basophils Percent Auto 0.5 % (0.2-1.2); Eosinophils Absolute Auto 0.2 K/mm3 (0-0.3); Eosinophils Percent Auto 1.9 % (0-4.4); Hematocrit 40.8 % (37.0-47.0); Immature Granulocyte Absolute 0.02 K/mm3 (0.00-0.031); Immature Granulocyte Percent A 0.3 % (0-0.5); Lymphocytes Percent Auto 22.6 % (18.3-44.2); Mean Corpuscular HGB Conc 31.9 g/dl (32-36); Mean Platelet Volume 9.8 fl (7.4-10.4); Monocytes Absolute Auto 0.4 K/mm3 (0.1-0.6); Monocytes Percent Auto 4.9 % (2.6-8.5); Neutrophils Absolute Auto 5.6 K/mm3 (1.3-6.7); Neutrophils Percent Auto 69.8 % (45.5-73.1); Platelet Count Result 316 k/mm3 (150-375); Red Blood Count 4.34 M/mm3 (4.2-5.4); Red Cell Distribution Width 14.2 % (11.5-14.5)
[2023-08-02 10:01] LABS: Anion Gap 10 mmol/L (8-16); Blood Urea Nitrogen 19 mg/dL (7-17); Calcium 8.9 mg/dL (8.4-10.2); Carbon Dioxide 25 mmol/L (22-30); Chloride 100 mmol/L (98-107); Estimated CRCL calculation 50 ml/min; Estimated Glomerular Filt Rate > 60; Glucose 151 mg/dL (65-110); Magnesium 2.4 mg/dL (1.6-2.3); Potassium 3.9 mmol/L (3.4-5.0); Sodium 135 mmol/L (137-145)
[2023-08-02] MEDS: ERTAPENEM 1 GM/NS 50 ML 1 GM/50 ML BAG IVPB (11:08)
--- NOTE | 2023-08-02 11:58 | PM.IMPN ---
Progress Note: A&P Assessment and Plan (1) GERD (gastroesophageal reflux disease): Code(s): K21.9 - Gastro-esophageal reflux disease without esophagitis Status: Chronic (2) Dyslipidemia: Code(s): E78.5 - Hyperlipidemia, unspecified Status: Acute (3) Atrial fibrillation: Code(s): I48.91 - Unspecified atrial fibrillation Status: Acute (4) CHF (congestive heart failure): Onset Date: Unknown Qualifiers: Heart failure chronicity: acute on chronic Heart failure type: diastolic Qualified Code(s): I50.33 - Acute on chronic diastolic (congestive) heart failure Code(s): I50.9 - Heart failure, unspecified Status: Acute (5) Presence of suprapubic catheter: Onset Date: 05/27/21 Code(s): Z93.59 - Other cystostomy status Status: Acute (6) Cerebrovascular accident: Code(s): I63.9 - Cerebral infarction, unspecified Status: Acute (7) Obstructive sleep apnea on CPAP: Code(s): G47.33 - Obstructive sleep apnea (adult) (pediatric); Z99.89 - Dependence on other enabling machines and devices Status: Acute (8) UTI due to extended-spectrum beta lactamase (ESBL) producing Escherichia coli: Code(s): N39.0 - Urinary tract infection, site not specified; B96.29 - Other Escherichia coli [E. coli] as the cause of diseases classified elsewhere; Z16.12 - Extended spectrum beta lactamase (ESBL) resistance Status: Acute (9) Generalized weakness: Code(s): R53.1 - Weakness Status: Acute (10) Impaired ambulation: Code(s): R26.2 - Difficulty in walking, not elsewhere classified Status: Acute (11) At high risk for falls: Code(s): Z91.81 - History of falling Status: Acute Plan Patient presented with generalized weakness. Workup revealed UTI she has suprapubic catheter in place. WBC count 13.5 on admission troponin negative LFTs normal UA positive for UTI. History of ESBL UTI on this sensitive to imipenem and Bactrim DS. Started on meropenem with switched to ertapenem for discharge planning empirically treat for ESBL related UTI the urine cultures been negative. Will complete the course with 7 days course, day 6 today History of CHF elevated proBNP at 3030 PT OT ordered right lower extremity movement is painful. X-rays negative for fractures venous duplex negative for DVT Atrial fibrillation Dyslipidemia COPD Degenerative disc disease Dementia Hypertension Depression Moderate to severe tricuspid regurgitation Moderate pulmonary hypertension HIRAM Peripheral neuropathy Sleep apnea unknown if on CPAP GERD CVA Chronic anticoagulation on Eliquis Failure to thrive DVT prophylaxis on Eliquis Code status full code Subjective Date/time seen: 08/02/23 11:58 Interval history: Patient emotional today. She states that her hung up the phone on her this morning. Right leg is improving pain is less no other complaints Review of Systems Review of Systems: All systems reviewed & are unremarkable except as noted in HPI and below Exam Narrative: General physical exam: morbidly obese female, not in acute distress most normal and tearful Head/eyes: Atraumatic, EOMI, PERRLA Neck: Supple, full range of motion, trachea midline CVS: S1 + S2 + 0, regular rate and rhythm, no murmurs Respiratory: Bilaterally decreased air entry in both lung garcia, mild B/L crackles, symmetric chest expansion, no distress Abdomen: Soft, non-tender, bowel sounds +ve, no organomegaly Extremities: No clubbing, no cyanosis, +1 bilateral pitting edema, no calf tenderness Musculoskeletal: Moves all, decreased range of motion, no muscle spasms Right lower extremity sensitive to touch and painful movement Skin: Warm, dry, no jaundice, no cyanosis Neurological: Awake, alert, oriented x 3, cranial nerves II-XII intact, no focal neurological deficits Psychiatric: tearful Objective Data Vital Signs Vital Signs:
[2023-08-02] MEDS: ATORVASTATIN 20 MG TABLET PO (20:42)
[2023-08-02] MEDS: ACETAMINOPHEN 325 MG TABLET 650 MG PO (20:44)
[2023-08-02] MEDS: TOLNAFTATE 1% POWDER 45 GM BTL 1 APPLIC TOPICAL (21:03)
[2023-08-03] VITALS: BP 114/78; PULSE 89; RESP 22; TEMP 36.3; O2SAT 93
[2023-08-03 04:00] VITALS: BP 159/83; PULSE 78; RESP 22; TEMP 36.4; O2SAT 93
[2023-08-03 07:34] VITALS: BP 152/82; PULSE 78; RESP 20; TEMP 36.1; O2SAT 92
[2023-08-03] MEDS: QUEtiapine FUMARATE 25 MG TABLET PO ×2 (08:25→13:44)
[2023-08-03] MEDS: busPIRone HCL 2.5 MG TABLET PO (08:25)
[2023-08-03 08:26] VITALS: PULSE 84
[2023-08-03] MEDS: APIXABAN 5 MG TABLET PO (08:26)
[2023-08-03] MEDS: DULoxetine HCL 60 MG CAPSULE.DR PO (08:26)
[2023-08-03] MEDS: busPIRone HCL 5 MG TABLET PO (08:26)
[2023-08-03] MEDS: METOPROLOL TARTRATE 50 MG TAB PO (08:26)
[2023-08-03] MEDS: ASCORBIC ACID 500 MG TABLET PO (08:26)
[2023-08-03] MEDS: THIAMINE HCL 100 MG TABLET PO (08:26)
[2023-08-03] MEDS: ERTAPENEM 1 GM/NS 50 ML 1 GM/50 ML BAG IVPB (11:08)
[2023-08-03 12:18] VITALS: BP 124/72; PULSE 81; RESP 21; TEMP 36.6; O2SAT 92
--- NOTE | 2023-08-03 12:58 | PC.NURSE ---
Addendum entered by Carolee Ring RN 08/03/23 16:49: Pt discharged via EMS. Pt was very upset and did not want to go. Pt was verbally aggressive toward staff and EMS. Pt stated that she would not get out of the ambulance if she did not want to. Pt was educated that she had been accepted to this facility per her request days prior. Pt continues to insist that she would choose whether or not she would go. Pt agreed to go. Pt IV was removed prior to EMS showing up. IV tip intact and pt tolerated well. Pt was monitored for any changes in status while she was here. Original Note: Pt is A&O1-2. Pt has had her dose of antibiotics today. Pt due to be discharged to [facility]. Pt to be transported via EMS. Pt compliant with care. Will continue to monitor pt.
--- NOTE | 2023-08-03 15:03 | PM.DS ---
DS: Admitting Diagnosis Discharge Date 08/03/2023 Admitting Diagnosis Generalized weakness DS: Discharge Diagnosis Discharge Diagnosis (1) GERD (gastroesophageal reflux disease): Code(s): K21.9 - Gastro-esophageal reflux disease without esophagitis Status: Chronic (2) Dyslipidemia: Code(s): E78.5 - Hyperlipidemia, unspecified Status: Acute (3) Atrial fibrillation: Code(s): I48.91 - Unspecified atrial fibrillation Status: Acute (4) CHF (congestive heart failure): Onset Date: Unknown Qualifiers: Heart failure chronicity: acute on chronic Heart failure type: diastolic Qualified Code(s): I50.33 - Acute on chronic diastolic (congestive) heart failure Code(s): I50.9 - Heart failure, unspecified Status: Acute (5) Presence of suprapubic catheter: Onset Date: 05/27/21 Code(s): Z93.59 - Other cystostomy status Status: Acute (6) Cerebrovascular accident: Code(s): I63.9 - Cerebral infarction, unspecified Status: Acute (7) Obstructive sleep apnea on CPAP: Code(s): G47.33 - Obstructive sleep apnea (adult) (pediatric); Z99.89 - Dependence on other enabling machines and devices Status: Acute (8) UTI due to extended-spectrum beta lactamase (ESBL) producing Escherichia coli: Code(s): N39.0 - Urinary tract infection, site not specified; B96.29 - Other Escherichia coli [E. coli] as the cause of diseases classified elsewhere; Z16.12 - Extended spectrum beta lactamase (ESBL) resistance Status: Acute (9) Generalized weakness: Code(s): R53.1 - Weakness Status: Acute (10) Impaired ambulation: Code(s): R26.2 - Difficulty in walking, not elsewhere classified Status: Acute (11) At high risk for falls: Code(s): Z91.81 - History of falling Status: Acute DS: Summary Hospital Course Hospital Course: Patient presented with generalized weakness.? Workup revealed UTI she has suprapubic catheter in place.? WBC count 13.5 on admission troponin negative LFTs normal UA positive for UTI.? History of ESBL UTI on this sensitive to imipenem and Bactrim DS.? Started on meropenem with switched to ertapenem computed empirically treat for ESBL related UTI the urine cultures been negative.? Completed the course of ertapenem during the hospital stay. History of CHF elevated proBNP at 3030 PT OT ordered right lower extremity movement is painful.? X-rays negative for fractures venous duplex negative for DVT Atrial fibrillation Dyslipidemia COPD Degenerative disc disease Dementia Hypertension Depression Moderate to severe tricuspid regurgitation Moderate pulmonary hypertension HIRAM Peripheral neuropathy Sleep apnea unknown if on CPAP GERD CVA Chronic anticoagulation on Eliquis Failure to thrive DVT prophylaxis on Eliquis Code status full code Time Spent with Patient Time attestation: Total time spent providing and/or coordinating discharge services: 35 minutes Exam Narrative: General physical exam: morbidly obese female, not in acute distress Head/eyes: Atraumatic, EOMI, PERRLA Neck: Supple, full range of motion, trachea midline CVS: S1 + S2 + 0, regular rate and rhythm, no murmurs Respiratory: Bilaterally decreased air entry in both lung garcia, mild B/L crackles, symmetric chest expansion, no distress Abdomen: Soft, non-tender, bowel sounds +ve, no organomegaly Extremities: No clubbing, no cyanosis, +1 bilateral pitting edema, no calf tenderness Musculoskeletal: Moves all, decreased range of motion, no muscle spasms Right lower extremity sensitive to touch and painful movement Skin: Warm, dry, no jaundice, no cyanosis Neurological: Awake, alert, oriented x 3, cranial nerves II-XII intact, no focal neurological deficits Psychiatric: Normal mood DS: Data Imaging Radiologist's impression: ITS Impressions Chest X-Ray 07/27/23 17:22 IMPRESSION: 1. Mild pulmonary edema. 2. Cardiome
== END 2023-08-03 16:45 | DRG 698 ==
LOC: ANHED 20:26 → ANH3MEDSUR 22:05
PROVIDERS: Admitting Provider Family Medicine; Emergency Provider Physician Assistant; PCP Family Medicine; Visit Provider Internal Medicine
DX: T83.510A Infection and inflammatory reaction due to cystostomy catheter, initial encounter (principal); I50.33 Acute on chronic diastolic (congestive) heart failure; I48.19 Other persistent atrial fibrillation; N39.0 Urinary tract infection, site not specified; Z16.12 Extended spectrum beta lactamase (ESBL) resistance; B96.29 Other Escherichia coli [E. coli] as the cause of diseases classified elsewhere; E66.01 Morbid (severe) obesity due to excess calories; E78.5 Hyperlipidemia, unspecified; G47.33 Obstructive sleep apnea (adult) (pediatric); I11.0 Hypertensive heart disease with heart failure; I07.1 Rheumatic tricuspid insufficiency; J44.9 Chronic obstructive pulmonary disease, unspecified; K21.9 Gastro-esophageal reflux disease without esophagitis; M81.0 Age-related osteoporosis without current pathological fracture; Z86.73 Personal history of transient ischemic attack (TIA), and cerebral infarction without residual deficits; Z79.01 Long term (current) use of anticoagulants; Z68.39 Body mass index [BMI] 39.0-39.9, adult; Z90.49 Acquired absence of other specified parts of digestive tract; Z98.49 Cataract extraction status, unspecified eye; Z90.710 Acquired absence of both cervix and uterus; Z87.891 Personal history of nicotine dependence; Z88.0 Allergy status to penicillin; Z99.89 Dependence on other enabling machines and devices; Z93.59 Other cystostomy status; M79.604 Pain in right leg
CPT/HCPCS: 36415; 71045; 73502; 73562; 73610; 74177; 80048; 80053; 81001; 83605; 83690; 83735; 83880; 84100; 84484; 85025; 85610; 85730; 87040; 87086; 87088; 93005; 93971; 96365; 97110; 97161; 97165; 97530; 97535; 99285; A9270; J0743; J1335; J2185; J7030; Q9967

== ENCOUNTER 2023-08-18 14:44 | Emergency (ER) | payer MEDICARE, MEDICAID, SELFPAY ==
[2023-08-18] VITALS (24 sets, daily range): BP systolic 118–174; BP diastolic 81–135; PULSE 78–119; RESP 13–30; TEMP 36.6; O2SAT 94–99
--- NOTE | ~2023-08-18 | CT_ITS ---
EXAMINATION: CT abdomen pelvis wo con DATE: 08/18/2023 16:53 INDICATION: Abdominal pain TECHNIQUE: Computed tomography (CT) of the abdomen and pelvis was performed without intravenous contr ast. The dose-length product (DLP) was 1303.34 mGy-cm. Automated exposure control and iterative recon struction technique were employed. COMPARISON: 07/27/2023 FINDINGS: Minimal dependent atelectasis is present in the lung bases. There is chronic elevation of t he right hemidiaphragm. Cardiomegaly is noted. There is calcified coronary artery atherosclerosis. Ch anges of cholecystectomy are noted. The liver, spleen, pancreas, and adrenal glands are normal. There is a 9 mm cyst of the left kidney. The right kidney is unremarkable. There is calcified atherosclero sis of the aorta and many of the other arteries. 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 No pathologically enlarged abdominal or pelvic lymph nodes are identified. No free intraperiton eal gas or evidence of bowel obstruction. A suprapubic catheter is present in the urinary bladder. Th ere is chronic diffuse wall thickening of the urinary bladder. There is severe thoracic and lumbar sp ondylosis. IMPRESSION: 1. Diffuse wall thickening of the urinary bladder, consistent with chronic cystitis. Reviewed, dictated and finalized at location F. IMPRESSION: 1. Diffuse wall thickening of the urinary bladder, consistent with chronic cyst itis.
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
--- NOTE | 2023-08-18 16:23 | ECG_ITS ---
Measurements Intervals [place] Rate: 111 P: [place]: 0 QRS: 22 QRSD: 73 T: 94 QT: 349 QTc: 475 Interpretive Statements ATRIAL FIBRILLATION WITH RAPID VENTRICULAR RESPONSE NONSPECIFIC ST & T-WAVE ABNORMALITY ABNORMAL ECG COMPARED TO ECG 07/27/2023 17:06:33 T-WAVE ABNORMALITY NOW PRESENT Electronically Signed On 08-19-2023 10:27:40 CDT by Kunal Mcdowell M.D.
[2023-08-18 17:11] LABS: Basophils Percent Auto 0.5 % (0.2-1.2); Eosinophils Absolute Auto 0.2 K/mm3 (0-0.3); Eosinophils Percent Auto 2.7 % (0-4.4); Hematocrit 40.8 % (37.0-47.0); Immature Granulocyte Absolute 0.02 K/mm3 (0.00-0.031); Immature Granulocyte Percent A 0.2 % (0-0.5); Lymphocytes Absolute Auto 2.25 K/mm3 (0.9-3.2); Lymphocytes Percent Auto 27.5 % (18.3-44.2); Mean Corpuscular HGB Conc 31.9 g/dl (32-36); Mean Corpuscular Hemoglobin 29.3 pg (26-34); Mean Corpuscular Volume 91.9 fl (80-100); Mean Platelet Volume 9.4 fl (7.4-10.4); Monocytes Absolute Auto 0.7 K/mm3 (0.1-0.6); Monocytes Percent Auto 8.9 % (2.6-8.5); Neutrophils Absolute Auto 4.9 K/mm3 (1.3-6.7); Neutrophils Percent Auto 60.2 % (45.5-73.1); Platelet Count Result 396 k/mm3 (150-375); Red Blood Count 4.44 M/mm3 (4.2-5.4); Red Cell Distribution Width 13.7 % (11.5-14.5); White Blood Count 8.2 K/mm3 (4.5-10.0)
[2023-08-18 17:17] LABS: Appearance Urine Cloudy (Clear); Bacteria Urine None Seen /hpf; Bilirubin Urine Negative (Negative); Blood Urine 3+ (Negative); Color Urine Yellow (Yellow); Glucose Urine UA Negative (Negative); Ketones Urine Negative (Negative); Leukocyte Esterase Ur 2+ LEU/UL (Negative); Nitrate Urine Negative (Negative); Non Pathogenic Casts 0-2; Protein Urine Trace mg/dL (Negative); RBC Urine 51-100 /hpf (0-2); Specific Grav Ur 1.009 (1.001-1.035); Squamous Epithelial Cell Urine None seen /hpf (Few); Urobilinogen Urine 0.2 mg/dL (<2.0); WBC Urine 21-50 /hpf; pH Urine 5.5 (5.0-9.0)
[2023-08-18 17:20] LABS: Add Urine Microscopic? YES
[2023-08-18 17:23] LABS: Alanine Aminotransferase 16 U/L (6-35); Albumin Level 3.8 g/dL (3.5-5.1); Alkaline Phosphatase 123 U/L (38-126); Anion Gap 7 mmol/L (8-16); Aspartate Amino Transferase 22 U/L (14-36); Bilirubin,Total 0.5 mg/dL (0.2-1.3); Blood Urea Nitrogen 16 mg/dL (7-17); CRP 1.5 mg/dL (<1.0); Calcium 9.2 mg/dL (8.4-10.2); Carbon Dioxide 30 mmol/L (22-30); Chloride 100 mmol/L (98-107); Estimated CRCL calculation 49 ml/min; Estimated Glomerular Filt Rate 60; Glucose 98 mg/dL (65-110); Sodium 137 mmol/L (137-145)
[2023-08-18 17:24] LABS: Lipase 95 U/L (23-300)
[2023-08-18 17:35] LABS: Lactic Acid Reflex 1.5 mmol/L (0.7-2.0)
--- NOTE | 2023-08-18 20:01 | PC.NURSE ---
Updated , Alexis with plan of care.
--- NOTE | 2023-08-18 21:37 | PC.NURSE ---
Report to EMS
== END 2023-08-18 21:38 ==
PROVIDERS: Emergency Provider Student in an Organized Health Care Education/Training Program; PCP Family Medicine
DX: N39.0 Urinary tract infection, site not specified (principal); Z43.5 Encounter for attention to cystostomy; J44.9 Chronic obstructive pulmonary disease, unspecified; F03.90 Unspecified dementia, unspecified severity, without behavioral disturbance, psychotic disturbance, mood disturbance, and anxiety; F01.50 Vascular dementia, unspecified severity, without behavioral disturbance, psychotic disturbance, mood disturbance, and anxiety; I48.19 Other persistent atrial fibrillation; I10 Essential (primary) hypertension; E78.5 Hyperlipidemia, unspecified; G44.229 Chronic tension-type headache, not intractable; G93.40 Encephalopathy, unspecified; G60.9 Hereditary and idiopathic neuropathy, unspecified; G47.33 Obstructive sleep apnea (adult) (pediatric); E66.9 Obesity, unspecified; Z68.32 Body mass index [BMI] 32.0-32.9, adult; N32.81 Overactive bladder; K22.4 Dyskinesia of esophagus; K21.9 Gastro-esophageal reflux disease without esophagitis; M19.90 Unspecified osteoarthritis, unspecified site; Z86.73 Personal history of transient ischemic attack (TIA), and cerebral infarction without residual deficits; Z87.440 Personal history of urinary (tract) infections; Z86.16 Personal history of COVID-19; Z87.01 Personal history of pneumonia (recurrent); Z86.711 Personal history of pulmonary embolism; Z87.891 Personal history of nicotine dependence
CPT/HCPCS: 36415; 51702; 51705; 74176; 80053; 81001; 83605; 83690; 85025; 86140; 87077; 87086; 87186; 93005; 99283; 99284

== ENCOUNTER 2023-09-22 11:06 | Outpatient (CLI) | payer MEDICARE, MEDICAID, SELFPAY | END 2023-09-22 11:07 | disposition home or self-care (01) | LOC: ANHBWCAUD 11:08 | PROVIDERS: PCP Family Medicine; Visit Provider Family Medicine | DX: H90.3 Sensorineural hearing loss, bilateral (principal); Z71.89 Other specified counseling | CPT/HCPCS: 92557; 92567 ==

== ENCOUNTER 2023-09-22 16:40 | Emergency (ER) | payer MEDICARE, MEDICAID, SELFPAY ==
--- NOTE | ~2023-09-22 | CT_ITS ---
CT of the Abdomen and Pelvis: Indication: Abdominal pain Technique: 2.5 mm axial scans were obtained through the abdomen and pelvis following intravenous adm inistration of 100 cc of Omnipaque 350. Dose reduction technique was used on this scan by utilizing a utomated exposure control and iterative reconstruction technique. The dose-length product (DLP) was 1 440.68 mGy-cm. COMPARISON: 08/18/2023 Findings: Scans through the lung bases are unremarkable. The liver, spleen, pancreas, adrenals and kidneys are within normal limits. Gallbladder absent. There are atherosclerotic calcifications of the aorta. No lymphadenopathy. No bowel obstruction or bowel wall thickening. There is no evidence to suggest acute appendicitis. Images through the pelvis were performed. Suprapubic catheter in place. Urinary bladder otherwise unr emarkable. Patient is post hysterectomy. No pelvic mass seen. No ascites. Impression: Suprapubic catheter in place, otherwise unremarkable exam. Reviewed, dictated and finalized at location . INE WELDER Impression: Suprapubic catheter in place, otherwise unremarkable exam.
[2023-09-22 16:42] VITALS: BP 155/97; PULSE 64; RESP 17; TEMP 36.6; O2SAT 95
[2023-09-22 17:22] LABS: Appearance Urine Turbid (Clear); Bacteria Urine 4+ /hpf; Bilirubin Urine Negative (Negative); Blood Urine 3+ (Negative); Color Urine Yellow (Yellow); Glucose Urine UA Negative (Negative); Ketones Urine Negative (Negative); Leukocyte Esterase Ur 3+ LEU/UL (Negative); Need Manual Microscopic Reviewed; Nitrate Urine Positive (Negative); Protein Urine 1+ mg/dL (Negative); RBC Urine >100 /hpf (0-2); Specific Grav Ur 1.013 (1.001-1.035); Squamous Epithelial Cell Urine Moderate /hpf (Few); Urobilinogen Urine 0.2 mg/dL (<2.0); WBC Urine 51-100 /hpf; pH Urine 6.5 (5.0-9.0)
[2023-09-22 17:23] LABS: Add Urine Microscopic? YES
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
[2023-09-22 22:27] VITALS: O2SAT 95
[2023-09-22 22:28] VITALS: BP 159/139; PULSE 84; RESP 21; O2SAT 95
[2023-09-22 22:30] VITALS: PULSE 95; RESP 19; O2SAT 95
[2023-09-22 22:33] VITALS: BP 147/131; PULSE 82; RESP 31; O2SAT 96
[2023-09-22 22:35] VITALS: BP 174/158; PULSE 75; RESP 20; O2SAT 97
--- NOTE | 2023-09-22 23:03 | PC.NURSE ---
pt care and report given to BRENT Valenzuela. all questions answered.
[2023-09-22 23:11] LABS: Basophils Absolute Auto 0.1 K/mm3 (0.0-0.1); Basophils Percent Auto 0.6 % (0.2-1.2); Eosinophils Absolute Auto 0.3 K/mm3 (0-0.3); Eosinophils Percent Auto 3.6 % (0-4.4); Hematocrit 40.3 % (37.0-47.0); Hemoglobin 12.9 g/dL (12.0-15.0); Immature Granulocyte Absolute 0.02 K/mm3 (0.00-0.031); Immature Granulocyte Percent A 0.2 % (0-0.5); Lymphocytes Absolute Auto 2.85 K/mm3 (0.9-3.2); Lymphocytes Percent Auto 32.8 % (18.3-44.2); Mean Corpuscular Hemoglobin 29.3 pg (26-34); Mean Corpuscular Volume 91.4 fl (80-100); Mean Platelet Volume 9.8 fl (7.4-10.4); Monocytes Absolute Auto 0.7 K/mm3 (0.1-0.6); Monocytes Percent Auto 7.5 % (2.6-8.5); Neutrophils Absolute Auto 4.8 K/mm3 (1.3-6.7); Neutrophils Percent Auto 55.3 % (45.5-73.1); Platelet Count Result 332 k/mm3 (150-375); Red Blood Count 4.41 M/mm3 (4.2-5.4); Red Cell Distribution Width 14.6 % (11.5-14.5); White Blood Count 8.7 K/mm3 (4.5-10.0)
[2023-09-22] MEDS: SODIUM CHLORIDE 0.9% IV 1,000 ML 999 ML IV CONT (23:26)
[2023-09-22] MEDS: levoFLOXacin 750 MG/D5W 150 ML 750 MG/150 ML BAG 100 MG IVPB (23:27)
[2023-09-22 23:28] LABS: Alanine Aminotransferase 13 U/L (6-35); Albumin Level 4.2 g/dL (3.5-5.1); Alkaline Phosphatase 116 U/L (38-126); Anion Gap 9 mmol/L (8-16); Aspartate Amino Transferase 21 U/L (14-36); Bilirubin,Total 0.6 mg/dL (0.2-1.3); Blood Urea Nitrogen 17 mg/dL (7-17); Calcium 9.3 mg/dL (8.4-10.2); Carbon Dioxide 27 mmol/L (22-30); Chloride 102 mmol/L (98-107); Estimated CRCL calculation 63 ml/min; Estimated Glomerular Filt Rate > 60; Glucose 104 mg/dL (65-110); Lipase 175 U/L (23-300); Potassium 3.8 mmol/L (3.4-5.0); Sodium 138 mmol/L (137-145)
[2023-09-23 02:43] VITALS: BP 149/82; PULSE 86; RESP 20; O2SAT 96
[2023-09-23 05:32] VITALS: BP 164/88; PULSE 95; RESP 15; O2SAT 96
== END 2023-09-23 06:50 ==
PROVIDERS: Emergency Medicine; Emergency Provider Emergency Medicine; PCP Family Medicine
DX: T83.510A Infection and inflammatory reaction due to cystostomy catheter, initial encounter (principal); F03.90 Unspecified dementia, unspecified severity, without behavioral disturbance, psychotic disturbance, mood disturbance, and anxiety; I10 Essential (primary) hypertension; J44.9 Chronic obstructive pulmonary disease, unspecified; I48.91 Unspecified atrial fibrillation; Z86.73 Personal history of transient ischemic attack (TIA), and cerebral infarction without residual deficits; Z87.891 Personal history of nicotine dependence
CPT/HCPCS: 36415; 74177; 80053; 81001; 83690; 85025; 87086; 87088; 92557; 92567; 96365; 99284; J1956; J7030; Q9967

== ENCOUNTER 2023-12-10 10:16 | Inpatient (IN) | payer MEDICARE, MEDICAID, SELFPAY ==
[2023-12-10] VITALS (82 sets, daily range): BP systolic 112–218; BP diastolic 70–174; PULSE 73–107; RESP 12–36; TEMP 36.3–36.9; O2SAT 90–100; BMI 29.7
--- NOTE | ~2023-12-10 | XR_ITS ---
XR chest 1V portable DATE: 12/10/2023 12:45 INDICATION: Transient alteration of awareness. Weakness. TECHNIQUE: Portable supine AP chest on December 10, 2023 at 1241 hours COMPARISON: 07/27/2023 portable AP chest FINDINGS: Cardiomegaly. Aortic calcification and unfolding. There is pulmonary vascular congestion an d redistribution and diffuse pulmonary interstitial prominence, suggesting pulmonary interstitial mathew ma. Moderate elevation right diaphragm. No pleural effusions or pneumothorax are evident. Osteopenia. Degenerative changes of the thoracic and lumbar spine. Bilateral renal excretion of contrast material is noted. IMPRESSION: Cardiomegaly, pulmonary vascular congestion and pulmonary interstitial prominence suggest ing congestive heart failure Reviewed, dictated and finalized at location L. ORT PLANNING MANAGER IMPRESSION: Cardiomegaly, pulmonary vascular congestion and pulmonary interstit ial prominence suggesting congestive heart failure
--- NOTE | ~2023-12-10 | CT_ITS ---
EXAMINATION: CT abdomen pelvis w con DATE: 12/10/2023 12:05 INDICATION: Bleeding from suprapubic catheter. Several urinary tract infections in the past 30 days. TECHNIQUE: Computed tomography (CT) of the abdomen and pelvis was performed with 100 CC Omnipaque 350 intravenous contrast. Automated exposure control and iterative reconstruction technique were employe d. Exam dose: 1443.06 mGy-cm total exam DLP. COMPARISON: 09/23/2023 CT abdomen pelvis FINDINGS: Cardiomegaly. Coronary artery calcification. Suggestion of some mitral valve calcification. Minimal calcification in the aortic valve area. No pericardial or pleural effusion. Status post cholecystectomy, which likely accounts for mild intrahepatic bile duct prominence. No hepatic, splenic, pancreatic, and adrenal or renal space-occupying mass lesion, other than several small renal probable cysts. No urinary tract calculus or hydroureteronephrosis. Stable distal left abdominal aortic saccular widening, stable since 09/21/2023. No intraperitoneal or retroperitoneal or pelvic mass lesion or adenopathy or ascites. There is a suprapubic Aiken catheter within the evacuated urinary bladder. The bladder wall appears p rominently thickened, which may be due to the evacuated state; infection is not excluded. 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 Diverticulosis of the sigmoid and descending colon; no CT evidence of diverticulitis is detected. There are fluid levels in the ascending and transverse colon, which is abnormal unless the patient warren s had recent enemas. No bowel obstruction, bowel wall thickening, pneumatosis or intraperitoneal free air is detected however. Moderately prominent thoracic and lumbar spondylosis. Right lower back battery pack with neurotransmitter lead extending posteroanteriorly through left S3 neural foramen. IMPRESSION: Evacuated urinary bladder with suprapubic catheter; bladder wall thickening is suggested ; cystitis is not excluded Diverticulosis of the colon Fluid levels in the ascending and transverse colon, suggesting enterocolitis; no bowel obstruction or free air Reviewed, dictated and finalized at [facility]. Reviewed, dictated and finalized at location L. Y BABYSITTER IMPRESSION: Evacuated urinary bladder with suprapubic catheter; bladder wall t hickening is suggested; cystitis is not excluded Diverticulosis of the colon Fluid levels in the ascending and transverse colon, suggesting enterocolitis; n o bowel obstruction or free air
--- NOTE | ~2023-12-10 | CT_ITS ---
EXAMINATION: CT brain wo con DATE: 12/10/2023 12:05 INDICATION: Altered mental state. Increasing right-sided weakness. TECHNIQUE: Computed tomography (CT) of the head was performed without intravenous contrast. The mA wa s adjusted according to patient size. Iterative reconstruction technique was employed. Exam dose: 68 1.00 mGy-cm total exam DLP. COMPARISON: 01/28/2022 CT brain FINDINGS: Chronic left posterior temporal/parietal infarct. Chronic small lacunar infarct of the right thalamus. Chronic lacunar infarct in the right frontal per iventricular area. There is prominent diminished attenuation of the cerebral white matter, likely due to chronic small v essel ischemic changes. Prominent bilateral carotid siphon and supraclinoid internal carotid artery c alcifications are noted in addition to bilateral vertebral artery and basilar artery calcification. No intracranial mass lesion or hemorrhage or recent cerebrovascular accident is noted. No midline kamran ft or mass effect. No subdural or epidural hematoma. There is mild cerebellar and prominent central and cortical cerebral atrophy. The included paranasal sinuses are normally developed and aerated. The mastoid air cells are well-dev eloped and aerated. No fracture or bone destruction of the cranial vault. IMPRESSION: Cerebral atherosclerosis and infarcts; no acute intracranial finding or skull fracture Reviewed, dictated and finalized at [facility]. Reviewed, dictated and finalized at location L. L COMPANY HAZMAT DRIVER IMPRESSION: Cerebral atherosclerosis and infarcts; no acute intracranial findi ng or skull fracture
--- NOTE | 2023-12-10 10:27 | ECG_ITS ---
Measurements Intervals Miller Rate: 85 P: IN: 0 QRS: 8 QRSD: 92 T: 158 QT: 380 QTc: 454 Interpretive Statements ATRIAL FIBRILLATION PROBABLE INFERIOR MYOCARDIAL INFARCTION , PROBABLY OLD [35 ms Q WAVE IN II/aVF] COMPARED TO ECG 08/18/2023 19:24:30 NO SIGNIFICANT CHANGES Electronically Signed On 12-10-2023 14:04:17 IRRIGATOR by Dustin Sabillon M.D.
[2023-12-10 11:03] LABS: Basophils Absolute Auto 0.1 K/mm3 (0.0-0.1); Basophils Percent Auto 0.5 % (0.2-1.2); Eosinophils Absolute Auto 0.1 K/mm3 (0-0.3); Eosinophils Percent Auto 0.6 % (0-4.4); Hematocrit 40.9 % (37.0-47.0); Hemoglobin 13.6 g/dL (12.0-15.0); Immature Granulocyte Absolute 0.03 K/mm3 (0.00-0.031); Immature Granulocyte Percent A 0.3 % (0-0.5); Lymphocytes Absolute Auto 1.09 K/mm3 (0.9-3.2); Lymphocytes Percent Auto 10.7 % (18.3-44.2); Mean Corpuscular HGB Conc 33.3 g/dl (32-36); Mean Corpuscular Hemoglobin 29.5 pg (26-34); Mean Corpuscular Volume 88.7 fl (80-100); Mean Platelet Volume 10.3 fl (7.4-10.4); Monocytes Absolute Auto 1.6 K/mm3 (0.1-0.6); Monocytes Percent Auto 15.8 % (2.6-8.5); Neutrophils Absolute Auto 7.4 K/mm3 (1.3-6.7); Neutrophils Percent Auto 72.1 % (45.5-73.1); Platelet Count Result 319 k/mm3 (150-375); Red Blood Count 4.61 M/mm3 (4.2-5.4); Red Cell Distribution Width 14.2 % (11.5-14.5); White Blood Count 10.2 K/mm3 (4.5-10.0)
[2023-12-10 11:14] LABS: Add Urine Microscopic? YES; Appearance Urine Cloudy (Clear); Color Urine Red (Yellow)
[2023-12-10 11:16] LABS: RBC Urine >100 /hpf (0-2)
[2023-12-10 11:17] LABS: Alanine Aminotransferase 11 U/L (6-35); Albumin Level 3.1 g/dL (3.5-5.1); Alkaline Phosphatase 82 U/L (38-126); Anion Gap 10 mmol/L (8-16); Aspartate Amino Transferase 23 U/L (14-36); Bilirubin,Total 0.3 mg/dL (0.2-1.3); Blood Urea Nitrogen 27 mg/dL (7-17); Calcium 8.7 mg/dL (8.4-10.2); Carbon Dioxide 25 mmol/L (22-30); Chloride 98 mmol/L (98-107); Estimated Glomerular Filt Rate 40; Glucose 96 mg/dL (65-110); INR 1.7; Potassium 3.4 mmol/L (3.4-5.0); Prothrombin Time 20.5 Seconds (11.1-14.7); Sodium 133 mmol/L (137-145)
[2023-12-10 11:18] LABS: Bacteria Urine 1+ /hpf; Squamous Epithelial Cell Urine Few /hpf (Few); WBC Urine 51-75 /hpf
--- NOTE | 2023-12-10 11:36 | ED.AMS ---
HPI - Altered Mental Status General Chief Complaint: Altered Mental Status <KURTIS Gresham Last Filed: 12/10/23 16:01> Stated Complaint: AMS, bleeding catheter <KURTIS Gresham Last Filed: 12/10/23 16:01> Time Seen by Provider: 12/10/23 10:25 <KURTIS Gresham Last Filed: 12/10/23 16:01> History of Present Illness HPI narrative: 78-year-old female with a history of dyslipidemia, atrial fibrillation, CHF, CVA, chronic UTIs who is currently A&O times 2-3 at baseline reports via EMS from [facility] for altered mental status and blood in her suprapubic catheter. Patient is A&O x1 upon my evaluation. I am unable to obtain a history from her given mental status as she is not very communicative and only looks at me when I ask her questions. She does not respond when asked if she has chest pain or shortness of breath, abdominal pain, fever, cough or congestion. Per nursing staff, patient was placed on 1 L nasal cannula EN route because hypoxic. She is satting 95% on room air on my evaluation. Nursing staff reports EMS stated the patient tested positive for C diff. <KURTIS Gresham Last Filed: 12/10/23 16:01> Related Data Home Medications: Home Medications Medication Instructions Recorded Confirmed oxybutynin chloride 5 mg tablet 5 mg PO TID PRN Bladder Spasms 09/02/22 07/28/23 nystatin 100,000 unit/gram topical 100,000 unit topical PRN PRN Skin 02/23/23 07/28/23 powder Irritation <KURTIS Gresham Last Filed: 12/10/23 16:01> Allergies/Adverse Reactions: Allergies Allergy/AdvReac Type Severity Reaction Status Date / Time propoxyphene Allergy Severe HIVES Verified 08/18/23 16:42 clindamycin Allergy Unknown Unknown Verified 08/18/23 16:42 codeine Allergy Unknown HIVES but Verified 08/18/23 16:42 tolerates hydrocodone donepezil Allergy Unknown Unknown Verified 08/18/23 16:42 hydrochlorothiazide Allergy Unknown Skin Verified 08/18/23 16:42 Reaction latex Allergy Unknown SWELLING/RA Verified 08/18/23 16:42 SH lisinopril Allergy Unknown cough Verified 08/18/23 16:42 meloxicam Allergy Unknown ulcer Verified 08/18/23 16:42 olmesartan Allergy Unknown Unknown Verified 08/18/23 16:42 Penicillins Allergy Unknown Rash Verified 08/18/23 16:42 spironolactone Allergy Unknown hyperkalemi Verified 07/22/23 15:14 a amoxicillin AdvReac Unknown Nausea Verified 07/22/23 15:14 <Symone Sherman PA-C - Last Filed: 12/10/23 16:01> Review of Systems Review of Systems: ROS unobtainable: Yes unobtainable due to mental status <Symone Sherman PA-C - Last Filed: 12/10/23 16:01> [facility] Past Medical History Medical History: Medical History Abusive emotional relationship with Acute GI bleeding Acute UTI Arthritis At high risk for falls Atrial fibrillation with RVR Bacteremia Bilateral renal artery stenosis Bilateral renal artery stenosis noted on CTA evaluated at [facility] December 2019. Cerebrovascular accident Evidence of old right basal ganglia and anterior limb right internal capsule infarcts. Cervical radiculopathy Chronic obstructive pulmonary disease Chronic tension-type headache, not intractable Degenerative disc disease Dementia Discitis of lumbar region Diverticulitis large intestine Diverticulosis of colon Dyskinesia of esophagus Dyslipidemia Encephalopathy Essential (primary) hypertension Gastroesophageal reflux disease Hereditary and idiopathic neuropathy, unspecified Hypertension Hypertensive urgency Impaired ambulation Major depressive disorder, single episode, unspecified Moderate pulmonary arterial systolic hypertension Echocardiogram April 2020: EF 60-65%, normal diastolic function, atrial fibrillation, moderate left atrial enlargement, moderate to severe tricuspid valve regurgitation moderate pulmonary hyperte
[2023-12-10 11:46] LABS: Alveolar/Arterial O2 Gradient 37.1 mmHg; Base Excess ABG 1.6 mEq/l (+/-2.0); Fractional Inspired Oxygen 21 %; HCO3 ABG 24.5 mEq/l (22.0-26.0); Oxygen Content ABG 18.3 %vol (16.0-22.0); Oxygen Saturation ABG 95.7 % (95.0-100.0); Oxyhemoglobin 93.6 % THb (90.0-100.0); PCO2 ABG 33.6 mmHg (35.0-45.0); PO2 ABG 72.4 mmHg (80.0-100.0); PO2 FiO2 Ratio Arterial Blood 3.45 %; Total Hemoglobin 13.9 g/dL (12.0-18.0); pH ABG 7.481 (7.350-7.450)
[2023-12-10 11:47] LABS: Site Drawn RIGHT BRACHIAL
[2023-12-10 11:58] LABS: Troponin I 0.019 ng/mL (0.000-0.034)
[2023-12-10 11:59] LABS: Lactic Acid Reflex 1.3 mmol/L (0.7-2.0)
[2023-12-10] MEDS: SODIUM CHLORIDE 0.9% IV 1,000 ML 999 ML IV CONT (12:20)
[2023-12-10 12:57] LABS: Influenza A QL RT-PCR Negative (Negative); Influenza B QL RT-PCR Negative (Negative); RSV RNA, RT-PCR Negative (Negative); SARS-CoV-2 RNA PCR Negative (Negative)
--- NOTE | 2023-12-10 13:21 | PC.NURSE ---
Per Sunday at [facility], patient tested positive for c.diff last night and they received the results this AM. However, the results were not yet reported to patient's attending provider at facility.
[2023-12-10] MEDS: MEROPENEM 1 GM/NS 100 ML 1 GM/100 ML BAG IVPB (14:01)
[2023-12-10] MEDS: FIDAXOMICIN 200 MG TABLET PO ×2 (15:31→22:34)
--- NOTE | 2023-12-10 15:37 | PC.NURSE ---
prior to giving pt PO medication pt was sat up high and tested water first. pt swallowed water well with no difficulties. then pt was given PO medication and pt aspirated on water. provider was notified right away. cough reflex intact and pt o2 sat is 98% which is baseline. pt unable to verbalize if they swallow pill
[2023-12-10 18:42] LABS: Toxigenic C. Diff POSITIVE (NEGATIVE)
--- NOTE | 2023-12-10 19:18 | PC.NURSE ---
pt required temporal spo2 monitor because they would not keep sensor on finger. pt is still is non compliant with temporal spo2. attempting to keep it on her head but it has been re-applied 10 times. current spo2 is 96%
--- NOTE | 2023-12-10 20:10 | PM.IMHP ---
H&P: HPI History of Present Illness Date/Time: 12/10/23 14:30 Chief Complaint: Blood draining from suprapubic catheter. Narrative: This is a 78-year-old female with history of stroke, dementia, neurogenic bladder with suprapubic catheter, hypertension, atrial fibrillation, hypertension, sleep apnea, diastolic congestive heart failure, and other comorbidities who presented to the emergency department via EMS for evaluation blood draining suprapubic catheter. At baseline, she is reportedly alert and oriented x2 however more confused at this time and is unable to answer questions appropriately with mumbling speech. As such almost all of the following is obtained via a review of her electronic medical records. Staff at her [facility] reported that she had been on 4 antibiotics in last 30 days for ongoing urinary tract infections and she reportedly tested positive for C diff the last couple of days. She was afebrile on arrival to the ED with stable blood pressures. Her respiratory rate is occasionally increased during periods of what appears to be anxiety. Several times while I was in the room she started to cry but could not tell me why. Labs were significant for a WBC count of 10.2, sodium 133, BUN 27, creatinine 1.30. Urine was grossly bloody. She was confirmed positive for C diff by PCR. Brain CT showed no acute findings. Chest x-ray showed cardiomegaly with pulmonary vascular congestion and pulmonary interstitial prominence suggestive of heart failure. CT of the abdomen and pelvis showed bladder wall thickening and fluid levels in the ascending and transverse colon suggestive of enterocolitis. She was given a dose of meropenem for suspected cystitis and she is being admitted in this setting for close monitoring and further treatment. Review of Systems Review of Systems: Unable to be obtained accurately as she is not really answering questions. [facility] Past Medical History Medical History (Updated 12/10/23 @ 20:44 by Leonila Arita PA-C) Arthritis Atrial fibrillation with RVR Bacteremia Bilateral renal artery stenosis Bilateral renal artery stenosis noted on CTA evaluated at [facility] December 2019. Cerebrovascular accident Evidence of old right basal ganglia and anterior limb right internal capsule infarcts. Cervical radiculopathy Chronic obstructive pulmonary disease Chronic tension-type headache, not intractable Degenerative disc disease Dementia Discitis of lumbar region Diverticulitis large intestine Diverticulosis of colon Dyskinesia of esophagus Dyslipidemia Encephalopathy Essential (primary) hypertension Gastroesophageal reflux disease Hereditary and idiopathic neuropathy, unspecified Hypertension Major depressive disorder, single episode, unspecified Moderate pulmonary arterial systolic hypertension Echocardiogram April 2020: EF 60-65%, normal diastolic function, atrial fibrillation, moderate left atrial enlargement, moderate to severe tricuspid valve regurgitation moderate pulmonary hypertension with RVSP of 54 Obesity (BMI 30.0-34.9) Obstructive sleep apnea (adult) (pediatric) Osteoporosis Overactive bladder Pancreatitis Peripheral neuropathy Persistent atrial fibrillation Pneumonia due to COVID-19 virus 09/08/2020 treated with Remdesivir and dexamethasone and 1 unit of convalesant plasma. PUD (peptic ulcer disease) Radiculopathy, lumbar region Sleep apnea Severe obstructive sleep apnea on polysomnogram October 2014 with recommended CPAP of 18. SMA stenosis Suprapubic catheter dysfunction Total urinary incontinence Transient ischemic attack Ulcer Urinary retention with incomplete bladder emptying Urinary tract infection associated with cystostomy catheter UTI (urinary tract infection) Vascular dementia with behavior disturbance Surgical History Surgical History History of appendectomy History of bilateral carpal tunnel release Hi
--- NOTE | 2023-12-10 22:33 | PC.NURSE ---
patient spit out medication, refusing to take
--- NOTE | 2023-12-10 22:55 | PC.NURSE ---
This patient, Arpita Pop, was admitted to 3 Med Surg Room 323-01. Patient/family oriented to hospital policies and general routines including ID bracelet, bed and alarms, visiting hours, pain management, procedures, bathroom and other care routines, personal items, smoking policy, room service/diet, and visiting hours. Information on how to activate the Rapid Response Team has been discussed. Patient/Family are encouraged to report perceived risks to care and to ask questions if they do not understand what they are told or what they should do.
[2023-12-11] VITALS (10 sets, daily range): BP systolic 139–153; BP diastolic 74–89; PULSE 89–108; RESP 18; TEMP 35.9–37.4; O2SAT 93–95
[2023-12-11 02:04] LABS: Valproic Acid 23.1 ug/mL (50-120)
[2023-12-11 07:05] LABS: Hematocrit 40.3 % (37.0-47.0); Hemoglobin 12.6 g/dL (12.0-15.0); Mean Corpuscular HGB Conc 31.3 g/dl (32-36); Mean Corpuscular Hemoglobin 28.7 pg (26-34); Mean Corpuscular Volume 91.8 fl (80-100); Mean Platelet Volume 10.4 fl (7.4-10.4); Platelet Count Result 288 k/mm3 (150-375); Red Blood Count 4.39 M/mm3 (4.2-5.4); Red Cell Distribution Width 14.6 % (11.5-14.5); White Blood Count 10.7 K/mm3 (4.5-10.0)
[2023-12-11 07:12] LABS: Ammonia < 9 umol/L (9-30)
[2023-12-11 07:28] LABS: Anion Gap 12 mmol/L (8-16); Blood Urea Nitrogen 23 mg/dL (7-17); Calcium 8.8 mg/dL (8.4-10.2); Carbon Dioxide 21 mmol/L (22-30); Chloride 101 mmol/L (98-107); Creatine Kinase 27 U/L (30-135); Estimated CRCL calculation 38 ml/min; Estimated Glomerular Filt Rate 43; Glucose 90 mg/dL (65-110); Magnesium 2.3 mg/dL (1.6-2.3); Sodium 134 mmol/L (137-145)
--- NOTE | 2023-12-11 13:14 | PC.NURSE ---
Pt refusing to take medications. Will open her eyes to look at you, and close them again. She is able to wake up but refuses to speak to the RN. Spoke with her , Alexis, he states this is normal for her. Plan is to replace potassium via IVPB then plan to discharge, per Danielle hospitalist. Will monitor.
--- NOTE | 2023-12-11 15:13 | PM.IMPN ---
Progress Note: A&P Assessment and Plan (1) Clostridium difficile enterocolitis: Code(s): A04.72 - Enterocolitis due to Clostridium difficile, not specified as recurrent Status: Acute Assessment and Plan: History of long-time antibiotic use for ongoing UTI, patient currently having several loose stools per nursing staff As evidenced by abdominal/pelvis CT -continue Dificid p.o. q.12 hours (2) Altered mental status: Qualifiers: Altered mental status type: disorientation Qualified Code(s): R41.0 - Disorientation, unspecified Code(s): R41.82 - Altered mental status, unspecified Status: Acute Assessment and Plan: Head CT reveals cerebral arteriosclerosis and infarcts no acute intracranial finding or skull fracture Suspect AMS related to urinary tract infection -history of dementia -initiate fall precautions (3) Hematuria: Code(s): R31.9 - Hematuria, unspecified Status: Acute Assessment and Plan: -none seen in the [place] (4) Hemorrhagic cystitis: Code(s): N30.91 - Cystitis, unspecified with hematuria Status: Acute Assessment and Plan: -urine culture pending (5) Congestive heart failure: Code(s): I50.9 - Heart failure, unspecified Status: Acute Assessment and Plan: -continue telemetry monitoring (6) Atrial fibrillation: Code(s): I48.91 - Unspecified atrial fibrillation Status: Acute Assessment and Plan: -continue home medication (7) Hypertension: Code(s): I10 - Essential (primary) hypertension Status: Acute Assessment and Plan: -continue home medication metoprolol Plan Continue home medications: VTE Prophylaxis: SCDs DIET: Heart healthy Anticipated hospital stay: Observation Code Status: Full code Subjective Date/time seen: 12/11/23 15:13 Interval history: Pt is unable to provide any HPI, information gathered per chart and nursing staff: This is a 78-year-old female with history of stroke, dementia, neurogenic bladder with suprapubic catheter, hypertension, atrial fibrillation, hypertension, sleep apnea, diastolic congestive heart failure, and other comorbidities who presented to the emergency department via EMS for evaluation blood draining suprapubic catheter. At baseline, she is reportedly alert and oriented x2 however more confused at this time and is unable to answer questions appropriately with mumbling speech. As such almost all of the following is obtained via a review of her electronic medical records. Staff at her assisted reported that she had been on 4 antibiotics in last 30 days for ongoing urinary tract infections and she reportedly tested positive for C diff the last couple of days. ED Workup: She was afebrile on arrival to the ED with stable blood pressures. Her respiratory rate is occasionally increased during periods of what appears to be anxiety. Several times while I was in the room she started to cry but could not tell me why. Labs were significant for a WBC count of 10.2, sodium 133, BUN 27, creatinine 1.30. Urine was grossly bloody. She was confirmed positive for C diff by PCR. Brain CT showed no acute findings. Chest x-ray showed cardiomegaly with pulmonary vascular congestion and pulmonary interstitial prominence suggestive of heart failure. CT of the abdomen and pelvis showed bladder wall thickening and fluid levels in the ascending and transverse colon suggestive of enterocolitis. She was given a dose of meropenem for suspected cystitis and she is being admitted in this setting for close monitoring and further treatment. Interval history: 12/11/2023 patient seen today she is resting with eyes closed easily arouses, very hard of hearing she is unable to provide any reliable history she denies any pain. Attempted to call next of kin no answer, suprapubic catheter site is clean dry no evidence of bleeding Review of Systems Review of Systems:
[2023-12-11] MEDS: KCL 40 MEQ/0.9% SOD CHL 1,000 ML 100 ML IV CONT (15:29)
--- NOTE | 2023-12-11 20:37 | PC.NURSE ---
patient continues to spit out medication
[2023-12-12] VITALS (7 sets, daily range): BP systolic 133–146; BP diastolic 81–136; PULSE 85–97; RESP 18; TEMP 36.1–36.6; O2SAT 94–95
[2023-12-12] MEDS: DIVALPROEX SODIUM SPRINKLE 125 MG CAP.DR 250 MG PO ×2 (13:29→20:35)
[2023-12-12] MEDS: FIDAXOMICIN 200 MG TABLET PO ×2 (13:29→20:35)
[2023-12-12] MEDS: THIAMINE HCL 100 MG TABLET PO (13:29)
[2023-12-12] MEDS: DULoxetine HCL 60 MG CAPSULE.DR PO (13:29)
[2023-12-12] MEDS: METOPROLOL TARTRATE 50 MG TAB PO ×2 (13:29→20:36)
[2023-12-12] MEDS: oxyBUTYnin CHLORIDE 5 MG TABLET PO (13:29)
[2023-12-12] MEDS: ASCORBIC ACID 500 MG TABLET PO (13:29)
--- NOTE | 2023-12-12 14:30 | PC.NURSE ---
Pt's blood pressure was 146/136. Re-checked several times, all results being in the same range. This RN called Hospitalist Danielle, no orders received. Informed hospitalist that I was finally able to get her PO Metoprolol in while family was here about 45 minutes prior to this BP reading. Danielle states to monitor pt for 2 hours, check BP periodically. Pt is asymptomatic at this time. Will monitor.
[2023-12-12 14:36] LABS: Basophils Absolute Auto 0.1 K/mm3 (0.0-0.1); Basophils Percent Auto 0.6 % (0.2-1.2); Eosinophils Absolute Auto 0.2 K/mm3 (0-0.3); Eosinophils Percent Auto 1.8 % (0-4.4); Hematocrit 37.4 % (37.0-47.0); Immature Granulocyte Absolute 0.07 K/mm3 (0.00-0.031); Immature Granulocyte Percent A 0.8 % (0-0.5); Lymphocytes Percent Auto 21.2 % (18.3-44.2); Mean Corpuscular HGB Conc 32.1 g/dl (32-36); Mean Corpuscular Hemoglobin 29.5 pg (26-34); Mean Corpuscular Volume 91.9 fl (80-100); Mean Platelet Volume 11.1 fl (7.4-10.4); Monocytes Absolute Auto 0.7 K/mm3 (0.1-0.6); Monocytes Percent Auto 7.6 % (2.6-8.5); Neutrophils Absolute Auto 5.8 K/mm3 (1.3-6.7); Nucleated Red Blood Cells Perc 0.2 % (0.0-0.2); Platelet Count Result 266 k/mm3 (150-375); Red Blood Count 4.07 M/mm3 (4.2-5.4); Red Cell Distribution Width 14.6 % (11.5-14.5); White Blood Count 8.5 K/mm3 (4.5-10.0)
--- NOTE | 2023-12-12 14:38 | PM.IMPN ---
Progress Note: A&P Assessment and Plan (1) Clostridium difficile enterocolitis: Code(s): A04.72 - Enterocolitis due to Clostridium difficile, not specified as recurrent Status: Acute Assessment and Plan: History of long-time antibiotic use for ongoing UTI, patient currently having several loose stools per nursing staff As evidenced by abdominal/pelvis CT -continue Dificid p.o. q.12 hours (2) Altered mental status: Qualifiers: Altered mental status type: disorientation Qualified Code(s): R41.0 - Disorientation, unspecified Code(s): R41.82 - Altered mental status, unspecified Status: Acute Assessment and Plan: Head CT reveals cerebral arteriosclerosis and infarcts no acute intracranial finding or skull fracture Suspect AMS related to urinary tract infection -history of dementia -initiate fall precautions (3) Hematuria: Code(s): R31.9 - Hematuria, unspecified Status: Resolved Assessment and Plan: -none seen in the [place] (4) Hemorrhagic cystitis: Code(s): N30.91 - Cystitis, unspecified with hematuria Status: Acute Assessment and Plan: -urine culture pending (5) Congestive heart failure: Code(s): I50.9 - Heart failure, unspecified Status: Acute Assessment and Plan: -continue telemetry monitoring (6) Atrial fibrillation: Code(s): I48.91 - Unspecified atrial fibrillation Status: Acute Assessment and Plan: -continue home medication (7) Hypertension: Code(s): I10 - Essential (primary) hypertension Status: Acute Assessment and Plan: -continue home medication metoprolol (8) Hyponatremia: Code(s): E87.1 - Hypo-osmolality and hyponatremia Status: Acute Assessment and Plan: -acute on chronic,pt has hx current Na is 129 -check plasma Osmo -check urine random sodium -recheck labs in the a.m. -continue to monitor Plan Continue home medications: VTE Prophylaxis: SCDs DIET: Heart healthy Anticipated hospital stay:>2 days Code Status: Full Subjective Date/time seen: 12/12/23 14:38 Interval history: Pt is unable to provide any HPI, information gathered per chart and nursing staff: This is a 78-year-old female with history of stroke, dementia, neurogenic bladder with suprapubic catheter, hypertension, atrial fibrillation, hypertension, sleep apnea, diastolic congestive heart failure, and other comorbidities who presented to the emergency department via EMS for evaluation blood draining suprapubic catheter. At baseline, she is reportedly alert and oriented x2 however more confused at this time and is unable to answer questions appropriately with mumbling speech. As such almost all of the following is obtained via a review of her electronic medical records. [facility] reported that she had been on 4 antibiotics in last 30 days for ongoing urinary tract infections and she reportedly tested positive for C diff the last couple of days. ED Workup: She was afebrile on arrival to the ED with stable blood pressures. Her respiratory rate is occasionally increased during periods of what appears to be anxiety. Several times while I was in the room she started to cry but could not tell me why. Labs were significant for a WBC count of 10.2, sodium 133, BUN 27, creatinine 1.30. Urine was grossly bloody. She was confirmed positive for C diff by PCR. Brain CT showed no acute findings. Chest x-ray showed cardiomegaly with pulmonary vascular congestion and pulmonary interstitial prominence suggestive of heart failure. CT of the abdomen and pelvis showed bladder wall thickening and fluid levels in the ascending and transverse colon suggestive of enterocolitis. She was given a dose of meropenem for suspected cystitis and she is being admitted in this setting for close monitoring and further treatment. Interval history: 12/11/2023 patient seen today she is resting wi
[2023-12-12 15:59] LABS: Alanine Aminotransferase 11 U/L (6-35); Albumin Level 2.9 g/dL (3.5-5.1); Alkaline Phosphatase 74 U/L (38-126); Anion Gap 7 mmol/L (8-16); Aspartate Amino Transferase 22 U/L (14-36); Bilirubin,Total 0.2 mg/dL (0.2-1.3); Blood Urea Nitrogen 15 mg/dL (7-17); Calcium 8.3 mg/dL (8.4-10.2); Carbon Dioxide 20 mmol/L (22-30); Chloride 102 mmol/L (98-107); Estimated CRCL calculation 63 ml/min; Estimated Glomerular Filt Rate > 60; Glucose 146 mg/dL (65-110); Potassium 3.6 mmol/L (3.4-5.0); Sodium 129 mmol/L (137-145)
[2023-12-12] MEDS: METOPROLOL TARTRATE INJ 5 MG/5 ML VIAL IV PUSH (17:50)
[2023-12-12] MEDS: busPIRone HCL 10 MG TABLET PO (17:50)
[2023-12-12] MEDS: ATORVASTATIN 20 MG TABLET PO (20:35)
[2023-12-13 00:19] LABS: Sodium Urine Random 33 meq/L
[2023-12-13 05:45] VITALS: BP 141/98; PULSE 90; RESP 20; TEMP 35.7; O2SAT 98
[2023-12-13 08:19] VITALS: PULSE 81
[2023-12-13 08:51] LABS: Basophils Percent Auto 0.6 % (0.2-1.2); Eosinophils Absolute Auto 0.2 K/mm3 (0-0.3); Eosinophils Percent Auto 3.7 % (0-4.4); Hematocrit 40.5 % (37.0-47.0); Hemoglobin 12.9 g/dL (12.0-15.0); Immature Granulocyte Absolute 0.05 K/mm3 (0.00-0.031); Immature Granulocyte Percent A 0.8 % (0-0.5); Lymphocytes Absolute Auto 2.35 K/mm3 (0.9-3.2); Lymphocytes Percent Auto 37.5 % (18.3-44.2); Mean Corpuscular HGB Conc 31.9 g/dl (32-36); Mean Corpuscular Hemoglobin 29.1 pg (26-34); Mean Corpuscular Volume 91.4 fl (80-100); Mean Platelet Volume 10.1 fl (7.4-10.4); Monocytes Absolute Auto 0.6 K/mm3 (0.1-0.6); Monocytes Percent Auto 9.7 % (2.6-8.5); Neutrophils Percent Auto 47.7 % (45.5-73.1); Platelet Count Result 279 k/mm3 (150-375); Red Blood Count 4.43 M/mm3 (4.2-5.4); Red Cell Distribution Width 14.6 % (11.5-14.5); White Blood Count 6.3 K/mm3 (4.5-10.0)
[2023-12-13 09:01] LABS: Alanine Aminotransferase 12 U/L (6-35); Albumin Level 3.1 g/dL (3.5-5.1); Alkaline Phosphatase 76 U/L (38-126); Anion Gap 5 mmol/L (8-16); Aspartate Amino Transferase 23 U/L (14-36); Bilirubin,Total 0.4 mg/dL (0.2-1.3); Blood Urea Nitrogen 10 mg/dL (7-17); Calcium 8.8 mg/dL (8.4-10.2); Carbon Dioxide 25 mmol/L (22-30); Chloride 103 mmol/L (98-107); Estimated CRCL calculation 63 ml/min; Estimated Glomerular Filt Rate > 60; Glucose 126 mg/dL (65-110); Potassium 3.6 mmol/L (3.4-5.0); Sodium 133 mmol/L (137-145)
[2023-12-13 13:50] VITALS: BP 136/82; PULSE 81; RESP 20; TEMP 36.4; O2SAT 95
--- NOTE | 2023-12-13 15:16 | PM.IMPN ---
Progress Note: A&P Assessment and Plan (1) Clostridium difficile enterocolitis: Code(s): A04.72 - Enterocolitis due to Clostridium difficile, not specified as recurrent Status: Acute Assessment and Plan: History of long-time antibiotic use for ongoing UTI, patient currently having several loose stools per nursing staff As evidenced by abdominal/pelvis CT -continue Dificid p.o. q.12 hours (2) Altered mental status: Qualifiers: Altered mental status type: disorientation Qualified Code(s): R41.0 - Disorientation, unspecified Code(s): R41.82 - Altered mental status, unspecified Status: Acute Assessment and Plan: Head CT reveals cerebral arteriosclerosis and infarcts no acute intracranial finding or skull fracture Suspect AMS related to urinary tract infection -history of dementia -initiate fall precautions (3) Hematuria: Code(s): R31.9 - Hematuria, unspecified Status: Resolved Assessment and Plan: -none seen in the [place] (4) Hemorrhagic cystitis: Code(s): N30.91 - Cystitis, unspecified with hematuria Status: Acute Assessment and Plan: -urine culture preliminary staphylococcus aureus - will hold abx tx until urine sensitive results (5) Congestive heart failure: Code(s): I50.9 - Heart failure, unspecified Status: Acute Assessment and Plan: -continue telemetry monitoring (6) Atrial fibrillation: Code(s): I48.91 - Unspecified atrial fibrillation Status: Acute Assessment and Plan: -continue home medication (7) Hypertension: Code(s): I10 - Essential (primary) hypertension Status: Acute Assessment and Plan: -continue home medication metoprolol (8) Hyponatremia: Code(s): E87.1 - Hypo-osmolality and hyponatremia Status: Acute Assessment and Plan: -acute on chronic Na has improved today 133 -recheck labs in the a.m. -continue to monitor Plan Continue home medications: VTE Prophylaxis: SCDs DIET: Heart healthy Anticipated hospital stay:>2 days Code Status: Full Subjective Date/time seen: 12/13/23 15:16 Interval history: Pt is unable to provide any HPI, information gathered per chart and nursing staff: This is a 78-year-old female with history of stroke, dementia, neurogenic bladder with suprapubic catheter, hypertension, atrial fibrillation, hypertension, sleep apnea, diastolic congestive heart failure, and other comorbidities who presented to the emergency department via EMS for evaluation blood draining suprapubic catheter. At baseline, she is reportedly alert and oriented x2 however more confused at this time and is unable to answer questions appropriately with mumbling speech. As such almost all of the following is obtained via a review of her electronic medical records. Staff at her [facility] reported that she had been on 4 antibiotics in last 30 days for ongoing urinary tract infections and she reportedly tested positive for C diff the last couple of days. ED Workup: She was afebrile on arrival to the ED with stable blood pressures. Her respiratory rate is occasionally increased during periods of what appears to be anxiety. Several times while I was in the room she started to cry but could not tell me why. Labs were significant for a WBC count of 10.2, sodium 133, BUN 27, creatinine 1.30. Urine was grossly bloody. She was confirmed positive for C diff by PCR. Brain CT showed no acute findings. Chest x-ray showed cardiomegaly with pulmonary vascular congestion and pulmonary interstitial prominence suggestive of heart failure. CT of the abdomen and pelvis showed bladder wall thickening and fluid levels in the ascending and transverse colon suggestive of enterocolitis. She was given a dose of meropenem for suspected cystitis and she is being admitted in this setting for close monitoring and further treatment. Interval history: 12/11/2023 patient s
[2023-12-13 20:36] VITALS: BP 138/66; PULSE 53; PULSE 96; RESP 20; TEMP 36.1; O2SAT 95
[2023-12-13] MEDS: METOPROLOL TARTRATE 50 MG TAB PO (20:36)
[2023-12-13] MEDS: FIDAXOMICIN 200 MG TABLET PO (20:36)
[2023-12-13] MEDS: ATORVASTATIN 20 MG TABLET PO (20:36)
[2023-12-13] MEDS: DIVALPROEX SODIUM SPRINKLE 125 MG CAP.DR 250 MG PO (20:36)
[2023-12-14 04:35] VITALS: BP 137/88; PULSE 83; RESP 20; TEMP 35.6; O2SAT 94
[2023-12-14] MEDS: DIVALPROEX SODIUM SPRINKLE 125 MG CAP.DR 250 MG PO ×2 (09:08→19:59)
[2023-12-14] MEDS: FIDAXOMICIN 200 MG TABLET PO ×2 (09:08→19:59)
[2023-12-14] MEDS: METOPROLOL TARTRATE 50 MG TAB PO ×2 (09:08→19:59)
[2023-12-14] MEDS: ASCORBIC ACID 500 MG TABLET PO (09:08)
[2023-12-14] MEDS: THIAMINE HCL 100 MG TABLET PO (09:08)
[2023-12-14] MEDS: busPIRone HCL 10 MG TABLET PO (09:09)
[2023-12-14] MEDS: oxyBUTYnin CHLORIDE 5 MG TABLET PO (09:09)
[2023-12-14] MEDS: TOLNAFTATE 1% POWDER 45 GM BTL 1 APPLIC TOPICAL (13:45)
--- NOTE | 2023-12-14 13:51 | PM.DS ---
DS: Admitting Diagnosis Discharge Date 12/14/2023 Admitting Diagnosis Altered mental status DS: Discharge Diagnosis Discharge Diagnosis (1) UTI (urinary tract infection): Qualifiers: Encounter type: initial encounter Indwelling urinary catheter type: unspecified Urinary tract infection type: catheter-associated UTI Qualified Code(s): T83.511A - Infection and inflammatory reaction due to indwelling urethral catheter, initial encounter; N39.0 - Urinary tract infection, site not specified Code(s): N39.0 - Urinary tract infection, site not specified Status: Acute Assessment and Plan: Chronic no urinary complaints (2) Congestive heart failure: Code(s): I50.9 - Heart failure, unspecified Status: Acute (3) Hematuria: Code(s): R31.9 - Hematuria, unspecified Status: Resolved Assessment and Plan: -no evidence blood in [place] (4) Clostridium difficile enterocolitis: Code(s): A04.72 - Enterocolitis due to Clostridium difficile, not specified as recurrent Status: Acute Assessment and Plan: -continue Dificid for 11 more doses (5) Hemorrhagic cystitis: Code(s): N30.91 - Cystitis, unspecified with hematuria Status: Resolved Assessment and Plan: Resolved (6) Atrial fibrillation: Code(s): I48.91 - Unspecified atrial fibrillation Status: Acute Assessment and Plan: -continue home medication metoprolol 50 mg b.i.d. (7) Enterocolitis: Code(s): K52.9 - Noninfective gastroenteritis and colitis, unspecified Status: Acute Assessment and Plan: Suspect secondary to C diff infection -continues Dificid for 11 more doses (8) Altered mental status: Qualifiers: Altered mental status type: disorientation Qualified Code(s): R41.0 - Disorientation, unspecified Code(s): R41.82 - Altered mental status, unspecified Status: Resolved Assessment and Plan: -resolved (9) Asymptomatic bacteriuria: Code(s): R82.71 - Bacteriuria Status: Acute Assessment and Plan: -consult with [facility] pharm for antibiotic stewardship who recommends no continue tx at this time. pt has hx of ESBL, that has resolved and now MRSA in urine -plan is to continue to de-escalate abx use as pt does not have any urinary complaints, DS: Summary Hospital Course Reason for hospitalization: This is a 78-year-old female with history of stroke, dementia, neurogenic bladder with suprapubic catheter, hypertension, atrial fibrillation, hypertension, sleep apnea, diastolic congestive heart failure, and other comorbidities who presented to the emergency department via EMS for evaluation blood draining suprapubic catheter. Hospital Course: ?At baseline, she is reportedly alert and oriented x2 however more confused at this time and is unable to answer questions appropriately with mumbling speech. As such almost all of the following is obtained via a review of her electronic medical records. [facility] reported that she had been on 4 antibiotics in last 30 days for ongoing urinary tract infections and she reportedly tested positive for C diff the last couple of days.??ED Workup:?She was afebrile on arrival to the ED with stable blood pressures. Her respiratory rate is occasionally increased during periods of what appears to be anxiety. Several times while I was in the room she started to cry but could not tell me why. Labs were significant for a WBC count of 10.2, sodium 133, BUN 27, creatinine 1.30. Urine was grossly bloody. She was confirmed positive for C diff by PCR. Brain CT showed no acute findings. Chest x-ray showed cardiomegaly with pulmonary vascular congestion and pulmonary interstitial prominence suggestive of heart failure. CT of the abdomen and pelvis showed bladder wall thickening and fluid levels in the ascending and transverse colon suggestive of enterocolitis. She was given a dose of donnie
[2023-12-14 15:19] VITALS: BP 138/76; PULSE 93; RESP 20; TEMP 36.4; O2SAT 97
[2023-12-14 19:59] VITALS: PULSE 96
[2023-12-14] MEDS: ATORVASTATIN 20 MG TABLET PO (19:59)
[2023-12-14 20:02] VITALS: BP 112/77; PULSE 96; RESP 18; TEMP 37; O2SAT 96
--- NOTE | 2023-12-15 08:12 | P.CDI_ITS ---
CDI Query Clarification Request Documentation in the medical record indicates that this patient has been diagnosed as having the symptoms of ALTERED MENTAL STATUS. Additional findings also documented in the medical record: * UTI * C. Diff * hyponatremia * 12/10/23 Urine culture positive: > 100,000 Methicillin Resis Staph Aureus * Patient received: Rocephin 1 gm Q 24hrs , Meropenem 1 gm Q 12hrs & Dificid 200 mg Q12hrs. Based on your medical judgement, can you further clarify in the progress notes, if known, if these findings associated with altered mental status are due to a definite or suspected underlying neurologic cause such as: * Metabolic encephalopathy * Toxic encephalopathy * Altered mental status without encephalopathy * Other condition (please specify) * None of the above/ Not applicable <Alma Holliday RN - Last Filed: 12/15/23 08:21> (2) Altered mental status: ?Qualifiers: ?Altered mental status type:?disorientation? Qualified Code(s):?R41.0 - Disorientation, unspecified ?Code(s): R41.82 - Altered mental status, unspecified ?Status:?Acute ?Assessment and Plan: Head CT reveals cerebral arteriosclerosis and infarcts no acute intracranial finding or skull fracture Suspect AMS related to urinary tract infection -history of dementia -initiate fall precautions Documentation in the medical record indicates that this patient has been diagnosed as having the symptoms of ALTERED MENTAL STATUS. Additional findings also documented in the medical record: * UTI * C. Diff * hyponatremia * 12/10/23 Urine culture positive: > 100,000 Methicillin Resis Staph Aureus * Patient received: Rocephin 1 gm Q 24hrs , Meropenem 1 gm Q 12hrs & Dificid 200 mg Q12hrs. Based on your medical judgement, can you further clarify in the progress notes, if known, if these findings associated with altered mental status are due to a definite or suspected underlying neurologic cause such as: * Metabolic encephalopathy * Toxic encephalopathy * Altered mental status without encephalopathy * Other condition (please specify) * None of the above/ Not applicable <Danielle Oconnell APRN - Last Filed: 12/23/23 12:54>
[2023-12-15 12:37] LABS: Osmolality, Urine 278 mOsm/kg (50-1200)
== END 2023-12-14 20:16 | DRG 699 ==
LOC: ANHED 13:49 → ANH3MEDSUR 16:05
PROVIDERS: Physician Assistant; Admitting Provider Hospitalist; Emergency Provider Physician Assistant; PCP Family Medicine; Visit Provider Nurse Practitioner
DX: T83.511A Infection and inflammatory reaction due to indwelling urethral catheter, initial encounter (principal); A04.72 Enterocolitis due to Clostridium difficile, not specified as recurrent; I48.19 Other persistent atrial fibrillation; I50.32 Chronic diastolic (congestive) heart failure; B95.62 Methicillin resistant Staphylococcus aureus infection as the cause of diseases classified elsewhere; N30.91 Cystitis, unspecified with hematuria; E78.5 Hyperlipidemia, unspecified; F03.90 Unspecified dementia, unspecified severity, without behavioral disturbance, psychotic disturbance, mood disturbance, and anxiety; G47.33 Obstructive sleep apnea (adult) (pediatric); H91.90 Unspecified hearing loss, unspecified ear; I48.91 Unspecified atrial fibrillation; I11.0 Hypertensive heart disease with heart failure; J44.9 Chronic obstructive pulmonary disease, unspecified; K21.9 Gastro-esophageal reflux disease without esophagitis; K57.30 Diverticulosis of large intestine without perforation or abscess without bleeding; R41.82 Altered mental status, unspecified; Z79.01 Long term (current) use of anticoagulants; Z11.52 Encounter for screening for COVID-19; Z86.73 Personal history of transient ischemic attack (TIA), and cerebral infarction without residual deficits; Z88.0 Allergy status to penicillin; Z86.16 Personal history of COVID-19; Z90.49 Acquired absence of other specified parts of digestive tract; Z98.49 Cataract extraction status, unspecified eye; Z87.891 Personal history of nicotine dependence
CPT/HCPCS: 36415; 36600; 70450; 71045; 74177; 80048; 80053; 80164; 81001; 82140; 82550; 82607; 82805; 83605; 83735; 83935; 84300; 84443; 84484; 85025; 85027; 85610; 85730; 87045; 87086; 87427; 87449; 87493; 87637; 89055; 92610; 93005; 96361; 96365; 97167; 99285; A9270; G0378; J2185; J7030; Q9967

== ENCOUNTER 2024-02-02 10:31 | Inpatient (IN) | payer MEDICARE, MEDICAID, SELFPAY ==
[2024-02-02] VITALS (42 sets, daily range): BP systolic 111–170; BP diastolic 61–107; PULSE 72–112; RESP 16–33; TEMP 36.2; O2SAT 90–100; BMI 28.9
--- NOTE | ~2024-02-02 | US_ITS ---
US venous doppler UE RT DATE: 02/07/2024 13:11 INDICATION: Right upper extremity pain and swelling TECHNIQUE: Real-time and color flow imaging and Doppler analysis of the veins of the right upper extr emity COMPARISON: None FINDINGS: The right internal jugular, subclavian, axillary, brachial, basilic and cephalic veins are patent. IMPRESSION: No evidence of deep venous thrombosis of the right internal jugular, subclavian, axillary , brachial, basilic and cephalic veins Reviewed, dictated and finalized at [facility]. Reviewed, dictated and finalized at [facility]. IMPRESSION: No evidence of deep venous thrombosis of the right internal jugular , subclavian, axillary, brachial, basilic and cephalic veins
--- NOTE | ~2024-02-02 | CT_ITS ---
EXAMINATION: CT brain wo con DATE: 02/02/2024 13:31 INDICATION: Altered mental status. TECHNIQUE: Computed tomography (CT) of the head was performed without intravenous contrast. The mA wa s adjusted according to patient size. Iterative reconstruction technique was employed. The dose-lengt h product was 605.33 mGy-cm. COMPARISON: Head CT 12/10/2023 FINDINGS: There is an old infarct involving the right basal ganglia and anterior limb right internal capsule. There is an old infarct in the left parietal lobe. There are scattered areas of low attenuat ion in the cerebral white matter. There is no intracranial hemorrhage, acute infarction, or abnormal intracranial mass lesion. There is ex vacuo dilatation of anterior body of right lateral ventricle. T here are likely changes of ocular lens replacement surgeries. There is mild mucosal thickening in the ethmoid sinuses. There are trace bilateral mastoid effusions. IMPRESSION: 1. Old infarcts involving the right basal ganglia, anterior limb right internal capsule, and left par ietal lobe. 2. Extensive nonspecific cerebral white matter disease, which likely represents chronic small vessel ischemic disease. Reviewed, dictated and finalized at [facility]. IMPRESSION: 1. Old infarcts involving the right basal ganglia, anterior limb right internal capsule, and left parietal lobe. 2. Extensive nonspecific cerebral white matter disease, which likely represents chronic small vessel ischemic disease.
--- NOTE | ~2024-02-02 | XR_ITS ---
EXAMINATION: XR forearm RT 2V DATE: 02/06/2024 14:20 INDICATION: Right forearm pain. TECHNIQUE: 2 views of right forearm were obtained. COMPARISON: Right wrist radiographs 07/13/2019 FINDINGS: Bone alignment is normal. No fracture. There is mild osteoarthritis of the elbow joint, dis cheyanne radioulnar joint, and first carpometacarpal joint. No elbow joint effusion. IMPRESSION: 1. Mild polyarticular osteoarthritis. Reviewed, dictated and finalized at location [facility].
--- NOTE | ~2024-02-02 | CT_ITS ---
EXAMINATION: CT abdomen pelvis w con DATE: 02/02/2024 12:20 INDICATION: Abnormal liver function tests. TECHNIQUE: Computed tomography (CT) of the abdomen and pelvis was performed with 100 mL Omnipaque 350 intravenous contrast. Automated exposure control and iterative reconstruction technique were employe d. The dose-length product was 1167.03 mGy-cm. COMPARISON: CT abdomen and pelvis 12/10/2023 FINDINGS: The lungs demonstrate smooth septal thickening, consistent mild pulmonary edema. There is m ild atelectasis bilaterally. There are small pleural effusions, left worse than right. Cardiomegaly i s noted. There are coronary artery calcifications. No pericardial effusion. The liver, spleen, pancre as, and adrenal glands are normal. The gallbladder is absent. There is cortical thinning of the kidne ys. There is a 5 mm cyst in left kidney. A suprapubic catheter is noted. There is diverticulosis of t he colon without evidence of diverticulitis. There are no dilated loops of bowel. The appendix is not visualized. There is calcified atherosclerosis of the aorta and many of the other arteries. There is a 2.3 cm saccular aneurysm of abdominal aorta on the left. There is a 2.2 cm saccular aneurysm of le ft common iliac artery. There are no pathologically enlarged lymph nodes. There is no free intraperit donald fluid. There is an electrode in left S3 neural foramen. There is severe thoracic and lumbar spo ndylosis. IMPRESSION: 1. Small pleural effusions. 2. Mild pulmonary edema. 3. 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 Reviewed, dictated and finalized at [facility]. IMPRESSION: 1. Small pleural effusions. 2. Mild pulmonary edema. 3. 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
--- NOTE | ~2024-02-02 | XR_ITS ---
EXAMINATION: XR shoulder RT min 2V DATE: 02/07/2024 15:50 INDICATION: Right shoulder pain. TECHNIQUE: 2 views of right shoulder were obtained. COMPARISON: Right shoulder radiographs 12/15/2018 FINDINGS: Bone alignment is normal. No fracture. There is moderate osteoarthritis of glenohumeral sunny nt and acromioclavicular joint. IMPRESSION: 1. Polyarticular osteoarthritis. Reviewed, dictated and finalized at location [facility].
--- NOTE | 2024-02-02 11:06 | ECG_ITS ---
Measurements Intervals Rose Rate: 105 P: MD: 0 QRS: 31 QRSD: 82 T: 136 QT: 332 QTc: 440 Interpretive Statements ATRIAL FIBRILLATION WITH RAPID VENTRICULAR RESPONSE NONSPECIFIC ST & T-WAVE ABNORMALITY- DIFFUSE LEADS BASELINE ARTIFACT- I, III, AVR, AVL, AVF, V1-V4 ABNORMAL ECG COMPARED TO ECG 12/10/2023 10:33:48 HAERT RATE HAS INCREASED Electronically Signed On 02-02-2024 12:55:10 CDT by Jerry Falk D.O.
[2024-02-02 11:15] LABS: Basophils Percent Auto 0.3 % (0.2-1.2); Eosinophils Absolute Auto 0.3 K/mm3 (0-0.3); Eosinophils Percent Auto 2.2 % (0-4.4); Hematocrit 37.9 % (37.0-47.0); Immature Granulocyte Absolute 0.03 K/mm3 (0.00-0.031); Immature Granulocyte Percent A 0.3 % (0-0.5); Lymphocytes Absolute Auto 1.35 K/mm3 (0.9-3.2); Lymphocytes Percent Auto 11.3 % (18.3-44.2); Mean Corpuscular HGB Conc 31.7 g/dl (32-36); Mean Corpuscular Hemoglobin 29.5 pg (26-34); Mean Corpuscular Volume 93.1 fl (80-100); Mean Platelet Volume 10.6 fl (7.4-10.4); Monocytes Absolute Auto 0.8 K/mm3 (0.1-0.6); Monocytes Percent Auto 6.9 % (2.6-8.5); Neutrophils Absolute Auto 9.4 K/mm3 (1.3-6.7); Platelet Count Result 288 k/mm3 (150-375); Red Blood Count 4.07 M/mm3 (4.2-5.4); Red Cell Distribution Width 15.6 % (11.5-14.5); White Blood Count 11.9 K/mm3 (4.5-10.0)
[2024-02-02 11:27] LABS: Alanine Aminotransferase 245 U/L (6-35); Albumin Level 3.3 g/dL (3.5-5.1); Alkaline Phosphatase 204 U/L (38-126); Anion Gap 4 mmol/L (4-12); Aspartate Amino Transferase 391 U/L (14-36); Bilirubin,Total 1.9 mg/dL (0.2-1.3); Blood Urea Nitrogen 23 mg/dL (7-17); Calcium 9.2 mg/dL (8.4-10.2); Carbon Dioxide 29 mmol/L (22-30); Chloride 102 mmol/L (98-107); Estimated CRCL calculation 60 ml/min; Estimated Glomerular Filt Rate > 60; Glucose 137 mg/dL (65-110); Potassium 4.3 mmol/L (3.4-5.0); Sodium 135 mmol/L (137-145)
[2024-02-02 11:28] LABS: INR 1.5; Prothrombin Time 19.3 Seconds (11.1-14.7)
[2024-02-02 11:29] LABS: Partial Thromboplastin Time 40.9 Seconds (22.3-36.8)
[2024-02-02] MEDS: SODIUM CHLORIDE 0.9% IV 1,000 ML 150 ML IV CONT (11:38)
--- NOTE | 2024-02-02 11:42 | PC.NURSE ---
Pulse ox 86 when patient sleeping. 02 applied at 2l NC.
[2024-02-02 13:04] LABS: Bacteria Urine 1+ /hpf; Calcium Oxalate Crystals Urine Present /hpf; Non Pathogenic Casts 0-2; RBC Urine 51-100 /hpf (0-2); Squamous Epithelial Cell Urine Occasional /hpf (Few); WBC Urine 21-50 /hpf (0-3)
[2024-02-02 13:13] LABS: Ammonia < 9 umol/L (9-30)
[2024-02-02 13:13] LABS: Appearance Urine Clear (Clear); Bilirubin Urine 1+ (Negative); Blood Urine 2+ (Negative); Color Urine Dark Yellow (Yellow); Glucose Urine UA Trace mg/dL (Negative); Ketones Urine Negative (Negative); Leukocyte Esterase Ur Negative LEU/UL (Negative); Nitrate Urine Positive (Negative); Protein Urine 1+ mg/dL (Negative)
[2024-02-02 13:15] LABS: Creatine Kinase 39 U/L (30-135)
[2024-02-02 13:15] LABS: Add Urine Microscopic? YES
--- NOTE | 2024-02-02 15:04 | PM.IMHP ---
H&P: HPI History of Present Illness Date/Time: 02/02/24 15:05 Chief Complaint: Altered mental status. Narrative: This is a 78-year-old female with history of stroke, dementia, neurogenic bladder with suprapubic catheter, hypertension, atrial fibrillation, hypertension, sleep apnea, diastolic congestive heart failure, C diff diarrhea, and other comorbidities who presented to the emergency department via EMS for evaluation of altered mental status. At baseline, she is reportedly alert and oriented x2 however is more confused at this time and is unable to answer questions appropriately with mumbling speech. As such almost all of the following is obtained via a review of her electronic medical records. She is known to myself and the hospitalist service from an admission at the beginning of December 2023 with C diff enterocolitis related to numerous antibiotics for presumed urinary tract infections. Transferring facility did not provide much information as to why she was sent in aside from altered mental status. She was afebrile on arrival to the ED with stable blood pressures. She is tearful and yells out that she is in pain with all aspects of exam. Labs were significant for WBC count of 11.9, hemoglobin 12.0, INR 1.5, sodium 135, BUN 23, creatinine 0.70, total bilirubin 1.9, AST 391, ALT 245, alkaline phosphatase 204, ammonia less than 9, total CK 39. Brain CT showed no acute findings. CT of the abdomen pelvis showed small pleural effusions, mild pulmonary edema, and stable aneurysms. She is being admitted in this setting for further workup. At the time my evaluation she is alert and nontoxic in appearance. She attempts to follow some commands. She does not answer questions. Review of Systems Review of Systems: Unable to obtain accurately given clinical condition. [facility] Past Medical History Medical History (Updated 02/02/24 @ 15:31 by Leonila Arita PA-C) Arthritis Bilateral renal artery stenosis Bilateral renal artery stenosis noted on CTA evaluated at [facility] December 2019. Cerebrovascular accident Evidence of old right basal ganglia and anterior limb right internal capsule infarcts. Cervical radiculopathy Chronic obstructive pulmonary disease Chronic tension-type headache, not intractable Degenerative disc disease Dementia Discitis of lumbar region Diverticulosis of colon Dyskinesia of esophagus Dyslipidemia Essential (primary) hypertension Gastroesophageal reflux disease Hypertension Major depressive disorder, single episode, unspecified Moderate pulmonary arterial systolic hypertension Echocardiogram April 2020: EF 60-65%, normal diastolic function, atrial fibrillation, moderate left atrial enlargement, moderate to severe tricuspid valve regurgitation moderate pulmonary hypertension with RVSP of 54 Osteoporosis Overactive bladder Pancreatitis Peptic ulcer disease Peripheral neuropathy Persistent atrial fibrillation Pneumonia due to COVID-19 virus 09/08/2020 treated with Remdesivir and dexamethasone and 1 unit of convalesant plasma. Pseudobulbar affect Radiculopathy, lumbar region Sleep apnea Severe obstructive sleep apnea on polysomnogram October 2014 with recommended CPAP of 18. SMA stenosis Total urinary incontinence Transient ischemic attack Urinary retention with incomplete bladder emptying Vascular dementia with behavior disturbance Surgical History Surgical History History of appendectomy History of bilateral carpal tunnel release History of bladder suspension procedure History of bunionectomy of both great toes History of cataract extraction History of cholecystectomy History of hysterectomy History of orthopedic surgery Bilateral heel spur removal. History of spinal surgery Presence of suprapubic catheter (05/27/21) Family History Family History Father Diabetes gustavo
--- NOTE | 2024-02-02 15:07 | ED.AMS ---
HPI - Altered Mental Status General Chief Complaint: Altered Mental Status Stated Complaint: Altered mental status Time Seen by Provider: 02/02/24 11:05 Source: EMS Mode of arrival: EMS Limitations: altered mental status History of Present Illness HPI narrative: 78-year-old with history of dementia hypertension, DM was brought in from long-term with a complaint of altered mental status the as per the long-term record patient is been increase in her confusion. No history of fever or chills with MD complaint: altered mental status Severity: moderate Associated symptoms: denies other symptoms Related Data Home Medications Medication Instructions Recorded Confirmed oxybutynin chloride 5 mg tablet 5 mg PO TID PRN Bladder Spasms 09/02/22 12/18/23 nystatin 100,000 unit/gram topical 100,000 unit topical PRN PRN Skin 02/23/23 12/18/23 powder Irritation buspirone 10 mg tablet 10 mg PO BID 12/10/23 12/18/23 dextromethorphan 20 mg-quinidine 1 cap PO BID 12/10/23 12/18/23 10 mg capsule (Nuedexta) divalproex 125 mg capsule,delayed 250 mg PO BID 12/10/23 12/18/23 release sprinkle Allergies Allergy/AdvReac Type Severity Reaction Status Date / Time propoxyphene Allergy Severe HIVES Verified 12/18/23 14:14 clindamycin Allergy Unknown Unknown Verified 12/18/23 14:14 codeine Allergy Unknown HIVES but Verified 12/18/23 14:14 tolerates hydrocodone donepezil Allergy Unknown Unknown Verified 12/18/23 14:14 hydrochlorothiazide Allergy Unknown Skin Verified 12/18/23 14:14 Reaction latex Allergy Unknown SWELLING/RA Verified 12/18/23 14:14 SH lisinopril Allergy Unknown cough Verified 12/18/23 14:14 meloxicam Allergy Unknown ulcer Verified 12/18/23 14:14 olmesartan Allergy Unknown Unknown Verified 12/18/23 14:14 Penicillins Allergy Unknown Rash Verified 12/18/23 14:14 spironolactone Allergy Unknown hyperkalemi Verified 12/18/23 14:14 a amoxicillin AdvReac Unknown Nausea Verified 12/18/23 14:14 Review of Systems Review of Systems: ROS unobtainable: Yes unobtainable due to medical condition PMFSH Past Medical History Medical History Arthritis Atrial fibrillation with RVR Bacteremia Bilateral renal artery stenosis Bilateral renal artery stenosis noted on CTA evaluated at [facility] Dr. Farias December 2019. Cerebrovascular accident Evidence of old right basal ganglia and anterior limb right internal capsule infarcts. Cervical radiculopathy Chronic obstructive pulmonary disease Chronic tension-type headache, not intractable Degenerative disc disease Dementia Discitis of lumbar region Diverticulitis large intestine Diverticulosis of colon Dyskinesia of esophagus Dyslipidemia Encephalopathy Essential (primary) hypertension Gastroesophageal reflux disease Hereditary and idiopathic neuropathy, unspecified Hypertension Major depressive disorder, single episode, unspecified Moderate pulmonary arterial systolic hypertension Echocardiogram April 2020: EF 60-65%, normal diastolic function, atrial fibrillation, moderate left atrial enlargement, moderate to severe tricuspid valve regurgitation moderate pulmonary hypertension with RVSP of 54 Obesity (BMI 30.0-34.9) Obstructive sleep apnea (adult) (pediatric) Osteoporosis Overactive bladder Pancreatitis Peripheral neuropathy Persistent atrial fibrillation Pneumonia due to COVID-19 virus 09/08/2020 treated with Remdesivir and dexamethasone and 1 unit of convalesant plasma. PUD (peptic ulcer disease) Radiculopathy, lumbar region Sleep apnea Severe obstructive sleep apnea on polysomnogram October 2014 with recommended CPAP of 18. SMA stenosis Suprapubic catheter dysfunction Total urinary incontinence Transient ischemic attack Ulcer Urinary retention with incomplete bladder emptying Urinary tract infection associated with cystostomy catheter UTI (urinary tract infection) Vascular dementia with behavior
[2024-02-02] MEDS: SODIUM CHLORIDE 0.9% IV 1,000 ML 75 ML IV CONT (19:30)
[2024-02-02 20:17] LABS: Lactic Acid Reflex 1.7 mmol/L (0.7-2.0)
[2024-02-02 20:43] LABS: Valproic Acid 32.8 ug/mL (50-120)
[2024-02-02 20:54] LABS: CRP 20.2 mg/dL (<1.0)
[2024-02-02 21:01] LABS: Procalcitonin 1.3 ng/mL
[2024-02-02 21:23] LABS: Hepatitis B Surface Antigen Negative (Negative)
[2024-02-02 21:29] LABS: HAV RESULT Negative (Negative); Hepatitis B Core IgM Result Negative (Negative)
[2024-02-02 21:40] LABS: Hepatitis C Virus Antibody Negative (Negative)
[2024-02-03 05:42] LABS: Basophils Percent Auto 0.5 % (0.2-1.2); Eosinophils Absolute Auto 0.4 K/mm3 (0-0.3); Eosinophils Percent Auto 5.1 % (0-4.4); Hematocrit 36.3 % (37.0-47.0); Hemoglobin 11.3 g/dL (12.0-15.0); Immature Granulocyte Absolute 0.02 K/mm3 (0.00-0.031); Immature Granulocyte Percent A 0.3 % (0-0.5); Lymphocytes Absolute Auto 1.83 K/mm3 (0.9-3.2); Lymphocytes Percent Auto 23.4 % (18.3-44.2); Mean Corpuscular HGB Conc 31.1 g/dl (32-36); Mean Corpuscular Hemoglobin 29.3 pg (26-34); Mean Platelet Volume 10.5 fl (7.4-10.4); Monocytes Absolute Auto 0.7 K/mm3 (0.1-0.6); Monocytes Percent Auto 8.4 % (2.6-8.5); Neutrophils Absolute Auto 4.9 K/mm3 (1.3-6.7); Neutrophils Percent Auto 62.3 % (45.5-73.1); Platelet Count Result 272 k/mm3 (150-375); Red Blood Count 3.86 M/mm3 (4.2-5.4); Red Cell Distribution Width 15.8 % (11.5-14.5); White Blood Count 7.8 K/mm3 (4.5-10.0)
[2024-02-03 05:49] VITALS: BP 116/81; PULSE 52; RESP 17; TEMP 35.9; O2SAT 93
[2024-02-03 05:53] LABS: INR 1.3; Prothrombin Time 16.9 Seconds (11.1-14.7)
[2024-02-03 05:54] LABS: Alanine Aminotransferase 237 U/L (6-35); Alkaline Phosphatase 250 U/L (38-126); Anion Gap 5 mmol/L (4-12); Aspartate Amino Transferase 279 U/L (14-36); Bilirubin,Total 1.6 mg/dL (0.2-1.3); Blood Urea Nitrogen 17 mg/dL (7-17); Calcium 8.8 mg/dL (8.4-10.2); Carbon Dioxide 28 mmol/L (22-30); Chloride 105 mmol/L (98-107); Estimated CRCL calculation 70 ml/min; Estimated Glomerular Filt Rate > 60; Glucose 97 mg/dL (65-110); Magnesium 1.9 mg/dL (1.6-2.3); Partial Thromboplastin Time 38.7 Seconds (22.3-36.8); Potassium 3.7 mmol/L (3.4-5.0); Sodium 138 mmol/L (137-145)
[2024-02-03 08:49] VITALS: BP 162/88; PULSE 86; O2SAT 98
[2024-02-03] MEDS: SODIUM CHLORIDE 0.9% IV 1,000 ML 75 ML IV CONT ×2 (08:53→22:10)
[2024-02-03 08:55] VITALS: PULSE 86
[2024-02-03] MEDS: busPIRone HCL 10 MG TABLET PO ×2 (08:55→17:34)
[2024-02-03] MEDS: THIAMINE HCL 100 MG TABLET PO (08:55)
[2024-02-03] MEDS: ASCORBIC ACID 500 MG TABLET PO (08:55)
[2024-02-03] MEDS: APIXABAN 5 MG TABLET PO ×2 (08:55→20:56)
[2024-02-03] MEDS: METOPROLOL TARTRATE 50 MG TAB PO ×2 (08:55→20:56)
[2024-02-03] MEDS: QUEtiapine FUMARATE 25 MG TABLET PO ×3 (08:55→17:34)
[2024-02-03 09:27] LABS: Hepatitis B Surface Antigen Negative (Negative)
[2024-02-03 09:33] LABS: HAV RESULT Negative (Negative); Hepatitis B Core IgM Result Negative (Negative)
[2024-02-03 10:04] LABS: Hepatitis C Virus Antibody Negative (Negative)
--- NOTE | 2024-02-03 13:38 | PM.IMPN ---
Progress Note: A&P Assessment and Plan (1) Altered mental status: Qualifiers: Altered mental status type: unspecified Qualified Code(s): R41.82 - Altered mental status, unspecified Code(s): R41.82 - Altered mental status, unspecified Status: Acute Assessment and Plan: She was afebrile on arrival and has stable vital signs. Brain CT showed chronic findings only in her exam is nonfocal making stroke unlikely. WBC count is elevated 11.4 and her transaminases are all elevated. CT scan of the abdomen and pelvis did not show any acute findings however. Her urine is always abnormal due to indwelling Aiken catheter and she was in the hospital last month with C diff enterocolitis after being on 4 separate antibiotics thus will hold on initiating antibiotics for now. Urine culture and blood culture pending CRP 20.2 Procalcitonin WNL (2) Transaminitis: Code(s): R74.01 - Elevation of levels of liver transaminase levels Status: Acute Assessment and Plan: 02/01 T bili 1.9, AST /ALT 139/ 245 and alk-phos of 204 02/02 T bili 1.6, AST /ALT 279/ 237 and alk-phos of 250 hepatitis panel negative Ammonia less than 9 CRP elevated to 20.2 Hold atorvastatin, divalproex, Nuedexta, and duloxetine for now. Continue to trend (3) Abnormal urinalysis: Code(s): R82.90 - Unspecified abnormal findings in urine Status: Inactive Assessment and Plan: urine with 2+ blood, positive nitrates, 1+ bilirubin, 4 urine urobilinogen, 51-100 rbc's and 21-50 wbc's with 1+ bacteria Urine is always abnormal due to indwelling Aiken catheter and she was in the hospital last month with C diff enterocolitis after being on 4 separate antibiotics thus will hold on initiating antibiotics for now. Urine culture and blood culture pending Add on antibiotics if urine comes back positive for growth (4) Dementia: Qualifiers: Dementia type: vascular dementia Dementia behavioral disturbance: with behavioral disturbance Qualified Code(s): F01.51 - Vascular dementia with behavioral disturbance Code(s): F03.90 - Unspecified dementia, unspecified severity, without behavioral disturbance, psychotic disturbance, mood disturbance, and anxiety Status: Acute Assessment and Plan: Continue home medications. Baseline of A&O x2 (5) Atrial fibrillation: Code(s): I48.91 - Unspecified atrial fibrillation Status: Acute Assessment and Plan: She is in chronic atrial fibrillation and is rate controlled. Subjective Date/time seen: 02/03/24 13:38 Interval history: Patient was not able to answer any of my questions. She was sitting in bed awake. When was asking her questions she would just look at me without responding. When I attempted to examine the patient she did appear Fearful. According to the nurse this is not uncommon for her. 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 will plan to keep patient additional night to assess CRP, liver enzymes and urine culture. Exam Narrative: GENERAL: Comfortable, no acute distress EYES: EOM intact b/l NECK: no lymphadenopathy RESPIRATORY: clear to auscultation, no increased respiratory effort CARDIO: Regular rate and rhythm GI: soft, nontender, bowel sounds present SKIN/EXTREMITIES: no rashes, no edema, no redness or tenderness NEURO: PROM intact, Was unable to answer questions appropriately Objective Data Vital Signs Vital Signs: Vital Signs - 24 hr 02/02/24 13:45 02/02/24 13:46 02/02/24 14:00 Temperature Pulse Rate 72 91 104 H Respiratory Rate 22 H 26 H 25 H Blood Pressure 143/96 H Pulse Oximetry 100 98 97 Oxygen Delivery Oxygen Flow Rate 02/02/24 14:01 02/02/24 14:21 02/02/24 14:35 Temperature Pulse Rate 91 105 H 102 H Respiratory Rate 28 H 22 H 22 H Blood Pressure 119/73
[2024-02-03 14:04] VITALS: BP 152/59; PULSE 66; RESP 16; TEMP 35.9; O2SAT 94
[2024-02-03 20:12] VITALS: BP 147/80; PULSE 106; RESP 18; TEMP 36.5; O2SAT 96
[2024-02-03 20:56] VITALS: PULSE 100
[2024-02-04] VITALS (7 sets, daily range): BP systolic 153–179; BP diastolic 80–99; PULSE 72–104; RESP 18–36; TEMP 36.7–37.1; O2SAT 91–98
--- NOTE | 2024-02-04 | ECHO_ITS ---
Patient Info Name: Arpita Pop Age: 78 years : 1945 Gender: Female Ht: 66 in Wt: 179 lbs BSA: 1.97 m2 HR: 98 bpm BP: 171 / 99 mmHg Heart Rhythm: Atrial Fibrillation Technical Quality: Fair Exam Date: 02/04/2024 3:33 PM Exam Location: Echo Lab Exam Room: [facility] Patient Status: Inpatient Admit Date: 02/02/2024 Staff Ordering Physician: Angela Gabriel PA-C Magician/Illusionist: Umu Alas RDCS Attending Provider: Emory Baker MD Referring Physician: Harvey CRUZ; Exam Type: CA echo doppler color flow Study Info Indications I48.1 - Persistent atrial fibrillation Complete two-dimensional, color flow and Doppler transthoracic echocardiogram is performed. Summary 1. Complete two-dimensional, color flow and Doppler transthoracic echocardiogram is performed. 2. Left ventricular chamber dimension is normal. 3. Left ventricular systolic function is normal, estimated at 60-65%. 4. The left ventricular diastolic function is abnormal. 5. E/e' 13 is mildly elevated. 6. Atrial fibrillation. 7. Left atrial chamber dimension is moderately enlarged. 8. Right atrial chamber dimension is mildly enlarged. 9. There is mild aortic valve sclerosis. 10. There is mild mitral valve regurgitation. 11. There is mild tricuspid valve regurgitation. 12. No pulmonary hypertension, estimated pulmonary arterial systolic pressure is 38 mmHg. Left Ventricle E/e' 13 is mildly elevated. Atrial fibrillation. Left ventricular chamber dimension is normal. Left ventricular systolic function is normal, estimated at 60-65%. The left ventricular diastolic function is abnormal. Right Ventricle Right ventricular chamber dimension is normal. Right ventricular systolic function is normal. Left Atria Left atrial chamber dimension is moderately enlarged. Right Atria Right atrial chamber dimension is mildly enlarged. Aortic Valve The aortic valve is trileaflet. There is mild aortic valve sclerosis. There is no aortic valve stenosis. There is no aortic valve regurgitation. Pulmonic Valve There is no pulmonic regurgitation. Mitral Valve There is no mitral valve stenosis. There is mild mitral valve regurgitation. Tricuspid Valve There is mild tricuspid valve regurgitation. No pulmonary hypertension, estimated pulmonary arterial systolic pressure is 38 mmHg. Pericardium/Pleural There is no pericardial effusion. Inferior Vena Cava Normal inferior vena cava with >50% collapse upon inspiration consistent with normal right atrial pressure, 5 mmHg. Aorta The aortic root size at the sinus of Valsalva is normal. Left Ventricular Outflow Tract Name Value Normal LVOT 2D LVOT Diameter 1.9 cm LVOT Doppler LVOT Peak Gradient 3 mmHg LVOT Mean Gradient 2 mmHg LVOT VTI 15 cm LVOT VTI/AV VTI Ratio 0.5 LVOT Stroke Volume 41 ml LVOT CO 4.8 l/min LVOT CI 2.4 l/min/m2 Pulmonic Valve Name Value
[2024-02-04 01:15] LABS: Influenza A QL RT-PCR Negative (Negative); Influenza B QL RT-PCR Negative (Negative); RSV RNA, RT-PCR Negative (Negative); SARS-CoV-2 RNA PCR Negative (Negative)
[2024-02-04 08:15] LABS: Hematocrit 35.8 % (37.0-47.0); Hemoglobin 11.4 g/dL (12.0-15.0); Mean Corpuscular HGB Conc 31.8 g/dl (32-36); Mean Corpuscular Hemoglobin 29.5 pg (26-34); Mean Corpuscular Volume 92.7 fl (80-100); Mean Platelet Volume 10.4 fl (7.4-10.4); Platelet Count Result 264 k/mm3 (150-375); Red Blood Count 3.86 M/mm3 (4.2-5.4); Red Cell Distribution Width 15.4 % (11.5-14.5); White Blood Count 9.7 K/mm3 (4.5-10.0)
[2024-02-04] MEDS: busPIRone HCL 10 MG TABLET PO ×2 (08:29→17:47)
[2024-02-04] MEDS: ASCORBIC ACID 500 MG TABLET PO (08:29)
[2024-02-04] MEDS: METOPROLOL TARTRATE 50 MG TAB PO (08:29)
[2024-02-04] MEDS: APIXABAN 5 MG TABLET PO (08:30)
[2024-02-04] MEDS: QUEtiapine FUMARATE 25 MG TABLET PO ×3 (08:30→17:47)
[2024-02-04] MEDS: THIAMINE HCL 100 MG TABLET PO (08:30)
[2024-02-04 08:38] LABS: Anion Gap 4 mmol/L (4-12); Blood Urea Nitrogen 11 mg/dL (7-17); Calcium 8.8 mg/dL (8.4-10.2); Carbon Dioxide 27 mmol/L (22-30); Chloride 100 mmol/L (98-107); Estimated CRCL calculation 82 ml/min; Estimated Glomerular Filt Rate > 60; Glucose 107 mg/dL (65-110); Potassium 3.6 mmol/L (3.4-5.0); Sodium 131 mmol/L (137-145)
--- NOTE | 2024-02-04 12:49 | PC.NURSE ---
On 02/04/24, the student, [Mari aEsther Barnes], provided care and completed [facility] documentation on this patient. I have reviewed the student's documentation and agree with the findings.
--- NOTE | 2024-02-04 14:53 | PM.IMPN ---
Progress Note: A&P Assessment and Plan (1) Altered mental status: Qualifiers: Altered mental status type: unspecified Qualified Code(s): R41.82 - Altered mental status, unspecified Code(s): R41.82 - Altered mental status, unspecified Status: Acute Assessment and Plan: She was afebrile on arrival and has stable vital signs. Brain CT showed chronic findings only in her exam is nonfocal making stroke unlikely. WBC count is elevated 11.4 and her transaminases are all elevated. CT scan of the abdomen and pelvis did not show any acute findings however. Her urine is always abnormal due to indwelling Aiken catheter and she was in the hospital last month with C diff enterocolitis after being on 4 separate antibiotics thus will hold on initiating antibiotics for now. Urine culture with gram neg bacilli blood culture pending CRP 20.2 Procalcitonin WNL (2) Transaminitis: Code(s): R74.01 - Elevation of levels of liver transaminase levels Status: Acute Assessment and Plan: 02/01 T bili 1.9, AST /ALT 139/ 245 and alk-phos of 204 02/02 T bili 1.6, AST /ALT 279/ 237 and alk-phos of 250 hepatitis panel negative Ammonia less than 9 CRP elevated to 20.2 Hold atorvastatin, divalproex, Nuedexta, and duloxetine for now. Continue to trend (3) Abnormal urinalysis: Code(s): R82.90 - Unspecified abnormal findings in urine Status: Inactive Assessment and Plan: urine with 2+ blood, positive nitrates, 1+ bilirubin, 4 urine urobilinogen, 51-100 rbc's and 21-50 wbc's with 1+ bacteria Urine is always abnormal due to indwelling Aiken catheter and she was in the hospital last month with C diff enterocolitis after being on 4 separate antibiotics thus will hold on initiating antibiotics for now. Urine culture with gram neg bacilli. Pt started on Meropenem. (4) Dementia: Qualifiers: Dementia behavioral disturbance: with behavioral disturbance Dementia type: vascular dementia Qualified Code(s): F01.51 - Vascular dementia with behavioral disturbance Code(s): F03.90 - Unspecified dementia, unspecified severity, without behavioral disturbance, psychotic disturbance, mood disturbance, and anxiety Status: Acute Assessment and Plan: Continue home medications. Baseline of A&O x2 (5) Atrial fibrillation: Code(s): I48.91 - Unspecified atrial fibrillation Status: Acute Assessment and Plan: She is in chronic atrial fibrillation and is rate controlled. Subjective Date/time seen: 02/04/24 14:53 Interval history: 02/02: Patient was not able to answer any of my questions.? She was sitting in bed awake.? When was asking her questions she would just look at me without responding.? When I attempted to examine the patient she did appear? Fearful.? According to the nurse this is not uncommon for her.? 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 Laughter disproportionate to the event. will plan to keep patient additional night to assess CRP, liver enzymes and urine culture. 02/03: Patient still refusing to answer any my questions. Patient shakes her head yes and no although not able to discuss any of her care. Waiting for urine cultures to return. Once urine cultures return plan to discharge. Exam Narrative: GENERAL: Comfortable, no acute distress EYES: EOM intact b/l NECK: no lymphadenopathy RESPIRATORY: clear to auscultation, no increased respiratory effort CARDIO: Regular rate, irregular rhythm GI: soft, nontender, bowel sounds present SKIN/EXTREMITIES: no rashes, no edema, no redness or tenderness NEURO: PROM intact, Was unable to answer questions appropriately Objective Data Vital Signs Vital Signs: Vital Signs - 24 hr 02/03/24 20:12 02/03/24 20:56 02/04/24 05:06 Temperature 97.7 F 98.0 F Pulse Rate 106 H 100 94 Respiratory Rate 18
[2024-02-04 15:54] LABS: Alanine Aminotransferase 162 U/L (6-35); Albumin Level 3.2 g/dL (3.5-5.1); Alkaline Phosphatase 267 U/L (38-126); Anion Gap 6 mmol/L (4-12); Aspartate Amino Transferase 106 U/L (14-36); Bilirubin,Total 1.2 mg/dL (0.2-1.3); Blood Urea Nitrogen 10 mg/dL (7-17); Calcium 8.8 mg/dL (8.4-10.2); Carbon Dioxide 28 mmol/L (22-30); Chloride 96 mmol/L (98-107); Estimated CRCL calculation 82 ml/min; Estimated Glomerular Filt Rate > 60; Glucose 124 mg/dL (65-110); Potassium 3.3 mmol/L (3.4-5.0); Sodium 130 mmol/L (137-145)
[2024-02-04] MEDS: MEROPENEM 1 GM/NS 100 ML 1 GM/100 ML BAG IVPB ×2 (17:45→21:00)
[2024-02-04] MEDS: POTASSIUM CHLORIDE INJ 40 MEQ in SODIUM CHLORIDE 0.9% IV 500 ML 130 MEQ IVPB (18:18)
[2024-02-05] VITALS (8 sets, daily range): BP systolic 144–187; BP diastolic 77–101; PULSE 83–114; RESP 18–30; TEMP 36.6–37.2; O2SAT 30–96
[2024-02-05] MEDS: MEROPENEM 1 GM/NS 100 ML 1 GM/100 ML BAG IVPB (05:25)
[2024-02-05 05:40] LABS: Hematocrit 36.5 % (37.0-47.0); Hemoglobin 11.8 g/dL (12.0-15.0); Mean Corpuscular HGB Conc 32.3 g/dl (32-36); Mean Corpuscular Hemoglobin 29.4 pg (26-34); Mean Corpuscular Volume 90.8 fl (80-100); Mean Platelet Volume 10.1 fl (7.4-10.4); Platelet Count Result 289 k/mm3 (150-375); Red Blood Count 4.02 M/mm3 (4.2-5.4); Red Cell Distribution Width 15.3 % (11.5-14.5); White Blood Count 9.7 K/mm3 (4.5-10.0)
[2024-02-05 06:18] LABS: Alanine Aminotransferase 142 U/L (6-35); Albumin Level 3.4 g/dL (3.5-5.1); Alkaline Phosphatase 273 U/L (38-126); Anion Gap 10 mmol/L (4-12); Aspartate Amino Transferase 73 U/L (14-36); Bilirubin,Total 1.4 mg/dL (0.2-1.3); Blood Urea Nitrogen 7 mg/dL (7-17); Calcium 9.3 mg/dL (8.4-10.2); Carbon Dioxide 23 mmol/L (22-30); Chloride 99 mmol/L (98-107); Estimated CRCL calculation 77 ml/min; Estimated Glomerular Filt Rate > 60; Glucose 118 mg/dL (65-110); Potassium 3.8 mmol/L (3.4-5.0); Sodium 132 mmol/L (137-145)
[2024-02-05] MEDS: ASCORBIC ACID 500 MG TABLET PO (08:13)
[2024-02-05] MEDS: QUEtiapine FUMARATE 25 MG TABLET PO ×3 (08:13→18:16)
[2024-02-05] MEDS: APIXABAN 5 MG TABLET PO ×2 (08:13→21:05)
[2024-02-05] MEDS: THIAMINE HCL 100 MG TABLET PO (08:13)
[2024-02-05] MEDS: busPIRone HCL 10 MG TABLET PO ×2 (08:13→18:16)
[2024-02-05] MEDS: METOPROLOL TARTRATE 50 MG TAB PO ×2 (08:13→21:05)
[2024-02-05] MEDS: LIDOCAINE HCL 1% LOCAL INJ 2 ML AMPUL 5 ML INFILTRATE (13:30)
--- NOTE | 2024-02-05 14:41 | P.PNIM_ITS ---
Progress Note: A&P Assessment and Plan (1) Altered mental status: Qualifiers: Altered mental status type: unspecified Qualified Code(s): R41.82 - Altered mental status, unspecified Code(s): R41.82 - Altered mental status, unspecified Status: Acute Assessment and Plan: * She was afebrile on arrival and has stable vital signs. * Brain CT showed chronic findings only in her exam is nonfocal making stroke unlikely. * WBC count is elevated 11.4 and her transaminases are all elevated. * CT scan of the abdomen and pelvis did not show any acute findings however. * Her urine is always abnormal due to indwelling Aiken catheter and she was in the hospital last month with C diff enterocolitis after being on 4 separate antibiotics thus will hold on initiating antibiotics for now. * Urine culture with providencia stuartii and Proteus mirabilis will sensitive to Rocephin. * blood culture no growth to date * CRP 20.2 -> 16.0 * Procalcitonin WNL (2) Transaminitis: Code(s): R74.01 - Elevation of levels of liver transaminase levels Status: Acute Assessment and Plan: * 02/01 T bili 1.9, AST /ALT 139/ 245 and alk-phos of 204 * 02/02 T bili 1.6, AST /ALT 279/ 237 and alk-phos of 250 * 02/03 T bili 1.2, AST /ALT 106/162 and alk-phos of 267 * 02/04 T bili 1.4, AST/ ALT 73/142 and alk-phos of 273 * Hepatitis panel negative * Ammonia less than 9 * CRP elevated to 20.2 -> 16.0 * Hold atorvastatin, divalproex, Nuedexta, and duloxetine for now. * Continue to trend. (3) Abnormal urinalysis: Code(s): R82.90 - Unspecified abnormal findings in urine Status: Inactive Assessment and Plan: urine with 2+ blood, positive nitrates, 1+ bilirubin, 4 urine urobilinogen, 51- 100 rbc's and 21-50 wbc's with 1+ bacteria * Urine is always abnormal due to indwelling Aiken catheter and she was in the hospital last month with C diff enterocolitis after being on 4 separate antibiotics thus will hold on initiating antibiotics for now. * Urine culture with providencia stuartii and Proteus mirabilis will sensitive to Rocephin. * MidLine placed and will discharge patient tomorrow on Rocephin (4) Dementia: Qualifiers: Dementia type: vascular dementia Dementia behavioral disturbance: with behavioral disturbance Qualified Code(s): F01.51 - Vascular dementia with behavioral disturbance Code(s): F03.90 - Unspecified dementia, unspecified severity, without behavioral disturbance, psychotic disturbance, mood disturbance, and anxiety Status: Acute Assessment and Plan: * Continue home medications. * Baseline of A&O x2 (5) Atrial fibrillation: Code(s): I48.91 - Unspecified atrial fibrillation Status: Acute Assessment and Plan: She is in chronic atrial fibrillation and is rate controlled. Subjective Date/time seen: 02/05/24 14:41 Interval history: patient is stable. Midline placed today. Will discharge tomorrow on Rocephin. Exam Narrative: GENERAL: Comfortable, no acute distress EYES: EOM intact b/l NECK: no lymphadenopathy RESPIRATORY: clear to auscultation, no increased respiratory effort CARDIO: Regular rate, irregular rhythm GI: soft, nontender, bowel sounds present SKIN/EXTREMITIES: no rashes, no edema, no redness or tenderness NEURO: PROM intact, Was unable to answer questions appropriately Objective Data Vital Signs Vital Signs:
--- NOTE | 2024-02-05 14:41 | PM.IMPN ---
Progress Note: A&P Assessment and Plan (1) Altered mental status: Qualifiers: Altered mental status type: unspecified Qualified Code(s): R41.82 - Altered mental status, unspecified Code(s): R41.82 - Altered mental status, unspecified Status: Acute Assessment and Plan: She was afebrile on arrival and has stable vital signs. Brain CT showed chronic findings only in her exam is nonfocal making stroke unlikely. WBC count is elevated 11.4 and her transaminases are all elevated. CT scan of the abdomen and pelvis did not show any acute findings however. Her urine is always abnormal due to indwelling Aiken catheter and she was in the hospital last month with C diff enterocolitis after being on 4 separate antibiotics thus will hold on initiating antibiotics for now. Urine culture with providencia stuartii and Proteus mirabilis will sensitive to Rocephin. blood culture no growth to date CRP 20.2 -> 16.0 Procalcitonin WNL (2) Transaminitis: Code(s): R74.01 - Elevation of levels of liver transaminase levels Status: Acute Assessment and Plan: 02/01 T bili 1.9, AST /ALT 139/ 245 and alk-phos of 204 02/02 T bili 1.6, AST /ALT 279/ 237 and alk-phos of 250 02/03 T bili 1.2, AST /ALT 106/162 and alk-phos of 267 02/04 T bili 1.4, AST/ ALT 73/142 and alk-phos of 273 Hepatitis panel negative Ammonia less than 9 CRP elevated to 20.2 -> 16.0 Hold atorvastatin, divalproex, Nuedexta, and duloxetine for now. Continue to trend. (3) Abnormal urinalysis: Code(s): R82.90 - Unspecified abnormal findings in urine Status: Inactive Assessment and Plan: urine with 2+ blood, positive nitrates, 1+ bilirubin, 4 urine urobilinogen, 51-100 rbc's and 21-50 wbc's with 1+ bacteria Urine is always abnormal due to indwelling Aiken catheter and she was in the hospital last month with C diff enterocolitis after being on 4 separate antibiotics thus will hold on initiating antibiotics for now. Urine culture with providencia stuartii and Proteus mirabilis will sensitive to Rocephin. MidLine placed and will discharge patient tomorrow on Rocephin (4) Dementia: Qualifiers: Dementia type: vascular dementia Dementia behavioral disturbance: with behavioral disturbance Qualified Code(s): F01.51 - Vascular dementia with behavioral disturbance Code(s): F03.90 - Unspecified dementia, unspecified severity, without behavioral disturbance, psychotic disturbance, mood disturbance, and anxiety Status: Acute Assessment and Plan: Continue home medications. Baseline of A&O x2 (5) Atrial fibrillation: Code(s): I48.91 - Unspecified atrial fibrillation Status: Acute Assessment and Plan: She is in chronic atrial fibrillation and is rate controlled. Subjective Date/time seen: 02/05/24 14:41 Interval history: patient is stable. Midline placed today. Will discharge tomorrow on Rocephin. Exam Narrative: GENERAL: Comfortable, no acute distress EYES: EOM intact b/l NECK: no lymphadenopathy RESPIRATORY: clear to auscultation, no increased respiratory effort CARDIO: Regular rate, irregular rhythm GI: soft, nontender, bowel sounds present SKIN/EXTREMITIES: no rashes, no edema, no redness or tenderness NEURO: PROM intact, Was unable to answer questions appropriately Objective Data Vital Signs Vital Signs: Vital Signs - 24 hr 02/04/24 19:29 02/04/24 20:56 02/04/24 21:00 Temperature 98.7 F Pulse Rate 104 H 72 Respiratory Rate 20 Blood Pressure 153/89 H Pulse Oximetry 94 98 Oxygen Delivery Nasal Cannula Oxygen Flow Rate 2 Fraction of Inspired Oxygen 02/05/24 05:44 02/05/24 07:59 02/05/24 08:13 Temperature 97.8 F Pulse Rate 114 H 83 Respiratory Rate 22 H Blood Pressure 187/99 H Pulse Oximetry 93 92 Oxygen Delivery Nasal Cannula Oxygen Flow Rate 1 Fraction of In
[2024-02-05] MEDS: DIVALPROEX SODIUM SPRINKLE 125 MG CAP.DR 250 MG PO (18:16)
[2024-02-05] MEDS: SALINE LOCK FLUSH 10 ML IV PUSH (21:05)
[2024-02-06] VITALS (12 sets, daily range): BP systolic 100–161; BP diastolic 58–80; PULSE 100–147; RESP 16–22; TEMP 36.6–36.9; O2SAT 91–100
[2024-02-06] MEDS: SALINE LOCK FLUSH 10 ML IV PUSH ×3 (05:29→22:56)
[2024-02-06 05:57] LABS: Hematocrit 35.9 % (37.0-47.0); Hemoglobin 11.2 g/dL (12.0-15.0); Mean Corpuscular HGB Conc 31.2 g/dl (32-36); Mean Corpuscular Hemoglobin 29.2 pg (26-34); Mean Corpuscular Volume 93.7 fl (80-100); Mean Platelet Volume 10.1 fl (7.4-10.4); Platelet Count Result 277 k/mm3 (150-375); Red Blood Count 3.83 M/mm3 (4.2-5.4); Red Cell Distribution Width 15.7 % (11.5-14.5); White Blood Count 10.6 K/mm3 (4.5-10.0)
[2024-02-06 06:14] LABS: Anion Gap 7 mmol/L (4-12); Blood Urea Nitrogen 8 mg/dL (7-17); Calcium 8.8 mg/dL (8.4-10.2); Carbon Dioxide 24 mmol/L (22-30); Chloride 100 mmol/L (98-107); Estimated CRCL calculation 89 ml/min; Estimated Glomerular Filt Rate > 60; Glucose 117 mg/dL (65-110); Potassium 3.5 mmol/L (3.4-5.0); Sodium 131 mmol/L (137-145)
[2024-02-06] MEDS: ASCORBIC ACID 500 MG TABLET PO (09:04)
[2024-02-06] MEDS: QUEtiapine FUMARATE 25 MG TABLET PO ×2 (09:04→14:16)
[2024-02-06] MEDS: DULoxetine HCL 60 MG CAPSULE.DR PO (09:05)
[2024-02-06] MEDS: APIXABAN 5 MG TABLET PO ×2 (09:05→22:47)
[2024-02-06] MEDS: METOPROLOL TARTRATE 50 MG TAB PO ×2 (09:05→22:47)
[2024-02-06] MEDS: busPIRone HCL 10 MG TABLET PO (09:05)
[2024-02-06] MEDS: DIVALPROEX SODIUM SPRINKLE 125 MG CAP.DR 250 MG PO (09:06)
[2024-02-06] MEDS: THIAMINE HCL 100 MG TABLET PO (09:06)
[2024-02-06] MEDS: amLODIPine BESYLATE 5 MG TABLET PO (09:06)
--- NOTE | 2024-02-06 15:46 | P.PNIM_ITS ---
Progress Note: A&P Assessment and Plan (1) Altered mental status: Qualifiers: Altered mental status type: unspecified Qualified Code(s): R41.82 - Altered mental status, unspecified Code(s): R41.82 - Altered mental status, unspecified Status: Acute Assessment and Plan: * She was afebrile on arrival and has stable vital signs. * Brain CT showed chronic findings only in her exam is nonfocal making stroke unlikely. * WBC count is elevated 11.4 and her transaminases are all elevated. * CT scan of the abdomen and pelvis did not show any acute findings however. * Her urine is always abnormal due to indwelling Aiken catheter and she was in the hospital last month with C diff enterocolitis after being on 4 separate antibiotics thus will hold on initiating antibiotics for now. * Urine culture with providencia stuartii and Proteus mirabilis will sensitive to Rocephin. * blood culture no growth to date * CRP 20.2 -> 16.0 * Procalcitonin WNL (2) Transaminitis: Code(s): R74.01 - Elevation of levels of liver transaminase levels Status: Acute Assessment and Plan: * 02/01 T bili 1.9, AST /ALT 139/ 245 and alk-phos of 204 * 02/02 T bili 1.6, AST /ALT 279/ 237 and alk-phos of 250 * 02/03 T bili 1.2, AST /ALT 106/162 and alk-phos of 267 * 02/04 T bili 1.4, AST/ ALT 73/142 and alk-phos of 273 * Hepatitis panel negative * Ammonia less than 9 * CRP elevated to 20.2 -> 16.0 * Hold atorvastatin, divalproex, Nuedexta, and duloxetine for now. * Continue to trend. (3) Abnormal urinalysis: Code(s): R82.90 - Unspecified abnormal findings in urine Status: Inactive Assessment and Plan: urine with 2+ blood, positive nitrates, 1+ bilirubin, 4 urine urobilinogen, 51- 100 rbc's and 21-50 wbc's with 1+ bacteria * Urine is always abnormal due to indwelling Aiken catheter and she was in the hospital last month with C diff enterocolitis after being on 4 separate antibiotics thus will hold on initiating antibiotics for now. * Urine culture with providencia stuartii and Proteus mirabilis will sensitive to Rocephin. * MidLine placed and will discharge patient tomorrow on Rocephin (4) Dementia: Qualifiers: Dementia type: vascular dementia Dementia behavioral disturbance: with behavioral disturbance Qualified Code(s): F01.51 - Vascular dementia with behavioral disturbance Code(s): F03.90 - Unspecified dementia, unspecified severity, without behavioral disturbance, psychotic disturbance, mood disturbance, and anxiety Status: Acute Assessment and Plan: * Continue home medications. * Baseline of A&O x2 (5) Atrial fibrillation: Code(s): I48.91 - Unspecified atrial fibrillation Status: Acute Assessment and Plan: She is in chronic atrial fibrillation. 02/05 Patient went AFib RVR which acted with 1 dose of IV metoprolol. Subjective Date/time seen: 02/06/24 15:46 Interval history: patient still unable to answer questions appropriately. She did have some swelling and tenderness in her right arm. There was no redness or warmth to the skin. She is on anticoagulation so likelihood of clot is low. Patient did receive quite a bit of fluids when she was admitted and her IV went bad likely causing the swelling and tenderness in her arm. Later in the day she did go into AFib RVR which corrected with 1 dose of IV metoprolol. Exam Narrative: GENERAL: Comfortable, no acute distress EYES: EOM i
--- NOTE | 2024-02-06 15:46 | PM.IMPN ---
Progress Note: A&P Assessment and Plan (1) Altered mental status: Qualifiers: Altered mental status type: unspecified Qualified Code(s): R41.82 - Altered mental status, unspecified Code(s): R41.82 - Altered mental status, unspecified Status: Acute Assessment and Plan: She was afebrile on arrival and has stable vital signs. Brain CT showed chronic findings only in her exam is nonfocal making stroke unlikely. WBC count is elevated 11.4 and her transaminases are all elevated. CT scan of the abdomen and pelvis did not show any acute findings however. Her urine is always abnormal due to indwelling Aiken catheter and she was in the hospital last month with C diff enterocolitis after being on 4 separate antibiotics thus will hold on initiating antibiotics for now. Urine culture with providencia stuartii and Proteus mirabilis will sensitive to Rocephin. blood culture no growth to date CRP 20.2 -> 16.0 Procalcitonin WNL (2) Transaminitis: Code(s): R74.01 - Elevation of levels of liver transaminase levels Status: Acute Assessment and Plan: 02/01 T bili 1.9, AST /ALT 139/ 245 and alk-phos of 204 02/02 T bili 1.6, AST /ALT 279/ 237 and alk-phos of 250 02/03 T bili 1.2, AST /ALT 106/162 and alk-phos of 267 02/04 T bili 1.4, AST/ ALT 73/142 and alk-phos of 273 Hepatitis panel negative Ammonia less than 9 CRP elevated to 20.2 -> 16.0 Hold atorvastatin, divalproex, Nuedexta, and duloxetine for now. Continue to trend. (3) Abnormal urinalysis: Code(s): R82.90 - Unspecified abnormal findings in urine Status: Inactive Assessment and Plan: urine with 2+ blood, positive nitrates, 1+ bilirubin, 4 urine urobilinogen, 51-100 rbc's and 21-50 wbc's with 1+ bacteria Urine is always abnormal due to indwelling Aiken catheter and she was in the hospital last month with C diff enterocolitis after being on 4 separate antibiotics thus will hold on initiating antibiotics for now. Urine culture with providencia stuartii and Proteus mirabilis will sensitive to Rocephin. MidLine placed and will discharge patient tomorrow on Rocephin (4) Dementia: Qualifiers: Dementia type: vascular dementia Dementia behavioral disturbance: with behavioral disturbance Qualified Code(s): F01.51 - Vascular dementia with behavioral disturbance Code(s): F03.90 - Unspecified dementia, unspecified severity, without behavioral disturbance, psychotic disturbance, mood disturbance, and anxiety Status: Acute Assessment and Plan: Continue home medications. Baseline of A&O x2 (5) Atrial fibrillation: Code(s): I48.91 - Unspecified atrial fibrillation Status: Acute Assessment and Plan: She is in chronic atrial fibrillation. 02/05 Patient went AFib RVR which acted with 1 dose of IV metoprolol. Subjective Date/time seen: 02/06/24 15:46 Interval history: patient still unable to answer questions appropriately. She did have some swelling and tenderness in her right arm. There was no redness or warmth to the skin. She is on anticoagulation so likelihood of clot is low. Patient did receive quite a bit of fluids when she was admitted and her IV went bad likely causing the swelling and tenderness in her arm. Later in the day she did go into AFib RVR which corrected with 1 dose of IV metoprolol. Exam Narrative: GENERAL: Comfortable, no acute distress EYES: EOM intact b/l NECK: no lymphadenopathy RESPIRATORY: clear to auscultation, no increased respiratory effort CARDIO: Regular rate, irregular rhythm GI: soft, nontender, bowel sounds present SKIN/EXTREMITIES: Rright arm swelling and tender. Appears to be from IV line. NEURO: PROM intact, Was unable to answer questions appropriately Objective Data Vital Signs Vital Signs: Vital Signs - 24 hr 02/05/24 19:18 02/05/24 21:05 02/05/24 20:15 Temperature
--- NOTE | 2024-02-06 17:54 | ECG_ITS ---
Measurements Intervals [place] Rate: 123 P: LA: 0 QRS: 12 QRSD: 81 T: 120 QT: 305 QTc: 437 Interpretive Statements ATRIAL FIBRILLATION WITH RAPID VENTRICULAR RESPONSE NONSPECIFIC ST & T-WAVE ABNORMALITY- HIGH LATERAL LEADS BASELINE ARTIFACT- I, III, AVR, AVL ABNORMAL ECG COMPARED TO ECG 02/02/2024 11:27:51 HEART RATE HAS INCREASED Electronically Signed On 02-06-2024 21:04:56 CDT by Jerry Falk D.O.
[2024-02-06] MEDS: METOPROLOL TARTRATE INJ 5 MG/5 ML VIAL IV PUSH (18:37)
[2024-02-07] VITALS (14 sets, daily range): BP systolic 121–157; BP diastolic 63–100; PULSE 86–124; RESP 16–20; TEMP 36.2–36.6; O2SAT 90–94
[2024-02-07] MEDS: METOPROLOL TARTRATE INJ 5 MG/5 ML VIAL IV PUSH ×2 (03:08→23:41)
[2024-02-07] MEDS: SALINE LOCK FLUSH 10 ML IV PUSH ×3 (06:19→22:54)
[2024-02-07 08:21] LABS: Anion Gap 4 mmol/L (4-12); Blood Urea Nitrogen 13 mg/dL (7-17); Calcium 8.9 mg/dL (8.4-10.2); Carbon Dioxide 28 mmol/L (22-30); Chloride 100 mmol/L (98-107); Estimated CRCL calculation 88 ml/min; Estimated Glomerular Filt Rate > 60; Glucose 104 mg/dL (65-110); Potassium 3.6 mmol/L (3.4-5.0); Sodium 132 mmol/L (137-145)
[2024-02-07 08:27] LABS: Hematocrit 34.3 % (37.0-47.0); Hemoglobin 10.6 g/dL (12.0-15.0); Mean Corpuscular HGB Conc 30.9 g/dl (32-36); Mean Corpuscular Volume 97.2 fl (80-100); Mean Platelet Volume 10.3 fl (7.4-10.4); Platelet Count Result 250 k/mm3 (150-375); Red Blood Count 3.53 M/mm3 (4.2-5.4); Red Cell Distribution Width 16.2 % (11.5-14.5); White Blood Count 9.3 K/mm3 (4.5-10.0)
[2024-02-07] MEDS: THIAMINE HCL 100 MG TABLET PO (09:32)
[2024-02-07] MEDS: DULoxetine HCL 60 MG CAPSULE.DR PO (09:32)
[2024-02-07] MEDS: ASCORBIC ACID 500 MG TABLET PO (09:32)
[2024-02-07] MEDS: APIXABAN 5 MG TABLET PO (09:33)
[2024-02-07] MEDS: METOPROLOL TARTRATE 50 MG TAB PO (09:33)
[2024-02-07] MEDS: QUEtiapine FUMARATE 25 MG TABLET PO ×2 (09:33→14:55)
[2024-02-07] MEDS: DIVALPROEX SODIUM SPRINKLE 125 MG CAP.DR 250 MG PO (09:33)
[2024-02-07] MEDS: amLODIPine BESYLATE 5 MG TABLET PO (09:33)
[2024-02-07] MEDS: busPIRone HCL 10 MG TABLET PO (09:35)
--- NOTE | 2024-02-07 10:36 | PM.DS ---
DS: Admitting Diagnosis Discharge Date 02/07/24 Admitting Diagnosis Altered mental status DS: Discharge Diagnosis Discharge Diagnosis (1) Altered mental status: Qualifiers: Altered mental status type: unspecified Qualified Code(s): R41.82 - Altered mental status, unspecified Code(s): R41.82 - Altered mental status, unspecified Status: Acute (2) Transaminitis: Code(s): R74.01 - Elevation of levels of liver transaminase levels Status: Acute (3) Abnormal urinalysis: Code(s): R82.90 - Unspecified abnormal findings in urine Status: Inactive (4) Dementia: Qualifiers: Dementia behavioral disturbance: with behavioral disturbance Dementia type: vascular dementia Qualified Code(s): F01.51 - Vascular dementia with behavioral disturbance Code(s): F03.90 - Unspecified dementia, unspecified severity, without behavioral disturbance, psychotic disturbance, mood disturbance, and anxiety Status: Acute (5) Atrial fibrillation: Code(s): I48.91 - Unspecified atrial fibrillation Status: Acute DS: Summary Hospital Course Hospital Course: This is a 78-year-old female with a past medical history stroke, dementia, neurogenic bladder with suprapubic catheter, hypertension, AFib, CPAP diastolic congestive heart failure, recent seated and other comorbidities that presented to ED due to altered mental status. Apparently patient's baseline is alert oriented x2 although she has very hard of hearing and overall untrusting, thus it is difficult to assess mental status. Her urine did appear abnormal although due to the suprapubic catheter being in place that is not uncommon. Due to her recent extensive C diff antibiotics were held off. Her urine came back positive originally with g bacilli and she was started on meropenem. Her urine ended up growing?providencia stuartii and Proteus mirabilis will sensitive to Rocephin. Patient was transition to Rocephin from meropenem. Midline was placed at the hospital. She will return to nursing facility to complete antibiotic therapy of Rocephin. Her labs and vital signs are stable and she is medically clear for discharge at this time. Time Spent with Patient Time attestation: Total time spent providing and/or coordinating discharge services: Exam Narrative: GENERAL: Comfortable, no acute distress EYES: EOM intact b/l NECK: no lymphadenopathy RESPIRATORY: clear to auscultation, no increased respiratory effort CARDIO: Regular rate, irregular rhythm GI: soft, nontender, bowel sounds present SKIN/EXTREMITIES: no rashes, no edema, no redness or tenderness NEURO: PROM intact, Was unable to answer questions appropriately DS: Data Data Completed and Pending Labs on day of discharge: Labs from last 24 hours 02/06/24 05:35 WBC 10.6 H RBC 3.83 L Hgb 11.2 L Hct 35.9 L MCV 93.7 MCH 29.2 MCHC 31.2 L RDW 15.7 H Plt Count 277 MPV 10.1 Sodium 131 L Potassium 3.5 Chloride 100 Carbon Dioxide 24 Anion Gap 7 L BUN 8 Creatinine 0.50 L Estim Creat Clear Calc 89 Estimated GFR > 60 Glucose 117 H Calcium 8.8 Preliminary micro results at discharge 02/02/24 19:39 Blood Culture - Preliminary Blood 02/02/24 19:39 Blood Culture - Preliminary Blood Discharge Plan Discharge Attending physician on discharge: Cain Hwang Discharging Clinician: Angela Gabriel Patient Disposition: NH Skilled Nursing/Asst Living Activity: as tolerated Diet: regular Discharge Instructions: Medications: Rocephin daily. Next dose tomorrow morning. Antibiotic course through 02/11/24. Can remove midline after antibiotics have been completed. Discharge disposition: Take medications as prescribed Monitor blood pressures Avoid social areas, you wear a mask when in social settings Encouraged to continue with yearly vaccinations Return to the emergency department if he developed sudden short
[2024-02-07] MEDS: FUROSEMIDE INJ 40 MG/4 ML VIAL IV PUSH (12:18)
[2024-02-07 15:31] LABS: SARS-CoV-2 RNA PCR Negative (Negative)
[2024-02-08] VITALS (8 sets, daily range): BP systolic 124–137; BP diastolic 74–75; PULSE 84–112; RESP 16; TEMP 36.1–36.9; O2SAT 91–97
[2024-02-08] MEDS: SALINE LOCK FLUSH 10 ML IV PUSH (06:45)
[2024-02-08] MEDS: METOPROLOL TARTRATE 50 MG TAB PO (10:45)
[2024-02-08] MEDS: APIXABAN 5 MG TABLET PO (10:45)
[2024-02-08] MEDS: amLODIPine BESYLATE 5 MG TABLET PO (10:45)
[2024-02-08] MEDS: ASCORBIC ACID 500 MG TABLET PO (10:45)
[2024-02-08] MEDS: THIAMINE HCL 100 MG TABLET PO (10:45)
[2024-02-08] MEDS: busPIRone HCL 10 MG TABLET PO (10:45)
[2024-02-08] MEDS: QUEtiapine FUMARATE 25 MG TABLET PO (10:45)
[2024-02-08] MEDS: DIVALPROEX SODIUM SPRINKLE 125 MG CAP.DR 250 MG PO (10:46)
[2024-02-08] MEDS: DULoxetine HCL 60 MG CAPSULE.DR PO (10:46)
--- NOTE | 2024-02-08 12:22 | PM.DS ---
DS: Admitting Diagnosis Discharge Date 02/08/24 Admitting Diagnosis Altered mental status DS: Discharge Diagnosis Discharge Diagnosis (1) Altered mental status: Qualifiers: Altered mental status type: unspecified Qualified Code(s): R41.82 - Altered mental status, unspecified Code(s): R41.82 - Altered mental status, unspecified Status: Acute (2) Transaminitis: Code(s): R74.01 - Elevation of levels of liver transaminase levels Status: Acute (3) Abnormal urinalysis: Code(s): R82.90 - Unspecified abnormal findings in urine Status: Inactive (4) Dementia: Qualifiers: Dementia type: vascular dementia Dementia behavioral disturbance: with behavioral disturbance Qualified Code(s): F01.51 - Vascular dementia with behavioral disturbance Code(s): F03.90 - Unspecified dementia, unspecified severity, without behavioral disturbance, psychotic disturbance, mood disturbance, and anxiety Status: Acute (5) Atrial fibrillation: Code(s): I48.91 - Unspecified atrial fibrillation Status: Acute DS: Summary Hospital Course Hospital Course: This is a 78-year-old female with a past medical history stroke, dementia, neurogenic bladder with suprapubic catheter, hypertension, AFib, CPAP diastolic congestive heart failure, recent seated and other comorbidities that presented to ED due to altered mental status.? Apparently patient's? baseline is alert oriented x2 although she has very hard of hearing and overall untrusting, thus it is difficult to assess mental status.? Her urine did appear abnormal although due to the suprapubic catheter being in place that is not uncommon.? Due to her recent extensive C diff antibiotics were held off. ? Her urine came back positive originally with g bacilli and she was started on meropenem. Her urine ended up growing?providencia stuartii and Proteus mirabilis will sensitive to Rocephin.? Patient was transition to Rocephin from meropenem.? Midline was placed at the hospital.? She will return to nursing facility to complete antibiotic therapy of Rocephin.? Her labs and vital signs are stable and she is medically clear for discharge at this time. Time Spent with Patient Time attestation: Total time spent providing and/or coordinating discharge services: Exam Narrative: GENERAL: Comfortable, no acute distress EYES: EOM intact b/l NECK: no lymphadenopathy RESPIRATORY: clear to auscultation, no increased respiratory effort CARDIO: Regular rate, irregular rhythm GI: soft, nontender, bowel sounds present SKIN/EXTREMITIES: Rright arm swelling and tender. Appears to be from IV line. - improved NEURO: PROM intact, Was unable to answer questions appropriately DS: Data Data Completed and Pending Labs on day of discharge: Labs from last 24 hours 02/07/24 14:22 SARS-CoV-2 RNA (RT-PCR) Negative Discharge Plan Discharge Attending physician on discharge: Cain Hwang Discharging Clinician: Angela Gabriel Patient Disposition: SNF Activity: as tolerated Diet: regular Discharge Instructions: Medications: Rocephin daily. Next dose tomorrow morning. Antibiotic course through 02/11/24. Can remove midline after antibiotics have been completed. Discharge disposition: Take medications as prescribed Monitor blood pressures Avoid social areas, you wear a mask when in social settings Encouraged to continue with yearly vaccinations Return to the emergency department if he developed sudden shortness of breath, chest pain, nausea, vomiting, upset stomach or intractable diarrhea Return to the emergency department if you develop fever greater than 100.4 Follow-up with the primary care physician within 1-2 weeks Thank you for [facility] for your healthcare needs Patient Instructions: Antibiotic Form, Heart Failure (GEN), Blood Thinners (GEN) Stand Alone Forms: General Discharge Information Follow
--- NOTE | 2024-02-08 12:27 | PCSTNOTE ---
Please refer to the Bedside Swallow Evaluation in the EMR. Please note, silent aspiration cannot be ruled out at bedside.
== END 2024-02-08 15:24 | DRG 699 ==
LOC: ANHED 15:20 → ANH2MED 17:23 → ANH3MEDSUR 02-10 15:12
PROVIDERS: Internal Medicine Critical Care Medicine; Physician Assistant; Admitting Provider Family Medicine; Emergency Provider Family Medicine; PCP Family Medicine; Visit Provider Hospitalist
DX: T83.518A Infection and inflammatory reaction due to other urinary catheter, initial encounter (principal); F01.518 Vascular dementia, unspecified severity, with other behavioral disturbance; N39.0 Urinary tract infection, site not specified; I50.32 Chronic diastolic (congestive) heart failure; I48.19 Other persistent atrial fibrillation; R41.82 Altered mental status, unspecified; B96.4 Proteus (mirabilis) (morganii) as the cause of diseases classified elsewhere; B96.89 Other specified bacterial agents as the cause of diseases classified elsewhere; T17.908A Unspecified foreign body in respiratory tract, part unspecified causing other injury, initial encounter; F03.90 Unspecified dementia, unspecified severity, without behavioral disturbance, psychotic disturbance, mood disturbance, and anxiety; G47.33 Obstructive sleep apnea (adult) (pediatric); I11.0 Hypertensive heart disease with heart failure; I48.91 Unspecified atrial fibrillation; J44.9 Chronic obstructive pulmonary disease, unspecified; K21.9 Gastro-esophageal reflux disease without esophagitis; N31.9 Neuromuscular dysfunction of bladder, unspecified; R74.01 Elevation of levels of liver transaminase levels; Z20.822 Contact with and (suspected) exposure to COVID-19; Z87.891 Personal history of nicotine dependence; Z86.73 Personal history of transient ischemic attack (TIA), and cerebral infarction without residual deficits; Z88.0 Allergy status to penicillin; Z99.89 Dependence on other enabling machines and devices; E11.42 Type 2 diabetes mellitus with diabetic polyneuropathy; Z86.16 Personal history of COVID-19; Z90.49 Acquired absence of other specified parts of digestive tract
CPT/HCPCS: 36415; 36569; 70450; 73030; 73090; 74177; 80048; 80053; 80074; 80164; 81001; 82140; 82550; 83605; 83735; 84145; 85025; 85027; 85610; 85730; 86140; 87040; 87077; 87086; 87088; 87186; 87635; 87637; 92610; 93005; 93306; 93971; 96360; 96361; 99285; A9270; J0696; J1940; J2185; J3480; J7030; J7040; Q9967

== ENCOUNTER 2024-02-27 11:31 | Emergency (ER) | payer MEDICARE, MEDICAID, SELFPAY ==
[2024-02-27] VITALS (7 sets, daily range): BP systolic 116–139; BP diastolic 89–105; PULSE 79–116; RESP 17–21; TEMP 36.4–36.6; O2SAT 93–99
--- NOTE | ~2024-02-27 | XR_ITS ---
XR hand RT min 3V 02/27/2024 12:47 Indication: Right hand pain and swelling Procedure: 3 views right hand Comparison: 07/13/2019 Findings: Moderate polyarticular osteoarthritis. There is a fracture distal aspect of the third proxi mal phalanx with possible intra-articular extension. Mild dorsal soft tissue swelling.. No foreign walt dies. Impression: 1: Mildly displaced fracture distal aspect of the third distal phalanx with possible intra-articular extension.. Reviewed, dictated and finalized at location A. Impression: 1: Mildly displaced fracture distal aspect of the third distal phalanx with pos sible intra-articular extension..
--- NOTE | 2024-02-27 11:33 | ECG_ITS ---
SEE SCANNED COPY FOR CONFIRMED REPORT MTDD
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
[2024-02-27 12:46] LABS: Basophils Percent Auto 0.4 % (0.2-1.2); Eosinophils Percent Auto 0.4 % (0-4.4); Hematocrit 35.6 % (37.0-47.0); Hemoglobin 11.2 g/dL (12.0-15.0); Immature Granulocyte Absolute 0.02 K/mm3 (0.00-0.031); Immature Granulocyte Percent A 0.3 % (0-0.5); Lymphocytes Absolute Auto 1.37 K/mm3 (0.9-3.2); Lymphocytes Percent Auto 19.2 % (18.3-44.2); Mean Corpuscular HGB Conc 31.5 g/dl (32-36); Mean Corpuscular Hemoglobin 29.3 pg (26-34); Mean Corpuscular Volume 93.2 fl (80-100); Mean Platelet Volume 9.7 fl (7.4-10.4); Monocytes Absolute Auto 0.8 K/mm3 (0.1-0.6); Monocytes Percent Auto 10.5 % (2.6-8.5); Neutrophils Absolute Auto 4.9 K/mm3 (1.3-6.7); Neutrophils Percent Auto 69.2 % (45.5-73.1); Platelet Count Result 304 k/mm3 (150-375); Red Blood Count 3.82 M/mm3 (4.2-5.4); White Blood Count 7.1 K/mm3 (4.5-10.0)
--- NOTE | 2024-02-27 12:47 | PC.NURSE ---
when pt arrived they had diarrhea on depends. while doing lit care noted pt has unstaged breakdown on coccyx. applied barrier cream and turned pt toward the right side to relieve pressure. provider notified
[2024-02-27 12:57] LABS: Alanine Aminotransferase 12 U/L (6-35); Albumin Level 3.3 g/dL (3.5-5.1); Alkaline Phosphatase 97 U/L (38-126); Anion Gap 3 mmol/L (4-12); Aspartate Amino Transferase 24 U/L (14-36); Bilirubin,Total 0.8 mg/dL (0.2-1.3); Blood Urea Nitrogen 21 mg/dL (7-17); Calcium 8.8 mg/dL (8.4-10.2); Carbon Dioxide 30 mmol/L (22-30); Chloride 100 mmol/L (98-107); Estimated CRCL calculation 68 ml/min; Estimated Glomerular Filt Rate > 60; Glucose 111 mg/dL (65-110); Potassium 4.2 mmol/L (3.4-5.0); Sodium 133 mmol/L (137-145)
[2024-02-27 14:01] LABS: Bacteria Urine 3+ /hpf; Need Manual Microscopic Reviewed; RBC Urine >100 /hpf (0-2); Squamous Epithelial Cell Urine Few /hpf (Few); WBC Urine >100 /hpf (0-3)
[2024-02-27 14:06] LABS: Appearance Urine Turbid (Clear); Bilirubin Urine 1+ (Negative); Blood Urine 3+ (Negative); Glucose Urine UA Negative (Negative); Ketones Urine 1+ mg/dL (Negative); Leukocyte Esterase Ur 2+ LEU/UL (Negative); Nitrate Urine Negative (Negative); Protein Urine 3+ mg/dL (Negative); Specific Grav Ur 1.025 (1.001-1.035)
[2024-02-27 14:12] LABS: Color Urine Dark Yellow (Yellow)
[2024-02-27 14:13] LABS: Add Urine Microscopic? YES
--- NOTE | 2024-03-04 11:13 | PC.NURSE ---
LATE ENTRY This note is being entered to document information to the patient's record. The following information was omitted on [02/27/24], by [Gabbi Hurt RN]. Finger splint applied to Right hand, 3rd digit.
== END 2024-02-27 16:15 ==
PROVIDERS: Emergency Provider Emergency Medicine; PCP Family Medicine
DX: N39.0 Urinary tract infection, site not specified (principal); S62.632A Displaced fracture of distal phalanx of right middle finger, initial encounter for closed fracture; F01.518 Vascular dementia, unspecified severity, with other behavioral disturbance; I48.19 Other persistent atrial fibrillation; I70.1 Atherosclerosis of renal artery; I10 Essential (primary) hypertension; J44.9 Chronic obstructive pulmonary disease, unspecified; I27.21 Secondary pulmonary arterial hypertension; E78.5 Hyperlipidemia, unspecified; G44.229 Chronic tension-type headache, not intractable; G62.9 Polyneuropathy, unspecified; G47.33 Obstructive sleep apnea (adult) (pediatric); N32.81 Overactive bladder; K21.9 Gastro-esophageal reflux disease without esophagitis; M81.0 Age-related osteoporosis without current pathological fracture; Z87.11 Personal history of peptic ulcer disease; Z86.16 Personal history of COVID-19; Z87.01 Personal history of pneumonia (recurrent); Z86.73 Personal history of transient ischemic attack (TIA), and cerebral infarction without residual deficits; Z87.891 Personal history of nicotine dependence; Z90.49 Acquired absence of other specified parts of digestive tract; Z98.49 Cataract extraction status, unspecified eye; Z90.710 Acquired absence of both cervix and uterus; X58.XXXA Exposure to other specified factors, initial encounter
CPT/HCPCS: 29130; 36415; 51705; 73130; 80053; 81001; 85025; 87077; 87086; 87088; 87181; 93005; 99284